=== PATIENT | female | born 1970 | race Two or more races ===

== ENCOUNTER 2020-07-04 10:48 | Outpatient (REF) | payer MEDICARE, MEDICAID, SELFPAY ==
[2020-07-04 11:48] LABS: MANUAL DIFF FLAG NO
[2020-07-04 11:58] LABS: Basophils Percent Auto 0.4 % (0-2); Eosinophils Absolute Auto 0.1 X10*3/uL (0.0-0.4); Eosinophils Percent Auto 0.5 % (0-4); Hematocrit 39.9 % (37-47); Hemoglobin 12.8 g/dl (12.0-16.0); Imm Gran Abs Auto 0.04 X10*3/uL (0.00-0.03); Imm Gran Pct Auto 0.4 % (0.0-0.4); Lymphocytes Absolute Auto 1.7 X10*3/uL (1.2-4.9); Lymphocytes Percent Auto 18.6 % (20-40); Mean Corpuscular HGB Conc 32.1 g/dl (31.0-35.0); Mean Corpuscular Hemoglobin 28.1 pg (27.0-33.0); Mean Corpuscular Volume 87.5 fL (80-98); Mean Platelet Volume 10.6 fL (9.4-12.3); Monocytes Absolute Auto 0.5 X10*3/uL (0.1-1.2); Neutrophils Absolute Auto 6.9 X10*3/uL (2.0-8.3); Neutrophils Percent Auto 75.1 % (45-73); Platelet Count 245 X10*3/uL (160-400); Red Blood Count 4.56 X10*6/uL (4.20-5.50); Red Cell Distribution Width 12.3 % (11.0-16.0); White Blood Count 9.2 X10*3/uL (4.8-10.8)
[2020-07-04 12:00] LABS: Appearance Urine HAZY; Color Urine YELLOW; Glucose Urine UA NEG (NEG); Leukocyte Esterase Urine NEG (NEG); Nitrite Urine NEG (NEG); Urine Blood NEG (NEG); Urine Ketones NEG (NEG); Urine Protein 1+ MG/DL (NEG-TRACE)
[2020-07-04 12:15] LABS: Bacteria Urine 1+ /LPF; Mucus Urine TRACE /LPF; Squamous Epithelial Cell Urine 3+ /LPF; WBC Urine 0-2 /HPF (0-4)
[2020-07-04 12:34] LABS: Alanine Aminotransferase 17 U/L (0-31); Albumin Level 4.6 g/dL (3.5-5.0); Alkaline Phosphatase 78 U/L (39-117); Anion Gap 15 (12-20); Aspartate Amino Transferase 19 U/L (5-31); Bilirubin Total 0.3 mg/dL (0.0-1.0); Blood Urea Nitrogen 14 mg/dL (9-16); Calcium 9.5 mg/dL (8.4-10.2); Carbon Dioxide 28 mmol/L (22-29); Chloride 100 mmol/L (96-108); Cholesterol 171 mg/dL; Estimated Glomerular Filt Rate > 60; Glucose Random 151 mg/dL (60-115); HDL Cholesterol 33 mg/dL; LDL Cholesterol Calculated 74 mg/dl; Potassium 4.2 mmol/l (3.3-5.1); Sodium 139 mmol/L (135-145); Triglycerides 323 mg/dL
[2020-07-04 13:06] LABS: Folate > 20.0 ng/mL (> or = 4.0); Free T4 (Free Thyroxine) 0.92 ng/dL (0.71-1.85); Thyroid Stimulating Hormone 5.67 uIU/mL (0.32-4.0); Vitamin B12 1068 pg/mL (200-900); Vitamin D 25-OH Total 12.7 ng/mL (>30)
== END 2020-07-04 10:49 | disposition home or self-care (01) ==
LOC: HO.LAB 10:48
PROVIDERS: PCP Internal Medicine; Visit Provider Internal Medicine
DX: E53.8 Deficiency of other specified B group vitamins (principal); K59.01 Slow transit constipation; E03.9 Hypothyroidism, unspecified; E78.00 Pure hypercholesterolemia, unspecified
CPT/HCPCS: 36415; 80053; 80061; 81001; 82306; 82607; 82746; 84439; 84443; 85025

== ENCOUNTER 2020-08-29 13:33 | Outpatient (REF) | payer MEDICARE, MEDICAID, SELFPAY ==
--- NOTE | ~2020-08-29 | MM_ITS ---
EXAMINATION: MM SCREENING DIGITAL BREAST TOMOSYNTHESIS, BILATERAL CLINICAL INFORMATION: Screening. Asymptomatic. The lifetime risk of breast cancer based on the Tyrer-Cuzick Model is 8%. COMPARISON: Mammography: 12/01/2018, 11/27/2018, 11/14/2017, 11/11/2016, 11/10/2015 TECHNIQUE: Digital breast tomosynthesis is performed in both the craniocaudal and mediolateral oblique views along with computer-aided detection (CAD). Synthesized 2D images are generated from the tomosynthesis. FINDINGS: There are scattered areas of fibroglandular density (ACR BI-RADS breast composition Category b). There are no significant masses, abnormal calcifications, or other abnormalities. No developing density. No significant changes. MM/MM tomosynthesis screening BI IMPRESSION: No mammographic evidence of malignancy. ASSESSMENT: BI-RADS 1: Negative RECOMMENDATION: Routine annual mammography screening. This patient's information was entered into a reminder system with a target due date for their next mammogram.
== END 2020-08-29 13:34 | disposition home or self-care (01) ==
LOC: HO.MAMMO 13:33
PROVIDERS: PCP Internal Medicine; Visit Provider Internal Medicine
DX: Z12.31 Encounter for screening mammogram for malignant neoplasm of breast (principal)
CPT/HCPCS: 77063; 77067

== ENCOUNTER 2021-07-24 14:15 | Outpatient (REF) | payer MEDICARE, MEDICAID, SELFPAY ==
[2021-07-24 14:59] LABS: MANUAL DIFF FLAG NO
[2021-07-24 15:07] LABS: Basophils Percent Auto 0.3 % (0-2); Eosinophils Percent Auto 0.4 % (0-4); Hematocrit 40.8 % (37.0-47.0); Hemoglobin 13.4 g/dl (12.0-16.0); Imm Gran Abs Auto 0.06 X10*3/uL (0.00-0.03); Imm Gran Pct Auto 0.6 % (0.0-0.4); Lymphocytes Absolute Auto 1.3 X10*3/uL (1.2-4.9); Lymphocytes Percent Auto 11.9 % (20-40); Mean Corpuscular HGB Conc 32.8 g/dl (31.0-35.0); Mean Corpuscular Hemoglobin 28.5 pg (27.0-33.0); Mean Corpuscular Volume 86.8 fL (80.0-98.0); Mean Platelet Volume 10.5 fL (9.4-12.3); Monocytes Absolute Auto 0.6 X10*3/uL (0.1-1.2); Monocytes Percent Auto 5.7 % (2-11); Neutrophils Absolute Auto 8.7 x10*3/uL (2.0-8.3); Neutrophils Percent Auto 81.1 % (45-73); Platelet Count 230 X10*3/uL (160-400); Red Cell Distribution Width 11.9 % (11.0-16.0); White Blood Count 10.7 X10*3/uL (4.8-10.8)
[2021-07-24 15:18] LABS: Estimated Average Glucose 117 mg/dL; Hemoglobin A1c % 5.7 %
[2021-07-24 15:40] LABS: Alanine Aminotransferase 13 U/L (0-31); Albumin Level 4.5 g/dL (3.5-5.0); Alkaline Phosphatase 72 U/L (39-117); Anion Gap 11 (12-20); Aspartate Amino Transferase 18 U/L (5-31); Bilirubin Total 0.2 mg/dL (0.0-1.0); Blood Urea Nitrogen 12 mg/dL (9-16); Calcium 9.9 mg/dL (8.4-10.2); Carbon Dioxide 27 mmol/L (22-29); Chloride 104 mmol/L (96-108); Cholesterol 161 mg/dL; Estimated Glomerular Filt Rate > 60; Glucose Random 103 mg/dL (60-115); HDL Cholesterol 35 mg/dL; LDL Cholesterol Calculated 90 mg/dl; Sodium 138 mmol/L (135-145); Triglycerides 180 mg/dL
[2021-07-24 16:03] LABS: Thyroid Stimulating Hormone 1.48 uIU/mL (0.32-4.0); Vitamin D 25-OH Total 67.3 ng/mL (>30)
[2021-07-24 16:12] LABS: Folate > 20.0 ng/mL (> or = 4.0); Vitamin B12 1386 pg/mL (200-900)
== END 2021-07-24 14:16 | disposition home or self-care (01) ==
LOC: HO.LAB 14:15
PROVIDERS: PCP Internal Medicine; Visit Provider Internal Medicine
DX: R73.01 Impaired fasting glucose (principal); E78.00 Pure hypercholesterolemia, unspecified; E03.9 Hypothyroidism, unspecified
CPT/HCPCS: 36415; 80053; 80061; 82306; 82607; 82746; 83036; 84439; 84443; 85025

== ENCOUNTER 2021-07-28 09:55 | Outpatient (REF) | payer MEDICARE, MEDICAID, SELFPAY ==
[2021-07-28 11:09] LABS: Appearance Urine CLEAR; Color Urine STRAW; Glucose Urine UA NEG (NEG); Leukocyte Esterase Urine TRACE (NEG); Nitrite Urine NEG (NEG); Urine Blood NEG (NEG); Urine Ketones NEG (NEG); Urine Protein NEG (NEG-TRACE)
[2021-07-28 11:47] LABS: Bacteria Urine 1+ /LPF; RBC Urine 0-2 /HPF (0); Squamous Epithelial Cell Urine 1+ /LPF
== END 2021-07-28 09:56 | disposition home or self-care (01) ==
LOC: HO.LNP 09:55
PROVIDERS: Visit Provider Internal Medicine
DX: E03.9 Hypothyroidism, unspecified (principal)
CPT/HCPCS: 81001

== ENCOUNTER 2022-04-16 16:06 | Inpatient (IN) | payer MEDICARE, MEDICAID, SELFPAY ==
--- NOTE | ~2022-04-16 | XR_ITS ---
EXAMINATION: XR CHEST CLINICAL INFORMATION: Chest pain COMPARISON: Chest radiograph 06/26/2019. TECHNIQUE: Frontal view of the chest was obtained. FINDINGS: Clustered mediastinal vascular clips are again identified in projection with the aortopulmonary window region. The heart size is normal. No effusions or pneumothoraces identified. Normal pattern of pulmonary vasculature. No focal pulmonary consolidation. XR/XR chest 1V IMPRESSION: *No acute cardiopulmonary abnormalities.
--- NOTE | ~2022-04-16 | NM_ITS ---
EXAMINATION: PULMONARY PERFUSION STUDY CLINICAL INFORMATION: Chest pain COMPARISON: CT angiogram of the chest 04/17/2022. Chest x-ray 04/16/2022 TECHNIQUE: Following the intravenous injection of 4.0 mCi Tc-99m MAA, the lungs were imaged in the anterior and posterior, left and right lateral and TAIWANESE, ELIZABETH, LPO, and RPO projections using a gamma scintillation camera. FINDINGS: There is diffusely heterogeneous perfusion. Most notable on the posterior images, there is focally increased uptake in the apical right upper lobe. However no focal anatomic appearing perfusion defects are present. NM/NM pul perfusion IMPRESSION: Diffusely heterogeneous perfusion-only study. Although the pattern is not normal, there are no focal anatomic segmental perfusion defects to suggest pulmonary embolus is present.
--- NOTE | ~2022-04-16 | US_ITS ---
EXAMINATION: US VENOUS ULTRASOUND WITH DOPPLER LOWER EXTREMITY, BILATERAL CLINICAL INFORMATION: Leg swelling COMPARISON: None TECHNIQUE: Ultrasound of the deep veins is performed from the hip to the calf with compression sonography and color and pulse Doppler assessment. Spectral analysis with color-flow imaging is performed. FINDINGS: RIGHT: There is normal venous compression and respiratory variation and augmented flow. The visualized common femoral vein, superficial femoral vein, profunda femoral vein, popliteal vein, and the trifurcation region shows no evidence of deep venous thrombosis. There is no significant popliteal fossa cyst. No popliteal artery aneurysm LEFT: There is normal venous compression and respiratory variation and augmented flow. The visualized common femoral vein, superficial femoral vein, profunda femoral vein, popliteal vein, and the trifurcation region shows no evidence of deep venous thrombosis. There is no significant popliteal fossa cyst. No popliteal artery aneurysm If the patient's symptoms persist, followup ultrasound in 5 days 7 days might be of value to exclude proximal propagation from a non-visualized calf vein. US/US venous duplex LE BI IMPRESSION: No acute DVT demonstrated in the bilateral lower extremity.
--- NOTE | ~2022-04-16 | CT_ITS ---
EXAMINATION: CT ANGIOGRAM OF THE CHEST WITH AND WITHOUT CONTRAST (CT PULMONARY ANGIOGRAM FOR PE) CLINICAL INFORMATION: Reason for Exam short of breath, recent cp, r/o pulm embolism COMPARISON: None TECHNIQUE: Prior to contrast administration, noncontrast localization images were obtained. Subsequently, multidetector volumetric imaging was performed from the thoracic inlet to below the diaphragms following the administration of 65 mL Omnipaque 350 intravenous contrast. No contrast reaction reported Sagittal, coronal, and MIP oblique sagittal reformatted images were obtained on the CT workstation, uploaded to PACS, and reviewed. This CT examination was performed using dose optimization techniques as appropriate, variously including the following: *Automated exposure control *Adjustment of mA and/or kV according to patient size (this includes techniques or standardized protocols for targeted exams where dose is matched to indication/reason for exam; i.e. extremities or head) *Use of iterative reconstruction technique Total exam dose-length product 197 mGy-cm FINDINGS: QUALITY OF STUDY/CONTRAST BOLUS: Satisfactory. PULMONARY ARTERIES: No central or segmental pulmonary emboli. Slightly suboptimal assessment for smaller segmental emboli in the right lower lobe due to extensive respiratory motion artifact. Allowing for this, no embolus is seen however. THORACIC AORTA: No aneurysm or dissection. 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 LUNG: Slightly limited assessment due to extensive respiratory motion artifact. There is mild mosaic attenuation of both lungs consistent with mild air trapping. Small 4 mm right middle lobe nodule on series 8 image 250. No other pulmonary nodules. No airspace consolidation. Central airways are clear. PLEURA: No pleural effusion or pneumothorax. MEDIASTINUM: Normal heart size. Small pericardial effusion. No appreciable coronary artery vascular calcifications. No mediastinal or hilar lymphadenopathy. Multiple surgical clips are seen in the left mediastinum. No evidence of septal bowing or right heart strain. CHEST WALL/AXILLA: No axillary or internal mammary lymphadenopathy. OSSEOUS STRUCTURES: No acute or suspicious osseous abnormality. Partial fusion of the lateral left fourth and fifth ribs noted. UPPER ABDOMEN: Unremarkable. No reflux of contrast into the hepatic veins to suggest elevated right heart pressures. CT/CT angio chest PE protocol IMPRESSION: 1. No evidence of central or segmental pulmonary embolus. Slightly suboptimal assessment for smaller segmental emboli in the right lower lobe due to extensive respiratory motion artifact. 2. No airspace consolidation or effusions. Mild mosaic attenuation of the lungs likely due to mild air trapping. 3. Small pericardial effusion. 4. Small 4 mm right middle lobe pulmonary nodule. If the patient is high risk for primary pulmonary malignancy, consider optional chest CT follow-up in 12 months time per [employer] guidelines. If low risk, no further follow-up required. VTE: Negative with slight limitation as above
--- NOTE | 2022-04-16 16:09 | ECG_ITS ---
Test Reason : CHEST PAIN Blood Pressure : / mmHG Vent. Rate : 100 BPM Atrial Rate : 100 BPM P-R Int : 164 ms QRS Dur : 066 ms QT Int : 368 ms P-R-T Axes : 054 052 001 degrees QTc Int : 474 ms Normal sinus rhythm Nonspecific T wave abnormality RSR' or QR pattern in V1 suggests right ventricular conduction delay Abnormal ECG When compared with ECG of 21-FEB-2014 11:13, Nonspecific T wave abnormality now evident in Inferior leads QT has lengthened Referred By: Generic ED Physician Electronically Signed By:CHAZ BERG MD
[2022-04-16 16:12] VITALS: BP 185/102; PULSE 105; RESP 18; TEMP 37.5; O2SAT 94; BMI 35.2
[2022-04-16 17:24] LABS: MANUAL DIFF FLAG NO
[2022-04-16 17:27] LABS: Basophils Absolute Auto 0.1 X10*3/uL (0.0-0.2); Basophils Percent Auto 0.5 % (0-2); Eosinophils Percent Auto 0.2 % (0-4); Hematocrit 39.4 % (37.0-47.0); Hemoglobin 12.9 g/dl (12.0-16.0); Imm Gran Abs Auto 0.04 X10*3/uL (0.00-0.03); Imm Gran Pct Auto 0.4 % (0.0-0.4); Lymphocytes Absolute Auto 0.8 X10*3/uL (1.2-4.9); Lymphocytes Percent Auto 7.7 % (20-40); Mean Corpuscular HGB Conc 32.7 g/dl (31.0-35.0); Mean Corpuscular Hemoglobin 28.6 pg (27.0-33.0); Mean Corpuscular Volume 87.4 fL (80.0-98.0); Mean Platelet Volume 9.6 fL (9.4-12.3); Monocytes Absolute Auto 0.8 X10*3/uL (0.1-1.2); Monocytes Percent Auto 7.3 % (2-11); Neutrophils Absolute Auto 8.7 x10*3/uL (2.0-8.3); Neutrophils Percent Auto 83.9 % (45-73); Platelet Count 263 X10*3/uL (160-400); Red Blood Count 4.51 X10*6/uL (4.20-5.50); Red Cell Distribution Width 13.3 % (11.0-16.0); White Blood Count 10.3 X10*3/uL (4.8-10.8)
[2022-04-16 17:41] LABS: Alanine Aminotransferase 23 U/L (0-31); Albumin Level 5.1 g/dL (3.5-5.0); Alkaline Phosphatase 74 U/L (39-117); Anion Gap 18 (12-20); Aspartate Amino Transferase 42 U/L (5-31); Bilirubin Direct 0.2 mg/dL (0.0-0.5); Bilirubin Total 0.5 mg/dL (0.0-1.0); Blood Urea Nitrogen 10 mg/dL (9-16); Calcium 9.6 mg/dL (8.4-10.2); Carbon Dioxide 31 mmol/L (22-29); Chloride 95 mmol/L (96-108); Creatinine Clr Calc Pharmacy 58.1; Estimated Glomerular Filt Rate 54; Glucose Random 119 mg/dL (60-115); Lipase 17 U/L (8-78); Potassium 3.6 mmol/L (3.3-5.1); Sodium 140 mmol/L (135-145); Total Protein 8.4 g/dL (6.5-8.0)
[2022-04-16 17:49] LABS: Troponin-I High Sensitivity 51.9 ng/L (<3.5-17.0)
--- NOTE | 2022-04-16 19:37 | ECG_ITS ---
Test Reason : CHEST PAIN Blood Pressure : / mmHG Vent. Rate : 092 BPM Atrial Rate : 092 BPM P-R Int : 160 ms QRS Dur : 066 ms QT Int : 276 ms P-R-T Axes : 062 054 008 degrees QTc Int : 341 ms Normal sinus rhythm RSR' or QR pattern in V1 suggests right ventricular conduction delay Possible Left atrial enlargement Nonspecific T wave abnormality Abnormal ECG When compared with ECG of 16-APR-2022 16:46, QT has shortened Nonspecific T wave abnormality is now Present Lateral leads Referred By: Devonte Street Electronically Signed By:CHAZ BERG MD
--- NOTE | 2022-04-16 19:37 | ED.CHESTPAIN ---
HPI - Chest Pain General Chief Complaint: Chest Pain Stated Complaint: chest pains/heart issues Time Seen by Provider: 04/16/22 19:20 Source: patient Limitations: physical limitation History of Present Illness HPI narrative: This is a 51-year-old female with a history of hypothyroidism, hypertension, hypercholesterolemia, who can articulate yes or no with her voice but otherwise is not able to articulate words at baseline, therefore making history somewhat difficult. The patient had chest pain off and on last night but denies any chest pain today. She has felt short of breath but denies shortness of breath now. She denies any nausea or unusual sweats. She is not a smoker. Patient does have history of asthma. Per her mother, she did have surgery on her heart when she was 7 years old. Patient states she feels well now wants to go home Related Data Home Medications Medication Instructions Recorded Confirmed budesonide-formoterol HFA 160 2 puff inhalation BID 05/19/20 07/24/21 mcg-4.5 mcg/actuation aerosol inhaler (Symbicort) citalopram 40 mg tablet 40 mg PO DAILY 05/19/20 07/24/21 loratadine 10 mg tablet (Allergy 10 mg PO DAILY 05/19/20 07/24/21 Relief (loratadine)) risperidone 0.5 mg tablet 0.5 mg PO DAILY 05/19/20 07/24/21 (Risperdal) risperidone 1 mg tablet 1 mg PO DAILY 05/19/20 07/24/21 simvastatin 20 mg tablet 20 mg PO DAILY 05/19/20 07/24/21 folic acid 400 mcg tablet 0.4 mg PO DAILY 07/24/21 07/24/21 Previous Rx's Medication Instructions Recorded clotrimazole-betamethasone 1 1 appl topical BID 2 weeks #45 07/07/21 %-0.05 % topical cream grams hydroxyzine HCl 25 mg tablet 25 mg PO TID PRN itching #14 tabs 07/15/21 levothyroxine 112 mcg capsule 112 mcg PO DAILY 90 days #90 caps 11/02/21 cholecalciferol (vitamin D3) 50 50 mcg PO DAILY 90 days #90 caps 12/22/21 mcg (2,000 unit) capsule cyanocobalamin (vitamin B-12) 500 500 mcg PO DAILY #90 tabs 01/12/22 mcg tablet docusate sodium 100 mg capsule 100 mg PO BID #180 caps 01/12/22 (DOK) Allergies Allergy/AdvReac Type Severity Reaction Status Date / Time ibuprofen Allergy Unknown unknown Verified 07/24/21 13:10 No Known Allergies Allergy Verified 07/24/21 13:10 [No Known Allergies*] Sulfacetamide Sod-Pred Allergy Mild Unknown Uncoded 07/24/21 13:10 Review of Systems Review of Systems: Yes all other systems are reviewed and are negative Constitutional: Constitutional: Reports as per HPI and Denies fever(s) Eyes: Eyes: Reports as per HPI and Reports no additional eye complaints ENT: Reports system reviewed and no additional complaints, except as documented, Reports as per HPI, Denies nasal congestion, Denies nasal discharge and Denies sore throat Cardiovascular: Cardiovascular: Reports as per HPI, Reports chest pain (None current) and Reports dyspnea (None current) Respiratory: Respiratory: Reports as per HPI, Denies cough and Reports dyspnea (None current) Gastrointestinal: Gastrointestinal: Reports as per HPI, Denies abdominal pain, Denies diarrhea and Denies vomiting Genitourinary: Genitourinary: Reports as per HPI, Denies hematuria, Denies urinary frequency and Denies dysuria Musculoskeletal: Musculoskeletal: Reports no additional musculoskeletal complaints and Denies numbness Integumentary/Breasts: Skin/Breast: Reports as per HPI and Denies rash Neurologic: Reports as per HPI, Denies focal weakness and Denies numbness Psychiatric: Psychiatric: Reports no additional psychiatric complaints and Reports as per HPI Endocrine: Endocrine: Reports no additional endocrine complaints and Reports as per HPI Hematologic/Lymphatic: Hematologic/Lymphatic: Reports no additional hematologic/lymphatic complaints, Reports as per HPI and Reports other (No peripheral edema) [facility] Past Medical History Medical History Deaf Surgical History History of heart surgery Family History Family History (Updated 07/24/21 @ 13:36 by Dafne Hawkins MD) Mother CAD (coronary artery disease) Brother CAD (coronary artery disease) Social History Social History Housing: Other Alcohol intake: never Patient Tobacco Use Status: Never used Tobacco e-Cigarette/Vaping Use: Never Used Second Hand Smoke Exposure: No Advance Directives: No Advance Directives Information Provided: No Current occupational status: unemployed Physical Exam Vital Signs: Vital Signs: Last Vital Signs Temp 98.7 F 04/16/22 20:00 Pulse 98 04/16/22 20:00 Resp 16 04/16/22 20:00 BP 160/82 H 04/16/22 20:00 Pulse Ox 97 04/16/22 20:00 O2 Del Method 04/16/22 20:00 BMI result Body Mass Index 24.2 Const: Other: PERRLA Conj [place] Mucous membranes moist Throat clear Neck supple Lungs CTA Heart RRR no murmurs rubs or gallops Abd soft, non tender, non distended Extremities no pitting edema Neuro alert and oriented x 3, non focal. Patient is reportedly deaf, which impairs her ability to form words, though patient can answer questions appropriately with head nods, and gestures. Patient does appear to understand questions Course Course Course Narrative: Fifty-one the patient's initial troponin, which appeared to rule in for myocardial infarction, even if only borderline elevated, the patient was given aspirin, started on heparin and given Plavix. Patient under medical record had ibuprofen listed as an allergy but when I discussed this with her and her mother, she stated there is no known allergy such as this and the patient had tolerated aspirin in the past. Patient's 2nd troponin actually was slightly lower than the 1st, which is reassuring that the patient has not had a significant myocardial infarction. Nonetheless given the fact that she has risk factors of moderate obesity, hypertension, hypercholesterolemia, admission for medical evaluation, Cardiology evaluation is warranted. The patient also had significant initial hypertension, and was given labetalol 10 mg IV. The patient was discussed with Dr. Escobar of Cardiology, also with Dr. Duran of the hospitalist service. Critical care time for this life-threatening illness exclusive of all other billable procedures was approximately 35 minutes including initial evaluation of the patient, ordering tests, x-ray interpretation, EKG interpretation, medical consultation, documentation, reevaluation. MDM - Chest Pain Medical Records Data Attestation: I reviewed the patient's medical records. Lab Data Attestation: I reviewed the patient's lab results. Result diagrams: 04/16/22 20:52 04/16/22 17:17 Labs: Lab Results 04/16/22 04/16/22 04/16/22 Range/Units 17:17 17:17 17:17 WBC 10.3 (4.8-10.8) X10*3/uL RBC 4.51 (4.20-5.50) X10*6/uL Hgb 12.9 (12.0-16.0) g/dl Hct 39.4 (37.0-47.0) % MCV 87.4 (80.0-98.0) fL MCH 28.6 (27.0-33.0) pg MCHC 32.7 (31.0-35.0) g/dl RDW 13.3 (11.0-16.0) % Plt Count 263 (160-400) X10*3/uL MPV 9.6 (9.4-12.3) fL Immature Gran % (Auto) 0.4 (0.0-0.4) % Neut % (Auto) 83.9 H (45-73) % Lymph % (Auto) 7.7 L (20-40) % [place] % (Auto) 7.3 (2-11) % Eos % (Auto) 0.2 (0-4) % Baso % (Auto) 0.5 (0-2) % Lymph # (Auto) 0.8 L (1.2-4.9) X10*3/uL [place] # (Auto) 0.8 (0.1-1.2) X10*3/uL Eos # (Auto) 0.0 (0.0-0.4) X10*3/uL Baso # (Auto) 0.1 (0.0-0.2) X10*3/uL Abs Immat Gran (auto) 0.04 H (0.00-0.03) X10*3/uL Absolute Neuts (auto) 8.7 H (2.0-8.3) x10*3/uL Absolute Nucleated RBC 0.000 (0.0-0.012) X10*3/uL Nucleated RBC % (auto) 0.0 (0.0-0.2) /100WBC PT (10.0-13.1) SEC INR (0.9-1.1) APTT (26.0-36.4) SEC aPTT Heparin Protocol Sodium 140 (135-145) mmol/L Potassium 3.6 (3.3-5.1) mmol/L Chloride 95 L (96-108) mmol/L Carbon Dioxide 31 H (22-29) mmol/L Anion Gap 18 (12-20) BUN 10 (9-16) mg/dL Creatinine 1.06 (0.5-1.4) mg/dL Estim Creat Clear Calc 58.1 Estimated GFR 54 Random Glucose 119 H (60-115) mg/dL Calcium 9.6 (8.4-10.2) mg/dL Total Bilirubin 0.5 (0.0-1.0) mg/dL Direct Bilirubin 0.2 (0.0-0.5) mg/dL AST 42 H D (5-31) U/L ALT 23 (0-31) U/L Alkaline Phosphatase 74 (39-117) U/L Troponin I High Sens 51.9 H* (<3.5-17.0) ng/L Total Protein 8.4 H (6.5-8.0) g/dL Albumin 5.1 H (3.5-5.0) g/dL Lipase 17 (8-78) U/L 04/16/22 04/16/22 04/16/22 Range/Units 20:09 20:09 20:52 WBC (4.8-10.8) X10*3/uL RBC (4.20-5.50) X10*6/uL Hgb (12.0-16.0) g/dl Hct (37.0-47.0) % MCV (80.0-98.0) fL MCH (27.0-33.0) pg MCHC (31.0-35.0) g/dl RDW (11.0-16.0) % Plt Count (160-400) X10*3/uL MPV (9.4-12.3) fL Immature Gran % (Auto) (0.0-0.4) % Neut % (Auto) (45-73) % Lymph % (Auto) (20-40) % [place] % (Auto) (2-11) % Eos % (Auto) (0-4) % Baso % (Auto) (0-2) % Lymph # (Auto) (1.2-4.9) X10*3/uL [place] # (Auto) (0.1-1.2) X10*3/uL Eos # (Auto) (0.0-0.4) X10*3/uL Baso # (Auto) (0.0-0.2) X10*3/uL Abs Immat Gran (auto) (0.00-0.03) X10*3/uL Absolute Neuts (auto) (2.0-8.3) x10*3/uL Absolute Nucleated RBC (0.0-0.012) X10*3/uL Nucleated RBC % (auto) (0.0-0.2) /100WBC PT 12.0 Cancelled (10.0-13.1) SEC INR 1.0 Cancelled (0.9-1.1) APTT 34.9 (26.0-36.4) SEC aPTT Heparin Protocol Cancelled Sodium (135-145) mmol/L Potassium (3.3-5.1) mmol/L Chloride (96-108) mmol/L Carbon Dioxide (22-29) mmol/L Anion Gap (12-20) BUN (9-16) mg/dL Creatinine (0.5-1.4) mg/dL Estim Creat Clear Calc Estimated GFR Random Glucose (60-115) mg/dL Calcium (8.4-10.2) mg/dL Total Bilirubin (0.0-1.0) mg/dL Direct Bilirubin (0.0-0.5) mg/dL AST (5-31) U/L ALT (0-31) U/L Alkaline Phosphatase (39-117) U/L Troponin I High Sens 42.4 H (<3.5-17.0) ng/L Total Protein (6.5-8.0) g/dL Albumin (3.5-5.0) g/dL Lipase (8-78) U/L 04/16/22 04/16/22 Range/Units 20:52 20:52 WBC 9.7 (4.8-10.8) X10*3/uL RBC 4.24 (4.20-5.50) X10*6/uL Hgb 12.2 (12.0-16.0) g/dl Hct 37.7 (37.0-47.0) % MCV 88.9 (80.0-98.0) fL MCH 28.8 (27.0-33.0) pg MCHC 32.4 (31.0-35.0) g/dl RDW 13.3 (11.0-16.0) % Plt Count 250 (160-400) X10*3/uL MPV 9.9 (9.4-12.3) fL Immature Gran % (Auto) (0.0-0.4) % Neut % (Auto) (45-73) % Lymph % (Auto) (20-40) % [place] % (Auto) (2-11) % Eos % (Auto) (0-4) % Baso % (Auto) (0-2) % Lymph # (Auto) (1.2-4.9) X10*3/uL [place] # (Auto) (0.1-1.2) X10*3/uL Eos # (Auto) (0.0-0.4) X10*3/uL Baso # (Auto) (0.0-0.2) X10*3/uL Abs Immat Gran (auto) (0.00-0.03) X10*3/uL Absolute Neuts (auto) (2.0-8.3) x10*3/uL Absolute Nucleated RBC 0.000 (0.0-0.012) X10*3/uL Nucleated RBC % (auto) 0.0 (0.0-0.2) /100WBC PT 13.0 (10.0-13.1) SEC INR 1.1 (0.9-1.1) APTT (26.0-36.4) SEC aPTT Heparin Protocol > 200.0 H* Sodium (135-145) mmol/L Potassium (3.3-5.1) mmol/L Chloride (96-108) mmol/L Carbon Dioxide (22-29) mmol/L Anion Gap (12-20) BUN (9-16) mg/dL Creatinine (0.5-1.4) mg/dL Estim Creat Clear Calc Estimated GFR Random Glucose (60-115) mg/dL Calcium (8.4-10.2) mg/dL Total Bilirubin (0.0-1.0) mg/dL Direct Bilirubin (0.0-0.5) mg/dL AST (5-31) U/L ALT (0-31) U/L Alkaline Phosphatase (39-117) U/L Troponin I High Sens (<3.5-17.0) ng/L Total Protein (6.5-8.0) g/dL Albumin (3.5-5.0) g/dL Lipase (8-78) U/L ECG Data ECG #1: Attestation: I personally reviewed and interpreted this ECG as follows: ECG interpretation date: 04/16/22 ECG interpretation time: 16:49 Interpretation: Sinus rhythm with a rate of 100. Nonspecific T-wave abnormalities diffusely. No definite ST elevation or depression. No ectopy. ECG #2: ECG interpretation date: 04/16/22 ECG interpretation time: 20:04 Prior ECG tracings: available for review Ischemic changes: non-specific ST-T wave changes Interpretation: Sinus rhythm with a rate of 92. Baseline artifact. Nonspecific T-wave changes especially noted in the inferior leads, as well as in the anterior leads, although artifact makes interpretation little bit challenging. Discharge Plan Discharge Clinical Impression: ACS (acute coronary syndrome) Prescriptions: No Action clotrimazole-betamethasone 1-0.05 % cream 1 appl topical BID 14 Days Qty: 45 0RF levothyroxine 112 mcg capsule 112 mcg PO DAILY 90 Days Qty: 90 2RF cholecalciferol (vitamin D3) 50 mcg (2,000 unit) capsule 50 mcg PO DAILY 90 Days Qty: 90 3RF cyanocobalamin (vitamin B-12) 500 mcg tablet 500 mcg PO DAILY Qty: 90 2RF docusate sodium [DOK] 100 mg capsule 100 mg PO BID Qty: 180 3RF folic acid 400 mcg tablet 0.4 mg PO DAILY citalopram 40 mg tablet 40 mg PO DAILY loratadine [Allergy Relief (loratadine)] 10 mg tablet 10 mg PO DAILY risperidone [Risperdal] 0.5 mg tablet 0.5 mg PO DAILY simvastatin 20 mg tablet 20 mg PO DAILY budesonide-formoterol [Symbicort] 160-4.5 mcg/actuation HFA aerosol inhaler 2 puff inhalation BID risperidone 1 mg tablet 1 mg PO DAILY hydroxyzine HCl 25 mg tablet 25 mg PO TID PRN (Reason: itching) Qty: 14 0RF
[2022-04-16 20:00] VITALS: BP 160/82; PULSE 98; RESP 16; TEMP 37.1; O2SAT 97
--- NOTE | 2022-04-16 20:07 | PC.NURSE ---
ASSUMED CARE OF PATIENT ,VS TAKEN AND EKG DONE BY THIS PCT .
--- NOTE | 2022-04-16 20:10 | PC.NURSE ---
patient wa hooked up to youth nutritional monitor .
[2022-04-16 20:12] VITALS: BMI 24.2
[2022-04-16 20:27] LABS: Partial Thromboplastin Time 34.9 SEC (26.0-36.4)
--- OUTSIDE RECORDS SUMMARY | 2022-04-16 20:33 | XMS_ITS | Continuity of Care Document ---
:1970 Author Organization [facility] Address [address] [place] [id number]- Care Team Providers Name Role Phone Not on Staff, PCP Primary Care Physician Unavailable Encounter [facility] Date(s): 08/08/19 - 08/08/[address] [id number]- [facility] Attending Physician: Tracey SAMSON, Dannielle Morrissey Allergies, Adverse Reactions, Alerts Substance Reaction Severity Status NKA Active
[2022-04-16] MEDS: Heparin Sodium,Porcine 5,000 UNIT/ML VIAL 4000 UNIT IVPUSH (20:35)
[2022-04-16] MEDS: Labetalol HCL 100 MG/20 ML VIAL 10 MG IVPUSH (20:35)
[2022-04-16] MEDS: Aspirin 81 MG TAB.CHEW 324 MG PO (20:36)
[2022-04-16] MEDS: Clopidogrel Bisulfate 300 MG TABLET PO (20:36)
[2022-04-16] MEDS: Heparin Sodium,Porcine/1/2NS 25,000 UNIT/250 ML IV.SOLN 7.87 UNIT IVCONT (20:57)
[2022-04-16 21:01] LABS: Hematocrit 37.7 % (37.0-47.0); Hemoglobin 12.2 g/dl (12.0-16.0); Mean Corpuscular HGB Conc 32.4 g/dl (31.0-35.0); Mean Corpuscular Hemoglobin 28.8 pg (27.0-33.0); Mean Corpuscular Volume 88.9 fL (80.0-98.0); Mean Platelet Volume 9.9 fL (9.4-12.3); Platelet Count 250 X10*3/uL (160-400); Red Blood Count 4.24 X10*6/uL (4.20-5.50); Red Cell Distribution Width 13.3 % (11.0-16.0); White Blood Count 9.7 X10*3/uL (4.8-10.8)
[2022-04-16 21:19] LABS: INTERNATIONAL NORM RATIO 1.1 (0.9-1.1)
[2022-04-16 21:36] LABS: PTT Heparin Drip > 200.0 SEC (53-77.9)
[2022-04-16 21:38] LABS: Troponin-I High Sensitivity 42.4 ng/L (<3.5-17.0)
[2022-04-16 22:00] VITALS: BP 101/54; PULSE 72; RESP 20; TEMP 37.2; O2SAT 95
[2022-04-16 22:51] LABS: COVID-19 Test Positive (Negative); IDNOW Serial# 55D5AD1C
[2022-04-16 23:52] LABS: PTT Heparin Drip > 200.0 SEC (53-77.9)
--- NOTE | 2022-04-17 00:05 | PM.IMHP ---
History of Present Illness Date of Service: 04/16/22 Chief Complaint: Chest pain This is a 51-year-old female with past medical history of HLD, hypothyroidism, anxiety depression, completely deaf, presents from home with complaints of chest pain. Patient is deaf, very difficult to communicate with, including gated with her by writing my questions although when she answers my questions I am unable to comprehend. Therefore I had to call her mother who lives with her in the same house, as pharmacist technician was used for the phone call. According to the mom, patient has been noticed to be more weak, and tired for the past 3 days, she is complaining of being tired, and sleeping excessively. She reports that patient had no chest pain initially, had a cough, and just very tired. On day of presentation she started complaining of chest pain by pointing to her chest in the method of communication that her family is familiar with, and therefore they brought her to the hospital. I am unable to obtain review of system According to the mother patient has a history of open heart surgery when she was 7 years old, unknown details about On arrival to the ED patient hemodynamically stable Labs are significant for initial troponin of 51.9, a repeat troponin of 42.4, EKG showed T-wave inversions in V1 V2 V3, lead 3 and AVF, Patient started on heparin drip after discussion with Cardiology by ED physician and will be admitted for further management Review of Systems Review of Systems: Yes all other systems are reviewed and are negative PENDING SALE TO [facility] Medical History (Updated 04/17/22 @ 06:27 by Lavonne Duran MD) Asthma Constipation Deaf Dysphagia Generalized anxiety disorder Hypercholesterolemia Hypothyroid Vitamin B 12 deficiency Vitamin D deficiency Family History Mother CAD (coronary artery disease) Brother CAD (coronary artery disease) Surgical History History of heart surgery Social History Housing: Other Alcohol intake: never Patient Tobacco Use Status: Never used Tobacco e-Cigarette/Vaping Use: Never Used Second Hand Smoke Exposure: No Advance Directives: No Advance Directives Information Provided: No Current occupational status: unemployed Meds Allergies Allergy/AdvReac Type Severity Reaction Status Date / Time ibuprofen Allergy Unknown unknown Verified 07/24/21 13:10 No Known Allergies Allergy Verified 07/24/21 13:10 [No Known Allergies*] Sulfacetamide Sod-Pred Allergy Mild Unknown Uncoded 07/24/21 13:10 Active Medications: Current Medications Acetaminophen (Acetaminophen 325 Mg Tablet) 650 mg PO Q6H PRN PRN Reason: Pain, Mild (Pain Scale 1-3) Docusate Sodium (Docusate Sodium 100 Mg Capsule) 100 mg PO DAILY PRN PRN Reason: Constipation Heparin Sodium (Porcine) (Heparin Sodium,Porcine 5,000 Unit/Ml Vial) 2,200 unit 40 unit/kg (2200 unit) IVPUSH PROTOCOL BOLUS PRN; Protocol PRN Reason: 40 unit/kg - Heparin Protocol Heparin Sodium (Porcine) (Heparin Sodium,Porcine 5,000 Unit/Ml Vial) 4,500 unit 80 unit/kg (4500 unit) IVPUSH PROTOCOL BOLUS PRN; Protocol PRN Reason: 80 unit/kg - Heparin Protocol Heparin Sodium/Sodium Chloride (Heparin Sodium,Porcine/1/2ns) 25,000 unit in 250 mls @ 0 mls/hr IVCONT .Q0M [facility]; Protocol Last Titration: 04/16/22 22:14 Dose: 0 units/kg/hr, 0 mls/hr Ondansetron HCl (Ondansetron Hcl 4 Mg/2 Ml Vial) 4 mg IVPUSH Q8H PRN PRN Reason: Nausea and Vomiting Sodium Chloride (0.9 % Sodium Chloride Flush 3 Ml Syringe) 3 ml IVFLUSH QSHIFT [facility] Physical Exam Vital Signs and Narrative: Vital Signs: Last Vital Signs Temp 98.9 F 04/16/22 22:00 Pulse 72 04/16/22 22:00 Resp 20 04/16/22 22:00 BP 101/54 L 04/16/22 22:00 Pulse Ox 95 04/16/22 22:00 O2 Del Method 04/16/22 22:00 BMI result Body Mass Index 24.2 Const: Other: Patient appears comfortable, laying in bed with no apparent distress General: cooperative and no acute distress Orientation/consciousness: patient oriented x3 Eyes: General: appearance normal, both eyes and all related structures Pupils: Equal, round and reactive pupils present Resp: Effort & Inspection: normal respiratory effort Auscultation: clear to auscultation bilaterally Cardio: Rate: regular rate Rhythm: regular rhythm GI: Palpation (GI): Soft to palpation Auscultation: normal bowel sounds Skin: General skin exam: no rashes or lesions noted Neuro: General: patient oriented x3 Cranial nerves: Yes Equal, round and reactive pupils present Cognition (Neuro): normal cognition Extrem: General: Yes normal to inspection and Yes no pedal edema Results Labs CBC and Chem 7: 04/16/22 20:52 04/16/22 17:17 Labs: Laboratory Results - last 24 hr 04/16/22 04/16/22 04/16/22 17:17 17:17 17:17 MCV 87.4 MCH 28.6 MCHC 32.7 RDW 13.3 Plt Count 263 MPV 9.6 Immature Gran % (Auto) 0.4 Neut % (Auto) 83.9 H Lymph % (Auto) 7.7 L [place] % (Auto) 7.3 Eos % (Auto) 0.2 Baso % (Auto) 0.5 Lymph # (Auto) 0.8 L [place] # (Auto) 0.8 Eos # (Auto) 0.0 Baso # (Auto) 0.1 Abs Immat Gran (auto) 0.04 H Absolute Neuts (auto) 8.7 H Absolute Nucleated RBC 0.000 Nucleated RBC % (auto) 0.0 PT INR APTT aPTT Heparin Protocol Anion Gap 18 Estim Creat Clear Calc 58.1 Estimated GFR 54 Random Glucose 119 H Calcium 9.6 Total Bilirubin 0.5 Direct Bilirubin 0.2 AST 42 H D ALT 23 Alkaline Phosphatase 74 Troponin I High Sens 51.9 H* Total Protein 8.4 H Albumin 5.1 H Lipase 17 COVID-19 (GLO) COVID-19 Clin Com 04/16/22 04/16/22 04/16/22 20:09 20:09 20:52 MCV MCH MCHC RDW Plt Count MPV Immature Gran % (Auto) Neut % (Auto) Lymph % (Auto) [place] % (Auto) Eos % (Auto) Baso % (Auto) Lymph # (Auto) [place] # (Auto) Eos # (Auto) Baso # (Auto) Abs Immat Gran (auto) Absolute Neuts (auto) Absolute Nucleated RBC Nucleated RBC % (auto) PT 12.0 Cancelled INR 1.0 Cancelled APTT 34.9 aPTT Heparin Protocol Cancelled Anion Gap Estim Creat Clear Calc Estimated GFR Random Glucose Calcium Total Bilirubin Direct Bilirubin AST ALT Alkaline Phosphatase Troponin I High Sens 42.4 H Total Protein Albumin Lipase COVID-19 (GLO) COVID-19 Clin Com 04/16/22 04/16/22 04/16/22 20:52 20:52 22:24 MCV 88.9 MCH 28.8 MCHC 32.4 RDW 13.3 Plt Count 250 MPV 9.9 Immature Gran % (Auto) Neut % (Auto) Lymph % (Auto) [place] % (Auto) Eos % (Auto) Baso % (Auto) Lymph # (Auto) [place] # (Auto) Eos # (Auto) Baso # (Auto) Abs Immat Gran (auto) Absolute Neuts (auto) Absolute Nucleated RBC 0.000 Nucleated RBC % (auto) 0.0 PT 13.0 INR 1.1 APTT aPTT Heparin Protocol > 200.0 H* Anion Gap Estim Creat Clear Calc Estimated GFR Random Glucose Calcium Total Bilirubin Direct Bilirubin AST ALT Alkaline Phosphatase Troponin I High Sens Total Protein Albumin Lipase COVID-19 (GLO) Positive A COVID-19 Clin Com See Note 04/16/22 23:04 MCV MCH MCHC RDW Plt Count MPV Immature Gran % (Auto) Neut % (Auto) Lymph % (Auto) [place] % (Auto) Eos % (Auto) Baso % (Auto) Lymph # (Auto) [place] # (Auto) Eos # (Auto) Baso # (Auto) Abs Immat Gran (auto) Absolute Neuts (auto) Absolute Nucleated RBC Nucleated RBC % (auto) PT INR APTT aPTT Heparin Protocol > 200.0 H* Anion Gap Estim Creat Clear Calc Estimated GFR Random Glucose Calcium Total Bilirubin Direct Bilirubin AST ALT Alkaline Phosphatase Troponin I High Sens Total Protein Albumin Lipase COVID-19 (GLO) COVID-19 Clin Com Imaging Radiologist's Impressions: Impressions Chest X-Ray 04/16/22 18:48 IMPRESSION: *No acute cardiopulmonary abnormalities. Assessment and Plan (1) Chest pain: Status: Acute (2) ACS (acute coronary syndrome): Status: Acute Plan 51-year-old female with a documented history of heart surgery at the age of 7, and baseline complete deafness presents to the hospital with complaints of chest pain # chest pain/ACS - likely cardiac - has elevated troponin, EKG changes as mentioned above including T-wave inversions in V1 to V3, lead 3 and AVF - started on heparin after discussion with Cardiology - echocardiogram ordered - admit to telemetry # heart surgery? - mother who lives with the patient is not sure of the details around the surgery - no documentation in EMR # hypothyroidism - continue levothyroxine Will continue all her home meds once reconciled DVT prophylaxis: Heparin ggt Quality Stroke Does the patient have a stroke diagnosis?: No VTE Prior VTE?: No VTE Risk Level:: Medical - low VTE Device Contraindication: Treatment Not Indicated VTE Drug Contraindication: N/A - Med Ordered
[2022-04-17] MEDS: 0.9 % Sodium Chloride Flush 3 ML SYRINGE IVFLUSH ×3 (00:24→22:18)
[2022-04-17 01:35] LABS: PTT Heparin Drip 52.1 SEC (53-77.9)
--- NOTE | 2022-04-17 01:55 | PC.NURSE ---
Pharmacy called to report pt's PTT was below therapeutic range. Due to previously elevated PTT, pharmacy recommended that the drip be restarted at a decreased rate of 4 units/kg/hr less than initial rate. This direction goes against our nursing protocols, which would be to give bolus and then increase rate by 2 units/kg/hr. This RN contacted hospitalist to clarify plan. Plan is to redraw PTT HD stat and then proceed with nursing protocols for heparin drip.
[2022-04-17 02:00] VITALS: BP 147/74; PULSE 72; RESP 16; TEMP 36.9; O2SAT 95
[2022-04-17 02:35] LABS: PTT Heparin Drip 36.5 SEC (53-77.9)
[2022-04-17] MEDS: Heparin Sodium,Porcine 5,000 UNIT/ML VIAL 4500 UNIT IVPUSH (03:10)
--- NOTE | 2022-04-17 04:58 | PC.NURSE ---
Pt came in from another room, pt is deaf and needs a senior game designer. Pt's brother Raji Helms came to visit and assisted with interpretation when meds were administered. Pt reports wanting to go home, but nurse advised her to stay until tomorrow and talk to the doctor in the morning. Pt seems anxious but was able to understand her medical plan. pt is asleep and doesn't appeared in any distress.
[2022-04-17 07:08] LABS: MANUAL DIFF FLAG NO
[2022-04-17 07:17] LABS: Basophils Absolute Auto 0.1 X10*3/uL (0.0-0.2); Basophils Percent Auto 0.9 % (0-2); Eosinophils Percent Auto 0.3 % (0-4); Hematocrit 38.7 % (37.0-47.0); Hemoglobin 12.5 g/dl (12.0-16.0); Imm Gran Abs Auto 0.05 X10*3/uL (0.00-0.03); Imm Gran Pct Auto 0.6 % (0.0-0.4); Lymphocytes Absolute Auto 1.5 X10*3/uL (1.2-4.9); Lymphocytes Percent Auto 17.1 % (20-40); Mean Corpuscular HGB Conc 32.3 g/dl (31.0-35.0); Mean Corpuscular Hemoglobin 28.6 pg (27.0-33.0); Mean Corpuscular Volume 88.6 fL (80.0-98.0); Mean Platelet Volume 10.6 fL (9.4-12.3); Monocytes Absolute Auto 0.8 X10*3/uL (0.1-1.2); Monocytes Percent Auto 8.7 % (2-11); Neutrophils Absolute Auto 6.5 x10*3/uL (2.0-8.3); Neutrophils Percent Auto 72.4 % (45-73); Platelet Count 201 X10*3/uL (160-400); Red Blood Count 4.37 X10*6/uL (4.20-5.50); Red Cell Distribution Width 13.3 % (11.0-16.0)
--- NOTE | 2022-04-17 07:21 | PHA.MEDREC ---
Pharmacy Consult ? Medication Reconciliation RN has completed the medication reconciliation.Pharmacist reviewed.
[2022-04-17 07:31] LABS: INTERNATIONAL NORM RATIO 1.2 (0.9-1.1); Prothrombin Time 13.8 SEC (10.0-13.1)
[2022-04-17 08:24] LABS: Anion Gap 18 (12-20); Blood Urea Nitrogen 10 mg/dL (9-16); Carbon Dioxide 24 mmol/L (22-29); Chloride 98 mmol/L (96-108); Creatinine Clr Calc Pharmacy 48.2; Estimated Glomerular Filt Rate 54; Glucose Random 188 mg/dL (60-115); Potassium 3.5 mmol/L (3.3-5.1); Sodium 136 mmol/L (135-145)
[2022-04-17 08:36] LABS: Calcium 9.2 mg/dL (8.4-10.2)
[2022-04-17 08:55] VITALS: BP 159/80; PULSE 85; RESP 18; O2SAT 96
--- NOTE | 2022-04-17 09:07 | PC.NURSE ---
Assumed care of patient at this time.
[2022-04-17 09:09] VITALS: PULSE 83
[2022-04-17 09:27] LABS: Cholesterol 205 mg/dL; HDL Cholesterol 62 mg/dL; LDL Cholesterol Calculated 126 mg/dl; Triglycerides 86 mg/dL
--- NOTE | 2022-04-17 09:30 | PC.NURSE ---
Assumed care of patient at this time
[2022-04-17 09:42] LABS: PTT Heparin Drip > 200.0 SEC (53-77.9)
--- NOTE | 2022-04-17 09:50 | PC.NURSE ---
Held heparin gtt at this time; PTT >200 critical result reported to provider at this time.
--- NOTE | 2022-04-17 09:52 | PC.NURSE ---
Patient requests to go home, expressing that she feels well. MD Raudel. paged at this time.
[2022-04-17] MEDS: Metoprolol Tartrate 25 MG TABLET PO ×2 (11:30→22:18)
[2022-04-17] MEDS: Docusate Sodium 100 MG CAPSULE PO ×2 (11:30→22:18)
[2022-04-17] MEDS: Aspirin Enteric Coated 81 MG TABLET.DR PO (11:30)
[2022-04-17] MEDS: risperiDONE 0.5 MG TABLET PO (11:30)
[2022-04-17] MEDS: Cyanocobalamin (Vitamin B-12) 500 MCG TABLET PO (11:30)
[2022-04-17] MEDS: Cholecalciferol (Vitamin D3) 25 MCG TABLET 50 MCG PO (11:30)
[2022-04-17] MEDS: Escitalopram Oxalate 20 MG TABLET PO ×2 (11:31→11:36)
[2022-04-17] MEDS: Levothyroxine Sodium 112 MCG TABLET PO (11:31)
[2022-04-17] MEDS: Atorvastatin Calcium 80 MG TABLET PO (11:31)
[2022-04-17] MEDS: Folic Acid 1 MG TABLET 0.5 MG PO (11:31)
[2022-04-17] MEDS: Loratadine 10 MG TABLET PO (11:31)
[2022-04-17 12:16] LABS: PTT Heparin Drip 182.6 SEC (53-77.9)
--- NOTE | 2022-04-17 12:24 | MHC.CM.PN ---
Addendum entered by Audrey Steele 04/17/22 12:32: She has been vaccinated x 2 Original Note: Female 51 DX CP Covid+ Information has been gathered from the patients brother, Raji. The patient communicated that this video game script writer should call her brother. The patient lives in a 2 family home. She has one apartment and her mother has the other apartment in the house. She has a program that provides staff members to take her out for errands and activities. Her brother states that the name recently changed. He does not know the new name of the program. The patient is independent with ADLs. DP home self care. Patients brother will provide transportation home.
--- NOTE | 2022-04-17 15:07 | P.PNIM_ITS ---
Subjective Subjective Date of Service: 04/18/22 Interval History: Chest pain Review of Systems Chest pain seem improving, denies any denies any shortness of breath or nausea or vomiting or fever or chills. Physical Exam Vital Signs: Vital Signs: Last Vital Signs Temp 98.4 F 04/17/22 02:00 Pulse 85 04/17/22 08:55 Resp 18 04/17/22 08:55 BP 159/80 H 04/17/22 08:55 Pulse Ox 96 04/17/22 08:55 O2 Del Method 04/17/22 08:55 BMI result Body Mass Index 24.2 Appearance: Alert.? Oriented X3.? not in distress.? cvs: rrr, [id number] , no murmur res: clear to auscultation ,no rhonchii or wheezing abd: no rebound or guarding ,nt, bs present. ext pulses present , no cyanosis . neuro: axo3 , nonfocal. Objective Data Active Medications Acetaminophen (Acetaminophen 325 Mg Tablet) 650 mg PO Q6H PRN PRN Reason: Pain, Mild (Pain Scale 1-3) Albuterol Sulfate (Albuterol Sulfate 90 Mcg 8 Gm Inhaler) 2 puff INHALE Q2H PRN PRN Reason: Shortness Of Breath Aspirin (Aspirin Enteric Coated 81 Mg Tablet.) 81 mg PO DAILY [facility] Last Admin: 04/17/22 11:30 Dose: 81 mg Documented By: CHOLO Atorvastatin Calcium (Atorvastatin Calcium 80 Mg Tablet) 80 mg PO DAILY [facility] Last Admin: 04/17/22 11:31 Dose: 80 mg Documented By: CHOLO Cyanocobalamin (Cyanocobalamin (Vitamin B-12) 500 Mcg Tablet) 500 mcg PO DAILY [facility] Last Admin: 04/17/22 11:30 Dose: 500 mcg Documented By: CHOLO Docusate Sodium (Docusate Sodium 100 Mg Capsule) 100 mg PO DAILY PRN PRN Reason: Constipation Docusate Sodium (Docusate Sodium 100 Mg Capsule) 100 mg PO BID [facility] Last Admin: 04/17/22 11:30 Dose: 100 mg Documented By: CHOLO Escitalopram Oxalate (Escitalopram Oxalate 20 Mg Tablet) 20 mg PO DAILY [facility] Last Admin: 04/17/22 11:36 Dose: 20 mg Documented By: CHOLO Fluticasone/Vilanterol (Fluticasone/Vilanterol 200/25 Blst.W.Dev) 1 puff INHALE DAILY [facility] Last Admin: 04/17/22 09:32 Dose: Not Given Documented By: VICKY Non-Admin Reason: Med Not Available Folic Acid (Folic Acid 1 Mg Tablet) 0.5 mg PO DAILY [facility] Last Admin: 04/17/22 11:31 Dose: 0.5 mg Documented By: CHOLO Heparin Sodium (Porcine) (Heparin Sodium,Porcine 5,000 Unit/Ml Vial) 2,200 unit 40 unit/kg (2200 unit) IVPUSH PROTOCOL BOLUS PRN; Protocol PRN Reason: 40 unit/kg - Heparin Protocol Heparin Sodium (Porcine) (Heparin Sodium,Porcine 5,000 Unit/Ml Vial) 4,500 unit 80 unit/kg (4500 unit) IVPUSH PROTOCOL BOLUS PRN; Protocol PRN Reason: 80 unit/kg - Heparin Protocol Last Admin: 04/17/22 03:10 Dose: 4,500 unit Documented By: MILTON Hydroxyzine HCl (Hydroxyzine Hcl 50 Mg Tablet) 50 mg PO BEDTIME [facility] Heparin Sodium/Sodium Chloride (Heparin Sodium,Porcine/1/2ns) 25,000 unit in 250 mls @ 0 mls/hr IVCONT .Q0M [facility]; Protocol Last Titration: 04/17/22 12:21 Dose: 0 units/kg/hr, 0 mls/hr Documented By: CHOLO Co-signed By: MARGAUX Levothyroxine Sodium (Levothyroxine Sodium 112 Mcg Tablet) 112 mcg PO DAILY@0600 [facility] Last Admin: 04/17/22 11:31 Dose: 112 mcg Documented By: CHOLO Loratadine (Loratadine 10 Mg Tablet) 10 mg PO DAILY [facility] Last Admin: 04/17/22 11:31 Dose: 10 mg Documented By: CHOLO Metoprolol Tartrate (Metoprolol Tartrate 25 Mg Tablet) 25 mg PO BID [facility]; Protocol Last Admin: 04/17/22 11:30 Dose: 25 mg Documented By: CHOLO Non-Formulary Medication (Triamcinolone Acetonide) 2 spray NOSTRIL-B DAILY [facility] Ondansetron HCl (Ondansetron Hcl 4 Mg/2 Ml Vial) 4 mg IVPUSH Q8H PRN PRN Reason: Nausea and Vomiting Risperidone (Risperidone 0.5 Mg Tablet) 0.5 mg PO DAILY [facility] Last Admin: 04/17/22 11:30 Dose: 0.5 mg Documented By: CHOLO Risperidone (Risperidone 1 Mg Tablet) 1 mg PO BEDTIME [facility] Sodium Chloride (0.9 % Sodium Chloride Flush 3 Ml Syringe) 3 ml IVFLUSH QSHIFT [facility] Last Admin: 04/17/22 11:29 Dose: 3 ml Documented By: CHOLO Triamcinolone Acetonide (Triamcinolone Acet 0.1 % Oint 15 Gm Tube) 1 appl TOPICAL BID PRN PRN Reason: Skin Irritation Vitamin D (Cholecalciferol (Vitamin D3) 25 Mcg Tablet) 50 mcg PO DAILY [facility] Last Admin: 04/17/22 11:30 Dose: 50 mcg Documented By: CHOLO Labs CBC & Chem 7: 04/17/22 06:25 04/17/22 06:25 Labs: Laboratory Results - last 24 hr 04/16/22 04/16/22 04/16/22 17:17 17:17 17:17 MCV 87.4 MCH 28.6 MCHC 32.7 RDW 13.3 Plt Count 263 MPV 9.6 Immature Gran % (Auto) 0.4 Neut % (Auto) 83.9 H Lymph % (Auto) 7.7 L [place] % (Auto) 7.3 Eos % (Auto) 0.2 Baso % (Auto) 0.5 Lymph # (Auto) 0.8 L [place] # (Auto) 0.8 Eos # (Auto) 0.0 Baso # (Auto) 0.1 Abs Immat Gran (auto) 0.04 H Absolute Neuts (auto) 8.7 H Absolute Nucleated RBC 0.000 Nucleated RBC % (auto) 0.0 PT INR APTT aPTT Heparin Protocol Anion Gap 18 Estim Creat Clear Calc 58.1 Estimated GFR 54 Random Glucose 119 H Calcium 9.6 Total Bilirubin 0.5 Direct Bilirubin 0.2 AST 42 H D ALT 23 Alkaline Phosphatase 74 Troponin I High Sens 51.9 H* Total Protein 8.4 H Albumin 5.1 H Triglycerides Cholesterol LDL Cholesterol, Calc HDL Cholesterol Lipase 17 COVID-19 (GLO) COVID-19 Clin Com 04/16/22 04/16/22 04/16/22 20:09 20:09 20:52 MCV MCH MCHC RDW Plt Count MPV Immature Gran % (Auto) Neut % (Auto) Lymph % (Auto) [place] % (Auto) Eos % (Auto) Baso % (Auto) Lymph # (Auto) [place] # (Auto) Eos # (Auto) Baso # (Auto) Abs Immat Gran (auto) Absolute Neuts (auto) Absolute Nucleated RBC Nucleated RBC % (auto) PT 12.0 Cancelled INR 1.0 Cancelled APTT 34.9 aPTT Heparin Protocol Cancelled Anion Gap Estim Creat Clear Calc Estimated GFR Random Glucose Calcium Total Bilirubin Direct Bilirubin AST ALT Alkaline Phosphatase Troponin I High Sens 42.4 H Total Protein Albumin Triglycerides Cholesterol LDL Cholesterol, Calc HDL Cholesterol Lipase COVID-19 (GLO) [facility] 04/16/22 04/16/22 04/16/22 20:52 20:52 22:24 MCV 88.9 MCH 28.8 MCHC 32.4 RDW 13.3 Plt Count 250 MPV 9.9 Immature Gran % (Auto) Neut % (Auto) Lymph % (Auto) [place] % (Auto) Eos % (Auto) Baso % (Auto) Lymph # (Auto) [place] # (Auto) Eos # (Auto) Baso # (Auto) Abs Immat Gran (auto) Absolute Neuts (auto) Absolute Nucleated RBC 0.000 Nucleated RBC % (auto) 0.0 PT 13.0 INR 1.1 APTT aPTT Heparin Protocol > 200.0 H* Anion Gap Estim Creat Clear Calc Estimated GFR Random Glucose Calcium Total Bilirubin Direct Bilirubin AST ALT Alkaline Phosphatase Troponin I High Sens Total Protein Albumin Triglycerides Cholesterol LDL Cholesterol, Calc HDL Cholesterol Lipase COVID-19 (GLO) Positive A [facility] See Note 04/16/22 04/17/22 04/17/22 23:04 00:03 01:15 MCV MCH MCHC RDW Plt Count MPV Immature Gran % (Auto) Neut % (Auto) Lymph % (Auto) [place] % (Auto) Eos % (Auto) Baso % (Auto) Lymph # (Auto) [place] # (Auto) Eos # (Auto) Baso # (Auto) Abs Immat Gran (auto) Absolute Neuts (auto) Absolute Nucleated RBC Nucleated RBC % (auto) PT INR APTT aPTT Heparin Protocol > 200.0 H* Cancelled 52.1 L D Anion Gap Estim Creat Clear Calc Estimated GFR Random Glucose Calcium Total Bilirubin Direct Bilirubin AST ALT Alkaline Phosphatase Troponin I High Sens Total Protein Albumin Triglycerides Cholesterol LDL Cholesterol, Calc HDL Cholesterol Lipase COVID-19 (GLO) COVID-19 [facility] 04/17/22 04/17/22 04/17/22 02:22 06:25 06:25 MCV 88.6 MCH 28.6 MCHC 32.3 RDW 13.3 Plt Count 201 MPV 10.6 Immature Gran % (Auto) 0.6 H Neut % (Auto) 72.4 Lymph % (Auto) 17.1 L [place] % (Auto) 8.7 Eos % (Auto) 0.3 Baso % (Auto) 0.9 Lymph # (Auto) 1.5 [place] # (Auto) 0.8 Eos # (Auto) 0.0 Baso # (Auto) 0.1 Abs Immat Gran (auto) 0.05 H Absolute Neuts (auto) 6.5 Absolute Nucleated RBC 0.000 Nucleated RBC % (auto) 0.0 PT 13.8 H INR 1.2 H APTT aPTT Heparin Protocol 36.5 L D Anion Gap Estim Creat Clear Calc Estimated GFR Random Glucose Calcium Total Bilirubin Direct Bilirubin AST ALT Alkaline Phosphatase Troponin I High Sens Total Protein Albumin Triglycerides Cholesterol LDL Cholesterol, Calc HDL Cholesterol Lipase COVID-19 (GLO) [employer] 04/17/22 04/17/22 04/17/22 06:25 09:09 11:12 MCV MCH MCHC RDW Plt Count MPV Immature Gran % (Auto) Neut % (Auto) Lymph % (Auto) [place] % (Auto) Eos % (Auto) Baso % (Auto) Lymph # (Auto) [place] # (Auto) Eos # (Auto) Baso # (Auto) Abs Immat Gran (auto) Absolute Neuts (auto) Absolute Nucleated RBC Nucleated RBC % (auto) PT INR APTT aPTT Heparin Protocol > 200.0 H* D 182.6 H* Anion Gap 18 Estim Creat Clear Calc 48.2 Estimated GFR 54 Random Glucose 188 H Calcium 9.2 Total Bilirubin Direct Bilirubin AST ALT Alkaline Phosphatase Troponin I High Sens Total Protein Albumin Triglycerides 86 Cholesterol 205 D LDL Cholesterol, Calc 126 HDL Cholesterol 62 D Lipase COVID-19 (GLO) [facility] 10/22/22 13:32 MCV MCH MCHC RDW Plt Count MPV Immature Gran % (Auto) Neut % (Auto) Lymph % (Auto) [place] % (Auto) Eos % (Auto) Baso % (Auto) Lymph # (Auto) [place] # (Auto) Eos # (Auto) Baso # (Auto) Abs Immat Gran (auto) Absolute Neuts (auto) Absolute Nucleated RBC Nucleated RBC % (auto) PT INR APTT aPTT Heparin Protocol 43.0 L D Anion Gap Estim Creat Clear Calc Estimated GFR Random Glucose Calcium Total Bilirubin Direct Bilirubin AST ALT Alkaline Phosphatase Troponin I High Sens Total Protein Albumin Triglycerides Cholesterol LDL Cholesterol, Calc HDL Cholesterol Lipase COVID-19 (GLO) COVID-19 Clin Com Assessment and Plan (1) COVID: Status: Acute (2) Chest pain: Status: Acute (3) ACS (acute coronary syndrome): Status: Acute Plan 51-year-old female with a documented history of heart surgery at the age of 7, and baseline complete deafness presents to the hospital with complaints of chest pain # chest pain/eleavted tropnins -?unclear if cardiac?acs - has elevated troponin, EKG changes as mentioned above including T-wave inversions in V1 to V3, lead 3 and AVF - started on heparin after discussion with Cardiology: received asa, loading plavix dose , also on iv heparin drip,bb,statin - echocardiogram ordered - admit to telemetry # heart surgery? - mother who lives with the patient is not sure of the details around the surgery - no documentation in EMR # hypothyroidism - continue levothyroxine Will continue all her home meds once reconciled DVT prophylaxis: Heparin ggt inpatient need:chestpain /elevated tropnin-?acs -unclear etiology :needs cardiac workup bands fell as anticoagulation for now. Quality Stroke Does the patient have a stroke diagnosis?: No VTE Prior VTE?: No VTE Risk Level:: Medical - low VTE Device Contraindication: Treatment Not Indicated VTE Drug Contraindication: N/A - Med Ordered
--- NOTE | 2022-04-17 15:19 | PC.NURSE ---
Called pharmacy at this time to verify dose in which to restart heparin gtt, instructed to restart at 10 units/kg/hour without bolus at this time.
--- NOTE | 2022-04-17 15:31 | P.CONCA_ITS ---
History of Present Illness History of Present Illness Date of Service: 04/17/22 Requesting physician: Lianna Starks Chief complaint: chest pain Narrative: 51-year-old female who has hearing loss and communicates by written communication and lip reading. She is presenting with chest pain. She has mildly abnormal troponin levels in the ER. She complained of chest discomfort and there were nonspecific T-wave changes with some precordial subtle T-wave inversions. She was admitted for NSTEMI. She had COVID testing done and she has tested positive for COVID-19. She is denying any chest discomfort currently and wants to go home. She is a little short of breath during the interview. History is very limited because she was communicating by writing and all she was writing was that she wants to go home and has no chest pain. [facility] Past Medical History Medical History (Updated 04/17/22 @ 06:27 by Lavonne Duran MD) Asthma Constipation Deaf Dysphagia Generalized anxiety disorder Hypercholesterolemia Hypothyroid Vitamin B 12 deficiency Vitamin D deficiency Family History Family History Mother CAD (coronary artery disease) Brother CAD (coronary artery disease) Surgical History Surgical History History of heart surgery Social History Social History Housing: Other Alcohol intake: never Patient Tobacco Use Status: Never used Tobacco e-Cigarette/Vaping Use: Never Used Second Hand Smoke Exposure: No Advance Directives: No Advance Directives Information Provided: No service: No Current occupational status: unemployed Meds Allergies Allergy/AdvReac Type Severity Reaction Status Date / Time ibuprofen Allergy Unknown unknown Verified 07/24/21 13:10 No Known Allergies Allergy Verified 07/24/21 13:10 [No Known Allergies*] Sulfacetamide Sod-Pred Allergy Mild Unknown Uncoded 07/24/21 13:10 Active Medications: Current Medications Acetaminophen (Acetaminophen 325 Mg Tablet) 650 mg PO Q6H PRN PRN Reason: Pain, Mild (Pain Scale 1-3) Albuterol Sulfate (Albuterol Sulfate 90 Mcg 8 Gm Inhaler) 2 puff INHALE Q2H PRN PRN Reason: Shortness Of Breath Aspirin (Aspirin Enteric Coated 81 Mg Tablet.Dr) 81 mg PO DAILY [facility] Last Admin: 04/17/22 11:30 Dose: 81 mg Atorvastatin Calcium (Atorvastatin Calcium 80 Mg Tablet) 80 mg PO DAILY [facility] Last Admin: 04/17/22 11:31 Dose: 80 mg Cyanocobalamin (Cyanocobalamin (Vitamin B-12) 500 Mcg Tablet) 500 mcg PO DAILY [facility] Last Admin: 04/17/22 11:30 Dose: 500 mcg Docusate Sodium (Docusate Sodium 100 Mg Capsule) 100 mg PO DAILY PRN PRN Reason: Constipation Docusate Sodium (Docusate Sodium 100 Mg Capsule) 100 mg PO BID [facility] Last Admin: 04/17/22 11:30 Dose: 100 mg Escitalopram Oxalate (Escitalopram Oxalate 20 Mg Tablet) 20 mg PO DAILY [facility] Last Admin: 04/17/22 11:36 Dose: 20 mg Fluticasone/Vilanterol (Fluticasone/Vilanterol 200/25 Blst.W.Dev) 1 puff INHALE DAILY [facility] Last Admin: 04/17/22 09:32 Dose: Not Given Folic Acid (Folic Acid 1 Mg Tablet) 0.5 mg PO DAILY [facility] Last Admin: 04/17/22 11:31 Dose: 0.5 mg Heparin Sodium (Porcine) (Heparin Sodium,Porcine 5,000 Unit/Ml Vial) 2,200 unit 40 unit/kg (2200 unit) IVPUSH PROTOCOL BOLUS PRN; Protocol PRN Reason: 40 unit/kg - Heparin Protocol Heparin Sodium (Porcine) (Heparin Sodium,Porcine 5,000 Unit/Ml Vial) 4,500 unit 80 unit/kg (4500 unit) IVPUSH PROTOCOL BOLUS PRN; Protocol PRN Reason: 80 unit/kg - Heparin Protocol Last Admin: 04/17/22 03:10 Dose: 4,500 unit Hydroxyzine HCl (Hydroxyzine Hcl 50 Mg Tablet) 50 mg PO BEDTIME [facility] Heparin Sodium/Sodium Chloride (Heparin Sodium,Porcine/1/2ns) 25,000 unit in 250 mls @ 0 mls/hr IVCONT .Q0M [facility]; Protocol Last Titration: 04/17/22 15:06 Dose: 10 units/kg/hr, 5.62 mls/hr Levothyroxine Sodium (Levothyroxine Sodium 112 Mcg Tablet) 112 mcg PO DAILY@0600 [facility] Last Admin: 04/17/22 11:31 Dose: 112 mcg Loratadine (Loratadine 10 Mg Tablet) 10 mg PO DAILY [facility] Last Admin: 04/17/22 11:31 Dose: 10 mg Metoprolol Tartrate (Metoprolol Tartrate 25 Mg Tablet) 25 mg PO BID [facility]; Protocol Last Admin: 04/17/22 11:30 Dose: 25 mg Non-Formulary Medication (Triamcinolone Acetonide) 2 spray NOSTRIL-B DAILY [facility] Ondansetron HCl (Ondansetron Hcl 4 Mg/2 Ml Vial) 4 mg IVPUSH Q8H PRN PRN Reason: Nausea and Vomiting Risperidone (Risperidone 0.5 Mg Tablet) 0.5 mg PO DAILY [facility] Last Admin: 04/17/22 11:30 Dose: 0.5 mg Risperidone (Risperidone 1 Mg Tablet) 1 mg PO BEDTIME [facility] Sodium Chloride (0.9 % Sodium Chloride Flush 3 Ml Syringe) 3 ml IVFLUSH QSHIFT [facility] Last Admin: 04/17/22 11:29 Dose: 3 ml Triamcinolone Acetonide (Triamcinolone Acet 0.1 % Oint 15 Gm Tube) 1 appl TOPICAL BID PRN PRN Reason: Skin Irritation Vitamin D (Cholecalciferol (Vitamin D3) 25 Mcg Tablet) 50 mcg PO DAILY [facility] Last Admin: 04/17/22 11:30 Dose: 50 mcg Home Medications Medication Instructions Recorded Confirmed Last Taken Type albuterol sulfate 90 mcg/actuation 2 puff inhalation Q2-4H PRN 04/17/22 04/17/22 Unknown History aerosol inhaler Shortness Of Breath cetirizine 10 mg tablet 1 tab PO DAILY 04/17/22 04/17/22 Unknown History cholecalciferol (vitamin D3) 50 1 cap PO QAM 04/17/22 04/17/22 Unknown History mcg (2,000 unit) capsule (Vitamin D3) citalopram 40 mg tablet 1 tab PO QAM 04/17/22 04/17/22 Unknown History cyanocobalamin (vitamin B-12) 500 1 tab PO DAILY 04/17/22 04/17/22 Unknown History mcg tablet docusate sodium 100 mg capsule 1 cap PO BID 04/17/22 04/17/22 Unknown History fluticasone furoate 200 1 puff inhalation DAILY 04/17/22 04/17/22 Unknown History mcg-vilanterol 25 mcg/dose inhalation powder (Breo Ellipta) folic acid 400 mcg tablet 1 tab PO DAILY 04/17/22 04/17/22 Unknown History hydroxyzine HCl 25 mg tablet 2 tab PO BEDTIME 04/17/22 04/17/22 Unknown History levothyroxine 112 mcg tablet 1 tab PO QAM 04/17/22 04/17/22 Unknown History mometasone 0.1 % topical ointment 1 appl topical BID PRN Skin 04/17/22 04/17/22 Unknown History Irritation risperidone 0.5 mg tablet 1 tab PO QAM 04/17/22 04/17/22 Unknown History risperidone 1 mg tablet 1 tab PO BEDTIME 04/17/22 04/17/22 Unknown History simvastatin 20 mg tablet 1 tab PO QPM 04/17/22 04/17/22 Unknown History triamcinolone acetonide 55 mcg 2 spray intranasal DAILY 04/17/22 04/17/22 Unknown History nasal spray aerosol Physical Exam Vital Signs: Vital Signs: Last Vital Signs Temp 98.4 F 04/17/22 02:00 Pulse 85 04/17/22 08:55 Resp 18 04/17/22 08:55 BP 159/80 H 04/17/22 08:55 Pulse Ox 96 04/17/22 08:55 O2 Del Method 04/17/22 08:55 BMI result Body Mass Index 24.2 GENERAL APPEARANCE: in no acute distress, pleasant. NECK: no carotid bruit, no jugular venous distention. SKIN: no suspicious lesions, warm and dry. HEART: no murmurs, regular rate and rhythm. LUNGS: clear to auscultation bilaterally. ABDOMEN: soft, nontender. EXTREMITIES: no edema. PERIPHERAL PULSES: equal. NEUROLOGIC: Deaf. Able to communicate by writing. Following simple commands. Objective Labs and Meds Result diagrams: 04/17/22 06:25 04/17/22 06:25 Lab results: Laboratory Results - last 24 hr 04/16/22 04/16/22 04/16/22 17:17 17:17 17:17 WBC 10.3 RBC 4.51 Hgb 12.9 Hct 39.4 MCV 87.4 MCH 28.6 MCHC 32.7 RDW 13.3 Plt Count 263 MPV 9.6 Immature Gran % (Auto) 0.4 Neut % (Auto) 83.9 H Lymph % (Auto) 7.7 L [place] % (Auto) 7.3 Eos % (Auto) 0.2 Baso % (Auto) 0.5 Lymph # (Auto) 0.8 L [place] # (Auto) 0.8 Eos # (Auto) 0.0 Baso # (Auto) 0.1 Abs Immat Gran (auto) 0.04 H Absolute Neuts (auto) 8.7 H Absolute Nucleated RBC 0.000 Nucleated RBC % (auto) 0.0 PT INR APTT aPTT Heparin Protocol Sodium 140 Potassium 3.6 Chloride 95 L Carbon Dioxide 31 H Anion Gap 18 BUN 10 Creatinine 1.06 Estim Creat Clear Calc 58.1 Estimated GFR 54 Random Glucose 119 H Calcium 9.6 Total Bilirubin 0.5 Direct Bilirubin 0.2 AST 42 H D ALT 23 Alkaline Phosphatase 74 Troponin I High Sens 51.9 H* Total Protein 8.4 H Albumin 5.1 H Triglycerides Cholesterol LDL Cholesterol, Calc HDL Cholesterol Lipase 17 COVID-19 (GLO) COVID-19 [facility] 04/16/22 04/16/22 04/16/22 20:09 20:09 20:52 WBC RBC Hgb Hct MCV MCH MCHC RDW Plt Count MPV Immature Gran % (Auto) Neut % (Auto) Lymph % (Auto) [place] % (Auto) Eos % (Auto) Baso % (Auto) Lymph # (Auto) [place] # (Auto) Eos # (Auto) Baso # (Auto) Abs Immat Gran (auto) Absolute Neuts (auto) Absolute Nucleated RBC Nucleated RBC % (auto) PT 12.0 Cancelled INR 1.0 Cancelled APTT 34.9 aPTT Heparin Protocol Cancelled Sodium Potassium Chloride Carbon Dioxide Anion Gap BUN Creatinine Estim Creat Clear Calc Estimated GFR Random Glucose Calcium Total Bilirubin Direct Bilirubin AST ALT Alkaline Phosphatase Troponin I High Sens 42.4 H Total Protein Albumin Triglycerides Cholesterol LDL Cholesterol, Calc HDL Cholesterol Lipase COVID-19 (GLO) COVID-19 Tachyus 04/16/22 04/16/22 04/16/22 20:52 20:52 22:24 WBC 9.7 RBC 4.24 Hgb 12.2 Hct 37.7 MCV 88.9 MCH 28.8 MCHC 32.4 RDW 13.3 Plt Count 250 MPV 9.9 Immature Gran % (Auto) Neut % (Auto) Lymph % (Auto) [place] % (Auto) Eos % (Auto) Baso % (Auto) Lymph # (Auto) [place] # (Auto) Eos # (Auto) Baso # (Auto) Abs Immat Gran (auto) Absolute Neuts (auto) Absolute Nucleated RBC 0.000 Nucleated RBC % (auto) 0.0 PT 13.0 INR 1.1 APTT aPTT Heparin Protocol > 200.0 H* Sodium Potassium Chloride Carbon Dioxide Anion Gap BUN Creatinine Estim Creat Clear Calc Estimated GFR Random Glucose Calcium Total Bilirubin Direct Bilirubin AST ALT Alkaline Phosphatase Troponin I High Sens Total Protein Albumin Triglycerides Cholesterol LDL Cholesterol, Calc HDL Cholesterol Lipase COVID-19 (GLO) Positive A COVID-19 Clin Com See Note 04/16/22 04/17/22 04/17/22 23:04 00:03 01:15 WBC RBC Hgb Hct MCV MCH MCHC RDW Plt Count MPV Immature Gran % (Auto) Neut % (Auto) Lymph % (Auto) [place] % (Auto) Eos % (Auto) Baso % (Auto) Lymph # (Auto) [place] # (Auto) Eos # (Auto) Baso # (Auto) Abs Immat Gran (auto) Absolute Neuts (auto) Absolute Nucleated RBC Nucleated RBC % (auto) PT INR APTT aPTT Heparin Protocol > 200.0 H* Cancelled 52.1 L D Sodium Potassium Chloride Carbon Dioxide Anion Gap BUN Creatinine Estim Creat Clear Calc Estimated GFR Random Glucose Calcium Total Bilirubin Direct Bilirubin AST ALT Alkaline Phosphatase Troponin I High Sens Total Protein Albumin Triglycerides Cholesterol LDL Cholesterol, Calc HDL Cholesterol Lipase COVID-19 (GLO) COVID-19 Clin Com 04/17/22 04/17/22 04/17/22 02:22 06:25 06:25 WBC 9.0 RBC 4.37 Hgb 12.5 Hct 38.7 MCV 88.6 MCH 28.6 MCHC 32.3 RDW 13.3 Plt Count 201 MPV 10.6 Immature Gran % (Auto) 0.6 H Neut % (Auto) 72.4 Lymph % (Auto) 17.1 L [place] % (Auto) 8.7 Eos % (Auto) 0.3 Baso % (Auto) 0.9 Lymph # (Auto) 1.5 [place] # (Auto) 0.8 Eos # (Auto) 0.0 Baso # (Auto) 0.1 Abs Immat Gran (auto) 0.05 H Absolute Neuts (auto) 6.5 Absolute Nucleated RBC 0.000 Nucleated RBC % (auto) 0.0 PT 13.8 H INR 1.2 H APTT aPTT Heparin Protocol 36.5 L D Sodium Potassium Chloride Carbon Dioxide Anion Gap BUN Creatinine Estim Creat Clear Calc Estimated GFR Random Glucose Calcium Total Bilirubin Direct Bilirubin AST ALT Alkaline Phosphatase Troponin I High Sens Total Protein Albumin Triglycerides Cholesterol LDL Cholesterol, Calc HDL Cholesterol Lipase COVID-19 (GLO) COVID-19 Tachyus 04/17/22 04/17/22 04/17/22 06:25 09:09 11:12 WBC RBC Hgb Hct MCV MCH MCHC RDW Plt Count MPV Immature Gran % (Auto) Neut % (Auto) Lymph % (Auto) [place] % (Auto) Eos % (Auto) Baso % (Auto) Lymph # (Auto) [place] # (Auto) Eos # (Auto) Baso # (Auto) Abs Immat Gran (auto) Absolute Neuts (auto) Absolute Nucleated RBC Nucleated RBC % (auto) PT INR APTT aPTT Heparin Protocol > 200.0 H* D 182.6 H* Sodium 136 Potassium 3.5 Chloride 98 Carbon Dioxide 24 Anion Gap 18 BUN 10 Creatinine 1.06 Estim Creat Clear Calc 48.2 Estimated GFR 54 Random Glucose 188 H Calcium 9.2 Total Bilirubin Direct Bilirubin AST ALT Alkaline Phosphatase Troponin I High Sens Total Protein Albumin Triglycerides 86 Cholesterol 205 D LDL Cholesterol, Calc 126 HDL Cholesterol 62 D Lipase COVID-19 (GLO) COVID-[employer] 04/17/22 13:32 WBC RBC Hgb Hct MCV MCH MCHC RDW Plt Count MPV Immature Gran % (Auto) Neut % (Auto) Lymph % (Auto) [place] % (Auto) Eos % (Auto) Baso % (Auto) Lymph # (Auto) [place] # (Auto) Eos # (Auto) Baso # (Auto) Abs Immat Gran (auto) Absolute Neuts (auto) Absolute Nucleated RBC Nucleated RBC % (auto) PT INR APTT aPTT Heparin Protocol 43.0 L D Sodium Potassium Chloride Carbon Dioxide Anion Gap BUN Creatinine Estim Creat Clear Calc Estimated GFR Random Glucose Calcium Total Bilirubin Direct Bilirubin AST ALT Alkaline Phosphatase Troponin I High Sens Total Protein Albumin Triglycerides Cholesterol LDL Cholesterol, Calc HDL Cholesterol Lipase COVID-19 (GLO) COVID-19 [facility] Radiologist's impression: Impressions Chest X-Ray 04/16/22 18:48 IMPRESSION: *No acute cardiopulmonary abnormalities. Assessment and Plan (1) Chest pain: Status: Acute Plan 51-year-old female presenting with chest pain and has tested positive for COVID- 19. She complained of chest discomfort and had mildly abnormal high sensitivity troponin levels. She had precordial subtle T-wave changes too. She was admitted and started on heparin drip for acute coronary syndrome. She is currently pain-free and wants to go home. History is very limited. EKG changes are not specific for ischemia. With COVID-19 1 possibility can be pulmonary embolism. I think the do a CT pulmonary angiogram. If the CT pulmonary angiogram is normal then my inclination is to stop the heparin drip. Obviously but is positive then she should be started on Eliquis and potentially can be discharged home. We will follow along with you. Thank you for allowing me to participate in the care of your patient. Please feel free to contact me if you have any questions. Procedures Date of Service Date of Service: 04/17/22
[2022-04-17] MEDS: iohexoL 350 MG/ML 100 ML INFUS..BTL IV (18:40)
--- NOTE | 2022-04-17 19:24 | PC.NURSE ---
Report given to oncoming JUAN R Lopez at this time.
[2022-04-17] MEDS: Lactated Ringers 1,000 ML 80 ML IVCONT (19:38)
--- NOTE | 2022-04-17 21:19 | PC.NURSE ---
Cyndee RN at [facility] contacted, report given patient to be transported to [facility] bed [id number] by Amandeep [facility] transporter.
[2022-04-17] MEDS: risperiDONE 1 MG TABLET PO (22:17)
[2022-04-17] MEDS: hydrOXYzine HCL 50 MG TABLET PO (22:18)
[2022-04-17 22:27] LABS: PTT Heparin Drip 65.6 SEC (53-77.9)
[2022-04-17 23:38] VITALS: BP 146/68; PULSE 62; RESP 18; TEMP 36.8; O2SAT 94
--- NOTE | 2022-04-18 | ECG_ITS ---
Test Reason : BRADYCARDIA Blood Pressure : / mmHG Vent. Rate : 068 BPM Atrial Rate : 068 BPM P-R Int : 162 ms QRS Dur : 064 ms QT Int : 374 ms P-R-T Axes : 049 057 -04 degrees QTc Int : 397 ms Normal sinus rhythm Nonspecific T wave abnormality RSR' or QR pattern in V1 suggests right ventricular conduction delay Abnormal ECG When compared with ECG of 16-APR-2022 20:03, QT has lengthened Heart rate has decreased Referred By: Lavonne Duran Electronically Signed By:CHAZ BERG MD
--- NOTE | 2022-04-18 00:02 | PM.EVENT ---
Event Note Date of Service: 04/18/22 Event Note: CTA chest negative for central or segmental PE, but suboptimal for smaller segmental emboli in the right lower lobe. heparin stopped for complete pic NM V/Q ordered
[2022-04-18 03:11] VITALS: BP 115/76; PULSE 69; RESP 14; TEMP 36.8; O2SAT 90
[2022-04-18 04:43] LABS: PTT Heparin Drip 30.8 SEC (53-77.9)
[2022-04-18 06:00] VITALS: BMI 22.9
[2022-04-18] MEDS: Levothyroxine Sodium 112 MCG TABLET PO (06:05)
[2022-04-18] MEDS: Lactated Ringers 1,000 ML 80 ML IVCONT (06:05)
[2022-04-18 07:59] VITALS: BP 147/70; PULSE 74; RESP 20; TEMP 36.3; O2SAT 94
--- NOTE | 2022-04-18 10:48 | P.DS_ITS ---
DS: Providers Provider Date of Service: 04/18/22 Date of admission: 04/17/22 08:00 Primary care physician: Dafne Hawkins MD Consults: 04/16/22 23:59 Consult to Cardiology Routine Consulting Provider: Js Escobar Reason for consultation: NSTEMI? Has provider been notified: Yes DS: Diagnosis Discharge Diagnosis (1) Chest pain: Status: Acute (2) COVID: Status: Acute DS: Summary Hospital Course Hospital Course: 51-year-old female with past medical history of HLD, hypothyroidism, anxiety depression, completely deaf, presents from home with complaints of chest pain.? Patient is deaf, very difficult to communicate with, including gated with her by writing my questions although when she answers my questions I am unable to comprehend.? Therefore I had to call her mother who lives with her in the same house, as advertising sales agent was used for the phone call.? According to the mom, patient has been noticed to be more weak, and tired for the past 3 days, she is complaining of being tired, and sleeping excessively.? She reports that patient had no chest pain initially, had a cough, and just very tired.? On day of presentation she started complaining of chest pain by pointing to her chest in the method of communication that her family is familiar with, and therefore they brought her to the hospital.? I am unable to obtain review of system According to the mother patient has a history of open heart surgery when she was 7 years old, unknown details about On arrival to the ED patient hemodynamically stable Labs are significant for initial troponin of 51.9, a repeat troponin of 42.4, EKG showed T-wave inversions in V1 V2 V3, lead 3 and AVF, Patient started on heparin drip after discussion with Cardiology by ED physician and will be admitted for further management. Hopsital course: In patient admitted for chest tightness and found to have COVID-19: Initially was thought to have cardiac chest pain but troponin are mildly elevated and EKG changes are subtle-patient was initially given aspirin,plavix ,heparin drip - seems by cardio : Seems chest tightness initially and elevated troponin possibly related to COVID, patient will go home on aspirin and further workup out patiently, cardiology may arrange their own appointment. Patient CTA negative for central or segmental pulmonary embolus,Slightly suboptimal assessment for smaller segmental emboli in the right lower lobe due to extensive respiratory motion artifact. Subsequently v/q scan was done-no focal anatomic segmental perfusion defects to suggest pulmonary embolus is present. Venous duplex bilateral lower extremities also negative. in addition Cta incidental finding:Small 4 mm right middle lobe pulmonary nodule. If the patient is high risk for primary pulmonary malignancy, consider optional chest CT follow-up in 12 months time per [employer] guidelines. If low risk, no further follow-up required. In addition patient was advised low-fat diet. Monitor lipid panel on out patiently. COVID: Patient is not hypoxic currently not having no respiratory symptom and does not have any chest tightness also. Patient will go home advised says supportive care as well as self isolation for 5 days. Above management discussed with patient brother in detail also since the patient has limited hearing ability as well as speaking. Time Spent with Patient Time attestation: Total time spent providing and/or coordinating discharge services: Discharge coordination time: Greater than 30 minutes Quality: Safe Use of Opioids Does Pt have an Active Cancer Diagnosis on the Problem List?: No Quality: Stroke Does the patient have a stroke diagnosis?: No Physical Exam Vital Signs: Vital Signs: Last Vital Signs Temp 97.3 F 04/18/22 07:59 Pulse 74 04/18/22 07:59 Resp 20 04/18/22 07:59 BP 147/70 H 04/18/22 07:59 Pulse Ox 94 04/18/22 07:59 O2 Del Method 04/18/22 07:59 BMI result Body Mass Index 22.9 ?Appearance: Alert.? Oriented X3.? not in distress.? cvs: rrr, [id number] , no murmur res: clear to auscultation ,no rhonchii or wheezing abd: no rebound or guarding ,nt, bs present. ext pulses present , no cyanosis . neuro: axo3 , nonfocal. DS: Data Data Completed and Pending Labs on day of discharge: Laboratory Results - last 24 hr 04/17/22 04/17/22 04/17/22 11:12 13:32 22:13 aPTT Heparin Protocol 182.6 H* 43.0 L D 65.6 D 04/18/22 04:21 aPTT Heparin Protocol 30.[address] scan - chest: Radiologist's impression: ITS Impressions Chest X-Ray 04/16/22 18:48 IMPRESSION: *No acute cardiopulmonary abnormalities. Chest CTA 04/17/22 18:50 IMPRESSION: 1. No evidence of central or segmental pulmonary embolus. Slightly suboptimal assessment for smaller segmental emboli in the right lower lobe due to extensive respiratory motion artifact. 2. No airspace consolidation or effusions. Mild mosaic attenuation of the lungs likely due to mild air trapping. 3. Small pericardial effusion. 4. Small 4 mm right middle lobe pulmonary nodule. If the patient is high risk for primary pulmonary malignancy, consider optional chest CT follow-up in 12 months time per [employer] guidelines. If low risk, no further follow-up required. VTE: Negative with slight limitation as above Pulmonary Perfusion Imaging 04/18/22 09:45 IMPRESSION: Diffusely heterogeneous perfusion-only study. Although the pattern is not normal, there are no focal anatomic segmental perfusion defects to suggest pulmonary embolus is present. Venous Duplex 04/18/22 10:13 IMPRESSION: No acute DVT demonstrated in the bilateral lower extremity. Additional Comments Additional comments: 04/16/22 04/16/22 04/16/22 ? 17:17 17:17 17:17 MCV ?87.4 ? ? MCH ?28.6 ? ? MCHC ?32.7 ? ? RDW ?13.3 ? ? Plt Count ?263 ? ? MPV ?9.6 ? ? Immature Gran % (Auto) ?0.4 ? ? Neut % (Auto) ?83.9 H ? ? Lymph % (Auto) ?7.7 L ? ? [place] % (Auto) ?7.3 ? ? Eos % (Auto) ?0.2 ? ? Baso % (Auto) ?0.5 ? ? Lymph # (Auto) ?0.8 L ? ? [place] # (Auto) ?0.8 ? ? Eos # (Auto) ?0.0 ? ? Baso # (Auto) ?0.1 ? ? Abs Immat Gran (auto) ?0.04 H ? ? Absolute Neuts (auto) ?8.7 H ? ? Absolute Nucleated RBC ?0.000 ? ? Nucleated RBC % (auto) ?0.0 ? ? PT ? ? ? INR ? ? ? APTT ? ? ? aPTT Heparin Protocol ? ? ? Anion Gap ? ?18 ? Estim Creat Clear Calc ? ?58.1 ? Estimated GFR ? ?54 ? Random Glucose ? ?119 H ? Calcium ? ?9.6 ? Total Bilirubin ? ?0.5 ? Direct Bilirubin ? ?0.2 ? AST ? ?42 H D ? ALT ? ?23 ? Alkaline Phosphatase ? ?74 ? Troponin I High Sens ? ? ?51.9 H* Total Protein ? ?8.4 H ? Albumin ? ?5.1 H ? Triglycerides ? ? ? Cholesterol ? ? ? LDL Cholesterol, Calc ? ? ? HDL Cholesterol ? ? ? Lipase ? ?17 ? COVID-19 (GLO) ? ? ? Discharge Plan Discharge Anticipated Discharge Date/Time: 04/18/22 10:14 Patient Disposition: Home, Self-Care Discharge Diagnosis: chest pain -atypical possible musculocutaneous. Referrals: Po,Dafne Bass MD [Primary Care Provider] - 1 Week Discharge Medications: New aspirin 81 mg capsule 81 mg PO DAILY Qty: 30 0RF Continued citalopram 40 mg tablet 1 tab PO QAM cetirizine 10 mg tablet 1 tab PO DAILY folic acid 400 mcg tablet 1 tab PO DAILY cyanocobalamin (vitamin B-12) 500 mcg tablet 1 tab PO DAILY simvastatin 20 mg tablet 1 tab PO QPM triamcinolone acetonide 55 mcg aerosol,spray 2 spray intranasal DAILY docusate sodium 100 mg capsule 1 cap PO BID hydroxyzine HCl 25 mg tablet 2 tab PO BEDTIME mometasone 0.1 % ointment 1 appl topical BID PRN (Reason: Skin Irritation) risperidone 1 mg tablet 1 tab PO BEDTIME risperidone 0.5 mg tablet 1 tab PO QAM levothyroxine 112 mcg tablet 1 tab PO QAM cholecalciferol (vitamin D3) [Vitamin D3] 50 mcg (2,000 unit) capsule 1 cap PO QAM fluticasone furoate-vilanterol [Breo Ellipta] 200-25 mcg/dose blister with device 1 puff inhalation DAILY albuterol sulfate 90 mcg/actuation HFA aerosol inhaler 2 puff INHALATION Q2-4H PRN (Reason: Shortness Of Breath) Discharge Orders: Discharge Order (Routine); Ordered 04/18/22 Ordered By: Lianna Starks Diet: Advance to usual diet Activity on Discharge: As tolerated Stand Alone Forms: Patient Portal Discharge page Care Plan Goals: patient admitted for chest tightness and found to have COVID-19: Initially was thought to have cardiac chest pain but troponin are mildly elevated and EKG changes are subtle-patient was initially given aspirin,plavix ,heparin drip - seems by cardio : Seems chest tightness initially and elevated troponin possibly related to COVID, patient will go home on aspirin and further workup out patiently, cardiology may arrange their own appointment. In addition patient was advised low-fat diet. COVID: Patient is not hypoxic currently not having no respiratory symptom and does not have any chest tightness also. Patient will go home advised says supportive care as well as self isolation for 5 days. Above management discussed with patient brother in detail also since the patient has limited hearing ability as well as speaking. Health Concerns: As above. Follow-up with PCP in 1 week. Plan of Treatment: As above. Assessment: As above.
[2022-04-18] MEDS: Loratadine 10 MG TABLET PO (10:50)
[2022-04-18] MEDS: Docusate Sodium 100 MG CAPSULE PO (10:50)
[2022-04-18] MEDS: Folic Acid 1 MG TABLET 0.5 MG PO (10:50)
[2022-04-18] MEDS: Escitalopram Oxalate 20 MG TABLET PO (10:50)
[2022-04-18] MEDS: Cholecalciferol (Vitamin D3) 25 MCG TABLET 50 MCG PO (10:50)
[2022-04-18] MEDS: Atorvastatin Calcium 80 MG TABLET PO (10:51)
[2022-04-18] MEDS: Metoprolol Tartrate 25 MG TABLET PO (10:51)
[2022-04-18] MEDS: 0.9 % Sodium Chloride Flush 3 ML SYRINGE IVFLUSH (10:52)
[2022-04-18] MEDS: Aspirin Enteric Coated 81 MG TABLET.DR PO (10:52)
[2022-04-18] MEDS: risperiDONE 0.5 MG TABLET PO (10:52)
[2022-04-18] MEDS: Cyanocobalamin (Vitamin B-12) 500 MCG TABLET PO (10:52)
--- NOTE | 2022-04-18 11:02 | MHC.CM.PN ---
Addendum entered by Audrey Steele 04/18/22 12:46: Family is not available for transport home. [facility] booked. Patient is covid+ and qualifies for BLS. Original Note: IMM 04/17/22 Female 51 Covid+. She is discharged to home self care. Patients brother will provide transportation home.
[2022-04-18 11:24] VITALS: BP 149/86; PULSE 75; RESP 20; TEMP 36.5; O2SAT 96
--- NOTE | 2022-04-18 14:24 | PC.NURSE ---
Alert and oriented. Denies pain, VSS, afebrile, no acute resp. distress noted. Pulmonary perfusion test and venous duplex completed (see results). New order to discharge patient home. called brother Raji twice, left voice message. Ambulance booked for 2pm. Went over discharge instructions, follow up apt and medication administrations. Report given to computer terminal operator. Patient left via stretcher accompanied by 3 computer terminal operator and her mother.
== END 2022-04-18 14:28 | disposition home or self-care (01) | DRG 177 ==
LOC: HO.ED 20:31 → HO.EDOVER 04-17 00:08 → HO.IMC 04-17 16:09
PROVIDERS: Physician Assistant; Admitting Provider Internal Medicine; Emergency Provider Emergency Medicine; PCP Internal Medicine; Visit Provider Internal Medicine
DX: U07.1 COVID-19 (principal); I26.93 Single subsegmental thrombotic pulmonary embolism without acute cor pulmonale; R91.1 Solitary pulmonary nodule; F41.9 Anxiety disorder, unspecified; F32.A Depression, unspecified; E03.9 Hypothyroidism, unspecified; E78.00 Pure hypercholesterolemia, unspecified; Z88.6 Allergy status to analgesic agent; Z79.51 Long term (current) use of inhaled steroids; Z79.890 Hormone replacement therapy; Z79.899 Other long term (current) drug therapy
CPT/HCPCS: 36415; 71045; 71275; 78580; 80048; 80053; 80061; 82248; 83690; 84484; 85025; 85027; 85610; 85730; 87635; 93005; 93970; 99219; 99285; A9540; Q9967

== ENCOUNTER → 2022-05-10 13:33 | Outpatient (REF) | payer MEDICARE, MEDICAID, SELFPAY ==
--- NOTE | 2022-05-10 14:11 | CA_ITS ---
Transthoracic Echocardiogram Patient (Last, First, Middle): Sherrie Helms, Gender: Female Date of : 1970 Age: 51 Procedure Date: 05/10/2022 Procedure Type: Transthoracic Echocardiogram Location: OP Height: 121.92 cm Weight: 52.16 kg BSA: 1.26 m2 Heart Rate: 93 bpm BP: 120 / 80 mmHg Preparation Operator: CHARI Referring MD: Js Escobar MD Cable Tester: Js Escobar MD Symptoms: R07.9 - Chest pain, unspecified Study Quality: Fair ECG Rhythm: Sinus Conclusions: - Normal left ventricular size, thickness, systolic function, and wall motion. The visually estimated ejection fraction is between 55-60%. - E/E prime ratio is >15, consistent with elevated filling pressures. - Normal right ventricular cavity size and systolic function. - There are no definitive echocardiographic findings of tamponade physiology. Small pericardial effusion around the LV and moderate effusion around RA. Findings Left Ventricle Normal left ventricular size, thickness, systolic function, and wall motion. The visually estimated ejection fraction is between 55-60%. Abnormal diastolic function is noted. Spectral Doppler is indicative of an impaired relaxation filling pattern. E/E prime ratio is >15, consistent with elevated filling pressures. Right Ventricle Normal right ventricular cavity size and systolic function. Atria The left atrium is normal in size. The right atrium is normal in size. Aortic Valve There is a normal trileaflet aortic valve. There is mild calcification of the aortic valve. There is no aortic valve stenosis. There is no aortic valve regurgitation. Mitral Valve The mitral valve appears normal. There is trace mitral valve regurgitation. There is no mitral valve stenosis. Pulmonic Valve The pulmonic valve is normal. There is trace pulmonic valve regurgitation. Tricuspid Valve Normal tricuspid valve structure. There is trace tricuspid valve regurgitation. Normal right atrial pressure. There is no evidence of pulmonary hypertension. Great Vessels All visible segments of the aorta are normal in size. The visualized portions of the pulmonary artery and branches are normal. Venous The inferior vena cava is normal in size and collapses greater than 50% with inspiration. Pericardium/Pleural There are no definitive echocardiographic findings of tamponade physiology. Small pericardial effusion around the LV and moderate effusion around RA. Prior Study Comparison No prior study available for comparison. Measurements 2D Linear Measurements IVSd: 0.68 0.6-0.9/0.6-1.0 cm LVIDd: 4.21 3.9-5.3/4.2-5.9 cm LVIDd Index: 3.34 2.4-3.2/2.2-3.1 cm/m2 LVIDs: 2.67 2.0-3.6 cm LVPWd: 0.79 0.7-1.1 cm Ao Root: 2.30 2.1-3.5 cm LA Diam: 2.50 2.7-3.8/3.0-4.0 cm LAIDs Index: 1.98 1.5-2.3 cm/m2 LV Mass: 112.98 67-162/88-224 g LV Mass Index: 89.66 43-95/49-115 g/m2 LVOT Diam: 1.70 3.0+(-)1.3 cm 2D Systolic Function EF Teich: 67.00 >55% Mitral Valve MV Pk E: 0.80 MV PK A: 1.09 MV Decel Time: 109.00 E/A: 0.70 E'Lateral: 5.44 E'Medial: 5.33 E/E' Med: 15.00 E/E' Lat: 14.70 PHT: 32.00 MVA PHT: 6.88 Decel Thomas: 7.34 Aortic Valve AoV Pk Juan: 1.44 AoV Mn Juan: 1.01 AoV VTI: 0.25 AoV Pk Grad: 8.00 Aov Mn Grad: 5.00 MORGAN Cont.VTI: 1.57 LVOT LVOT Pk Juan: 0.89 LVOT Mn Juan: 0.64 LVOT VTI: 0.17 LVOT Pk Grad: 3.00 LVOT Mn Grad: 2.00 LVOT Diam: 1.70 LVOT Area: 2.27 Diastolic Function MV Pk E: 0.80 MV Pk A: 1.09 E/A: 0.70 E'Medial: 5.33 E/E' Med: 15.00 E' Laterial: 5.44 E/E' Lat: 14.70 Right Ventricle TAPSE (mm): 12.20 TVS' Juan: 11.40 Tricuspid Valve TR Pk Juan: 1.87 TR Pk Grad: 14.00 RA Press: 3.00 RVSP: 17.00 Great Vessels Aorta Ao Root-2D: 2.30 2.0-3.7 cm Sinus of Valsalva: 2.30 2.0-3.5 cm Ao Asc: 2.40 2.1-3.4 cm Ao Arch: 2.40 Pulmonary Valve PV Pk Juan: 1.26 Peak PV Grad: 6.00 Updated in Other Vendor System with Status of Final Js Escobar MD electronically signed on 05/11/2022 5:42:55 PM with status of Final
== END ==
LOC: HO.CARD 13:33
PROVIDERS: PCP Internal Medicine; Visit Provider Internal Medicine Cardiovascular Disease
DX: R07.9 Chest pain, unspecified (principal)
CPT/HCPCS: 93306

== ENCOUNTER → 2022-05-13 12:54 | Outpatient (BNVA) | payer MEDICARE, MEDICAID, SELFPAY | PROVIDERS: PCP Internal Medicine; Referring Provider Internal Medicine; Visit Provider Nurse Practitioner Family | DX: R07.9 Chest pain, unspecified (principal); I31.39 Other pericardial effusion (noninflammatory) | CPT/HCPCS: 99212 ==

== ENCOUNTER → 2022-06-29 13:05 | Outpatient (REF) | payer MEDICARE, MEDICAID, SELFPAY ==
--- NOTE | 2022-06-29 13:09 | CA_ITS ---
Transthoracic Echocardiogram Patient (Last, First, Middle): Sherrie Helms, Gender: Female Date of : 1970 Age: 51 Procedure Date: 06/29/2022 Procedure Type: Transthoracic Echocardiogram Location: OP Height: 137.16 cm Weight: 52.14 kg BSA: 1.37 m2 Heart Rate: bpm BP: 122 / 60 mmHg Wood Panel Inspector: Referring MD: Js Escobar MD Symptoms: I31.39 - Other pericardial effusion (noninflammatory) Study Quality: Fair ECG Rhythm: Sinus Conclusions: - There is a small circumferential pericardial effusion. Findings Left Ventricle Normal left ventricular cavity size. The left ventricular systolic function is normal. Visually estimated LVEF >50%. Venous The inferior vena cava is normal in size and collapses greater than 50% with inspiration. Pericardium/Pleural There is a small circumferential pericardial effusion. There are no definitive echocardiographic findings of tamponade physiology. Prior Study Comparison No significant change compared to prior study dated: 05/10/2022. Measurements 2D Linear Measurements IVSd: 0.77 0.6-0.9/0.6-1.0 cm LVIDd: 4.44 3.9-5.3/4.2-5.9 cm LVIDd Index: 3.24 2.4-3.2/2.2-3.1 cm/m2 LVIDs: 2.81 2.0-3.6 cm LVPWd: 0.82 0.7-1.1 cm LV Mass: 136.88 67-162/88-224 g LV Mass Index: 99.91 43-95/49-115 g/m2 2D Systolic Function EF 4C: 49.80 >55% EF 2C: 49.80 >55% Updated in Other Vendor System with Status of Final Sukhjinder Vences MD electronically signed on 07/01/2022 1:31:43 PM with status of Final
== END ==
LOC: HO.CARD 13:05
PROVIDERS: PCP Internal Medicine; Visit Provider Nurse Practitioner Family
DX: I31.39 Other pericardial effusion (noninflammatory) (principal)
CPT/HCPCS: 93308

== ENCOUNTER 2022-09-01 14:08 | Outpatient (REF) | payer MEDICARE, MEDICAID, SELFPAY | END 2022-09-01 14:09 | disposition home or self-care (01) | LOC: HO.MAMMO 14:08 | PROVIDERS: PCP Internal Medicine; Referring Provider Internal Medicine; Visit Provider Internal Medicine Cardiovascular Disease | DX: R07.9 Chest pain, unspecified (principal); I31.39 Other pericardial effusion (noninflammatory) | CPT/HCPCS: 93005; 99212 ==

== ENCOUNTER 2022-10-22 13:12 | Outpatient (REF) | payer MEDICARE, MEDICAID, SELFPAY ==
--- NOTE | ~2022-10-22 | MM_ITS ---
EXAMINATION: MM SCREENING DIGITAL BREAST TOMOSYNTHESIS, BILATERAL CLINICAL INFORMATION: Screening. Asymptomatic. The lifetime risk of breast cancer based on the Tyrer-Cuzick Model is 9%. COMPARISON: Mammography: 08/29/2020, 12/01/2018, 11/27/2018, 11/14/2017 TECHNIQUE: Digital breast tomosynthesis is performed in both the craniocaudal and mediolateral oblique views along with computer-aided detection (CAD). Synthesized 2D images are generated from the tomosynthesis. Additional left MLO view is provided. FINDINGS: There are scattered areas of fibroglandular density (ACR BI-RADS breast composition Category b). There are no significant masses, abnormal calcifications, or other abnormalities. Parenchymal pattern is similar to prior studies. There is no developing density or architectural abnormality. The axilla and skin contours are unremarkable. No significant changes. MM/MM tomosynthesis screening BI IMPRESSION: No mammographic evidence of malignancy. ASSESSMENT: BI-RADS 1: Negative RECOMMENDATION: Routine annual mammography screening. This patient's information was entered into a reminder system with a target due date for their next mammogram.
== END 2022-10-22 13:13 | disposition home or self-care (01) ==
LOC: HO.MAMMO 13:12
PROVIDERS: PCP Internal Medicine; Visit Provider Internal Medicine
DX: Z12.31 Encounter for screening mammogram for malignant neoplasm of breast (principal)
CPT/HCPCS: 77063; 77067

== ENCOUNTER 2022-11-04 01:01 | Inpatient (IN) | payer MEDICARE, MEDICAID, SELFPAY ==
[2022-11-04] VITALS (39 sets, daily range): BP systolic 87–198; BP diastolic 42–104; PULSE 59–108; RESP 18–20; TEMP 32–36.1; O2SAT 74–99; BMI 31.0; BMI 27.6; BMI 28.7
--- NOTE | ~2022-11-04 | CT_ITS ---
EXAMINATION: CT CHEST WITHOUT CONTRAST CLINICAL INFORMATION: Shortness of breath COMPARISON: 04/17/2022 TECHNIQUE: Multidetector volumetric CT imaging of the chest was done. Axial MIP volume rendering provided. Sagittal and coronal reformatted images were obtained. This CT examination was performed using dose optimization techniques as appropriate, variously including the following: *Automated exposure control *Adjustment of mA and/or kV according to patient size (this includes techniques or standardized protocols for targeted exams where dose is matched to indication/reason for exam; i.e. extremities or head) *Use of iterative reconstruction technique DLP: 273 mGy-cm FINDINGS: LUNGS: Endotracheal tube tip lies approximately 2 cm above the mansi. There is significantly limited detailed evaluation of the lungs due to respiratory motion artifact. There are moderately extensive opacities of the mid to lower lungs, predominantly in the lower lobes and left slightly greater than right; it is difficult to determine with certainty how much of this represents atelectasis versus consolidation, though much of this is favored to reflect consolidation. There is a redemonstrated right middle lobe nodule measuring approximately 5 mm. MEDIASTINUM: Thyroid gland is diminutive. No appreciable mediastinal lymphadenopathy on this noncontrast exam. Borderline cardiomegaly with small to moderate pericardial effusion, increased from prior. Aberrant right subclavian artery noted coursing posterior to the esophagus. CORONARY ARTERY CALCIFICATION: None visualized on this study. PLEURA: No pneumothorax or significant pleural effusion. AXILLA: No lymphadenopathy. UPPER ABDOMEN: Unremarkable. OSSEOUS STRUCTURES: Unremarkable. CT/CT chest wo IV con IMPRESSION: 1. Moderately extensive opacities of the mid to lower lungs, predominantly in the lower lobes and left slightly greater than right. Considerations would include edema or pneumonia. 2. Borderline cardiomegaly with small to moderate pericardial effusion, increased from 04/17/2022. 3. Redemonstrated right middle lobe nodule measuring approximately 5 mm.
--- NOTE | ~2022-11-04 | XR_ITS ---
EXAMINATION: XR CHEST CLINICAL INFORMATION: Follow-up hypoxia. COMPARISON: Chest 11/10/2022. TECHNIQUE: Frontal view of the chest was obtained. FINDINGS: The lungs are hypoexpanded but clear of acute pneumonic process. Heart size is enlarged. Pulmonary vascularity is within normal limits. Postsurgical kd are seen in left suprahilar region. The lines and catheters have been removed. No gross bony abnormality seen. XR/XR chest 1V IMPRESSION: 1. Hypoexpanded lungs without acute pneumonic process. 2. Mild cardiomegaly. 3. Removal of lines and catheters.
--- NOTE | ~2022-11-04 | XR_ITS ---
EXAMINATION: XR CHEST CLINICAL INFORMATION: NG tube placement COMPARISON: 11/04/2022 TECHNIQUE: Frontal view of the chest was obtained. FINDINGS: Enteric tube tip lies in the region of the body of the stomach. There is mild gaseous distention of the stomach. Lung volumes are symmetric. Somewhat streaky regions of opacity at the lung bases again noted. No evidence of pneumothorax or significant pleural effusion. Cardiac silhouette remains enlarged. No acute osseous findings are seen. XR/XR chest 1V IMPRESSION: Enteric tube tip in the region of the body of the stomach. Mild gaseous distention of the stomach. Persistent bibasilar opacities.
--- NOTE | ~2022-11-04 | CT_ITS ---
EXAMINATION: CT SOFT TISSUE NECK WITH CONTRAST CLINICAL INFORMATION: Neck swelling with stridor COMPARISON: None available. TECHNIQUE: Following the intravenous administration of 60 mL of Omnipaque 350 intravenous contrast, helical imaging was performed in the axial plane with generation of coronal and sagittal reformatted images. This CT examination was performed using dose optimization techniques as appropriate, variously including the following: *Automated exposure control *Adjustment of mA and/or kV according to patient size (this includes techniques or standardized protocols for targeted exams where dose is matched to indication/reason for exam; i.e. extremities or head) *Use of iterative reconstruction technique DLP: 543 mGy-cm FINDINGS: Suboptimal assessment of some regions due to presence of an endotracheal tube. There is mild stranding in the bilateral parapharyngeal fat. Mild stranding is also noted adjacent to the bilateral submandibular glands. The professor of french and parotid spaces appear normal and symmetric bilaterally. Several bilateral subcentimeter cervical lymph nodes are seen without adenopathy. Mild stranding is suspected in the supraglottic fat. Epiglottis is not adequately delineated. The carotid vasculature is patent. The thyroid gland is diminutive. Partially opacified visualized portions of the lungs demonstrate heterogeneous opacities. Aberrant right subclavian artery courses posterior to the aorta, and the right vertebral artery arises off the right common carotid artery. Visualized portions of the brain parenchyma are unremarkable. The mastoid air cells appear underpneumatized. Slight mucosal thickening of the maxillary sinuses inferiorly. Mild periorbital soft tissue swelling bilaterally. There is disc space narrowing and endplate osteophyte formation in the mid to lower cervical spine. No acute fracture is seen. CT/CT soft tissue neck w IV con IMPRESSION: 1. Suboptimal assessment of the airway and surrounding structures due to presence of endotracheal tube. Mild stranding in the bilateral parapharyngeal fat and adjacent to the bilateral submandibular glands, which could be indicate nonspecific inflammation. 2. Mild stranding also noted in the supraglottic fat. Epiglottis is not adequately delineated, and the possibility of epiglottitis would be difficult to entirely exclude. 3. Mild bilateral periorbital soft tissue swelling.
--- NOTE | ~2022-11-04 | CT_ITS ---
EXAMINATION: CT SOFT TISSUE NECK WITH CONTRAST CLINICAL INFORMATION: Possible epiglottitis/upper airway edema. COMPARISON: CT scan of the neck 11/04/2022. TECHNIQUE: Following the intravenous administration of 85 mL of Omnipaque 350 intravenous contrast, helical imaging was performed in the axial plane with generation of coronal and sagittal reformatted images. This CT examination was performed using dose optimization techniques as appropriate, variously including the following: *Automated exposure control *Adjustment of mA and/or kV according to patient size (this includes techniques or standardized protocols for targeted exams where dose is matched to indication/reason for exam; i.e. extremities or head) *Use of iterative reconstruction technique DLP: 261 mGy-cm FINDINGS: Suboptimal study due to presence of a previous study demonstrated endotracheal tube, now with a new left nasogastric tube. The endotracheal tube tip is 3.2 cm above the level of the mansi. The presence of the tubes markedly limits evaluation of the oropharyngeal airway, larynx and vocal cords and the epiglottis. There is no cervical lymphadenopathy. There are small lymph nodes at multiple levels in the neck bilaterally. The parotid glands are homogeneous in attenuation. The submandibular glands are normal. No masses or enhancement are demonstrated in the oral cavity or pharyngeal mucosal space, but as described above evaluation is limited. There is nonspecific mild increased fat attenuation in the submandibular regions bilaterally, which is nonspecific. There is good opacification of the bilateral internal carotid arteries and vertebral arteries. No extra mucosal soft tissue mass or fluid collection is seen given the limits of the study. The thyroid gland is small. The superior mediastinum is unremarkable. There are small right greater than left pleural effusions with some atelectasis at the right base. There are groundglass opacifications in the upper lung gar bilaterally. Multiple surgical clips are redemonstrated around the descending thoracic aorta. There is trace fluid at the right mastoid tip. The left mastoid air cells are well-aerated. There is relatively extensive mucopyocele ostial thickening in the bilateral ethmoid sinuses and left sphenoid sinus. There is periosteal thickening in the right sphenoid and bilateral maxillary sinuses. There is a small torus palatinus. The nasal septum is slightly deviated to the left. The temporomandibular joints are normal. There is extensive periodontal disease in the mandible and maxilla bilaterally. There are no acute osseous findings; there are spondylitic and facet arthropathic changes at multiple levels. The visualized intracranial structures are unremarkable. CT/CT soft tissue neck w IV con IMPRESSION: 1. The presence of the endotracheal and nasogastric tubes markedly limits evaluation of the oropharyngeal airway, larynx and vocal cords and the epiglottis. There is no cervical lymphadenopathy. 2. There is nonspecific mild increased fat attenuation in the submandibular regions bilaterally, which is nonspecific. 3. There is extensive paranasal sinus disease. There are small bilateral pleural effusions.
--- NOTE | ~2022-11-04 | XR_ITS ---
EXAMINATION: XR CHEST CLINICAL INFORMATION: ET tube placement COMPARISON: Chest x-ray on 11/06/2022 TECHNIQUE: Frontal view of the chest was obtained. FINDINGS: The endotracheal tube terminates 2.5 cm above the mansi. The enteric tube terminates in the stomach. The cardiac mediastinal silhouette is prominent but stable. Lung volumes are diminished. There is mild interstitial disease and bibasilar atelectasis. XR/XR chest 1V IMPRESSION: 1. Endotracheal tube terminates 2.5 cm above the mansi. 2. Mild interstitial disease and bibasilar atelectasis.
--- NOTE | ~2022-11-04 | XR_ITS ---
EXAMINATION: XR CHEST CLINICAL INFORMATION: Post intubation COMPARISON: 04/17/2022 TECHNIQUE: Frontal view of the chest was obtained. FINDINGS: Endotracheal tube tip lies approximately 3.3 cm above the mansi. Lung volumes are symmetric. No focal consolidation is seen. Central vasculature appears somewhat prominent, without overt edema. No evidence of pneumothorax or significant pleural effusion. Cardiac silhouette is enlarged. No acute osseous findings are seen. XR/XR chest 1V IMPRESSION: Endotracheal tube tip 3.3 cm above the mansi. Prominent central vasculature without overt edema. Enlarged cardiac silhouette.
[2022-11-04] MEDS: Etomidate 20 MG/10 ML VIAL IVPUSH (01:10)
--- NOTE | 2022-11-04 01:12 | PC.NURSE ---
pt intubated with size 6. 20 at the lip. positive color change. capnography 62 upon intubation
[2022-11-04] MEDS: propofoL 1,000 MG/100 ML VIAL 12.1 MG IVCONT ×2 (01:15→18:15)
--- NOTE | 2022-11-04 01:22 | ECG_ITS ---
Test Reason : DYSPNEA Blood Pressure : / mmHG Vent. Rate : 065 BPM Atrial Rate : 065 BPM P-R Int : 156 ms QRS Dur : 070 ms QT Int : 496 ms P-R-T Axes : 051 051 -01 degrees QTc Int : 515 ms Normal sinus rhythm Nonspecific T wave abnormality Prolonged QT Abnormal ECG When compared with ECG of 18-APR-2022 06:55, QT has lengthened Referred By: Mary Rodriguez Electronically Signed By:MONTY CHAMBERS
[2022-11-04] MEDS: Midazolam HCl/PF 2 MG/2 ML VIAL IVPUSH (01:23)
[2022-11-04] MEDS: Famotidine/PF 20 MG/2 ML VIAL IVPUSH ×3 (01:27→19:55)
[2022-11-04] MEDS: diphenhydrAMINE HCL 50 MG/ML VIAL IVPUSH (01:27)
[2022-11-04] MEDS: 0.9 % Sodium Chloride 1,000 ML 999 ML IV (01:28)
--- NOTE | 2022-11-04 01:30 | PC.NURSE ---
dr villalobos made aware of low bp of 87/52. 1 LT NS ordered and running prior to low BP. no new orders at time of alerting
--- NOTE | 2022-11-04 01:30 | ED.SOB ---
HPI - SOB/Dyspnea General Chief Complaint: Dyspnea Stated Complaint: difficulty breathing Time Seen by Provider: 11/04/22 01:21 Source: family (Brother) and EMS Mode of arrival: EMS Limitations: no limitations and other (Patient is nonverbal, non historian, intubated.) History of Present Illness HPI Narrative: 52-year-old female with past medical history of HLD, hypothyroidism, anxiety, depression, deafness, none verbal. History was obtained from brother and mother as patient lives home alone and mother live in the apartment above her, patient was not feeling well for the past 3-4 days was prescribed azithromycin as an antibiotic for infection, patient was not feeling well as she reported to her mom, mom so the patient not breathing well making noise with breathing called 911, on EMS arrival noted that the patient is satting in the 70-80% on room air, swollen tongue, difficulty breathing, patient was given Solu-Medrol by EMS, and 2 doses of epinephrine in the scene. On arrival to the ED patient noted to have neck swelling with submandibular ecchymoses, floor of the mouth is swollen and pushing the tongue upward causing stridorous sound with breathing patient noted that she D satting in the 80s patient was intubated to secure airway. Related Data Home Medications Medication Instructions Recorded Confirmed albuterol sulfate 90 mcg/actuation 2 puff inhalation Q2-4H PRN 04/17/22 09/13/22 aerosol inhaler Shortness Of Breath cholecalciferol (vitamin D3) 50 1 cap PO QAM 04/17/22 09/13/22 mcg (2,000 unit) capsule (Vitamin D3) fluticasone furoate 200 1 puff inhalation DAILY 04/17/22 09/13/22 mcg-vilanterol 25 mcg/dose inhalation powder (Breo Ellipta) mometasone 0.1 % topical ointment 1 appl topical BID PRN Skin 04/17/22 09/13/22 Irritation risperidone 1 mg tablet 1 tab PO BEDTIME 04/17/22 09/13/22 triamcinolone acetonide 55 mcg 2 spray intranasal DAILY 04/17/22 09/13/22 nasal spray aerosol cetirizine 10 mg tablet 10 mg PO DAILY 05/13/22 09/13/22 citalopram 40 mg tablet 40 mg PO QAM 05/13/22 09/13/22 folic acid 400 mcg tablet 0.4 mg PO DAILY 05/13/22 09/13/22 simvastatin 20 mg tablet 20 mg PO BEDTIME 07/26/22 09/13/22 Previous Rx's Medication Instructions Recorded aspirin 81 mg capsule 81 mg PO DAILY #30 caps 04/18/22 levothyroxine 112 mcg tablet 112 mcg PO QAM #60 tabs 09/14/22 cyanocobalamin (vitamin B-12) 500 500 mcg PO DAILY #90 tabs 10/01/22 mcg tablet azithromycin 250 mg tablet See Rx Instructions PO .COMPLEX #6 11/02/22 tabs Allergies Allergy/AdvReac Type Severity Reaction Status Date / Time ibuprofen Allergy Unknown unknown Verified 11/02/22 14:20 Sulfacetamide Sod-Pred Allergy Mild Unknown Uncoded 11/02/22 14:20 Review of Systems Review of Systems: All other systems are reviewed and are negative Constitutional: Reports as per HPI and Reports no additional constitutional complaints Eyes: Reports as per HPI and Reports no additional eye complaints Reports system reviewed and no additional complaints, except as documented Cardiovascular: Reports as per HPI and Reports no additional cardiovascular complaints Respiratory: Reports as per HPI and Reports no additional respiratory complaints Gastrointestinal: Reports as per HPI and Reports no additional gastrointestinal complaints Genitourinary: Reports no additional female genitourinary complaints Musculoskeletal: Reports no additional musculoskeletal complaints Skin/Breast: Reports system reviewed and no additional complaints, except as docu Psychiatric: Reports no additional psychiatric complaints Endocrine: Reports no additional endocrine complaints Hematologic/Lymphatic: Reports no additional hematologic/lymphatic complaints Allergic/Immunologic: Reports no additional allergic/immunologic complaints Reports system reviewed and no additional complaints, except as documented and Reports Abnormal speech present [facility] Past Medical History Medical History ACS (acute coronary syndrome) Anxiety and depression Asthma Constipation COVID Deaf Dysphagia Elevated blood sugar Generalized anxiety disorder Hypercholesterolemia Hypothyroid Pruritus Scabies SOB (shortness of breath) Vitamin B 12 deficiency Vitamin D deficiency Surgical History History of heart surgery Family History Family History Mother CAD (coronary artery disease) Hypertension Brother CAD (coronary artery disease) Social History Social History Household Members: Family Household Members Other:: Mother & Brother Housing: House Housing Other:: 2 family Do you presently have visiting nurse or other home services: Yes Alcohol intake: never Patient Tobacco Use Status: Never used Tobacco e-Cigarette/Vaping Use: Never Used Second Hand Smoke Exposure: No Advance Directives: No Advance Directives Information Provided: Yes service: No Current occupational status: unemployed Cognitive needs: No Hearing needs: No Vision needs: Yes (glasses) Physical Exam Vital Signs: Vital Signs: Last Vital Signs Temp 96.4 F L 11/04/22 05:00 Pulse 66 11/04/22 05:05 Resp 18 11/04/22 05:00 BP 116/66 11/04/22 05:05 Pulse Ox 99 11/04/22 05:00 O2 Del Method Mechanical Ventil ation 11/04/22 05:00 FiO2 80 11/04/22 05:00 BMI result Body Mass Index 31.0 Vital signs have been reviewed as appeared to be correct. Blood pressure normal. Heart rate normal. Respiration rate normal. Temperature normal. Oxygen saturation normal. Appearance: An acute respiratory distress. With stridor Head: Normal external exam. Normocephalic. Atraumatic. No Aragon signs noted. No raccoon eyes noted Eyes: PERRLA. EOMI. Conjunctiva and sclera normal. Eyelids normal. ENT: TM's Normal. Pharynx normal. Uvula midline. Moist mucous membranes. No trismus noted. No drooling noted. No muffled voice noted. Submandibular ecchymosis, ecchymosis in the tongue floor with swollen tongue causing stridorous sounds with breathing. Neck: Normal inspection. Neck supple. FROM. No adenopathy. Thyroid Normal. No meningeal signs. No neck mass noted. CVS: Normal heart rate and rhythm. Heart sound normal. No murmurs noted. Pulses normal throughout. Respiratory: No respiratory distress. Painless inspiration. Breath sounds normal. No wheezes/rales/rhonchi noted. Chest nontender. No accessory muscle usage noted or decreased air movement noted. Abdomen: Soft and nontender. Bowel sounds normal in all 4 quadrants. No distention noted. No organomegaly noted. No visible injury noted. Back: No CVA tenderness. Full range of motion noted. Skin: Skin warm and dry. Normal skin color. Normal skin turgor. No rashes/lesions/lacerations noted. Extremities: No lower extremity edema. Extremities exhibit normal range of motion. Extremities nontender. Neuro: Oriented X 3. Cranial nerve exam: II-XII are grossly intact No motor deficit. No sensory deficit. Reflexes normal. Course Course Course Narrative: 52-year-old female came in with difficulty breathing found to have upper airway partial obstruction with stridor could be secondary to anaphylactic reaction of using zithromycin, patient also is showing ecchymosis to the submandibular tissue , patient required immediate intubation to protect airway. Was given epinephrine /Solu-Medrol pre-hospital, then was given Benadryl/Pepcid /fluid. CT chest/soft tissue neck showing nonspecific soft tissue swelling. Reevaluation(s) Reevaluation #1: Patient with leukocytosis was on Zithromax and intubated, CT now is showing pneumonia as source of infection we will cover with Zosyn , patient do not meet criteria for severe sepsis or septic shock and patient was intubated secondary to the anaphylactic reaction and not due to severe infection Time: 03:21 Medications Administered Generic Name Dose Route Start Last Admin Trade Name Freq PRN Reason Stop Dose Admin Propofol 1,000 mg in 100 mls @ 0 mls/hr 11/04/22 01:30 11/04/22 05:05 Diprivan IVCONT 50 mcg/kg/min .Q0M KEVIN 20.16 mls/hr Administration Protocol Per Protocol Midazolam HCl 50 mg in 50 mls @ 2 mls/hr 11/04/22 03:15 11/04/22 03:44 Versed IVCONT 2 mg/hr .Q24H KEVIN 2 mls/hr Administration 2 MG/HR Discontinued Medications Generic Name Dose Route Start Last Admin Trade Name Freq PRN Reason Stop Dose Admin Diphenhydramine HCl 50 mg 11/04/22 01:21 11/04/22 01:27 Diphenhydramine Hcl 50 Mg/Ml Vial IVPUSH 11/04/22 01:22 50 mg ONCE ONE Administration Epinephrine 0.3 mg 11/04/22 01:21 11/04/22 02:31 Epinephrine 1 Mg/Ml Vial IM 11/04/22 01:22 Not Given STAT STA Etomidate 20 mg 11/04/22 01:25 11/04/22 01:10 Etomidate 20 Mg/10 Ml Vial IVPUSH 11/04/22 01:26 20 mg ONCE ONE Administration Famotidine 20 mg 11/04/22 01:21 11/04/22 01:27 Famotidine/Pf 20 Mg/2 Ml Vial IVPUSH 11/04/22 01:22 20 mg ONCE ONE Administration Fentanyl 25 mcg 11/04/22 02:18 11/04/22 02:23 Fentanyl Citrate/Pf 100 Mcg/2 Ml Vial IVPUSH 11/04/22 02:19 25 mcg ONCE ONE Administration Protocol Fentanyl 25 mcg 11/04/22 03:12 11/04/22 03:48 Fentanyl Citrate/Pf 100 Mcg/2 Ml Vial IVPUSH 11/04/22 03:13 Not Given ONCE ONE Protocol Sodium Chloride 1,000 mls @ 999 mls/hr 11/04/22 01:21 11/04/22 02:44 Ns IV 11/04/22 02:21 Infused .Q1H1M ONE Infusion Piperacillin Sod/Tazobactam 50 mls @ 100 mls/hr 11/04/22 03:20 11/04/22 05:47 Sod 3.375 gm/ Sodium Chloride IV 11/04/22 03:49 Infused ONCE ONE Infusion Sodium Chloride 2,016 mls @ 2,016 mls/hr 11/04/22 03:28 11/04/22 05:46 Ns 30 ml/kg infuse over 1 hr (2016 ml) 11/04/22 04:27 Infused IV Infusion .Q1H STA Iohexol 60 ml 11/04/22 02:08 11/04/22 02:08 Iohexol 350 Mg/Ml 100 Ml Infus..Btl IV 11/04/22 02:09 60 ml ONCE ONE Administration Midazolam HCl 2 mg 11/04/22 01:21 11/04/22 01:23 Midazolam Hcl/Pf 2 Mg/2 Ml Vial IVPUSH 11/04/22 01:22 2 mg ONCE ONE Administration Midazolam HCl 2 mg 11/04/22 03:12 11/04/22 03:48 Midazolam Hcl/Pf 2 Mg/2 Ml Vial IVPUSH 11/04/22 03:13 Not Given ONCE ONE Rocuronium [place] 10 mg 11/04/22 01:39 11/04/22 01:40 Rocuronium [place] 50 Mg/5 Ml Vial IVPUSH 11/04/22 01:40 10 mg ONCE ONE Administration Rocuronium [place] 10 mg 11/04/22 02:18 11/04/22 02:19 Rocuronium [place] 50 Mg/5 Ml Vial IVPUSH 11/04/22 02:19 10 mg ONCE ONE Administration Rocuronium [place] 10 mg 11/04/22 03:12 11/04/22 03:06 Rocuronium [place] 50 Mg/5 Ml Vial IVPUSH 11/04/22 03:13 10 mg ONCE ONE Administration Succinylcholine Chloride 100 mg 11/04/22 01:21 11/04/22 02:30 Succinylcholine Chloride 200 Mg/10 Ml Vial IVPUSH 11/04/22 01:22 100 mg ONCE ONE Administration Medical Decision Making Differential Diagnosis Differential Diagnoses: The differential diagnosis associated with the presentation includes ( Anaphylactic reaction, ayaan's angina, soft tissue bleed of the neck, electrolyte abnormality, anemia, Pneumonia.) Admission/Observation Consideration of admission/observation: Escalation of care including admission/observation considered Consult Healthcare Provider Management of the patient was discussed with: Tools Administrator ( Dr. Henao) Lab Data MDM Lab Attestation statement: I reviewed the patient's lab results. 11/04/22 01:28 11/04/22 01:28 Labs: Lab Results 11/04/22 11/04/22 11/04/22 Range/Units 01:28 01:28 01:28 WBC 17.2 H (4.8-10.8) X10*3/uL RBC 4.13 L (4.20-5.50) X10*6/uL Hgb 12.4 (12.0-16.0) g/dl Hct 36.3 L (37.0-47.0) % MCV 87.9 (80.0-98.0) fL MCH 30.0 (27.0-33.0) pg MCHC 34.2 (31.0-35.0) g/dl RDW 12.2 (11.0-16.0) % Plt Count TNP MPV 11.7 (9.4-12.3) fL Immature Gran % (Auto) 1.7 H (0.0-0.4) % Neut % (Auto) 85.0 H (45-73) % Lymph % (Auto) 8.6 L (20-40) % [facility] % (Auto) 4.4 (2-11) % Eos % (Auto) 0.1 (0-4) % Baso % (Auto) 0.2 (0-2) % Lymph # (Auto) 1.5 (1.2-4.9) X10*3/uL [facility] # (Auto) 0.8 (0.1-1.2) X10*3/uL Eos # (Auto) 0.0 (0.0-0.4) X10*3/uL Baso # (Auto) 0.0 (0.0-0.2) X10*3/uL Abs Immat Gran (auto) 0.29 H (0.00-0.03) X10*3/uL Absolute Neuts (auto) 14.6 H (2.0-8.3) x10*3/uL Absolute Nucleated RBC 0.000 (0.0-0.012) X10*3/uL Nucleated RBC % (auto) 0.0 (0.0-0.2) /100WBC Smear Tech's Comments VERIFIED Sodium 127 L (135-145) mmol/L Potassium 4.1 (3.3-5.1) mmol/L Chloride 85 L (96-108) mmol/L Carbon Dioxide 28 (22-29) mmol/L Anion Gap 18 (12-20) BUN 9 (9-16) mg/dL Creatinine 0.94 (0.5-1.4) mg/dL Estim Creat Clear Calc 55.5 Estimated GFR > 60 Random Glucose 231 H (60-115) mg/dL Lactic Acid 1.7 (0.5-2.0) mmol/L Calcium 9.0 (8.4-10.2) mg/dL Total Bilirubin 0.7 (0.0-1.0) mg/dL Direct Bilirubin 0.2 (0.0-0.5) mg/dL AST 104 H (5-31) U/L ALT 29 (0-31) U/L Alkaline Phosphatase 67 (39-117) U/L Troponin I High Sens (<3.5-17.0) ng/L B-Natriuretic Peptide (<100) pg/mL Total Protein 8.3 H (6.5-8.0) g/dL Albumin 4.8 (3.5-5.0) g/dL Lipase 14 (8-78) U/L COVID-19 (GLO) (Negative) COVID-19 Clin Com 11/04/22 11/04/22 11/04/22 Range/Units 01:28 01:28 01:28 WBC (4.8-10.8) X10*3/uL RBC (4.20-5.50) X10*6/uL Hgb (12.0-16.0) g/dl Hct (37.0-47.0) % MCV (80.0-98.0) fL MCH (27.0-33.0) pg MCHC (31.0-35.0) g/dl RDW (11.0-16.0) % Plt Count MPV (9.4-12.3) fL Immature Gran % (Auto) (0.0-0.4) % Neut % (Auto) (45-73) % Lymph % (Auto) (20-40) % [facility] [place] [facility] % (Auto) (2-11) % Eos % (Auto) (0-4) % Baso % (Auto) (0-2) % Lymph # (Auto) (1.2-4.9) X10*3/uL [facility] [place] [facility] # (Auto) (0.1-1.2) X10*3/uL Eos # (Auto) (0.0-0.4) X10*3/uL Baso # (Auto) (0.0-0.2) X10*3/uL Abs Immat Gran (auto) (0.00-0.03) X10*3/uL Absolute Neuts (auto) (2.0-8.3) x10*3/uL Absolute Nucleated RBC (0.0-0.012) X10*3/uL Nucleated RBC % (auto) (0.0-0.2) /100WBC Smear Tech's Comments Sodium (135-145) mmol/L Potassium (3.3-5.1) mmol/L Chloride (96-108) mmol/L Carbon Dioxide (22-29) mmol/L Anion Gap (12-20) BUN (9-16) mg/dL Creatinine (0.5-1.4) mg/dL Estim Creat Clear Calc Estimated GFR Random Glucose (60-115) mg/dL Lactic Acid (0.5-2.0) mmol/L Calcium (8.4-10.2) mg/dL Total Bilirubin (0.0-1.0) mg/dL Direct Bilirubin (0.0-0.5) mg/dL AST (5-31) U/L ALT (0-31) U/L Alkaline Phosphatase (39-117) U/L Troponin I High Sens 28.2 H (<3.5-17.0) ng/L B-Natriuretic Peptide 55 (<100) pg/mL Total Protein (6.5-8.0) g/dL Albumin (3.5-5.0) g/dL Lipase (8-78) U/L COVID-19 (GLO) Negative (Negative) COVID-19 Clin Com See Note Independent Interpretation I performed an independent interpretation of an: CT Scan ( soft tissue neck/ chest: Mid to lower lung opacification could be a pneumonia, nonspecific neck is soft tissue swelling.) Radiology Impression Discussion of test interpretation with radiology: I have reviewed the radiologist's reading. Independent Historian Clinical information obtained from an independent historian. History obtained from or confirmed by: Other ( Mother and brother) Critical Care Time Critical Care Time Critical Care Time: Yes Total Critical Care Time: 60 Attestation: I spent 60 minutes providing critical care service to the patient, this including time spent at the bedside to evaluate the patient, reassess the patient, monitoring vital signs, review labs, and radiographic studies, counseling the patient/family, discussing the case with consultants, disposition the patient. Discharge Plan Discharge Clinical Impression: Anaphylactic reaction, Pneumonia Patient Disposition: Admitted As Inpatient Interventions: Admission Worksheet (ED) Last Done: 11/04/22 04:15 Discharge Date/Time: 11/04/22 04:15
[2022-11-04] MEDS: Rocuronium Bromide 50 MG/5 ML VIAL 10 MG IVPUSH ×3 (01:40→03:06)
[2022-11-04 01:45] LABS: Basophils Percent Auto 0.2 % (0-2); Eosinophils Percent Auto 0.1 % (0-4); Hematocrit 36.3 % (37.0-47.0); Hemoglobin 12.4 g/dl (12.0-16.0); Imm Gran Abs Auto 0.29 X10*3/uL (0.00-0.03); Imm Gran Pct Auto 1.7 % (0.0-0.4); Lymphocytes Absolute Auto 1.5 X10*3/uL (1.2-4.9); Lymphocytes Percent Auto 8.6 % (20-40); MANUAL DIFF FLAG SCAN; Mean Corpuscular HGB Conc 34.2 g/dl (31.0-35.0); Mean Corpuscular Volume 87.9 fL (80.0-98.0); Mean Platelet Volume 11.7 fL (9.4-12.3); Monocytes Absolute Auto 0.8 X10*3/uL (0.1-1.2); Monocytes Percent Auto 4.4 % (2-11); Neutrophils Absolute Auto 14.6 x10*3/uL (2.0-8.3); PLT CLUMP 1; Red Blood Count 4.13 X10*6/uL (4.20-5.50); Red Cell Distribution Width 12.2 % (11.0-16.0); SCAN SMEAR FLAG 1
[2022-11-04 01:50] LABS: Lactic Acid 1.7 mmol/L (0.5-2.0)
[2022-11-04 01:56] LABS: IDNOW Serial# 08D9AD1C
[2022-11-04 01:57] LABS: COVID-19 Test Negative (Negative)
[2022-11-04 01:58] LABS: Alanine Aminotransferase 29 U/L (0-31); Albumin Level 4.8 g/dL (3.5-5.0); Alkaline Phosphatase 67 U/L (39-117); Anion Gap 18 (12-20); Aspartate Amino Transferase 104 U/L (5-31); Bilirubin Direct 0.2 mg/dL (0.0-0.5); Bilirubin Total 0.7 mg/dL (0.0-1.0); Blood Urea Nitrogen 9 mg/dL (9-16); Carbon Dioxide 28 mmol/L (22-29); Chloride 85 mmol/L (96-108); Creatinine Clr Calc Pharmacy 55.5; Estimated Glomerular Filt Rate > 60; Glucose Random 231 mg/dL (60-115); Lipase 14 U/L (8-78); Potassium 4.1 mmol/L (3.3-5.1); Sodium 127 mmol/L (135-145); Total Protein 8.3 g/dL (6.5-8.0); Troponin-I High Sensitivity 28.2 ng/L (<3.5-17.0)
[2022-11-04 02:05] LABS: White Blood Count 17.2 X10*3/uL (4.8-10.8)
[2022-11-04 02:06] LABS: SLIDE REVIEW VERIFIED
[2022-11-04] MEDS: iohexoL 350 MG/ML 100 ML INFUS..BTL 60 ML IV (02:08)
[2022-11-04 02:09] LABS: B Type Natriuretic Peptide 55 pg/mL (<100)
[2022-11-04] MEDS: fentaNYL citrate/PF 100 MCG/2 ML VIAL 25 MCG IVPUSH (02:23)
[2022-11-04] MEDS: Succinylcholine Chloride 200 MG/10 ML VIAL 100 MG IVPUSH (02:30)
--- NOTE | 2022-11-04 02:45 | PC.NURSE ---
pt noted to have capnography at 20. dr villalobos notified. no new orders. this rn suggesting abg or vbg, per md not needed at this time. RT contacted to reassess pt as prior to CT capnography noted to be in low 30s
--- NOTE | 2022-11-04 02:58 | PC.NURSE ---
RT at bedside to reassess pt. RT suctioning pt at this time. vent setting adjusted to rate 16 TV 300 o2 50% PEEP 5.0. per RT rn should expect capnography to increase
--- NOTE | 2022-11-04 03:30 | PC.NURSE ---
this rn placed 16 fr santiago catheter temp sensing at this time. pt sedated. 300ml urine upon insertion. temp found to be 95.4 dr villalobos made aware pt covered with warm blankets prior to transfer to ICU
--- NOTE | 2022-11-04 03:33 | PC.NURSE ---
this rn confirmed with anitha king medical billing manager order to start versed gtt @ 2/hr in ADDITION to continuing propofol gtt 50/hr. per julissa give both together
[2022-11-04 03:35] LABS: Appearance Urine Clear; Color Urine Dark Yellow; Glucose Urine UA 100 mg/dL (Negative); Leukocyte Esterase Urine Negative (Negative); Nitrite Urine Positive (Negative); PH 7.5 (5.0-9.0); UMIC TRIGGER UACC YES; Urine Blood Moderate (2+) (Negative); Urine Ketones Negative (Negative); Urine Protein 300 (3+) mg/dL (Neg-Trace)
[2022-11-04 03:41] LABS: Venous Blood Gas Refer to POC result
[2022-11-04 03:43] LABS: Bacteria Urine 1+ (None Seen); Hyaline Casts Urine 0-2 /LPF (0-2); RBC Urine 0-2 /HPF (0-2); Squamous Epithelial Cell Urine 0-2 /HPF (0-2); UACC Culture Trigger YES
[2022-11-04] MEDS: Midazolam HCl/NS 50 MG/50 ML PLAST..BAG IVCONT ×2 (03:44→14:35)
[2022-11-04 03:48] LABS: VBG Base Excess 5.7 mmol/L; VBG HCO3 30 mmol/L (22-26); VBG pCO2 45 mmHg; VBG pH 7.43 (7.32-7.43); VBG pO2 44 mmHg
--- NOTE | 2022-11-04 04:00 | PC.NURSE ---
per dr villalobos hold fentanyl and versed bolus at this time. this rn charted accordingly in mar
--- NOTE | 2022-11-04 04:15 | PC.NURSE ---
this rn, assistant professor of education, and RT transported pt to ICU bed assignment. nurse and julissa at bedside upon pt arrival to bed assignment
--- NOTE | 2022-11-04 04:20 | PC.NURSE ---
pt transferred to icu bed assignment. iv pipercilllin not hung prior to transfer to bed assignment. pt having difficulty remaining sedated. this rn in back and forth contact with both ed provider and bottle machine operator regarding multiple sedating medications and if bolus for sedating medications were needed. this rn unable to hang medication prior to transfer while attempting to maintain sedation to protect tube placement
--- NOTE | 2022-11-04 04:21 | PM.CCHP ---
History of Present Illness Date of Service: 11/04/22 Attending physician on admission: Marie Henao Chief Complaint: Dyspnea Ms. Helms is a 52-year-old female with a past medical history of ACS,? HLD, hypothyroid, asthma, pruritus, anxiety and depression, open-heart surgery age 7,? and baseline complete deafness who presented to the emergency room [facility] for difficulty breathing.? According to the patient?s mother she has not been feeling well for the past 3-4 days and was prescribed azithromycin at the walk-in clinic on 11/02/2022 for upper respiratory tract infection.? On EMS arrival, it was noted that the patient had an O2 sat in the 70-80% on room air, a swollen tongue, and difficulty breathing. She was given Solu-Medrol and 2 doses of epinephrine in the field.? On arrival to the emergency room, the patient's blood pressure 198/104, heart rate 108. ? She was observed to have neck swelling with submandibular ecchymoses, the floor of her mouth swollen and pushing the tongue upward causing stridorous sound with breathing. O2 sat in the 80s. The patient was intubated to secure the airway. Laboratory data significant for? WBC 17.2, 85 neutrophils, 1.7 bands,? 0.1 eosinophils, sodium 127, chloride 85, AST 104, troponin 28.2.? UA showed? protein 300 mg, glucose 100 mg, moderate blood, positive nitrite. Imaging:? CXR - No focal consolidation is seen. Prominent central vasculature without overt edema. Enlarged cardiac silhouette. Soft tissue neck CT w/o contrast - 1.? Suboptimal assessment of the airway and surrounding structures due to presence of endotracheal tube. Mild stranding in the bilateral parapharyngeal fat and adjacent to the bilateral submandibular glands, which could indicate nonspecific inflammation. 2.? Mild stranding also noted in the supraglottic fat. Epiglottis is not adequately delineated, and the possibility of epiglottitis would be difficult to entirely exclude. 3.? Mild bilateral periorbital soft tissue swelling. Chest CT - 1. Moderately extensive opacities of the mid to lower lungs, predominantly in the lower lobes and left slightly greater than right. Considerations would include edema or pneumonia. 2.? Borderline cardiomegaly with small to moderate pericardial effusion, increased from 04/17/2022. 3.? Redemonstrated right middle lobe nodule measuring approximately 5 mm. ED course: ? The patient received 20 mg famotidine, 0.3 mg of epinephrine, 50 mg diphenhydramine, Zosyn, and a total of 3 L normal saline. Review of Systems Review of Systems: Yes unobtainable due to endotracheal tube PMFSH Past Medical History Medical History ACS (acute coronary syndrome) Anxiety and depression Asthma Constipation COVID Deaf Dysphagia Elevated blood sugar Generalized anxiety disorder Hypercholesterolemia Hypothyroid Pruritus Scabies SOB (shortness of breath) Vitamin B 12 deficiency Vitamin D deficiency Family History Family History Mother CAD (coronary artery disease) Hypertension Brother CAD (coronary artery disease) Surgical History Surgical History History of heart surgery Social History Social History Household Members: Family Household Members Other:: Mother & Brother Housing: House Housing Other:: 2 family Do you presently have visiting nurse or other home services: Yes Alcohol intake: never Patient Tobacco Use Status: Never used Tobacco e-Cigarette/Vaping Use: Never Used Second Hand Smoke Exposure: No service: No Current occupational status: unemployed Cognitive needs: No Hearing needs: No Vision needs: Yes (glasses) Meds Allergies Allergy/AdvReac Type Severity Reaction Status Date / Time ibuprofen Allergy Unknown unknown Verified 11/02/22 14:20 Sulfacetamide Sod-Pred Allergy Mild Unknown Uncoded 11/02/22 14:20 Active Medications: Current Medications Enoxaparin Sodium (Enoxaparin Sodium 40 Mg/0.4 Ml Syringe) 40 mg SUBCUT Q12H KEVIN Famotidine (Famotidine/Pf 20 Mg/2 Ml Vial) 20 mg IVPUSH BID KEVIN Propofol (Diprivan) 1,000 mg in 100 mls @ 0 mls/hr IVCONT .Q0M KEVIN; Protocol Last Titration: 11/04/22 01:33 Dose: 50 mcg/kg/min, 20.16 mls/hr Midazolam HCl (Versed) 50 mg in 50 mls @ 2 mls/hr IVCONT .Q24H KEVIN Last Admin: 11/04/22 03:44 Dose: 2 mg/hr, 2 mls/hr Sodium Chloride (Ns) 2,016 mls @ 2,016 mls/hr 30 ml/kg infuse over 1 hr (2016 ml) IV .Q1H STA Stop: 11/04/22 04:27 Home Medications Medication Instructions Recorded Confirmed Last Taken Type albuterol sulfate 90 mcg/actuation 2 puff inhalation Q2-4H PRN 04/17/22 11/04/22 Unknown History aerosol inhaler Shortness Of Breath cholecalciferol (vitamin D3) 50 1 cap PO QAM 04/17/22 11/04/22 Unknown History mcg (2,000 unit) capsule (Vitamin D3) fluticasone furoate 200 1 puff inhalation DAILY 04/17/22 11/04/22 Unknown History mcg-vilanterol 25 mcg/dose inhalation powder (Breo Ellipta) risperidone 1 mg tablet 1 tab PO BEDTIME 04/17/22 11/04/22 Unknown History cetirizine 10 mg tablet 10 mg PO DAILY@119905/13/22 11/04/22 Unknown History citalopram 40 mg tablet 40 mg PO QAM 05/13/22 11/04/22 Unknown History folic acid 400 mcg tablet 0.4 mg PO DAILY@119905/13/22 11/04/22 Unknown History simvastatin 20 mg tablet 20 mg PO DAILY@1800 07/26/22 11/04/22 Unknown History cyanocobalamin (vitamin B-12) 500 500 mcg PO DAILY@1200 11/04/22 11/04/22 Unknown History mcg tablet docusate sodium 100 mg capsule 100 mg PO BID@1200,2100 11/04/22 11/04/22 Unknown History hydroxyzine HCl 50 mg tablet 50 mg PO BEDTIME 11/04/22 11/04/22 Unknown History levothyroxine 112 mcg tablet 112 mcg PO DAILY@0600 11/04/22 11/04/22 Unknown History risperidone 0.5 mg tablet 0.5 mg PO DAILY 11/04/22 11/04/22 Unknown History Physical Exam Vital Signs: Vital Signs: Last Vital Signs Temp 96.6 F L 11/04/22 03:54 Pulse 61 11/04/22 03:54 Resp 18 11/04/22 03:54 BP 110/60 11/04/22 03:54 Pulse Ox 99 05/11/23 03:54 O2 Del Method Mechanical Ventil ation 11/04/22 03:54 FiO2 40 11/04/22 02:21 BMI result Body Mass Index 31.0 Const: Nutritional Appearance: obese Orientation/consciousness: Other orientation findings (sedated) HEENT: Head: Yes normocephalic and Yes atraumatic General nose exam: Normal external nose present (Nares patent, septum midline, sinuses nontender bilaterally.) Mouth: moist mucous membranes, drooling and tongue abnormal edematous (protruding) and with lesion noted ulcer (left upper lip scab) Teeth and gingiva: fair dentition Neck: Neck: Yes submandibular swelling (left sided ecchymosis) Carotids: normal carotid upstroke Resp: Auscultation: clear to auscultation bilaterally (normal work of breathing, no accessory muscle use) Cardio: Jugular venous distension: no JVD Rate: regular rate Rhythm: regular rhythm Heart sounds: no gallops, no murmurs and no rubs Peripheral pulses: Peripheral pulses 2+ throughout GI: Palpation (GI): Soft to palpation (nondistended.) and nontender Extrem: General: Yes full ROM, Yes capillary refill normal and Yes no clubbing, cyanosis or edema Results Labs 11/04/22 01:28 11/04/22 01:28 Labs: Laboratory Results - last 24 hr 11/04/22 11/04/22 11/04/22 01:28 01:28 01:28 MCV 87.9 MCH 30.0 MCHC 34.2 RDW 12.2 Plt Count TNP MPV 11.7 Immature Gran % (Auto) 1.7 H Neut % (Auto) 85.0 H Lymph % (Auto) 8.6 L [place] % (Auto) 4.4 Eos % (Auto) 0.1 Baso % (Auto) 0.2 Lymph # (Auto) 1.5 [place] # (Auto) 0.8 Eos # (Auto) 0.0 Baso # (Auto) 0.0 Abs Immat Gran (auto) 0.29 H Absolute Neuts (auto) 14.6 H Absolute Nucleated RBC 0.000 Nucleated RBC % (auto) 0.0 Smear Tech's Comments VERIFIED VBG pH VBG pCO2 VBG pO2 VBG HCO3 VBG O2 Saturation VBG Base Excess Anion Gap 18 Estim Creat Clear Calc 55.5 Estimated GFR > 60 Random Glucose 231 H Lactic Acid 1.7 Calcium 9.0 Total Bilirubin 0.7 Direct Bilirubin 0.2 AST 104 H ALT 29 Alkaline Phosphatase 67 Troponin I High Sens B-Natriuretic Peptide Total Protein 8.3 H Albumin 4.8 Lipase 14 Urine Color Urine Appearance Urine pH Ur Specific [place] Urine Protein Urine Glucose (UA) Urine Ketones Urine Blood Urine Nitrite Ur Leukocyte Esterase Urine RBC Urine WBC Ur Squamous Epith Cells Urine Bacteria Hyaline Casts COVID-19 (GLO) COVID-19 Clin Com 11/04/22 11/04/22 11/04/22 01:28 01:28 01:28 MCV MCH MCHC RDW Plt Count MPV Immature Gran % (Auto) Neut % (Auto) Lymph % (Auto) [place] % (Auto) Eos % (Auto) Baso % (Auto) Lymph # (Auto) [place] # (Auto) Eos # (Auto) Baso # (Auto) Abs Immat Gran (auto) Absolute Neuts (auto) Absolute Nucleated RBC Nucleated RBC % (auto) Smear Tech's Comments VBG pH VBG pCO2 VBG pO2 VBG HCO3 VBG O2 Saturation VBG Base Excess Anion Gap Estim Creat Clear Calc Estimated GFR Random Glucose Lactic Acid Calcium Total Bilirubin Direct Bilirubin AST ALT Alkaline Phosphatase Troponin I High Sens 28.2 H B-Natriuretic Peptide 55 Total Protein Albumin Lipase Urine Color Urine Appearance Urine pH Ur Specific [place] Urine Protein Urine Glucose (UA) Urine Ketones Urine Blood Urine Nitrite Ur Leukocyte Esterase Urine RBC Urine WBC Ur Squamous Epith Cells Urine Bacteria Hyaline Casts COVID-19 (GLO) Negative COVID-19 Clin Com See Note 11/04/22 11/04/22 03:29 03:41 MCV MCH MCHC RDW Plt Count MPV Immature Gran % (Auto) Neut % (Auto) Lymph % (Auto) [place] % (Auto) Eos % (Auto) Baso % (Auto) Lymph # (Auto) [place] # (Auto) Eos # (Auto) Baso # (Auto) Abs Immat Gran (auto) Absolute Neuts (auto) Absolute Nucleated RBC Nucleated RBC % (auto) Smear Tech's Comments VBG pH 7.43 VBG pCO2 45 VBG pO2 44 VBG HCO3 30 H VBG O2 Saturation 70.0 VBG Base Excess 5.7 Anion Gap Estim Creat Clear Calc Estimated GFR Random Glucose Lactic Acid Calcium Total Bilirubin Direct Bilirubin AST ALT Alkaline Phosphatase Troponin I High Sens B-Natriuretic Peptide Total Protein Albumin Lipase Urine Color Dark Yellow Urine Appearance Clear Urine pH 7.5 Ur Specific [place] 1.020 Urine Protein 300 (3+) H Urine Glucose (UA) 100 H Urine Ketones Negative Urine Blood Moderate (2+) H Urine Nitrite Positive H Ur Leukocyte Esterase Negative Urine RBC 0-2 Urine WBC 6-10 H Ur Squamous Epith Cells 0-2 Urine Bacteria 1+ Hyaline Casts 0-2 COVID-19 (GLO) COVID-19 Clin Com ABG ABG results: VBG pH 7.43 pCO2 45 HCO3 30 Attestation: I personally reviewed and interpreted this ABG as follows: Interpretation: Normal Imaging Radiologist's Impressions: Impressions Chest X-Ray 11/04/22 01:51 IMPRESSION: Endotracheal tube tip 3.3 cm above the mansi. Prominent central vasculature without overt edema. Enlarged cardiac silhouette. Soft Tissue Neck CT 11/04/22 02:16 IMPRESSION: 1. Suboptimal assessment of the airway and surrounding structures due to presence of endotracheal tube. Mild stranding in the bilateral parapharyngeal fat and adjacent to the bilateral submandibular glands, which could be indicate nonspecific inflammation. 2. Mild stranding also noted in the supraglottic fat. Epiglottis is not adequately delineated, and the possibility of epiglottitis would be difficult to entirely exclude. 3. Mild bilateral periorbital soft tissue swelling. Chest CT 11/04/22 02:17 IMPRESSION: 1. Moderately extensive opacities of the mid to lower lungs, predominantly in the lower lobes and left slightly greater than right. Considerations would include edema or pneumonia. 2. Borderline cardiomegaly with small to moderate pericardial effusion, increased from 04/17/2022. 3. Redemonstrated right middle lobe nodule measuring approximately 5 mm. Assessment and Plan (1) Anaphylactic reaction: Status: Acute (2) Pneumonia: Status: Acute (3) Upper respiratory tract infection: Status: Acute Plan 52-year-old female with a past medical history of ACS,? HLD, hypothyroid, asthma, pruritus, anxiety and depression, open-heart surgery age 7, and baseline complete deafness admitted to the ICU for management of respiratory distress due to anaphylaxis. Plan: Neuro:? No acute issues. Cardiac: No acute issues. Pulmonary:? Anaphylactic reaction to Azithromycin. Opacities bilateral mid to lower lungs L>R.Continue Zosyn. Continue glucocorticoids. Nebulized bronchodilators. Renal:? No acute issues.?? Endo:? No acute issues.?? GI:? No acute issues. : Urine culture pending. Cont Zosyn. ID: ?[id number]? possibly due to upper respiratory infection. Was on Zithromax now covered with Zosyn. Does not meet criteria for severe sepsis or septic shock; patient was intubated? for airway protection secondary to anaphylactic reaction and not due to severe infection. Heme/Onc:? No acute issues. Psych:? No acute issues. Miscellaneous:? No acute issues. Prophylaxis:? Lovenox, famotidine Diet:? NPO? Time Spent With Patient Time: Total time managing care of this patient today ____ minutes.
[2022-11-04] MEDS: Piperacillin Sodium/Tazobactam 3.375 GM in 0.9 % Sodium Chloride 50 ML IV ×4 (04:40→23:52)
[2022-11-04] MEDS: propofoL 1,000 MG/100 ML VIAL 20.16 MG IVCONT ×2 (05:05→09:56)
--- NOTE | 2022-11-04 05:53 | PC.NURSE ---
Addendum entered by Brayan Cannon RN 11/04/22 06:32: DR JOSE PRESENT ON UNIT...CONFIRMED 2ND LITER OF SEPSIS BOLUS TO BE HELD...PER MD TO HOLD LOVENOX AT PRESENT...PLAN FOR BEDSIDE ECHO TO ASSESS PERICARDIAL EFFUSION Original Note: ADMIT TO 253-1 APPROX 4AM...INTUBATED/SEDATED...PROPOFOL 50 MCG/KG/MIN AND VERSED 2 MG/HR...WEAKLY MOVES ARMS BUT NOT TO COMMAND (N.B. PATIENT IS DEAF AND NON-VERBAL AT BASELINE)...#6.0 ETT @ 20-21 CM......AC 18/TV 300/FIO2 WEANED FROM 80% TO 70%/PEEP 5....SAO2 97-98%....REMAINS WITH MARKED TONGUE AND FACIAL SWELLING...MID AND RIGHT NECK BRUISING AND LIP BRUISING PRESENT....ZOSYN INFUSED W/O INCIDENT...SEPSIS BOLUS 2016ML HELD AFTER 1000ML INFUSED PER ICU RECLAMATION ENGINEER...TO REVIEW WITH GREENHOUSE OR NURSERY TRANSPLANTER UPON ARRIVAL...NSR HR 60-66...AFEBRILE...HECTOR DRAINING BRIGHT YELLOW URINE
--- NOTE | 2022-11-04 07:05 | PHA.PROG ---
Admission Date/Time: November 04, 2022 02:54 Indication: other Weight in k kg Adjusted body weight in Kg: [place] body weight in Kg: Obesity Dosing Indication % IBW: Serum Creatinine - Last 168 Hours 11/04/22 01:28 Creatinine 0.94 Estimated CrCl and GFR - Last 168 Hours 11/04/22 01:28 Estim Creat Clear Calc 55.5 Estimated GFR > 60 Vancomycin Loading Dose: 1500mg x 1 Current Vancomycin Dosing Regimen: 750mg Q12H Vancomycin Monitoring using AUC goal of 400 - 600 range with trough as surrogate marker: 533mg/L Date and Time for next Vancomycin Level to be drawn: 11/05/22 @1800 Pharmacist Comments on Vancomycin Plan: Predicted trough of 17.4mg/L; will continue to monitor renal function Vancomycin dosing will take advantage of Oculus VR as a clinical decision support tool that uses Bayesian modeling to calculate individual patient's pharmacokinetic parameters and forecast the patient's drug concentration time course with the target goal AUC 24 range of 400 - 600 mg/L/hr.
[2022-11-04 07:41] LABS: Prothrombin Time 11.9 SEC (10.0-13.1)
[2022-11-04 07:45] LABS: Partial Thromboplastin Time 23.1 SEC (26.0-36.4)
[2022-11-04 07:50] LABS: Procalcitonin 0.04 ng/mL
[2022-11-04] MEDS: Albuterol/Iprat 2.5/0.5MG 3 ML AMPUL.NEB INHALE ×4 (07:55→20:42)
[2022-11-04 08:05] LABS: Erythrocyte Sedimentation Rate 17 MM/HR (0-20)
[2022-11-04] MEDS: methylPREDNISolone Sod Succ 40 MG/ML VIAL IVPUSH ×3 (08:16→23:52)
[2022-11-04] MEDS: Chlorhexidine Gluc Oral Rinse 15 ML MOUTHWASH BUCCAL ×3 (08:16→19:54)
[2022-11-04] MEDS: vancomycin HCL 1,500 MG in 0.9 % Sodium Chloride 500 ML 333.33 MG IV (08:21)
--- NOTE | 2022-11-04 09:09 | PHA.MEDREC ---
Pharmacy Consult ? Medication Reconciliation Pharmacy has completed the medication reconciliation. Patient uses med boxes from [facility]. Received medication list from pharmacy. Patient was previously prescribed Azithromycin at the walk-in clinic but was not on list at [facility] pharmacy. Ashli Mayer, PharmD
[2022-11-04 09:35] LABS: Free T4 (Free Thyroxine) < 0.42 ng/dL (0.71-1.85)
[2022-11-04] MEDS: Levothyroxine Sodium 100 MCG/5 ML VIAL 75 MCG IVPUSH (09:58)
[2022-11-04] MEDS: Norepinephrine Bitartrate/D5W 8 MG/250 ML PLAST..BAG 5.83 MG IV (12:45)
--- NOTE | 2022-11-04 13:27 | MHC.CM.PN ---
Pt presently in ICU on ventilatory support: Call placed to pt's brother Hector who deferred to his brother Raji at [phone]. Per Raji, pt resides in a duplex above her mother with Raji providing transportation and any other care need pt has. Pt is deaf and speaks using ASL. She has a TTY system that is seldom used per Raji but is able to make her needs known. She is mostly independent with all care needs. Raji states Nimesh is pending at this time. Raji states pt will want to return to home: receptive to [facility] referral. He will transport pt home. No HCP - will await pt extubation and will approach w/supply chain procurement manager. CM to follow.
--- NOTE | 2022-11-04 16:26 | PM.CCPN ---
Subjective Subjective Date of Service: 11/04/22 Interval History: 52-year-old for her height who is at least moderately obese who is a background of being deaf and mute a came in complaining at least of several days of some upper respiratory complaints and had been given a Zithromax in and before coming to the hospital complaining to the mother of dyspnea mother heard stridorous breath sounds called EMS that noted oxygen saturation 70-80% and gave her epinephrine and Solu-Medrol and in the ER the floor of the mouth and the tongue were so swollen with a tongue elevated that they immediately performed an emergent intubation and apparently the whole oropharynx was almost sealed off but below that the tissue seemed okay a intubated with good visualization of the vocal cords and she remains intubated still has no cuff leak Given the description of the submandibular area CT scan I treated as a Mark's angina with Zosyn and vancomycin in addition to maintaining the steroids and sedation and ventilation but and thus far the airway still remains could clinically obstructed and so she will remain sedated Critical Care Time (minutes): 45 Physical Exam Vital Signs: Vital Signs: Last Vital Signs Temp 95.9 F L 11/04/22 15:00 Pulse 72 11/04/22 16:02 Resp 18 11/04/22 15:27 BP 140/81 H 11/04/22 16:02 Pulse Ox 95 11/04/22 15:00 O2 Del Method Mechanical Ventil ation 11/04/22 15:00 FiO2 50 11/04/22 16:00 BMI result Body Mass Index 28.7 No airway leak it at this point Chest x-ray with bibasilar atelectasis but diminished bilateral breath sounds Abdomen is soft with no tenderness no organomegaly Cardiac exam by bedside echo showing normal LV and RV function Skin without rashes Objective Data Labs 11/04/22 01:28 11/04/22 01:28 Labs: Laboratory Results - last 24 hr 11/04/22 11/04/22 11/04/22 01:28 01:28 01:28 WBC 17.2 H RBC 4.13 L Hgb 12.4 Hct 36.3 L MCV 87.9 MCH 30.0 MCHC 34.2 RDW 12.2 Plt Count TNP MPV 11.7 Immature Gran % (Auto) 1.7 H Neut % (Auto) 85.0 H Lymph % (Auto) 8.6 L [place] % (Auto) 4.4 Eos % (Auto) 0.1 Baso % (Auto) 0.2 Lymph # (Auto) 1.5 [place] # (Auto) 0.8 Eos # (Auto) 0.0 Baso # (Auto) 0.0 Abs Immat Gran (auto) 0.29 H Absolute Neuts (auto) 14.6 H Absolute Nucleated RBC 0.000 Nucleated RBC % (auto) 0.0 Smear Tech's Comments VERIFIED ESR PT INR APTT VBG pH VBG pCO2 VBG pO2 VBG HCO3 VBG O2 Saturation VBG Base Excess Sodium 127 L Potassium 4.1 Chloride 85 L Carbon Dioxide 28 Anion Gap 18 BUN 9 Creatinine 0.94 Estim Creat Clear Calc 55.5 Estimated GFR > 60 Random Glucose 231 H Lactic Acid 1.7 Calcium 9.0 Total Bilirubin 0.7 Direct Bilirubin 0.2 AST 104 H ALT 29 Alkaline Phosphatase 67 Troponin I High Sens C-Reactive Protein B-Natriuretic Peptide Total Protein 8.3 H Albumin 4.8 Lipase 14 Procalcitonin TSH Free T4 Urine Color Urine Appearance Urine pH Ur Specific [place] Urine Protein Urine Glucose (UA) Urine Ketones Urine Blood Urine Nitrite Ur Leukocyte Esterase Urine RBC Urine WBC Ur Squamous Epith Cells Urine Bacteria Hyaline Casts COVID-19 (GLO) COVID-19 Clin Com 11/04/22 11/04/22 11/04/22 01:28 01:28 01:28 WBC RBC Hgb Hct MCV MCH MCHC RDW Plt Count MPV Immature Gran % (Auto) Neut % (Auto) Lymph % (Auto) [place] % (Auto) Eos % (Auto) Baso % (Auto) Lymph # (Auto) [place] # (Auto) Eos # (Auto) Baso # (Auto) Abs Immat Gran (auto) Absolute Neuts (auto) Absolute Nucleated RBC Nucleated RBC % (auto) Smear Tech's Comments ESR PT INR APTT VBG pH VBG pCO2 VBG pO2 VBG HCO3 VBG O2 Saturation VBG Base Excess Sodium Potassium Chloride Carbon Dioxide Anion Gap BUN Creatinine Estim Creat Clear Calc Estimated GFR Random Glucose Lactic Acid Calcium Total Bilirubin Direct Bilirubin AST ALT Alkaline Phosphatase Troponin I High Sens 28.2 H C-Reactive Protein B-Natriuretic Peptide 55 Total Protein Albumin Lipase Procalcitonin TSH Free T4 Urine Color Urine Appearance Urine pH Ur Specific [place] Urine Protein Urine Glucose (UA) Urine Ketones Urine Blood Urine Nitrite Ur Leukocyte Esterase Urine RBC Urine WBC Ur Squamous Epith Cells Urine Bacteria Hyaline Casts COVID-19 (GLO) Negative COVID-19 Clin Com See Note 11/04/22 11/04/22 11/04/22 03:29 03:41 07:05 WBC RBC Hgb Hct MCV MCH MCHC RDW Plt Count MPV Immature Gran % (Auto) Neut % (Auto) Lymph % (Auto) [place] % (Auto) Eos % (Auto) Baso % (Auto) Lymph # (Auto) [place] # (Auto) Eos # (Auto) Baso # (Auto) Abs Immat Gran (auto) Absolute Neuts (auto) Absolute Nucleated RBC Nucleated RBC % (auto) Smear Tech's Comments ESR 17 PT INR APTT VBG pH 7.43 VBG pCO2 45 VBG pO2 44 VBG HCO3 30 H VBG O2 Saturation 70.0 VBG Base Excess 5.7 Sodium Potassium Chloride Carbon Dioxide Anion Gap BUN Creatinine Estim Creat Clear Calc Estimated GFR Random Glucose Lactic Acid Calcium Total Bilirubin Direct Bilirubin AST ALT Alkaline Phosphatase Troponin I High Sens C-Reactive Protein B-Natriuretic Peptide Total Protein Albumin Lipase Procalcitonin TSH Free T4 Urine Color Dark Yellow Urine Appearance Clear Urine pH 7.5 Ur Specific [place] 1.020 Urine Protein 300 (3+) H Urine Glucose (UA) 100 H Urine Ketones Negative Urine Blood Moderate (2+) H Urine Nitrite Positive H Ur Leukocyte Esterase Negative Urine RBC 0-2 Urine WBC 6-10 H Ur Squamous Epith Cells 0-2 Urine Bacteria 1+ Hyaline Casts 0-2 COVID-19 (GLO) COVID-19 Clin Com 11/04/22 11/04/22 07:05 07:05 WBC RBC Hgb Hct MCV MCH MCHC RDW Plt Count MPV Immature Gran % (Auto) Neut % (Auto) Lymph % (Auto) [place] % (Auto) Eos % (Auto) Baso % (Auto) Lymph # (Auto) [place] # (Auto) Eos # (Auto) Baso # (Auto) Abs Immat Gran (auto) Absolute Neuts (auto) Absolute Nucleated RBC Nucleated RBC % (auto) Smear Tech's Comments ESR PT 11.9 INR 1.0 APTT 23.1 L D VBG pH VBG pCO2 VBG pO2 VBG HCO3 VBG O2 Saturation VBG Base Excess Sodium Potassium Chloride Carbon Dioxide Anion Gap BUN Creatinine Estim Creat Clear Calc Estimated GFR Random Glucose Lactic Acid Calcium Total Bilirubin Direct Bilirubin AST ALT Alkaline Phosphatase Troponin I High Sens C-Reactive Protein 0.90 H B-Natriuretic Peptide Total Protein Albumin Lipase Procalcitonin 0.04 TSH 10.40 H Free T4 < 0.42 L Urine Color Urine Appearance Urine pH Ur Specific [place] Urine Protein Urine Glucose (UA) Urine Ketones Urine Blood Urine Nitrite Ur Leukocyte Esterase Urine RBC Urine WBC Ur Squamous Epith Cells Urine Bacteria Hyaline Casts COVID-19 (GLO) COVID-19 Clin Com Progress Note: A&P Assessment and plan (1) Anaphylactic reaction: Status: Acute (2) Pneumonia: Status: Acute (3) Upper respiratory tract infection: Status: Acute (4) Pericardial effusion: Status: Acute (5) COVID-19 virus infection: Status: Acute (6) Blood pressure elevated without history of HTN: Status: Acute (7) CAD (coronary artery disease): Status: Acute (8) Hypercholesterolemia: Status: Acute (9) Hypothyroid: Status: Acute (10) Pericardial effusion: Status: Acute (11) [place]igs angina: Status: Acute Plan So the plan is to maintain antibiotics as above and of course ventilator support and each day let down the cuff balloon looking for patency of the airway Quality Stroke Does the patient have a stroke diagnosis?: No VTE Prior VTE?: No VTE Risk Level:: Medical - moderate - high VTE Device Contraindication: N/A - Device Ordered VTE Drug Contraindication: N/A - Med Ordered
[2022-11-04] MEDS: Enoxaparin Sodium 40 MG/0.4 ML SYRINGE SUBCUT (17:20)
[2022-11-04] MEDS: vancomycin HCL 750 MG in 0.9 % Sodium Chloride 250 ML 265 MG IV (19:52)
[2022-11-05] VITALS (39 sets, daily range): BP systolic 93–134; BP diastolic 42–95; PULSE 54–97; RESP 18; TEMP 34–36.7; O2SAT 92–97; BMI 29.9
[2022-11-05] MEDS: Midazolam HCl/NS 50 MG/50 ML PLAST..BAG IVCONT ×2 (03:33→16:41)
[2022-11-05] MEDS: Piperacillin Sodium/Tazobactam 3.375 GM in 0.9 % Sodium Chloride 50 ML IV ×4 (04:29→22:49)
[2022-11-05] MEDS: propofoL 1,000 MG/100 ML VIAL 12.1 MG IVCONT ×4 (05:00→20:05)
[2022-11-05] MEDS: Enoxaparin Sodium 40 MG/0.4 ML SYRINGE SUBCUT ×2 (05:01→18:49)
[2022-11-05 05:06] LABS: VBG Base Excess 0.5 mmol/L; VBG HCO3 20 mmol/L (22-26); VBG pCO2 23 mmHg; VBG pH 7.55 (7.32-7.43); VBG pO2 74 mmHg
[2022-11-05 05:13] LABS: MANUAL DIFF FLAG NO
[2022-11-05 05:17] LABS: Basophils Percent Auto 0.2 % (0-2); Hematocrit 34.7 % (37.0-47.0); Hemoglobin 12.1 g/dl (12.0-16.0); Imm Gran Abs Auto 0.25 X10*3/uL (0.00-0.03); Imm Gran Pct Auto 1.3 % (0.0-0.4); Lymphocytes Percent Auto 5.2 % (20-40); Mean Corpuscular HGB Conc 34.9 g/dl (31.0-35.0); Mean Corpuscular Volume 85.9 fL (80.0-98.0); Mean Platelet Volume 10.6 fL (9.4-12.3); Monocytes Absolute Auto 0.8 X10*3/uL (0.1-1.2); Monocytes Percent Auto 4.1 % (2-11); Neutrophils Absolute Auto 17.5 x10*3/uL (2.0-8.3); Neutrophils Percent Auto 89.2 % (45-73); Platelet Count 297 X10*3/uL (160-400); Red Blood Count 4.04 X10*6/uL (4.20-5.50); Red Cell Distribution Width 12.8 % (11.0-16.0); White Blood Count 19.6 X10*3/uL (4.8-10.8)
[2022-11-05 05:18] LABS: Venous Blood Gas Refer to POC result
[2022-11-05 05:35] LABS: Alanine Aminotransferase 19 U/L (0-31); Albumin Level 3.5 g/dL (3.5-5.0); Alkaline Phosphatase 55 U/L (39-117); Anion Gap 16 (12-20); Aspartate Amino Transferase 48 U/L (5-31); Bilirubin Total 0.6 mg/dL (0.0-1.0); Blood Urea Nitrogen 16 mg/dL (9-16); Calcium 8.9 mg/dL (8.4-10.2); Carbon Dioxide 21 mmol/L (22-29); Chloride 99 mmol/L (96-108); Creatinine Clr Calc Pharmacy 35.1; Estimated Glomerular Filt Rate 37; Glucose Random 221 mg/dL (60-115); Magnesium 1.9 mg/dL (1.6-2.6); Phosphorus 3.4 mg/dL (2.7-4.5); Sodium 133 mmol/L (135-145); Total Protein 6.1 g/dL (6.5-8.0)
[2022-11-05] MEDS: KCl 40 mEq in 0.9 % Sodium Chl 40 MEQ/1,000 ML IV.SOLN 100 MEQ IVCONT ×2 (06:05→16:41)
--- NOTE | 2022-11-05 06:10 | PC.NURSE ---
CARE ASSUMED 23:15---REMAINS TUBED/VENTED/SEDATED D/T ANGIOEDEMA---REMAINS WITH TONGUE SWELLING BUT SWELLING LESS PRONOUNCED FROM 24 HOURS AGO...PERIPHERAL LEVOPHED DRIP WEANED OFF---CONTINUES PROPOFOL/VERSED DRIPS PER MAR--NO TUBE FEEDS D/T ANGIOEDEMA/NO OG-TUBE---HECTOR 15-25 CC/HR...AM LABS REVIEWED BY ICU [facility] [employer]---STARTED NS 0.9%1000/KCL 40MEQ @ 100 CC/HR 6AM---NSR NO ECTOPY---TEMP NORMAL OVERNIGHT
[2022-11-05 07:19] LABS: Rheumatoid Factor < 13.0 IU/mL (<15.0)
[2022-11-05] MEDS: Albuterol/Iprat 2.5/0.5MG 3 ML AMPUL.NEB INHALE ×4 (07:54→20:13)
[2022-11-05] MEDS: Levothyroxine Sodium 100 MCG/5 ML VIAL 75 MCG IVPUSH (08:46)
[2022-11-05] MEDS: Chlorhexidine Gluc Oral Rinse 15 ML MOUTHWASH BUCCAL ×3 (08:46→20:05)
[2022-11-05] MEDS: methylPREDNISolone Sod Succ 40 MG/ML VIAL IVPUSH ×3 (08:47→23:51)
[2022-11-05] MEDS: Famotidine/PF 20 MG/2 ML VIAL IVPUSH ×2 (08:47→20:05)
[2022-11-05] MEDS: vancomycin HCL 500 MG in 0.9 % Sodium Chloride 100 ML 110 MG IV (08:59)
--- NOTE | 2022-11-05 09:01 | MHC.CLN ---
F/U PT REMAINS NPO-NO OG TUBE AT THIS TIME IF TF NEEDED; RECOMMEND JEVITY 1.0 AT MAX GOAL RATE 40ML/HR TO PROVIDE 1018KCALS (1337KCALS WITH SEDATION; 28KCLAS/KG BASED ON CMW), 42.5G PROTEIN (.9G/KG), 850ML FREE WATER FROM FORMULA START JEVITY 1.0 AT 20ML/HR AND INCREASE BY 10ML Q 4 HRS UNTIL MAX GOAL IS ACHIEVED MONITOR TOLERANCE, RESIDUALS AND LYTES FOLLOWING WITH TEAM
--- NOTE | 2022-11-05 10:14 | MHC.CM.PN ---
Pt continues care in ICU on ventilatory support: showing slight improvement in tongue swelling. D/C plan is for a return to home w/existing family support and new HVNA. Family will transport. CM to assist pt w/HCP completion when she is able.
--- NOTE | 2022-11-05 14:56 | PM.CCPN ---
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 treated hypothyroid 6 months status post COVID pneumonitis with a history of some congenital valvular heart disease requiring open heart surgery at 7 years of age presents after 3 of 4 days of not feeling well with upper respiratory complaints and then ultimately dyspneic with stridorous breath sounds and acute hypoxic respiratory failure and because of threatened airway closure immediately intubated but noted extreme swelling of the submandibular area leaving open the question of Mark's angina verses an anaphylactic reaction potentially to the [place] through mycin and she is currently being treated for both yet today no cuff leak so airway is still too obstructed for weaning Critical Care Time (minutes): 45 Physical Exam Vital Signs: Vital Signs: Last Vital Signs Temp 97.9 F 11/05/22 14:00 Pulse 79 11/05/22 14:00 Resp 18 11/05/22 14:00 BP 110/60 11/05/22 14:00 Pulse Ox 95 11/05/22 14:00 O2 Del Method Mechanical Ventil ation 11/05/22 14:00 FiO2 45 11/05/22 14:00 BMI result Body Mass Index 29.9 Arousable to touch but well sedated and minimal and unchanged minutes ventilatory requirements and FiO2 Still has considerable submandibular swelling no neck vein distension and good bilateral carotid upstrokes and bedside echo with normal LV function Chest x-ray with bibasilar atelectasis Abdomen benign with no organomegaly Objective Data Labs 11/05/22 04:59 11/05/22 04:59 Labs: Laboratory Results - last 24 hr 11/05/22 11/05/22 11/05/22 04:57 04:59 04:59 WBC 19.6 H RBC 4.04 L Hgb 12.1 Hct 34.7 L MCV 85.9 MCH 30.0 MCHC 34.9 RDW 12.8 Plt Count 297 D MPV 10.6 Immature Gran % (Auto) 1.3 H Neut % (Auto) 89.2 H Lymph % (Auto) 5.2 L [place] % (Auto) 4.1 Eos % (Auto) 0.0 Baso % (Auto) 0.2 Lymph # (Auto) 1.0 L [place] # (Auto) 0.8 Eos # (Auto) 0.0 Baso # (Auto) 0.0 Abs Immat Gran (auto) 0.25 H Absolute Neuts (auto) 17.5 H Absolute Nucleated RBC 0.000 Nucleated RBC % (auto) 0.0 VBG pH 7.55 H VBG pCO2 23 VBG pO2 74 VBG HCO3 20 L VBG O2 Saturation 94.0 VBG Base Excess 0.5 Sodium Potassium Chloride Carbon Dioxide Anion Gap BUN Creatinine Cancelled Estim Creat Clear Calc Cancelled Estimated GFR Cancelled Random Glucose Calcium Phosphorus Magnesium Total Bilirubin AST ALT Alkaline Phosphatase Total Protein Albumin Rheumatoid Factor 11/05/22 11/05/22 04:59 06:50 WBC RBC Hgb Hct MCV MCH MCHC RDW Plt Count MPV Immature Gran % (Auto) Neut % (Auto) Lymph % (Auto) [place] % (Auto) Eos % (Auto) Baso % (Auto) Lymph # (Auto) [place] # (Auto) Eos # (Auto) Baso # (Auto) Abs Immat Gran (auto) Absolute Neuts (auto) Absolute Nucleated RBC Nucleated RBC % (auto) VBG pH VBG pCO2 VBG pO2 VBG HCO3 VBG O2 Saturation VBG Base Excess Sodium 133 L Potassium 3.0 L D Chloride 99 Carbon Dioxide 21 L Anion Gap 16 BUN 16 Creatinine 1.46 H Estim Creat Clear Calc 35.1 Estimated GFR 37 Random Glucose 221 H Calcium 8.9 Phosphorus 3.4 Magnesium 1.9 Total Bilirubin 0.6 AST 48 H ALT 19 Alkaline Phosphatase 55 Total Protein 6.1 L Albumin 3.5 Rheumatoid Factor < 13.0 Microbiology Microbiology Results: Microbiology 11/04/22 Unknown Urine Catheterized - Bernal Catheter Urine Culture - Final No growth. 11/04/22 02:53 Blood - Venous Blood Culture - Preliminary No growth after 24 hours. 11/04/22 02:53 Blood - Venous Blood Culture - Preliminary No growth after 24 hours. Progress Note: A&P Assessment and plan (1) Ludwigs angina: Status: Acute (2) Anaphylactic reaction: Status: Acute (3) Pneumonia: Status: Acute (4) Upper respiratory tract infection: Status: Acute (5) Pericardial effusion: Status: Acute (6) COVID-19 virus infection: Status: Acute (7) Blood pressure elevated without history of HTN: Status: Acute (8) CAD (coronary artery disease): Status: Acute (9) Hypercholesterolemia: Status: Acute (10) Hypothyroid: Status: Acute (11) Generalized anxiety disorder: Status: Acute (12) Pericardial effusion: Status: Acute (13) Acute respiratory failure with hypoxia: Status: Acute Plan Still no sign of relief of upper airway obstruction so I will maintained Zosyn and vancomycin and ventilator support and steroids and continue to watch as there was no indication of a specific drainable collection in the submandibular space Also note well I have done repeated bedside echoes she has a chronic pericardial effusion which is overwhelmingly posterior but there is full diastolic expansion of both left and right ventricle with no echo sign of tamponade and this has been there chronically dates back to her previous admission in March Quality Stroke Does the patient have a stroke diagnosis?: No VTE Prior VTE?: No VTE Risk Level:: Medical - moderate - high VTE Device Contraindication: N/A - Device Ordered VTE Drug Contraindication: N/A - Med Ordered
[2022-11-05 18:18] LABS: Vancomycin Trough 27.5 mcg/mL (10.0-20.0)
--- NOTE | 2022-11-05 18:33 | HE.PHANOTE ---
RE VANCO PATIENT TROUGH WAS ELEVATED AT 27.5. INCREASE IN SCR> 30% = teresa. Will hold dose and get repeat level in AM. Suspected AUC on new dosing strategy of 750mg q24h would yield an AUC of 549, trough of 17 Andrew
[2022-11-05] MEDS: Phentolamine Mesylate 5 MG VIAL 10 MG SUBCUT (18:49)
[2022-11-05 20:41] LABS: Anion Gap 14 (12-20); Blood Urea Nitrogen 18 mg/dL (9-16); Calcium 8.5 mg/dL (8.4-10.2); Carbon Dioxide 21 mmol/L (22-29); Chloride 107 mmol/L (96-108); Creatinine Clr Calc Pharmacy 33.5; Estimated Glomerular Filt Rate 35; Glucose Random 204 mg/dL (60-115); Potassium 3.7 mmol/L (3.3-5.1); Sodium 138 mmol/L (135-145)
[2022-11-06] VITALS (30 sets, daily range): BP systolic 122–155; BP diastolic 54–85; PULSE 68–111; RESP 15–18; TEMP 34.7–37.2; O2SAT 94–98; BMI 29.3
[2022-11-06] MEDS: KCl 40 mEq in 0.9 % Sodium Chl 40 MEQ/1,000 ML IV.SOLN 100 MEQ IVCONT (02:53)
[2022-11-06] MEDS: propofoL 1,000 MG/100 ML VIAL 12.1 MG IVCONT (02:54)
[2022-11-06] MEDS: Midazolam HCl/NS 50 MG/50 ML PLAST..BAG IVCONT ×2 (04:09→16:57)
[2022-11-06] MEDS: Piperacillin Sodium/Tazobactam 3.375 GM in 0.9 % Sodium Chloride 50 ML IV ×4 (04:10→23:32)
[2022-11-06] MEDS: Enoxaparin Sodium 40 MG/0.4 ML SYRINGE SUBCUT ×2 (05:06→17:04)
[2022-11-06 05:42] LABS: VBG Base Excess -0.4 mmol/L; VBG HCO3 17 mmol/L (22-26); VBG pCO2 16 mmHg; VBG pH 7.65 (7.32-7.43); VBG pO2 172 mmHg
[2022-11-06 05:45] LABS: Venous Blood Gas Refer to POC result
[2022-11-06 06:11] LABS: Basophils Percent Auto 0.1 % (0-2); Hematocrit 32.3 % (37.0-47.0); Hemoglobin 11.5 g/dl (12.0-16.0); Imm Gran Abs Auto 0.15 X10*3/uL (0.00-0.03); Imm Gran Pct Auto 0.9 % (0.0-0.4); Lymphocytes Absolute Auto 0.7 X10*3/uL (1.2-4.9); Lymphocytes Percent Auto 4.4 % (20-40); MANUAL DIFF FLAG SCAN; Mean Corpuscular HGB Conc 35.6 g/dl (31.0-35.0); Mean Corpuscular Volume 87.1 fL (80.0-98.0); Mean Platelet Volume 11.2 fL (9.4-12.3); Monocytes Absolute Auto 0.6 X10*3/uL (0.1-1.2); Monocytes Percent Auto 3.4 % (2-11); Neutrophils Absolute Auto 15.2 x10*3/uL (2.0-8.3); Neutrophils Percent Auto 91.2 % (45-73); Platelet Count 258 X10*3/uL (160-400); Red Blood Count 3.71 X10*6/uL (4.20-5.50); SCAN SMEAR FLAG 1; White Blood Count 16.7 X10*3/uL (4.8-10.8)
[2022-11-06 06:12] LABS: SLIDE REVIEW VERIFIED
[2022-11-06 06:18] LABS: Vancomycin Trough 18.5 mcg/mL (10.0-20.0)
[2022-11-06 06:23] LABS: Albumin Level 3.2 g/dL (3.5-5.0); Anion Gap 15 (12-20); Blood Urea Nitrogen 20 mg/dL (9-16); Calcium 8.4 mg/dL (8.4-10.2); Carbon Dioxide 15 mmol/L (22-29); Chloride 113 mmol/L (96-108); Creatinine Clr Calc Pharmacy 31.1; Estimated Glomerular Filt Rate 33; Glucose Random 196 mg/dL (60-115); Magnesium 2.1 mg/dL (1.6-2.6); Phosphorus 3.5 mg/dL (2.7-4.5); Potassium 4.3 mmol/L (3.3-5.1); Sodium 139 mmol/L (135-145)
--- NOTE | 2022-11-06 06:43 | HE.PHANOTE ---
Vancomycin Dosing random level is 18.5 today 11/06 @ 0530. Will restart vancomycin a decrease dose of vancomycin 750 mg Q24H starting 11/06 @ 0900. Will get a random level 11/07 @ 0700. Arslan RamirezD
[2022-11-06] MEDS: Albuterol/Iprat 2.5/0.5MG 3 ML AMPUL.NEB INHALE ×4 (07:53→19:26)
[2022-11-06] MEDS: methylPREDNISolone Sod Succ 40 MG/ML VIAL IVPUSH ×3 (08:55→23:32)
[2022-11-06] MEDS: Famotidine/PF 20 MG/2 ML VIAL IVPUSH ×2 (08:55→20:08)
[2022-11-06] MEDS: Levothyroxine Sodium 100 MCG/5 ML VIAL 75 MCG IVPUSH (08:55)
[2022-11-06] MEDS: Chlorhexidine Gluc Oral Rinse 15 ML MOUTHWASH BUCCAL ×3 (08:55→20:08)
[2022-11-06] MEDS: vancomycin HCL 750 MG in 0.9 % Sodium Chloride 250 ML 265 MG IV (08:56)
[2022-11-06] MEDS: propofoL 1,000 MG/100 ML VIAL 8.06 MG IVCONT ×2 (09:08→17:51)
--- NOTE | 2022-11-06 12:34 | P.PNCC_ITS ---
Subjective Subjective Date of Service: 11/06/22 Interval History: 52-year-old female who presented with upper airway obstruction stridor and hypoxic respiratory failure as a result and was also unable to swallow had emergent intubation and has skin a considerable submandibular almost [place] swelling and that still remains so at this point despite Zosyn and vancomycin and Solu-Medrol and with the cuff down still no evidence of leak so it is becoming concerning another 24 hours and I may need to reach out to ENT the no clearly at another hospital a as we continue to treat as Mark's angina with possible superimposed anaphylaxis from the [place] through my send that she was treated with She has a treated hypothyroid that by the numbers was still somewhat on undertreated so I increased her daily Synthroid in her the chronic pericardial effusion which is mostly posterior is not hemodynamically critical it is not causing tamponade so will continue to watch this Critical Care Time (minutes): 35 Physical Exam Vital Signs: Vital Signs: Last Vital Signs Temp 97.7 F 11/06/22 12:00 Pulse 76 11/06/22 12:00 Resp 16 11/06/22 12:01 BP 135/65 11/06/22 12:00 Pulse Ox 96 11/06/22 12:00 O2 Del Method Mechanical Ventil ation 11/06/22 12:00 FiO2 40 11/06/22 12:01 BMI result Body Mass Index 29.3 Vital signs are stable she is afebrile sinus rhythm at 77 oxygen saturation 97% current blood pressure 144/72 Opens her eyes she does awaken but she is deaf she will awaken to touch Bedside echo with stable effusion good LV and RV function Abdomen benign no organomegaly Chest x-ray with bibasilar atelectasis Objective Data Labs 11/06/22 05:34 11/06/22 05:34 Labs: Laboratory Results - last 24 hr 11/05/22 11/05/22 11/06/22 17:54 20:16 05:32 WBC RBC Hgb Hct MCV MCH MCHC RDW Plt Count MPV Immature Gran % (Auto) Neut % (Auto) Lymph % (Auto) [place] % (Auto) Eos % (Auto) Baso % (Auto) Lymph # (Auto) [place] # (Auto) Eos # (Auto) Baso # (Auto) Abs Immat Gran (auto) Absolute Neuts (auto) Absolute Nucleated RBC Nucleated RBC % (auto) Smear Tech's Comments VBG pH 7.65 H* VBG pCO2 16 VBG pO2 172 VBG HCO3 17 L VBG O2 Saturation 99.0 VBG Base Excess -0.4 Sodium 138 Potassium 3.7 D Chloride 107 Carbon Dioxide 21 L Anion Gap 14 BUN 18 H Creatinine 1.53 H Estim Creat Clear Calc 33.5 Estimated GFR 35 Random Glucose 204 H Calcium 8.5 Phosphorus Magnesium Albumin Vancomycin Trough 27.5 H* Random Vancomycin 11/06/22 11/06/22 11/06/22 05:34 05:34 05:34 WBC RBC Hgb Hct MCV MCH MCHC RDW Plt Count MPV Immature Gran % (Auto) Neut % (Auto) Lymph % (Auto) [place] % (Auto) Eos % (Auto) Baso % (Auto) Lymph # (Auto) [place] # (Auto) Eos # (Auto) Baso # (Auto) Abs Immat Gran (auto) Absolute Neuts (auto) Absolute Nucleated RBC Nucleated RBC % (auto) Smear Tech's Comments VBG pH VBG pCO2 VBG pO2 VBG HCO3 VBG O2 Saturation VBG Base Excess Sodium Potassium Chloride Carbon Dioxide Anion Gap BUN Creatinine Cancelled Estim Creat Clear Calc Cancelled Estimated GFR Cancelled Random Glucose Calcium Phosphorus Magnesium Albumin Vancomycin Trough 18.5 Random Vancomycin Cancelled 11/06/22 11/06/22 05:34 05:34 WBC 16.7 H RBC 3.71 L Hgb 11.5 L Hct 32.3 L MCV 87.1 MCH 31.0 MCHC 35.6 H RDW 14.0 Plt Count 258 MPV 11.2 Immature Gran % (Auto) 0.9 H Neut % (Auto) 91.2 H Lymph % (Auto) 4.4 L [place] % (Auto) 3.4 Eos % (Auto) 0.0 Baso % (Auto) 0.1 Lymph # (Auto) 0.7 L [place] # (Auto) 0.6 Eos # (Auto) 0.0 Baso # (Auto) 0.0 Abs Immat Gran (auto) 0.15 H Absolute Neuts (auto) 15.2 H Absolute Nucleated RBC 0.000 Nucleated RBC % (auto) 0.0 Smear Tech's Comments VERIFIED VBG pH VBG pCO2 VBG pO2 VBG HCO3 VBG O2 Saturation VBG Base Excess Sodium 139 Potassium 4.3 Chloride 113 H Carbon Dioxide 15 L Anion Gap 15 BUN 20 H Creatinine 1.63 H Estim Creat Clear Calc 31.1 Estimated GFR 33 Random Glucose 196 H Calcium 8.4 Phosphorus 3.5 Magnesium 2.1 Albumin 3.2 L Vancomycin Trough Random Vancomycin Microbiology Microbiology Results: Microbiology 11/04/22 02:53 Blood - Venous Blood Culture - Preliminary No growth after 48 hours. 11/04/22 02:53 Blood - Venous Blood Culture - Preliminary No growth after 48 hours. 11/04/22 Unknown Urine Catheterized - Bernal Catheter Urine Culture - Final No growth. Progress Note: A&P Assessment and plan (1) Acute respiratory failure with hypoxia: Status: Acute (2) Ludwigs angina: Status: Acute (3) Anaphylactic reaction: Status: Acute (4) Pneumonia: Status: Acute (5) Upper respiratory tract infection: Status: Acute (6) Pericardial effusion: Status: Acute (7) COVID-19 virus infection: Status: Acute (8) Hypersomnia: Status: Acute (9) Blood pressure elevated without history of HTN: Status: Acute (10) CAD (coronary artery disease): Status: Acute (11) Hypercholesterolemia: Status: Acute (12) Hypothyroid: Status: Acute (13) Pericardial effusion: Status: Acute Plan Continue antibiotics and steroids and ventilator management Quality Stroke Does the patient have a stroke diagnosis?: No VTE Prior VTE?: No VTE Risk Level:: Medical - moderate - high VTE Device Contraindication: N/A - Device Ordered VTE Drug Contraindication: N/A - Med Ordered
[2022-11-07] VITALS (30 sets, daily range): BP systolic 130–180; BP diastolic 65–96; PULSE 67–107; RESP 16–23; TEMP 34.7–37.1; O2SAT 91–98; BMI 29.0
[2022-11-07] MEDS: propofoL 1,000 MG/100 ML VIAL 8.06 MG IVCONT (02:24)
[2022-11-07 04:44] LABS: MANUAL DIFF FLAG NO
[2022-11-07 04:46] LABS: Basophils Percent Auto 0.1 % (0-2); Eosinophils Percent Auto 0.2 % (0-4); Hematocrit 31.6 % (37.0-47.0); Hemoglobin 10.9 g/dl (12.0-16.0); Imm Gran Abs Auto 0.18 X10*3/uL (0.00-0.03); Imm Gran Pct Auto 1.4 % (0.0-0.4); Lymphocytes Absolute Auto 0.7 X10*3/uL (1.2-4.9); Lymphocytes Percent Auto 5.6 % (20-40); Mean Corpuscular HGB Conc 34.5 g/dl (31.0-35.0); Mean Corpuscular Hemoglobin 30.4 pg (27.0-33.0); Mean Platelet Volume 10.2 fL (9.4-12.3); Monocytes Absolute Auto 0.4 X10*3/uL (0.1-1.2); Monocytes Percent Auto 2.7 % (2-11); Platelet Count 263 X10*3/uL (160-400); Red Blood Count 3.59 X10*6/uL (4.20-5.50); Red Cell Distribution Width 14.6 % (11.0-16.0); White Blood Count 13.3 X10*3/uL (4.8-10.8)
[2022-11-07 04:48] LABS: VBG Base Excess -2.9 mmol/L; VBG HCO3 18 mmol/L (22-26); VBG pCO2 24 mmHg; VBG pH 7.49 (7.32-7.43); VBG pO2 91 mmHg
[2022-11-07 04:57] LABS: Prothrombin Time 11.8 SEC (10.0-13.1)
[2022-11-07] MEDS: Midazolam HCl/NS 50 MG/50 ML PLAST..BAG IVCONT ×2 (04:57→17:25)
[2022-11-07] MEDS: Piperacillin Sodium/Tazobactam 3.375 GM in 0.9 % Sodium Chloride 50 ML IV (04:58)
[2022-11-07 05:00] LABS: Partial Thromboplastin Time 31.4 SEC (26.0-36.4); Vancomycin Random 17.7 mcg/mL (15-20)
[2022-11-07 05:01] LABS: Albumin Level 3.3 g/dL (3.5-5.0); Anion Gap 14 (12-20); Blood Urea Nitrogen 24 mg/dL (9-16); Calcium 8.6 mg/dL (8.4-10.2); Carbon Dioxide 18 mmol/L (22-29); Chloride 112 mmol/L (96-108); Creatinine Clr Calc Pharmacy 34.3; Estimated Glomerular Filt Rate 37; Glucose Random 201 mg/dL (60-115); Magnesium 2.2 mg/dL (1.6-2.6); Phosphorus 4.5 mg/dL (2.7-4.5); Potassium 3.7 mmol/L (3.3-5.1); Sodium 140 mmol/L (135-145); Venous Blood Gas Refer to POC result
[2022-11-07] MEDS: Enoxaparin Sodium 40 MG/0.4 ML SYRINGE SUBCUT ×2 (05:06→17:22)
--- NOTE | 2022-11-07 06:24 | HE.PHANOTE ---
Vancomycin Dosing Renal function is unstable. Continue current regimen. If renal function continue to improve dose will need to be increased. Next level 11/09 @ 0700. Arslan RamirezD
[2022-11-07] MEDS: methylPREDNISolone Sod Succ 40 MG/ML VIAL IVPUSH ×3 (07:56→23:00)
[2022-11-07] MEDS: Chlorhexidine Gluc Oral Rinse 15 ML MOUTHWASH BUCCAL ×3 (08:02→20:34)
[2022-11-07] MEDS: Famotidine/PF 20 MG/2 ML VIAL IVPUSH ×2 (08:02→20:33)
[2022-11-07] MEDS: Levothyroxine Sodium 100 MCG/5 ML VIAL 75 MCG IVPUSH (08:02)
[2022-11-07] MEDS: vancomycin HCL 750 MG in 0.9 % Sodium Chloride 250 ML 265 MG IV (08:02)
[2022-11-07] MEDS: Albuterol/Iprat 2.5/0.5MG 3 ML AMPUL.NEB INHALE ×4 (08:10→19:07)
--- NOTE | 2022-11-07 13:17 | MHC.CM.PN ---
Patient remains intubated/vented in ICU. Continue to monitor for d/c needs.
--- NOTE | 2022-11-07 15:37 | P.PNCC_ITS ---
Subjective Subjective Date of Service: 11/07/22 Interval History: 52-year-old obese female who is deaf and mute with background of hypertension hypercholesterolemia treated hypothyroidism apparently had been complaining for minimally 3-4 days of some upper respiratory difficulty and on the day of admission complained of dyspnea and apparently the family heard stridorous breathing brought to the emergency room which she was emergently intubated when they saw that there was extreme a 10 so with the swelling of the floor of the mouth the whole sub mandibular area with a tongue lifted way up and extending for and protruding from the mouth and they were able to intubate with the glide scope and beyond that is severe near complete obstruction of the oropharynx beyond that dated see anything unusual in terms of the epiglottis and the vocal cord visualization and she was thought initially to be to be a angioneurotic edema related to having been given a Zithromax mycin but from the appearance of this and even from the appearance of the soft-tissue on examination of the head neck on CT scan without contrast I question whether not this this could be a submandibular space infection namely a Mark's angina and I initially had her on Zosyn and vancomycin still not knowing what the source was all we could see was that there were missing teeth but I switch the Zosyn to meropenem when we still could not demonstrate patency to the airway when we dropped the endotracheal tube cuff after issues such as resistant g negatives a Pseudomonas etc. just in case but we also simultaneously maintained her on Solu-Medrol at 40 mg q.8 hourly but once again no patency to the airway today I just do not see a clinical difference and she remains intubated and sedated but the acute kidney injury for the 1st time today creatinine did come down she still has a hyperchloremic metabolic acidosis probably renal tubular Critical Care Time (minutes): 35 Physical Exam Vital Signs: Vital Signs: Last Vital Signs Temp 98.6 F 11/07/22 15:00 Pulse 94 11/07/22 15:00 Resp 16 11/07/22 15:00 BP 180/91 H 11/07/22 15:00 Pulse Ox 98 11/07/22 15:00 O2 Del Method Mechanical Ventil ation 11/07/22 15:00 FiO2 30 11/07/22 15:26 BMI result Body Mass Index 29.0 Sedated and intubated stable vital signs afebrile with heart rate 93 and sinus and oxygen saturation 97% respiratory rate 16 blood pressure on the hypertensive side 165-175 systolic Bedside echo with mild concentric left ventricular hypertrophy but normal LV and RV function Abdomen benign no organomegaly No skin rashes no palpable lymphadenopathy Objective Data Labs 11/07/22 04:34 11/07/22 04:34 Labs: Laboratory Results - last 24 hr 11/07/22 11/07/22 11/07/22 04:34 04:34 04:34 WBC 13.3 H RBC 3.59 L Hgb 10.9 L Hct 31.6 L MCV 88.0 MCH 30.4 MCHC 34.5 RDW 14.6 Plt Count 263 MPV 10.2 Immature Gran % (Auto) 1.4 H Neut % (Auto) 90.0 H Lymph % (Auto) 5.6 L [place] % (Auto) 2.7 Eos % (Auto) 0.2 Baso % (Auto) 0.1 Lymph # (Auto) 0.7 L [place] # (Auto) 0.4 Eos # (Auto) 0.0 Baso # (Auto) 0.0 Abs Immat Gran (auto) 0.18 H Absolute Neuts (auto) 12.0 H Absolute Nucleated RBC 0.000 Nucleated RBC % (auto) 0.0 PT INR APTT VBG pH VBG pCO2 VBG pO2 VBG HCO3 VBG O2 Saturation VBG Base Excess Sodium 140 Potassium 3.7 Chloride 112 H Carbon Dioxide 18 L Anion Gap 14 BUN 24 H Creatinine 1.48 H Estim Creat Clear Calc 34.3 Estimated GFR 37 Random Glucose 201 H Calcium 8.6 Phosphorus 4.5 Magnesium 2.2 Albumin 3.3 L Random Vancomycin 17.7 11/07/22 11/07/22 11/07/22 04:34 04:34 04:39 WBC RBC Hgb Hct MCV MCH MCHC RDW Plt Count MPV Immature Gran % (Auto) Neut % (Auto) Lymph % (Auto) [place] % (Auto) Eos % (Auto) Baso % (Auto) Lymph # (Auto) [place] # (Auto) Eos # (Auto) Baso # (Auto) Abs Immat Gran (auto) Absolute Neuts (auto) Absolute Nucleated RBC Nucleated RBC % (auto) PT 11.8 INR 1.0 APTT 31.4 D VBG pH 7.49 H VBG pCO2 24 VBG pO2 91 VBG HCO3 18 L VBG O2 Saturation 98.0 VBG Base Excess -2.9 Sodium Potassium Chloride Carbon Dioxide Anion Gap BUN Creatinine Cancelled Estim Creat Clear Calc Cancelled Estimated GFR Cancelled Random Glucose Calcium Phosphorus Magnesium Albumin Random Vancomycin Microbiology Microbiology Results: Microbiology 11/04/22 02:53 Blood - Venous Blood Culture - Preliminary No growth after 48 hours. 11/04/22 02:53 Blood - Venous Blood Culture - Preliminary No growth after 48 hours. 11/04/22 Unknown Urine Catheterized - Bernal Catheter Urine Culture - Final No growth. Progress Note: A&P Assessment and plan (1) Acute respiratory failure with hypoxia: Status: Acute (2) Ludwigs angina: Status: Acute (3) Anaphylactic reaction: Status: Acute (4) Pneumonia: Status: Acute (5) Upper respiratory tract infection: Status: Acute (6) Pericardial effusion: Status: Acute (7) COVID-19 virus infection: Status: Acute (8) Hypersomnia: Status: Acute (9) Blood pressure elevated without history of HTN: Status: Acute (10) CAD (coronary artery disease): Status: Acute (11) Hypercholesterolemia: Status: Acute (12) Hypothyroid: Status: Acute (13) Pericardial effusion: Status: Acute Plan So at this point we are on meropenem and vancomycin and maintaining steroids and I feel that probably by Tuesday we should reach out to ENT unless there is some some progress in terms of an airway patency and I await some further a resolution of her renal function to possibly repeat the CT scan of the of the head and neck so we get a better look at the the pharynx the larynx the retropharyngeal space and the mediastinum but with contrast or possibly with MRI In addition she does have and has had chronically a pericardial effusion which is minimally concentric it is mostly posterior may be slightly increased from when she was here in March but there are no features of tamponade Quality Stroke Does the patient have a stroke diagnosis?: No VTE Prior VTE?: No VTE Risk Level:: Medical - moderate - high VTE Device Contraindication: N/A - Device Ordered VTE Drug Contraindication: N/A - Med Ordered
[2022-11-07] MEDS: propofoL 1,000 MG/100 ML VIAL 4.03 MG IVCONT (15:41)
[2022-11-07] MEDS: fentaNYL citrate/PF 100 MCG/2 ML VIAL 25 MCG IVPUSH ×2 (20:33→23:00)
[2022-11-08] VITALS (33 sets, daily range): BP systolic 90–175; BP diastolic 51–85; PULSE 68–110; RESP 14–20; TEMP 34–37.3; O2SAT 6–100; BMI 29.4
[2022-11-08] MEDS: propofoL 1,000 MG/100 ML VIAL 12.1 MG IVCONT ×2 (01:30→07:34)
[2022-11-08] MEDS: Midazolam HCl/NS 50 MG/50 ML PLAST..BAG IVCONT ×2 (01:33)
[2022-11-08] MEDS: fentaNYL citrate/PF 100 MCG/2 ML VIAL 25 MCG IVPUSH (04:16)
[2022-11-08 04:46] LABS: VBG Base Excess -2.6 mmol/L; VBG HCO3 20 mmol/L (22-26); VBG pCO2 29 mmHg; VBG pH 7.44 (7.32-7.43); VBG pO2 87 mmHg
[2022-11-08 04:48] LABS: MANUAL DIFF FLAG NO
[2022-11-08 04:53] LABS: Basophils Percent Auto 0.2 % (0-2); Eosinophils Percent Auto 0.1 % (0-4); Hematocrit 31.2 % (37.0-47.0); Hemoglobin 10.4 g/dl (12.0-16.0); Imm Gran Abs Auto 0.25 X10*3/uL (0.00-0.03); Lymphocytes Absolute Auto 0.6 X10*3/uL (1.2-4.9); Lymphocytes Percent Auto 4.9 % (20-40); Mean Corpuscular HGB Conc 33.3 g/dl (31.0-35.0); Mean Corpuscular Hemoglobin 30.2 pg (27.0-33.0); Mean Corpuscular Volume 90.7 fL (80.0-98.0); Mean Platelet Volume 10.5 fL (9.4-12.3); Monocytes Absolute Auto 0.5 X10*3/uL (0.1-1.2); Monocytes Percent Auto 3.6 % (2-11); Neutrophils Absolute Auto 11.3 x10*3/uL (2.0-8.3); Neutrophils Percent Auto 89.2 % (45-73); Platelet Count 273 X10*3/uL (160-400); Red Blood Count 3.44 X10*6/uL (4.20-5.50); Red Cell Distribution Width 14.9 % (11.0-16.0); White Blood Count 12.7 X10*3/uL (4.8-10.8)
[2022-11-08 04:59] LABS: Venous Blood Gas Refer to POC result
[2022-11-08 05:06] LABS: Creatinine Clr Calc Pharmacy 37.4; Estimated Glomerular Filt Rate 41
[2022-11-08 05:11] LABS: Albumin Level 3.5 g/dL (3.5-5.0); Anion Gap 13 (12-20); Blood Urea Nitrogen 27 mg/dL (9-16); Calcium 8.6 mg/dL (8.4-10.2); Carbon Dioxide 19 mmol/L (22-29); Chloride 109 mmol/L (96-108); Creatinine Clr Calc Pharmacy 37.9; Estimated Glomerular Filt Rate 42; Glucose Random 272 mg/dL (60-115); Magnesium 2.4 mg/dL (1.6-2.6); Phosphorus 3.8 mg/dL (2.7-4.5); Potassium 3.8 mmol/L (3.3-5.1); Sodium 137 mmol/L (135-145)
[2022-11-08] MEDS: Enoxaparin Sodium 40 MG/0.4 ML SYRINGE SUBCUT ×2 (05:18→18:01)
--- NOTE | 2022-11-08 06:26 | HE.PHANOTE ---
Vancomycin Dosing Renal function is improving. Continue current regimen. Expect AUC is 489 with a trough of 14.6 on current regimen. Level schedule 11/09 @ 0700. Arslan RamirezD
[2022-11-08 06:40] LABS: Glucose, Whole Blood 258 mg/dL (60-115)
[2022-11-08] MEDS: Insulin Lispro 100 UNIT/ML 3 ML VIAL SUBCUT ×3 (06:41→18:02)
--- NOTE | 2022-11-08 06:43 | PC.NURSE ---
Assumed care at 19:00. Patient has been sedated on propofol and versed. Propofol was at 10 mcg/kg/min, and versed is at set rate of 4 mg/hr. Patient was found to have positive cough, unable to assess gag due to crowding of oral cavity by swollen tongue and oral mucosa. Squeezes eyes shut. Breathing is synchronous with ventilator. Grimaces to pain and noxious stimuli, but generally extremities are flaccid. Nonverbal signs of pain, including systolic blood pressures ranging 170-190, occassional grimacing, and nonpurposeful movement/restlessness were noted and BORING AND FILLING MACHINE OPERATOR notified and to bedside to assess. New order for one time 25 mcg fentanyl IVP administered with good effect, SBP down to 161. Patient subsequently had two further doses of 25 mcg IVP fentanyl for the same reason overnight when SBP ed to 170's. Propofol was also uptitrated per BORING AND FILLING MACHINE OPERATOR related to hypertension and restlessness. Patient started on POCs and Q6 hour sliding scale lispro coverage today. Sinus rhythm on telemetry. Edema seems to have reduced slightly, but still with facial edema, periorbital, neck, bilateral arms and hands all nonpitting, and also with +3 pitting sacral edema. Audible cuff leak today despite cuff pressure 28-30 mm Hg checked by RT. BORING AND FILLING MACHINE OPERATOR aware.
[2022-11-08] MEDS: Albuterol/Iprat 2.5/0.5MG 3 ML AMPUL.NEB INHALE ×4 (08:06→20:04)
[2022-11-08] MEDS: Chlorhexidine Gluc Oral Rinse 15 ML MOUTHWASH BUCCAL ×3 (08:53→20:18)
[2022-11-08] MEDS: Famotidine/PF 20 MG/2 ML VIAL IVPUSH ×2 (08:53→20:18)
[2022-11-08] MEDS: methylPREDNISolone Sod Succ 40 MG/ML VIAL IVPUSH ×2 (08:53→15:12)
[2022-11-08] MEDS: cefEPime HCl 1 GM in 0.9 % Sodium Chloride 50 ML IV ×2 (08:53→19:39)
[2022-11-08] MEDS: Levothyroxine Sodium 100 MCG/5 ML VIAL 75 MCG IVPUSH (08:54)
[2022-11-08] MEDS: vancomycin HCL 750 MG in 0.9 % Sodium Chloride 250 ML 265 MG IV (08:54)
--- NOTE | 2022-11-08 11:06 | P.PNCC_ITS ---
Subjective Subjective Date of Service: 11/08/22 Interval History: 52-year-old lady with underlying complete deficits, asthma, CAD with prior ACS, admitted on 11/04/2022 with respiratory distress and neck swelling on the background of 2-3 days of upper respiratory symptoms. On ER evaluation patient with respiratory distress and intubated for airway protection with [address] neck/soft tissue with supraglottic /parapharyngeal/submandibular stranding. Patient started on empiric broad-spectrum antibiotics And systemic glucocorticoids and admitted to intensive care unit. Over the last 24 hours with some improvement in airway edema and development of cuff leak on testing. No events overnight. Critical Care Time (minutes): 45 Physical Exam Vital Signs: Vital Signs: Last Vital Signs Temp 98.1 F 11/08/22 11:00 Pulse 99 11/08/22 11:00 Resp 20 11/08/22 11:00 BP 123/51 L 11/08/22 11:00 Pulse Ox 95 11/08/22 11:00 O2 Del Method Mechanical Ventil ation 11/08/22 11:00 FiO2 30 11/08/22 11:00 BMI result Body Mass Index 29.4 Const: General: no acute distress and other ( Sedated on the vent) HEENT: Head: Yes other ( tongue swollen) Eyes: Sclerae: sclerae normal EOM: EOMs intact bilaterally Neck: Neck: Yes other ( submandibular swelling) Resp: Auscultation: clear to auscultation bilaterally Cardio: Rate: tachycardic Rhythm: regular rhythm Heart sounds: no gallops, no murmurs and no rubs GI: Palpation (GI): Soft to palpation and Other GI palpation findings present ( Nontender) Auscultation: normal bowel sounds Extrem: General: No clubbing, No cyanosis and Yes edema (1+ bilateral) Objective Data Labs 11/08/22 04:33 11/08/22 04:33 Labs: Laboratory Results - last 24 hr 11/08/22 11/08/22 11/08/22 04:33 04:33 04:33 WBC 12.7 H RBC 3.44 L Hgb 10.4 L Hct 31.2 L MCV 90.7 MCH 30.2 MCHC 33.3 RDW 14.9 Plt Count 273 MPV 10.5 Immature Gran % (Auto) 2.0 H Neut % (Auto) 89.2 H Lymph % (Auto) 4.9 L [place] % (Auto) 3.6 Eos % (Auto) 0.1 Baso % (Auto) 0.2 Lymph # (Auto) 0.6 L [place] # (Auto) 0.5 Eos # (Auto) 0.0 Baso # (Auto) 0.0 Abs Immat Gran (auto) 0.25 H Absolute Neuts (auto) 11.3 H Absolute Nucleated RBC 0.000 Nucleated RBC % (auto) 0.0 VBG pH VBG pCO2 VBG pO2 VBG HCO3 VBG O2 Saturation VBG Base Excess Sodium 137 Potassium 3.8 Chloride 109 H Carbon Dioxide 19 L Anion Gap 13 BUN 27 H Creatinine 1.35 1.33 Estim Creat Clear Calc 37.4 37.9 Estimated GFR 41 42 POC Glucose Random Glucose 272 H Calcium 8.6 Phosphorus 3.8 Magnesium 2.4 Albumin 3.5 11/08/22 11/08/22 04:38 06:36 WBC RBC Hgb Hct MCV MCH MCHC RDW Plt Count MPV Immature Gran % (Auto) Neut % (Auto) Lymph % (Auto) [place] % (Auto) Eos % (Auto) Baso % (Auto) Lymph # (Auto) [place] # (Auto) Eos # (Auto) Baso # (Auto) Abs Immat Gran (auto) Absolute Neuts (auto) Absolute Nucleated RBC Nucleated RBC % (auto) VBG pH 7.44 H VBG pCO2 29 VBG pO2 87 VBG HCO3 20 L VBG O2 Saturation 97.0 VBG Base Excess -2.6 Sodium Potassium Chloride Carbon Dioxide Anion Gap BUN Creatinine Estim Creat Clear Calc Estimated GFR POC Glucose 258 H Random Glucose Calcium Phosphorus Magnesium Albumin Microbiology Microbiology Results: Microbiology 11/04/22 02:53 Blood - Venous Blood Culture - Preliminary No growth after 48 hours. 11/04/22 02:53 Blood - Venous Blood Culture - Preliminary No growth after 48 hours. 11/04/22 Unknown Urine Catheterized - Bernal Catheter Urine Culture - Final No growth. Progress Note: A&P Assessment and plan (1) Acute respiratory failure with hypoxia: Status: Acute (2) Ludwigs angina: Status: Acute (3) Anaphylactic reaction: Status: Acute (4) CAD (coronary artery disease): Status: Acute Plan Assessment: 52-year-old lady admitted with acute respiratory failure secondary to neck/of tissue infection with possible allergic component now requiring ventilatory support. Plan: Neuro: No acute issues. Cardiac: No acute issues. Underlying history of CAD. Pulmonary: Acute respiratory failure intubated for airway protection. Underlying neck/soft tissue infection with possible allergic component, improving, now with cuff leak on testing. Continue to titrate of ventilatory support as tolerated. Renal: acute renal failure, improving, non oliguric, continue to monitor renal indices and urine output. Endo: No acute issues. GI: No acute issues. ID: Cultures negative to date, empirically covered with broad-spectrum antibiotics. Heme/Onc: No acute issues. Psych: No acute issues. Miscellaneous: No acute issues. Prophylaxis: Famotidine, Lovenox Diet: tube feeds Critical care time spent: 45 minutes Quality Stroke Does the patient have a stroke diagnosis?: No VTE Prior VTE?: No VTE Risk Level:: Medical - moderate - high VTE Device Contraindication: N/A - Device Ordered VTE Drug Contraindication: N/A - Med Ordered
--- NOTE | 2022-11-08 11:22 | MHC.CLN ---
F/U NG TUBE FEEDING STARTED 11/06. TOLERATING CURRENT TUBE FEED AND FLUSH. TUBE FEEDING AT MAX GOAL RATE JEVITY 1.0 AT 40 ML PER HOUR; FREE WATER FLUSH 120 ML Q 6 HOURS. PROVIDES 1337 KCALS WITH SEDATION (28.7 KCALS/KG CME); 42.5 G PROTEIN (0.9 G/KG CMW); 1282 ML FREE WATER FROM FORMULA AND FLUSH (27.5 ML/KG CMW). FOLLOW FOR TUBE FEED TOLERANCE, RESIDUALS, AND LYTES.
[2022-11-08 11:39] LABS: Glucose, Whole Blood 179 mg/dL (60-115)
--- NOTE | 2022-11-08 13:34 | W.PM.IDCN ---
History of Present Illness Data of Consult Service Date: 11/08/22 Requesting physician: Marie Henao Primary Care Provider: MD CYNTHIA Reynoso Reason for consult: facial swelling She presents to hospital with swelling of face and airway compromise concern. She has some URI symptoms reported and was prescribed Azithromycin on 11/02. She reportedly took doses. She was intubated and is in ICU intubated. She has procalcitonin of .04. She has right scattered nodular opacities. Her procalciton is .04. Review of Systems Review of Systems: Yes unobtainable due to endotracheal tube PMFSH Past Medical History Medical History ACS (acute coronary syndrome) Anxiety and depression Asthma Constipation COVID Deaf Dysphagia Elevated blood sugar Generalized anxiety disorder Hypercholesterolemia Hypothyroid Pruritus Scabies SOB (shortness of breath) Vitamin B 12 deficiency Vitamin D deficiency Family History Family History Mother CAD (coronary artery disease) Hypertension Brother CAD (coronary artery disease) Family history: reviewed and not pertinent Surgical History Surgical History History of heart surgery Social History Social History Household Members: Family Household Members Other:: Mother & Brother Housing: House Housing Other:: 2 family Do you presently have visiting nurse or other home services: Yes Alcohol intake: never Patient Tobacco Use Status: Never used Tobacco e-Cigarette/Vaping Use: Never Used Second Hand Smoke Exposure: No service: No Current occupational status: unemployed Cognitive needs: No Hearing needs: No Vision needs: Yes (glasses) Meds Allergies Allergy/AdvReac Type Severity Reaction Status Date / Time ibuprofen Allergy Unknown unknown Verified 11/02/22 14:20 Sulfacetamide Sod-Pred Allergy Mild Unknown Uncoded 11/02/22 14:20 Active Medications: Current Medications Albuterol/Ipratropium (Albuterol/Iprat 2.5/0.5mg 3 Ml Ampul.Neb) 3 ml INHALE RQ4H WHILE AWAKE KEVIN Last Admin: 11/08/22 10:50 Dose: 3 ml Chlorhexidine Gluconate (Chlorhexidine Gluc Oral Rinse 15 Ml Mouthwash) 15 ml BUCCAL TID [facility] Last Admin: 11/08/22 08:53 Dose: 15 ml Enoxaparin Sodium (Enoxaparin Sodium 40 Mg/0.4 Ml Syringe) 40 mg SUBCUT Q12H [facility] Last Admin: 11/08/22 05:18 Dose: 40 mg Famotidine (Famotidine/Pf 20 Mg/2 Ml Vial) 20 mg IVPUSH BID [facility] Last Admin: 11/08/22 08:53 Dose: 20 mg Glucose (Glucose Gel 15 Gm Gel..Gram.) 15 gm PO Q15M PRN; Protocol PRN Reason: per Hypoglycemia Standing Ord. Propofol (Diprivan) 1,000 mg in 100 mls @ 0 mls/hr IVCONT .Q0M [facility]; Protocol Last Titration: 11/08/22 12:30 Dose: 40 mcg/kg/min, 16.13 mls/hr Norepinephrine Bitartrate (Levophed) 8 mg in 250 mls @ 0 mls/hr IV .Q0M [facility]; Protocol Last Titration: 11/05/22 20:04 Dose: Infused Vancomycin HCl 750 mg/ Sodium (Chloride) 265 mls @ 265 mls/hr IV Q24H [facility] Last Infusion: 11/08/22 12:02 Dose: Infused Dextrose (D10) 250 mls @ 750 mls/hr IV Q15M PRN; Protocol PRN Reason: per Hypoglycemia Standing Ord. Cefepime HCl 1 gm/ Sodium (Chloride) 50 mls @ 100 mls/hr IV Q12H [facility] Last Infusion: 11/08/22 10:13 Dose: Infused Insulin Human Lispro (Insulin Lispro 100 Unit/Ml 3 Ml Vial) 0 unit SUBCUT Q6H [facility]; Protocol Last Admin: 11/08/22 12:20 Dose: 2 unit Levothyroxine Sodium (Levothyroxine Sodium 100 Mcg/5 Ml Vial) 75 mcg IVPUSH DAILY [facility] Last Admin: 11/08/22 08:54 Dose: 75 mcg Methylprednisolone Sodium Succinate (Methylprednisolone Sod Succ 40 Mg/Ml Vial) 40 mg IVPUSH Q8H [facility] Last Admin: 11/08/22 08:53 Dose: 40 mg Pharmacy Consult (Consult Rx Vancomycin Dosing) 1 each MISCELLANE DAILY PRN PRN Reason: Consult order Home Medications Medication Instructions Recorded Confirmed Last Taken Type albuterol sulfate 90 mcg/actuation 2 puff inhalation Q2-4H PRN 04/17/22 11/04/22 Unknown History aerosol inhaler Shortness Of Breath cholecalciferol (vitamin D3) 50 1 cap PO QAM 04/17/22 11/04/22 Unknown History mcg (2,000 unit) capsule (Vitamin D3) fluticasone furoate 200 1 puff inhalation DAILY 04/17/22 11/04/22 Unknown History mcg-vilanterol 25 mcg/dose inhalation powder (Breo Ellipta) risperidone 1 mg tablet 1 tab PO BEDTIME 04/17/22 11/04/22 Unknown History cetirizine 10 mg tablet 10 mg PO DAILY@1200 05/13/22 11/04/22 Unknown History citalopram 40 mg tablet 40 mg PO QAM 05/13/22 11/04/22 Unknown History folic acid 400 mcg tablet 0.4 mg PO DAILY@1200 05/13/22 11/04/22 Unknown History simvastatin 20 mg tablet 20 mg PO DAILY@1800 07/26/22 11/04/22 Unknown History cyanocobalamin (vitamin B-12) 500 500 mcg PO DAILY@1200 11/04/22 11/04/22 Unknown History mcg tablet docusate sodium 100 mg capsule 100 mg PO BID@1200,2100 11/04/22 11/04/22 Unknown History hydroxyzine HCl 50 mg tablet 50 mg PO BEDTIME 11/04/22 11/04/22 Unknown History levothyroxine 112 mcg tablet 112 mcg PO DAILY@0600 11/04/22 11/04/22 Unknown History risperidone 0.5 mg tablet 0.5 mg PO DAILY 11/04/22 11/04/22 Unknown History Physical Exam Vital Signs: Vital Signs: Last Vital Signs Temp 98.4 F 11/08/22 13:00 Pulse 86 11/08/22 13:00 Resp 17 11/08/22 13:00 BP 130/65 11/08/22 13:00 Pulse Ox 94 11/08/22 13:00 O2 Del Method Mechanical Ventil ation 11/08/22 13:00 FiO2 30 11/08/22 13:00 BMI result Body Mass Index 29.4 Const: General: cooperative HEENT: Other: facial swelling,lip swelling Face and sinus: Yes normal facial exam Mouth: Normal oral and palatal mucosa present Teeth and gingiva: dentition normal Eyes: General: appearance normal, both eyes and all related structures Pupils: Equal, round and reactive pupils present Resp: Effort & Inspection: normal respiratory effort Cardio: Rate: regular rate Rhythm: regular rhythm GI: Palpation (GI): Soft to palpation and nontender : General: Yes no CVA tenderness Back/Spine/Pelvis: Back: no CVA tenderness Skin: General skin exam: no rashes or lesions noted Neuro: General: moves all extremities Cranial nerves: Yes Equal, round and reactive pupils present Extrem: General: Yes normal to inspection Psych: Appearance: grossly normal Results Labs 11/08/22 04:33 11/08/22 04:33 Labs: Short CBC 11/08/22 Range/Units 04:33 WBC 12.7 H (4.8-10.8) X10*3/uL Hgb 10.4 L (12.0-16.0) g/dl Hct 31.2 L (37.0-47.0) % Plt Count 273 (160-400) X10*3/uL BMP 11/08/22 11/08/22 04:33 04:33 Sodium 137 Potassium 3.8 Chloride 109 H Carbon Dioxide 19 L BUN 27 H Creatinine 1.35 1.33 Calcium 8.6 Liver Function 11/08/22 Range/Units 04:33 Albumin 3.5 (3.5-5.0) g/dL Microbiology Microbiology Results: Microbiology 11/04/22 02:53 Blood - Venous Blood Culture - Preliminary No growth after 48 hours. 11/04/22 02:53 Blood - Venous Blood Culture - Preliminary No growth after 48 hours. 11/04/22 Unknown Urine Catheterized - Bernal Catheter Urine Culture - Final No growth. Assessment and Plan (1) Acute respiratory failure with hypoxia: Status: Acute She has likely reaction to Azithromycin with anaphylactoid reaction with lip and face swelling still present. She likely aspirated secretions and has some reactive areas in right lung. I do not see lobar dense aspiration pneumonia and procalcitonin is very low at .04 so doubt ongoing VAP or aspiration at this time. Antibiotics do not prevent this from developing. (2) Anaphylactic reaction: Status: Acute Plan Can give Cefepime short course 3-5 days Check MRSA nares and stop Vancomycin if negative. Label azithromycin as allergy. Time Spent With Patient Time: Total time managing care of this patient today ____ minutes.
[2022-11-08] MEDS: propofoL 1,000 MG/100 ML VIAL 16.13 MG IVCONT (14:35)
--- NOTE | 2022-11-08 16:48 | PC.NURSE ---
Assumed care of patient 07:00 MD discontinued versed gtt. Versed gtt paused 09:00 and discontinued. MAR did not allow RN to infuse/titrate medication to d/c and waste remainder of 20 mL. merchandise team manager and laborer ammunition assembly aware. 11:00 patient bathed with chlorhexidine wipes 12:00 MD provided education to patient mother, 2 brothers on health status, plan of care. RN reinforced education on airway protection 16:45 laborer ammunition assembly assisted RN to resolve versed gtt titration and d/c in MAR. Patient restless, RASS +1 with light stimulation. Propofol gtt titrated up per protocol to 50 mcg/kg/min this shift. Prevlon system utilized, Q2H repositioning, Q2H mouth care, high fall precautions in place.
[2022-11-08] MEDS: propofoL 1,000 MG/100 ML VIAL 20.16 MG IVCONT ×2 (18:00→22:02)
[2022-11-08 18:02] LABS: Glucose, Whole Blood 231 mg/dL (60-115)
[2022-11-09] VITALS (35 sets, daily range): BP systolic 117–162; BP diastolic 53–92; PULSE 72–111; RESP 16–18; TEMP 34–37.5; O2SAT 92–99; BMI 29.9
[2022-11-09 00:05] LABS: Glucose, Whole Blood 232 mg/dL (60-115)
[2022-11-09] MEDS: propofoL 1,000 MG/100 ML VIAL 20.16 MG IVCONT ×5 (01:43→20:25)
[2022-11-09] MEDS: Insulin Lispro 100 UNIT/ML 3 ML VIAL SUBCUT ×5 (01:43→23:45)
[2022-11-09] MEDS: methylPREDNISolone Sod Succ 40 MG/ML VIAL IVPUSH ×4 (01:43→23:44)
[2022-11-09 04:54] LABS: VBG Base Excess -0.2 mmol/L; VBG HCO3 22 mmol/L (22-26); VBG pCO2 31 mmHg; VBG pH 7.46 (7.32-7.43); VBG pO2 91 mmHg
[2022-11-09 04:55] LABS: MANUAL DIFF FLAG NO
[2022-11-09 04:56] LABS: Venous Blood Gas Refer to POC result
[2022-11-09 04:58] LABS: Basophils Percent Auto 0.1 % (0-2); Eosinophils Percent Auto 0.1 % (0-4); Hematocrit 31.6 % (37.0-47.0); Hemoglobin 10.7 g/dl (12.0-16.0); Imm Gran Abs Auto 0.49 X10*3/uL (0.00-0.03); Imm Gran Pct Auto 3.1 % (0.0-0.4); Lymphocytes Absolute Auto 0.9 X10*3/uL (1.2-4.9); Lymphocytes Percent Auto 5.6 % (20-40); Mean Corpuscular HGB Conc 33.9 g/dl (31.0-35.0); Mean Corpuscular Hemoglobin 30.3 pg (27.0-33.0); Mean Corpuscular Volume 89.5 fL (80.0-98.0); Mean Platelet Volume 9.9 fL (9.4-12.3); Monocytes Absolute Auto 0.7 X10*3/uL (0.1-1.2); Monocytes Percent Auto 4.3 % (2-11); Neutrophils Absolute Auto 13.5 x10*3/uL (2.0-8.3); Neutrophils Percent Auto 86.8 % (45-73); Platelet Count 257 X10*3/uL (160-400); Red Blood Count 3.53 X10*6/uL (4.20-5.50); Red Cell Distribution Width 14.7 % (11.0-16.0); White Blood Count 15.6 X10*3/uL (4.8-10.8)
[2022-11-09 05:13] LABS: Complement C3 141 mg/dL (83-193)
[2022-11-09 05:16] LABS: Albumin Level 3.5 g/dL (3.5-5.0); Anion Gap 11 (12-20); Blood Urea Nitrogen 27 mg/dL (9-16); Calcium 8.8 mg/dL (8.4-10.2); Carbon Dioxide 21 mmol/L (22-29); Chloride 109 mmol/L (96-108); Creatinine Clr Calc Pharmacy 45.7; Estimated Glomerular Filt Rate 51; Glucose Random 181 mg/dL (60-115); Magnesium 2.5 mg/dL (1.6-2.6); Phosphorus 2.7 mg/dL (2.7-4.5); Potassium 3.9 mmol/L (3.3-5.1); Sodium 137 mmol/L (135-145)
[2022-11-09 05:57] LABS: Glucose, Whole Blood 201 mg/dL (60-115)
[2022-11-09] MEDS: Enoxaparin Sodium 40 MG/0.4 ML SYRINGE SUBCUT ×2 (06:08→17:37)
[2022-11-09 07:27] LABS: Vancomycin Trough 12.6 mcg/mL (10.0-20.0)
[2022-11-09] MEDS: Famotidine/PF 20 MG/2 ML VIAL IVPUSH ×2 (07:36→21:10)
[2022-11-09] MEDS: Chlorhexidine Gluc Oral Rinse 15 ML MOUTHWASH BUCCAL ×3 (07:36→21:10)
[2022-11-09] MEDS: Levothyroxine Sodium 100 MCG/5 ML VIAL 75 MCG IVPUSH (07:36)
[2022-11-09] MEDS: cefEPime HCl 1 GM in 0.9 % Sodium Chloride 50 ML IV ×2 (07:41→20:38)
--- NOTE | 2022-11-09 07:49 | HE.PHANOTE ---
Vancomycin Dosing Addendum Patients level came back this morning at 12.6. Increasing dose from 750 mg to 1000 mg Q24H as 750 mg is now showing to be sub therapeutic. Patients renal function has improved Crcl up from 37.9 to 45.7. Will get level 11/11 @0700 to ensure safety vs efficacy. Predicted AUC 504 mg/L/hr
[2022-11-09] MEDS: Albuterol/Iprat 2.5/0.5MG 3 ML AMPUL.NEB INHALE ×4 (08:24→20:06)
[2022-11-09] MEDS: vancomycin HCL 1,000 MG in 0.9 % Sodium Chloride 250 ML 270 MG IV (09:51)
--- NOTE | 2022-11-09 10:53 | P.PNCC_ITS ---
Subjective Subjective Date of Service: 11/09/22 Interval History: 52-year-old lady with underlying complete deficits, asthma, CAD with prior ACS, admitted on 11/04/2022 with respiratory distress and neck swelling on the background of 2-3 days of upper respiratory symptoms. On ER evaluation patient with respiratory distress and intubated for airway protection with 6.[address] neck/soft tissue with supraglottic /parapharyngeal/submandibular stranding. Patient started on empiric broad-spectrum antibiotics And systemic glucocorticoids and admitted to intensive care unit. Over the last 24 hours with some improvement in airway edema and development of cuff leak on testing. No events overnight. Critical Care Time (minutes): 45 Physical Exam Vital Signs: Vital Signs: Last Vital Signs Temp 99.0 F 11/09/22 10:00 Pulse 94 11/09/22 10:00 Resp 16 11/09/22 10:00 BP 136/70 11/09/22 10:00 Pulse Ox 92 11/09/22 10:00 O2 Del Method Mechanical Ventil ation 11/09/22 10:00 FiO2 30 11/09/22 10:00 BMI result Body Mass Index 29.9 Const: General: no acute distress and other (sedated on the vent) HEENT: Teeth and gingiva: other (tongue swollen) Eyes: Sclerae: sclerae normal Pupils: Equal, round and reactive pupils present Neck: Neck: Yes no lymphadenopathy, Yes trachea midline and Yes supple Resp: Effort & Inspection: no respiratory distress Auscultation: clear to auscultation bilaterally Cardio: Rate: regular rate Rhythm: regular rhythm Heart sounds: no gallops, no murmurs and no rubs GI: Palpation (GI): Soft to palpation and Other GI palpation findings present ( Nontender) Auscultation: normal bowel sounds Neuro: Cranial nerves: Yes Equal, round and reactive pupils present Extrem: General: No clubbing and No cyanosis Objective Data Labs 11/09/22 04:47 11/09/22 04:47 Labs: Laboratory Results - last 24 hr 11/05/22 11/08/22 11/08/22 06:50 11:31 17:56 WBC RBC Hgb Hct MCV MCH MCHC RDW Plt Count MPV Immature Gran % (Auto) Neut % (Auto) Lymph % (Auto) [place] % (Auto) Eos % (Auto) Baso % (Auto) Lymph # (Auto) [place] # (Auto) Eos # (Auto) Baso # (Auto) Abs Immat Gran (auto) Absolute Neuts (auto) Absolute Nucleated RBC Nucleated RBC % (auto) VBG pH VBG pCO2 VBG pO2 VBG HCO3 VBG O2 Saturation VBG Base Excess Sodium Potassium Chloride Carbon Dioxide Anion Gap BUN Creatinine Estim Creat Clear Calc Estimated GFR POC Glucose 179 H 231 H Random Glucose Calcium Phosphorus Magnesium Albumin Vancomycin Trough Complement C3 141 Complement C4 33 11/09/22 11/09/22 11/09/22 00:00 04:46 04:47 WBC RBC Hgb Hct MCV MCH MCHC RDW Plt Count MPV Immature Gran % (Auto) Neut % (Auto) Lymph % (Auto) [place] % (Auto) Eos % (Auto) Baso % (Auto) Lymph # (Auto) [place] # (Auto) Eos # (Auto) Baso # (Auto) Abs Immat Gran (auto) Absolute Neuts (auto) Absolute Nucleated RBC Nucleated RBC % (auto) VBG pH 7.46 H VBG pCO2 31 VBG pO2 91 VBG HCO3 22 VBG O2 Saturation 98.0 VBG Base Excess -0.2 Sodium 137 Potassium 3.9 Chloride 109 H Carbon Dioxide 21 L Anion Gap 11 L BUN 27 H Creatinine 1.11 Estim Creat Clear Calc 45.7 Estimated GFR 51 POC Glucose 232 H Random Glucose 181 H Calcium 8.8 Phosphorus 2.7 Magnesium 2.5 Albumin 3.5 Vancomycin Trough Complement C3 Complement C4 11/09/22 11/09/22 11/09/22 04:47 05:53 07:01 WBC 15.6 H RBC 3.53 L Hgb 10.7 L Hct 31.6 L MCV 89.5 MCH 30.3 MCHC 33.9 RDW 14.7 Plt Count 257 MPV 9.9 Immature Gran % (Auto) 3.1 H Neut % (Auto) 86.8 H Lymph % (Auto) 5.6 L [place] % (Auto) 4.3 Eos % (Auto) 0.1 Baso % (Auto) 0.1 Lymph # (Auto) 0.9 L [place] # (Auto) 0.7 Eos # (Auto) 0.0 Baso # (Auto) 0.0 Abs Immat Gran (auto) 0.49 H Absolute Neuts (auto) 13.5 H Absolute Nucleated RBC 0.000 Nucleated RBC % (auto) 0.0 VBG pH VBG pCO2 VBG pO2 VBG HCO3 VBG O2 Saturation VBG Base Excess Sodium Potassium Chloride Carbon Dioxide Anion Gap BUN Creatinine Estim Creat Clear Calc Estimated GFR POC Glucose 201 H Random Glucose Calcium Phosphorus Magnesium Albumin Vancomycin Trough 12.6 Complement C3 Complement C4 Microbiology Microbiology Results: Microbiology 11/04/22 02:53 Blood - Venous Blood Culture - Final No growth after 5 days. 11/04/22 02:53 Blood - Venous Blood Culture - Final No growth after 5 days. 11/04/22 Unknown Urine Catheterized - Bernal Catheter Urine Culture - Final No growth. Progress Note: A&P Assessment and plan (1) Anaphylactic reaction: Status: Acute (2) Acute respiratory failure with hypoxia: Status: Acute (3) Upper respiratory tract infection: Status: Acute (4) CAD (coronary artery disease): Status: Acute (5) Hypothyroid: Status: Acute Plan Assessment: 52-year-old lady admitted with acute respiratory failure secondary to neck/of tissue infection with possible allergic component now requiring ventilatory support. Plan: Neuro: No acute issues. Cardiac: No acute issues. Underlying history of CAD. Pulmonary: Acute respiratory failure intubated for airway protection. Underlying neck/soft tissue infection with possible allergic component, improving, now with cuff leak on testing. Continue to titrate of ventilatory support as tolerated. Renal: acute renal failure, improving, non oliguric, continue to monitor renal indices and urine output. Endo: No acute issues. GI: No acute issues. ID: Cultures negative to date, empirically covered with broad-spectrum antibiotics. Heme/Onc: No acute issues. Psych: No acute issues. Miscellaneous: No acute issues. Prophylaxis: Famotidine, Lovenox Diet: tube feeds Critical care time spent: 45 minutes Quality Stroke Does the patient have a stroke diagnosis?: No VTE Prior VTE?: No VTE Risk Level:: Medical - moderate - high VTE Device Contraindication: N/A - Device Ordered VTE Drug Contraindication: N/A - Med Ordered
[2022-11-09 12:24] LABS: Glucose, Whole Blood 284 mg/dL (60-115)
--- NOTE | 2022-11-09 14:57 | MHC.CM.PN ---
Pt continues care in ICU: still on vent support for airway protection. CM to follow for finalization of d/c planning.
[2022-11-09 17:32] LABS: Glucose, Whole Blood 229 mg/dL (60-115)
[2022-11-09] MEDS: fentaNYL citrate/NS 1,000 MCG/100 ML PLAST..BAG 2.5 MCG IVCONT (21:32)
[2022-11-09 23:45] LABS: Glucose, Whole Blood 229 mg/dL (60-115)
[2022-11-10] VITALS (50 sets, daily range): BP systolic 86–171; BP diastolic 45–80; PULSE 54–97; RESP 11–18; TEMP 35–37.4; O2SAT 92–98; BMI 30.6
[2022-11-10] MEDS: propofoL 1,000 MG/100 ML VIAL 20.16 MG IVCONT ×3 (00:38→19:56)
[2022-11-10] MEDS: Albuterol/Iprat 2.5/0.5MG 3 ML AMPUL.NEB INHALE ×5 (04:24→19:36)
[2022-11-10 04:51] LABS: VBG Base Excess 1.5 mmol/L; VBG HCO3 24 mmol/L (22-26); VBG pCO2 31 mmHg; VBG pH 7.49 (7.32-7.43); VBG pO2 95 mmHg
[2022-11-10 05:25] LABS: Hematocrit 30.9 % (37.0-47.0); Hemoglobin 10.3 g/dl (12.0-16.0); Mean Corpuscular HGB Conc 33.3 g/dl (31.0-35.0); Mean Corpuscular Volume 90.1 fL (80.0-98.0); Mean Platelet Volume 10.3 fL (9.4-12.3); Platelet Count 249 X10*3/uL (160-400); Red Blood Count 3.43 X10*6/uL (4.20-5.50); Red Cell Distribution Width 14.7 % (11.0-16.0); White Blood Count 12.6 X10*3/uL (4.8-10.8)
[2022-11-10] MEDS: propofoL 1,000 MG/100 ML VIAL 16.13 MG IVCONT ×2 (05:35→15:28)
[2022-11-10 05:45] LABS: Albumin Level 3.4 g/dL (3.5-5.0); Anion Gap 12 (12-20); Blood Urea Nitrogen 28 mg/dL (9-16); Calcium 8.7 mg/dL (8.4-10.2); Carbon Dioxide 23 mmol/L (22-29); Chloride 108 mmol/L (96-108); Estimated Glomerular Filt Rate 52; Glucose Random 256 mg/dL (60-115); Magnesium 2.5 mg/dL (1.6-2.6); Phosphorus 3.3 mg/dL (2.7-4.5); Potassium 4.1 mmol/L (3.3-5.1); Sodium 139 mmol/L (135-145)
[2022-11-10] MEDS: Midazolam HCl/PF 2 MG/2 ML VIAL IVPUSH ×2 (05:50→11:18)
[2022-11-10] MEDS: Enoxaparin Sodium 40 MG/0.4 ML SYRINGE SUBCUT ×2 (05:52→17:50)
[2022-11-10 06:05] LABS: Band Neutrophils Percent 1 % (3-5); Lymphocytes Absolute Manual 0.8 X10*3/uL (1.2-4.9); Lymphocytes Percent Manual 6 % (20-40); Metamyelocytes Absolute 0.1 X10*3/uL; Metamyelocytes Percent 1 %; Monocytes Absolute Manual 0.4 X10*3/uL (0.1-1.2); Monocytes Percent Manual 3 % (2-11); Myelocytes Absolute 0.1 X10*/uL; Myelocytes Percent 1 %; Neutrophils Absolute Manual 11.2 X10*3/uL (2.0-8.3); Neutrophils Percent Manual 88 % (45-73)
[2022-11-10 06:07] LABS: Burr Cells 1+ (0-2) /OIF; Platelet Estimate NORMAL (NORMAL); Platelet Morphology Comment NORMAL; RBC Morphology NOTED
[2022-11-10 06:22] LABS: Glucose, Whole Blood 258 mg/dL (60-115)
[2022-11-10] MEDS: Insulin Lispro 100 UNIT/ML 3 ML VIAL SUBCUT ×3 (06:22→17:51)
[2022-11-10 07:10] LABS: Venous Blood Gas Refer to POC result
[2022-11-10] MEDS: Famotidine/PF 20 MG/2 ML VIAL IVPUSH ×2 (07:28→20:17)
[2022-11-10] MEDS: Levothyroxine Sodium 100 MCG/5 ML VIAL 75 MCG IVPUSH (07:28)
[2022-11-10] MEDS: methylPREDNISolone Sod Succ 40 MG/ML VIAL IVPUSH (07:28)
[2022-11-10] MEDS: Chlorhexidine Gluc Oral Rinse 15 ML MOUTHWASH BUCCAL ×3 (07:29→20:17)
[2022-11-10] MEDS: cefEPime HCl 1 GM in 0.9 % Sodium Chloride 50 ML IV (07:29)
[2022-11-10] MEDS: vancomycin HCL 1,000 MG in 0.9 % Sodium Chloride 250 ML 270 MG IV (07:36)
--- NOTE | 2022-11-10 09:39 | MHC.CLN ---
F/U DISCUSSED AT ROUNDS WITH REVIEWED LABS TUBE FEEDING AT MAX GOAL RATE JEVITY 1.0 AT 40 ML PER HOUR WITH 120 ML FWF Q 6 HOURS PROVIDES 1018 (1550 KCALS WITH SEDATIO; 32 KCALS/KG); 42.5 G PROTEIN (0.9 G/KG CMW); 1282 ML FREE WATER FROM FORMULA AND FLUSH (27.5 ML/KG CMW) TOLERATING CURRENT TUBE FEED AND FLUSHES MONITOR TOLERANCE, RESIDUALS, AND LYTES
--- NOTE | 2022-11-10 09:51 | MHC.CM.PN ---
Patient remains in ICU, CM will continue to follow and support as appropriate.
[2022-11-10] MEDS: fentaNYL citrate/NS 1,000 MCG/100 ML PLAST..BAG 7.5 MCG IVCONT (10:14)
--- NOTE | 2022-11-10 10:47 | P.PNCC_ITS ---
Subjective Subjective Date of Service: 11/10/22 Interval History: 52-year-old lady with underlying complete deficits, asthma, CAD with prior ACS, admitted on 11/04/2022 with respiratory distress and neck swelling on the background of 2-3 days of upper respiratory symptoms. On ER evaluation patient with respiratory distress and intubated for airway protection with 6.[address] neck/soft tissue with supraglottic /parapharyngeal/submandibular stranding. Patient started on empiric broad-spectrum antibiotics And systemic glucocorticoids and admitted to intensive care unit. Over the last 24 hours with some improvement in airway edema and development of cuff leak on testing. No events overnight. Critical Care Time (minutes): 45 Physical Exam Vital Signs: Vital Signs: Last Vital Signs Temp 98.6 F 11/10/22 10:00 Pulse 66 11/10/22 10:14 Resp 16 11/10/22 10:14 BP 110/56 L 11/10/22 10:14 Pulse Ox 94 11/10/22 10:14 O2 Del Method Mechanical Ventil ation 11/10/22 10:00 FiO2 30 11/10/22 10:00 BMI result Body Mass Index 30.6 Const: General: no acute distress and other (Sedated on the vent) Eyes: Sclerae: sclerae normal EOM: EOMs intact bilaterally Neck: Neck: Yes trachea midline Resp: Effort & Inspection: normal respiratory effort and no respiratory distress Auscultation: clear to auscultation bilaterally Cardio: Rate: regular rate Rhythm: regular rhythm Heart sounds: no gallops, no murmurs and no rubs GI: Palpation (GI): Soft to palpation and Other GI palpation findings present ( Nontender) Auscultation: normal bowel sounds Extrem: General: Yes no pedal edema, No clubbing and No cyanosis Objective Data Labs 11/10/22 04:43 11/10/22 04:43 Labs: Laboratory Results - last 24 hr 11/09/22 11/09/22 11/09/22 12:20 17:28 23:38 WBC RBC Hgb Hct MCV MCH MCHC RDW Plt Count MPV Immature Gran % (Auto) Neut % (Auto) Lymph % (Auto) [place] % (Auto) Eos % (Auto) Baso % (Auto) Lymph # (Auto) [place] # (Auto) Eos # (Auto) Baso # (Auto) Abs Immat Gran (auto) Absolute Neuts (auto) Absolute Nucleated RBC Nucleated RBC % (auto) Neutrophils % (Manual) Band Neutrophils % Lymphocytes % (Manual) Monocytes % (Manual) Metamyelocytes % Myelocytes % Abs Neuts (Manual) Lymphocytes # (Manual) Monocytes # (Manual) Metamyelocytes # Myelocytes # Platelet Estimate Plt Morphology Comment RBC Morphology [place] Cells VBG pH VBG pCO2 VBG pO2 VBG HCO3 VBG O2 Saturation VBG Base Excess Sodium Potassium Chloride Carbon Dioxide Anion Gap BUN Creatinine Estim Creat Clear Calc Estimated GFR POC Glucose 284 H 229 H 229 H Random Glucose Calcium Phosphorus Magnesium Albumin 11/10/22 11/10/22 11/10/22 04:42 04:43 04:43 WBC 12.6 H RBC 3.43 L Hgb 10.3 L Hct 30.9 L MCV 90.1 MCH 30.0 MCHC 33.3 RDW 14.7 Plt Count 249 MPV 10.3 Immature Gran % (Auto) Cancelled Neut % (Auto) Cancelled Lymph % (Auto) Cancelled [place] % (Auto) Cancelled Eos % (Auto) Cancelled Baso % (Auto) Cancelled Lymph # (Auto) Cancelled [place] # (Auto) Cancelled Eos # (Auto) Cancelled Baso # (Auto) Cancelled Abs Immat Gran (auto) Cancelled Absolute Neuts (auto) Cancelled Absolute Nucleated RBC 0.000 Nucleated RBC % (auto) 0.0 Neutrophils % (Manual) 88 H Band Neutrophils % 1 L Lymphocytes % (Manual) 6 L Monocytes % (Manual) 3 Metamyelocytes % 1 Myelocytes % 1 Abs Neuts (Manual) 11.2 H Lymphocytes # (Manual) 0.8 L Monocytes # (Manual) 0.4 Metamyelocytes # 0.1 Myelocytes # 0.1 Platelet Estimate NORMAL Plt Morphology Comment NORMAL RBC Morphology NOTED [place] Cells 1+ (0-2) VBG pH 7.49 H VBG pCO2 31 VBG pO2 95 VBG HCO3 24 VBG O2 Saturation 98.0 VBG Base Excess 1.5 Sodium 139 Potassium 4.1 Chloride 108 Carbon Dioxide 23 Anion Gap 12 BUN 28 H Creatinine 1.09 Estim Creat Clear Calc 47.0 Estimated GFR 52 POC Glucose Random Glucose 256 H Calcium 8.7 Phosphorus 3.3 Magnesium 2.5 Albumin 3.4 L 11/10/22 06:18 WBC RBC Hgb Hct MCV MCH MCHC RDW Plt Count MPV Immature Gran % (Auto) Neut % (Auto) Lymph % (Auto) [place] % (Auto) Eos % (Auto) Baso % (Auto) Lymph # (Auto) [place] # (Auto) Eos # (Auto) Baso # (Auto) Abs Immat Gran (auto) Absolute Neuts (auto) Absolute Nucleated RBC Nucleated RBC % (auto) Neutrophils % (Manual) Band Neutrophils % Lymphocytes % (Manual) Monocytes % (Manual) Metamyelocytes % Myelocytes % Abs Neuts (Manual) Lymphocytes # (Manual) Monocytes # (Manual) Metamyelocytes # Myelocytes # Platelet Estimate Plt Morphology Comment RBC Morphology [place] Cells VBG pH VBG pCO2 VBG pO2 VBG HCO3 VBG O2 Saturation VBG Base Excess Sodium Potassium Chloride Carbon Dioxide Anion Gap BUN Creatinine Estim Creat Clear Calc Estimated GFR POC Glucose 258 H Random Glucose Calcium Phosphorus Magnesium Albumin Microbiology Microbiology Results: Microbiology 11/04/22 02:53 Blood - Venous Blood Culture - Final No growth after 5 days. 11/04/22 02:53 Blood - Venous Blood Culture - Final No growth after 5 days. 11/04/22 Unknown Urine Catheterized - Bernal Catheter Urine Culture - Final No growth. Progress Note: A&P Assessment and plan (1) Acute respiratory failure with hypoxia: Status: Acute (2) Anaphylactic reaction: Status: Acute (3) Upper respiratory tract infection: Status: Acute (4) CAD (coronary artery disease): Status: Acute Plan Assessment: 52-year-old lady admitted with acute respiratory failure secondary to neck/of tissue infection with possible allergic component now requiring ventilatory support. Plan: Neuro: No acute issues. Cardiac: No acute issues. Underlying history of CAD. Pulmonary: Acute respiratory failure intubated for airway protection. Underlying neck/soft tissue infection with possible allergic component, improving, now with cuff leak on testing. Continue to titrate of ventilatory support as tolerated. CT neck today to assess for soft tissue swelling. Renal: acute renal failure, improving, non oliguric, continue to monitor renal indices and urine output. Endo: No acute issues. GI: No acute issues. ID: Cultures negative to date, empirically covered with broad-spectrum antibiotics. Heme/Onc: No acute issues. Psych: No acute issues. Miscellaneous: No acute issues. Prophylaxis: Famotidine, Lovenox Diet: tube feeds Critical care time spent: 45 minutes Quality Stroke Does the patient have a stroke diagnosis?: No VTE Prior VTE?: No VTE Risk Level:: Medical - moderate - high VTE Device Contraindication: N/A - Device Ordered VTE Drug Contraindication: N/A - Med Ordered
[2022-11-10] MEDS: iohexoL 350 MG/ML 100 ML INFUS..BTL 60 ML IV (12:27)
[2022-11-10 12:32] LABS: Glucose, Whole Blood 206 mg/dL (60-115)
[2022-11-10] MEDS: Piperacillin Sodium/Tazobactam 3.375 GM in 0.9 % Sodium Chloride 50 ML IV ×2 (15:27→19:19)
--- NOTE | 2022-11-10 15:33 | PC.NURSE ---
Assumed care at 0700. Pt having episodes of desating to the 60's. Sedation increased for comfort and to tolerate CT head/ neck scan. On Propofol and Fentanyl drip. 2 mg IV push Versad given before transport. Pt tolerated transportation well. Dr Carballo will not plan to extubate today due to swelling. On AC settings on the vent, no adjustments made today. Minimal sputum. Receiving IV solumedrol and abx. IV Zosyn started. Bernal draining good urine output, clear yellow. Tube feeds at goal with water boluses every 6 hours. Abdomen round distended, large amount of air expelled from NG tube. No BM today, incontinent of small amount of stool yesterday. See documentation for further assessment, titration and I&O documentation.
[2022-11-10 17:50] LABS: Glucose, Whole Blood 157 mg/dL (60-115)
[2022-11-10] MEDS: Norepinephrine Bitartrate/D5W 8 MG/250 ML PLAST..BAG 5.83 MG IV (18:40)
[2022-11-10] MEDS: Cisatracurium Besylate 20 MG/10 ML VIAL 10 MG IVPUSH ×3 (18:40→22:35)
[2022-11-10] MEDS: fentaNYL citrate/NS 1,000 MCG/100 ML PLAST..BAG 17.5 MCG IVCONT (19:17)
[2022-11-10] MEDS: Cisatracurium Besylate 20 MG/10 ML VIAL IVPUSH (19:40)
[2022-11-10] MEDS: Cisatracurium Besylate 100 MG in 0.9 % Sodium Chloride 40 ML IVCONT (22:18)
[2022-11-10] MEDS: Albuterol Sulfate (0.083%) 2.5 MG/3 ML VIAL.NEB 10 MG INHALE (22:43)
[2022-11-10 23:34] LABS: Glucose, Whole Blood 161 mg/dL (60-115)
[2022-11-11] VITALS (44 sets, daily range): BP systolic 83–202; BP diastolic 45–78; PULSE 48–102; RESP 12–20; TEMP 34.7–37.5; O2SAT 90–98; BMI 30.2
[2022-11-11] MEDS: propofoL 1,000 MG/100 ML VIAL 20.16 MG IVCONT ×6 (00:29→22:45)
[2022-11-11] MEDS: Midazolam HCl/PF 2 MG/2 ML VIAL IVPUSH (00:42)
[2022-11-11] MEDS: fentaNYL citrate/NS 1,000 MCG/100 ML PLAST..BAG 15 MCG IVCONT (01:05)
[2022-11-11] MEDS: Furosemide 40 MG/4 ML VIAL IVPUSH (01:06)
[2022-11-11] MEDS: Piperacillin Sodium/Tazobactam 3.375 GM in 0.9 % Sodium Chloride 50 ML IV ×4 (01:24→19:34)
--- NOTE | 2022-11-11 03:10 | PC.NURSE ---
2000- Pt unable to maintain tidal volumes on vent, desating at times spO2 50-60% and bagged by RT. Pt given multiple ivp nimbex with good effect. Pt placed on nimbex drip at 2200. Baseline TOF - 4 mA. Tube feedings held. 0000- Pt continues to have no twitching on TOF assessment - INFECTION CONTROL PREVENTIONIST aware, order to continue current dose of nimbex to maintain vent synchrony.
[2022-11-11 04:59] LABS: VBG Base Excess 5.8 mmol/L; VBG HCO3 27 mmol/L (22-26); VBG pCO2 28 mmHg; VBG pH 7.58 (7.32-7.43); VBG pO2 51 mmHg
[2022-11-11 05:06] LABS: Venous Blood Gas Refer to POC result
[2022-11-11 05:12] LABS: PLT CLUMP 1
[2022-11-11 05:14] LABS: Hematocrit 33.7 % (37.0-47.0); Hemoglobin 11.2 g/dl (12.0-16.0); Mean Corpuscular HGB Conc 33.2 g/dl (31.0-35.0); Mean Corpuscular Hemoglobin 30.9 pg (27.0-33.0); Mean Corpuscular Volume 92.8 fL (80.0-98.0); Mean Platelet Volume 11.3 fL (9.4-12.3); Red Blood Count 3.63 X10*6/uL (4.20-5.50); White Blood Count 14.9 X10*3/uL (4.8-10.8)
[2022-11-11 05:15] LABS: Glucose, Whole Blood 170 mg/dL (60-115)
[2022-11-11] MEDS: Cisatracurium Besylate 100 MG in 0.9 % Sodium Chloride 40 ML IVCONT ×2 (05:21→18:02)
[2022-11-11] MEDS: Enoxaparin Sodium 40 MG/0.4 ML SYRINGE SUBCUT ×2 (05:21→18:02)
[2022-11-11 05:26] LABS: Albumin Level 3.4 g/dL (3.5-5.0); Anion Gap 18 (12-20); Blood Urea Nitrogen 30 mg/dL (9-16); Calcium 8.9 mg/dL (8.4-10.2); Carbon Dioxide 20 mmol/L (22-29); Chloride 104 mmol/L (96-108); Creatinine Clr Calc Pharmacy 41.6; Estimated Glomerular Filt Rate 45; Glucose Random 173 mg/dL (60-115); Magnesium 2.8 mg/dL (1.6-2.6); Phosphorus 3.2 mg/dL (2.7-4.5); Potassium 3.5 mmol/L (3.3-5.1); Sodium 138 mmol/L (135-145)
[2022-11-11 05:35] LABS: Band Neutrophils Percent 4 % (3-5); Eosinophils Absolute Manual 0.1 X10*3/uL (0.0-0.4); Eosinophils Percent Manual 1 % (0-4); Lymphocytes Absolute Manual 1.6 X10*3/uL (1.2-4.9); Lymphocytes Percent Manual 11 % (20-40); Metamyelocytes Absolute 0.3 X10*3/uL; Metamyelocytes Percent 2 %; Monocytes Absolute Manual 0.1 X10*3/uL (0.1-1.2); Monocytes Percent Manual 1 % (2-11); Neutrophils Absolute Manual 12.7 X10*3/uL (2.0-8.3); Neutrophils Percent Manual 81 % (45-73)
[2022-11-11 05:36] LABS: Platelet Estimate SLIGHTLY DECREASED (NORMAL); Platelet Morphology Comment NORMAL; RBC Morphology NORMAL
[2022-11-11 05:37] LABS: Platelet Count 163 X10*3/uL (160-400)
[2022-11-11] MEDS: fentaNYL citrate/NS 1,000 MCG/100 ML PLAST..BAG 17.5 MCG IVCONT ×4 (06:10→22:19)
[2022-11-11] MEDS: Potassium Chloride/H20 10 MEQ/100 ML PIGGYBACK 100 MEQ IV ×4 (06:12→09:36)
[2022-11-11] MEDS: Levothyroxine Sodium 100 MCG/5 ML VIAL 75 MCG IVPUSH (07:33)
[2022-11-11] MEDS: Chlorhexidine Gluc Oral Rinse 15 ML MOUTHWASH BUCCAL ×3 (07:34→21:29)
[2022-11-11] MEDS: Famotidine/PF 20 MG/2 ML VIAL IVPUSH ×2 (07:34→21:29)
[2022-11-11 07:55] LABS: Vancomycin Random 19.8 mcg/mL (15-20)
[2022-11-11] MEDS: Albuterol/Iprat 2.5/0.5MG 3 ML AMPUL.NEB INHALE (07:59)
--- NOTE | 2022-11-11 08:03 | HE.PHANOTE ---
Vancomycin Dosing Addendum Patients level came back today at 19.8. Patients last level was 12.6, does not seem like patient tolerated dose increase to 1000 mg, decreased back down to 750 mg Q24H. Will see how much level changes after one dose, next level on 11/12 @0700. Predicted AUC 444 mg/L/hr. Renal function has also increased from a scr of 1.09 to 1.24
[2022-11-11] MEDS: vancomycin HCL 750 MG in 0.9 % Sodium Chloride 250 ML 265 MG IV (08:35)
--- NOTE | 2022-11-11 10:22 | P.PNCC_ITS ---
Subjective Subjective Date of Service: 11/11/22 Interval History: 52-year-old lady with underlying complete deficits, asthma, CAD with prior ACS, admitted on 11/04/2022 with respiratory distress and neck swelling on the background of 2-3 days of upper respiratory symptoms. On ER evaluation patient with respiratory distress and intubated for airway protection with 6.[address] neck/soft tissue with supraglottic /parapharyngeal/submandibular stranding. Patient started on empiric broad-spectrum antibiotics And systemic glucocorticoids and admitted to intensive care unit. Over the last 24 hours with some improvement in airway edema and development of cuff leak on testing. follow-up CT neck on 11/10/2022, still with significant neck soft tissue swelling. No events overnight. Critical Care Time (minutes): 45 Physical Exam Vital Signs: Vital Signs: Last Vital Signs Temp 97.9 F 11/11/22 10:00 Pulse 78 11/11/22 10:00 Resp 20 11/11/22 10:00 BP 132/57 L 11/11/22 10:00 Pulse Ox 95 11/11/22 10:00 O2 Del Method Mechanical Ventil ation 11/11/22 10:00 FiO2 30 11/11/22 10:00 BMI result Body Mass Index 30.2 Const: General: no acute distress and other ( Sedated on the vent) Eyes: Sclerae: sclerae normal EOM: EOMs intact bilaterally Neck: Neck: Yes no lymphadenopathy, Yes trachea midline and Yes supple Resp: Auscultation: clear to auscultation bilaterally Cardio: Rate: regular rate Rhythm: regular rhythm Heart sounds: no ga llops, no murmurs and no rubs GI: Palpation (GI): Soft to palpation and Other GI palpation findings present ( Nontender) Auscultation: normal bowel sounds Extrem: General: Yes no pedal edema, No clubbing and No cyanosis Objective Data Labs 11/11/22 04:55 11/11/22 04:55 Labs: Laboratory Results - last 24 hr 11/10/22 11/10/22 11/10/22 12:29 17:47 23:30 WBC RBC Hgb Hct MCV MCH MCHC RDW Plt Count MPV Immature Gran % (Auto) Neut % (Auto) Lymph % (Auto) [place] % (Auto) Eos % (Auto) Baso % (Auto) Lymph # (Auto) [place] # (Auto) Eos # (Auto) Baso # (Auto) Abs Immat Gran (auto) Absolute Neuts (auto) Absolute Nucleated RBC Nucleated RBC % (auto) Neutrophils % (Manual) Band Neutrophils % Lymphocytes % (Manual) Monocytes % (Manual) Eosinophils % (Manual) Metamyelocytes % Abs Neuts (Manual) Lymphocytes # (Manual) Monocytes # (Manual) Eosinophils # (Manual) Metamyelocytes # Platelet Estimate Plt Morphology Comment RBC Morphology VBG pH VBG pCO2 VBG pO2 VBG HCO3 VBG O2 Saturation VBG Base Excess Sodium Potassium Chloride Carbon Dioxide Anion Gap BUN Creatinine Estim Creat Clear Calc Estimated GFR POC Glucose 206 H 157 H 161 H Random Glucose Calcium Phosphorus Magnesium Albumin Random Vancomycin 11/11/22 11/11/22 11/11/22 04:51 04:55 04:55 WBC 14.9 H RBC 3.63 L Hgb 11.2 L Hct 33.7 L MCV 92.8 MCH 30.9 MCHC 33.2 RDW 15.0 Plt Count 163 D MPV 11.3 Immature Gran % (Auto) Cancelled Neut % (Auto) Cancelled Lymph % (Auto) Cancelled [place] % (Auto) Cancelled Eos % (Auto) Cancelled Baso % (Auto) Cancelled Lymph # (Auto) Cancelled [place] # (Auto) Cancelled Eos # (Auto) Cancelled Baso # (Auto) Cancelled Abs Immat Gran (auto) Cancelled Absolute Neuts (auto) Cancelled Absolute Nucleated RBC 0.000 Nucleated RBC % (auto) 0.0 Neutrophils % (Manual) 81 H Band Neutrophils % 4 Lymphocytes % (Manual) 11 L Monocytes % (Manual) 1 L Eosinophils % (Manual) 1 Metamyelocytes % 2 Abs Neuts (Manual) 12.7 H Lymphocytes # (Manual) 1.6 Monocytes # (Manual) 0.1 Eosinophils # (Manual) 0.1 Metamyelocytes # 0.3 Platelet Estimate SLIGHTLY DECREASED Plt Morphology Comment NORMAL RBC Morphology NORMAL VBG pH 7.58 H VBG pCO2 28 VBG pO2 51 VBG HCO3 27 H VBG O2 Saturation 86.0 VBG Base Excess 5.8 Sodium 138 Potassium 3.5 Chloride 104 Carbon Dioxide 20 L Anion Gap 18 BUN 30 H Creatinine 1.24 Estim Creat Clear Calc 41.6 Estimated GFR 45 POC Glucose Random Glucose 173 H Calcium 8.9 Phosphorus 3.2 Magnesium 2.8 H Albumin 3.4 L Random Vancomycin 11/11/22 11/11/22 05:12 07:24 WBC RBC Hgb Hct MCV MCH MCHC RDW Plt Count MPV Immature Gran % (Auto) Neut % (Auto) Lymph % (Auto) [place] % (Auto) Eos % (Auto) Baso % (Auto) Lymph # (Auto) [place] # (Auto) Eos # (Auto) Baso # (Auto) Abs Immat Gran (auto) Absolute Neuts (auto) Absolute Nucleated RBC Nucleated RBC % (auto) Neutrophils % (Manual) Band Neutrophils % Lymphocytes % (Manual) Monocytes % (Manual) Eosinophils % (Manual) Metamyelocytes % Abs Neuts (Manual) Lymphocytes # (Manual) Monocytes # (Manual) Eosinophils # (Manual) Metamyelocytes # Platelet Estimate Plt Morphology Comment RBC Morphology VBG pH VBG pCO2 VBG pO2 VBG HCO3 VBG O2 Saturation VBG Base Excess Sodium Potassium Chloride Carbon Dioxide Anion Gap BUN Creatinine Estim Creat Clear Calc Estimated GFR POC Glucose 170 H Random Glucose Calcium Phosphorus Magnesium Albumin Random Vancomycin 19.8 Microbiology Microbiology Results: Microbiology 11/04/22 02:53 Blood - Venous Blood Culture - Final No growth after 5 days. 11/04/22 02:53 Blood - Venous Blood Culture - Final No growth after 5 days. 11/04/22 Unknown Urine Catheterized - Bernal Catheter Urine Culture - Final No growth. Progress Note: A&P Assessment and plan (1) Acute respiratory failure with hypoxia: Status: Acute (2) Anaphylactic reaction: Status: Acute (3) CAD (coronary artery disease): Status: Acute (4) Hypercholesterolemia: Status: Acute (5) Hypothyroid: Status: Acute (6) Upper respiratory tract infection: Status: Acute Plan Assessment: 52-year-old lady admitted with acute respiratory failure secondary to neck/of tissue infection with possible allergic component now requiring ventilatory support. Plan: Neuro: No acute issues. Cardiac: No acute issues. Underlying history of CAD. Pulmonary: Acute respiratory failure intubated for airway protection. Underlying neck/soft tissue infection with possible allergic component, improving, now with cuff leak on testing. Continue to titrate of ventilatory support as tolerated. CT neck on 11/10/2022 still with significant soft tissue swelling. Renal: acute renal failure, improving, non oliguric, continue to monitor renal indices and urine output. Endo: No acute issues. GI: No acute issues. ID: Cultures negative to date, will monitor off antibiotics. Heme/Onc: No acute issues. Psych: No acute issues. Miscellaneous: No acute issues. Prophylaxis: Famotidine, Lovenox Diet: tube feeds Critical care time spent: 45 minutes Quality Stroke Does the patient have a stroke diagnosis?: No VTE Prior VTE?: No VTE Risk Level:: Medical - moderate - high VTE Device Contraindication: N/A - Device Ordered VTE Drug Contraindication: N/A - Med Ordered
[2022-11-11] MEDS: Potassium Chloride Packet 20 MEQ PACKET 60 MEQ PO (10:46)
[2022-11-11 11:57] LABS: Glucose, Whole Blood 153 mg/dL (60-115)
--- NOTE | 2022-11-11 13:32 | MHC.CM.PN ---
Pt remains in ICU on ventilatory support d/t continued neck swelling w/airway compromise. No improvement from 11/10 CT. Pt communicates w/ASL: unknown if she can read/write - will follow up w/brother Raji. CM to follow for finalization of d/c needs.
[2022-11-11 17:59] LABS: Glucose, Whole Blood 150 mg/dL (60-115)
[2022-11-11 18:44] LABS: Complement Total CH50 >60 U/mL (31-60)
[2022-11-11] MEDS: Norepinephrine Bitartrate/D5W 8 MG/250 ML PLAST..BAG 5.83 MG IV (19:55)
[2022-11-11] MEDS: DOPamine HCL/D5W 400 MG/250 ML PLAST..BAG 12.3 MG IVCONT (20:12)
[2022-11-11 23:46] LABS: Glucose, Whole Blood 135 mg/dL (60-115)
[2022-11-12] VITALS (41 sets, daily range): BP systolic 76–220; BP diastolic 40–83; PULSE 46–118; RESP 10–26; TEMP 34.9–37.7; O2SAT 88–98; BMI 28.4
[2022-11-12] MEDS: Piperacillin Sodium/Tazobactam 3.375 GM in 0.9 % Sodium Chloride 50 ML IV ×3 (01:26→13:59)
[2022-11-12] MEDS: Midazolam HCl/PF 2 MG/2 ML VIAL IVPUSH (02:08)
[2022-11-12] MEDS: EPINEPHrine 5 MG in Dextrose 5 % 250 ML 40.15 MG IVCONT (02:45)
[2022-11-12] MEDS: propofoL 1,000 MG/100 ML VIAL 20.16 MG IVCONT ×2 (02:50→07:46)
--- NOTE | 2022-11-12 03:04 | PC.NURSE ---
Addendum entered by Namita Perea RN 11/12/22 04:51: Right femoral TLC placed, new order for Cardene. Sbp 100s-120s HR 100s, [employer] INST[employer]ATION [employer]W MEMBER aware. continue to monitor Original Note: assumed care at 1900, Sp 80s [employer] INSTALLATION [employer]W MEMBER Carelny aware, levo drip started, HR dropped to 40s, Dopamine drip started per Braeden Granado, SBP 200s titrated off levo and dopamine, SBP dropped down to 80s, Restarted Dopamine, levo remains off. BP and HR remain labile with hr rate dropping dwon as low as 46. New order to start Epi Drip and shut off Dopa mine. Epi started SBP 200s decreased to 0.1 mcg/kg/min per [employer] INST[employer]W MEMBER Vannesa . SBP 180s.
[2022-11-12] MEDS: fentaNYL citrate/NS 1,000 MCG/100 ML PLAST..BAG 17.5 MCG IVCONT ×2 (04:00→09:00)
[2022-11-12] MEDS: niCARdipine HCL 25 MG in 0.9 % Sodium Chloride 250 ML 52 MG IVCONT (04:07)
--- NOTE | 2022-11-12 04:07 | W.PM.CCHP ---
Procedures Date of Service Date of Service: 11/12/22 Central Line Placement Right Femoral: Central Line Comments: Patient with poor peripheral access, requiring emergent line. Central line placed on right femoral. Triple lumen central venous catheter placed in usual sterile conditions under ultrasound guidance for appropriate vascular access without immediate complications Consent for Procedure: Emergent-no informed consent obtained Time out performed: Yes Sterile Technique Used: Yes Patient placed on monitor/pulse ox: Yes MD prep: mask, gown and gloves Central line prep: Chlorhexidine scrub Local anesthesia used: other anesthetic (Patient on vent sedation) Ultrasound used for placement: Yes Central line lumen inserted: triple Post procedure: sutured in place, good blood return and all ports aspirated, flushed, capped Post procedure x-ray: other Patient tolerated procedure: well and no complications Complications: none
[2022-11-12] MEDS: Cisatracurium Besylate 100 MG in 0.9 % Sodium Chloride 40 ML IVCONT (05:22)
[2022-11-12] MEDS: Enoxaparin Sodium 40 MG/0.4 ML SYRINGE SUBCUT (05:22)
[2022-11-12 05:40] LABS: VBG Base Excess 6.2 mmol/L; VBG HCO3 29 mmol/L (22-26); VBG pCO2 39 mmHg; VBG pH 7.48 (7.32-7.43); VBG pO2 55 mmHg
[2022-11-12 05:41] LABS: Venous Blood Gas Refer to POC result
[2022-11-12 05:50] LABS: Hematocrit 34.7 % (37.0-47.0); Hemoglobin 11.7 g/dl (12.0-16.0); Mean Corpuscular HGB Conc 33.7 g/dl (31.0-35.0); Mean Corpuscular Hemoglobin 30.2 pg (27.0-33.0); Mean Corpuscular Volume 89.7 fL (80.0-98.0); Platelet Count 395 X10*3/uL (160-400); Red Blood Count 3.87 X10*6/uL (4.20-5.50); Red Cell Distribution Width 15.1 % (11.0-16.0); White Blood Count 22.1 X10*3/uL (4.8-10.8)
[2022-11-12 06:03] LABS: Glucose, Whole Blood 210 mg/dL (60-115)
[2022-11-12 06:07] LABS: Albumin Level 3.6 g/dL (3.5-5.0); Anion Gap 15 (12-20); Blood Urea Nitrogen 27 mg/dL (9-16); Calcium 8.7 mg/dL (8.4-10.2); Carbon Dioxide 24 mmol/L (22-29); Chloride 104 mmol/L (96-108); Estimated Glomerular Filt Rate 41; Glucose Random 210 mg/dL (60-115); Magnesium 2.5 mg/dL (1.6-2.6); Phosphorus 2.9 mg/dL (2.7-4.5); Potassium 4.2 mmol/L (3.3-5.1); Sodium 139 mmol/L (135-145)
[2022-11-12 06:29] LABS: Band Neutrophils Percent 3 % (3-5); Eosinophils Absolute Manual 0.2 X10*3/uL (0.0-0.4); Eosinophils Percent Manual 1 % (0-4); Lymphocytes Percent Manual 9 % (20-40); Metamyelocytes Absolute 0.7 X10*3/uL; Metamyelocytes Percent 3 %; Monocytes Absolute Manual 1.8 X10*3/uL (0.1-1.2); Monocytes Percent Manual 8 % (2-11); Myelocytes Absolute 0.2 X10*/uL; Myelocytes Percent 1 %; Neutrophils Absolute Manual 17.2 X10*3/uL (2.0-8.3); Neutrophils Percent Manual 75 % (45-73)
[2022-11-12 06:30] LABS: Large Platelet PRESENT; Platelet Estimate NORMAL (NORMAL); Platelet Morphology Comment NOTED; RBC Morphology NOTED; Rouleau PRESENT
[2022-11-12 07:27] LABS: Vancomycin Random 15.4 mcg/mL (15-20)
--- NOTE | 2022-11-12 07:38 | HE.PHANOTE ---
Vancomycin Dosing Addendum Patients level came back this morning at 15.4, RN had pulled lab that is why the time says unknown, spoke to RN, they said they pulled the level at about 0658 this morning. Patient is within AUC goals. Will continue current dose of 750mg Q24H. Patients Scr seems to be slowly rising, will get another random for tomorrow morning 11/13 @0700 to ensure patient is clearing.
[2022-11-12] MEDS: Furosemide 40 MG/4 ML VIAL IVPUSH (07:59)
[2022-11-12] MEDS: Famotidine/PF 20 MG/2 ML VIAL IVPUSH (09:05)
[2022-11-12] MEDS: Levothyroxine Sodium 100 MCG/5 ML VIAL 75 MCG IVPUSH (09:05)
[2022-11-12] MEDS: Chlorhexidine Gluc Oral Rinse 15 ML MOUTHWASH BUCCAL ×3 (09:05→22:24)
[2022-11-12] MEDS: vancomycin HCL 750 MG in 0.9 % Sodium Chloride 250 ML 265 MG IV (09:16)
--- NOTE | 2022-11-12 10:09 | MHC.CLN ---
F/U DISCUSSED AT ROUNDS WITH REVIEWED LABS TF ON HOLD R/T NIMBEX DRIP POSSIBLE EXTUBATION PLAN TODAY IF TF NEEDED; RECOMMEND JEVITY 1.0 AT MAX GOAL OF 40 ML PER HOUR WITH 120 ML FWF Q 6 HOURS PROVIDES 1018KCALS (1550KCALS WITH SEDATION; 32 KCALS/KG); 42.5 G PROTEIN (0.9 G/KG CMW); 1282 ML FREE WATER FROM FORMULA AND FLUSH (27.5 ML/KG CMW) MONITOR TOLERANCE, RESIDUALS, AND LYTES
--- NOTE | 2022-11-12 10:17 | PM.CCPN ---
Subjective Subjective Date of Service: 11/12/22 Interval History: 52-year-old lady with underlying complete deficits, asthma, CAD with prior ACS, admitted on 11/04/2022 with respiratory distress and neck swelling on the background of 2-3 days of upper respiratory symptoms. On ER evaluation patient with respiratory distress and intubated for airway protection with 6.[address] neck/soft tissue with supraglottic /parapharyngeal/submandibular stranding. Patient started on empiric broad-spectrum antibiotics And systemic glucocorticoids and admitted to intensive care unit. Over the last 24 hours with some improvement in airway edema and development of cuff leak on testing. follow-up CT neck on 11/10/2022, still with significant neck soft tissue swelling. Labile blood pressure overnight. Now on low-dose epinephrine. Critical Care Time (minutes): 45 Physical Exam Vital Signs: Vital Signs: Last Vital Signs Temp 99.0 F 11/12/22 10:00 Pulse 61 11/12/22 10:00 Resp 16 11/12/22 10:00 BP 107/55 L 11/12/22 10:00 Pulse Ox 96 11/12/22 10:00 O2 Del Method Mechanical Ventil ation 11/12/22 10:00 FiO2 30 11/12/22 10:00 BMI result Body Mass Index 28.4 Const: General: no acute distress and other ( Sedated on the vent) Eyes: Sclerae: sclerae normal EOM: EOMs intact bilaterally Neck: Neck: Yes no lymphadenopathy, Yes trachea midline and Yes supple Resp: Effort & Inspection: normal respiratory effort and no respiratory distress Auscultation: clear to auscultation bilaterally Cardio: Rate: regular rate Rhythm: regular rhythm Heart sounds: no gallops, no murmurs and no rubs GI: Palpation (GI): Soft to palpation and Other GI palpation findings present ( Nontender) Auscultation: normal bowel sounds Extrem: General: No clubbing, No cyanosis and Yes edema ( 1+ bilateral) Objective Data Labs 11/12/22 05:32 11/12/22 05:32 Labs: Laboratory Results - last 24 hr 11/05/22 11/11/22 11/11/22 06:50 11:55 17:56 WBC RBC Hgb Hct MCV MCH MCHC RDW Plt Count MPV Immature Gran % (Auto) Neut % (Auto) Lymph % (Auto) [place] % (Auto) Eos % (Auto) Baso % (Auto) Lymph # (Auto) [place] # (Auto) Eos # (Auto) Baso # (Auto) Abs Immat Gran (auto) Absolute Neuts (auto) Absolute Nucleated RBC Nucleated RBC % (auto) Neutrophils % (Manual) Band Neutrophils % Lymphocytes % (Manual) Monocytes % (Manual) Eosinophils % (Manual) Metamyelocytes % Myelocytes % Abs Neuts (Manual) Lymphocytes # (Manual) Monocytes # (Manual) Eosinophils # (Manual) Metamyelocytes # Myelocytes # Platelet Estimate Large Platelets Plt Morphology Comment RBC Morphology Rouleaux VBG pH VBG pCO2 VBG pO2 VBG HCO3 VBG O2 Saturation VBG Base Excess Sodium Potassium Chloride Carbon Dioxide Anion Gap BUN Creatinine Estim Creat Clear Calc Estimated GFR POC Glucose 153 H 150 H Random Glucose Calcium Phosphorus Magnesium Albumin Random Vancomycin Tot Complement (CH50) >60 H 11/11/22 11/12/22 11/12/22 23:41 05:30 05:32 WBC RBC Hgb Hct MCV MCH MCHC RDW Plt Count MPV Immature Gran % (Auto) Neut % (Auto) Lymph % (Auto) [place] % (Auto) Eos % (Auto) Baso % (Auto) Lymph # (Auto) [place] # (Auto) Eos # (Auto) Baso # (Auto) Abs Immat Gran (auto) Absolute Neuts (auto) Absolute Nucleated RBC Nucleated RBC % (auto) Neutrophils % (Manual) Band Neutrophils % Lymphocytes % (Manual) Monocytes % (Manual) Eosinophils % (Manual) Metamyelocytes % Myelocytes % Abs Neuts (Manual) Lymphocytes # (Manual) Monocytes # (Manual) Eosinophils # (Manual) Metamyelocytes # Myelocytes # Platelet Estimate Large Platelets Plt Morphology Comment RBC Morphology Rouleaux VBG pH 7.48 H VBG pCO2 39 VBG pO2 55 VBG HCO3 29 H VBG O2 Saturation 82.0 VBG Base Excess 6.2 Sodium 139 Potassium 4.2 Chloride 104 Carbon Dioxide 24 Anion Gap 15 BUN 27 H Creatinine 1.35 Estim Creat Clear Calc 37.0 Estimated GFR 41 POC Glucose 135 H Random Glucose 210 H Calcium 8.7 Phosphorus 2.9 Magnesium 2.5 Albumin 3.6 Random Vancomycin Tot Complement (CH50) 11/12/22 11/12/22 11/12/22 05:32 05:59 Unknown WBC 22.1 H RBC 3.87 L Hgb 11.7 L Hct 34.7 L MCV 89.7 MCH 30.2 MCHC 33.7 RDW 15.1 Plt Count 395 D MPV 10.0 Immature Gran % (Auto) Cancelled Neut % (Auto) Cancelled Lymph % (Auto) Cancelled [place] % (Auto) Cancelled Eos % (Auto) Cancelled Baso % (Auto) Cancelled Lymph # (Auto) Cancelled [place] # (Auto) Cancelled Eos # (Auto) Cancelled Baso # (Auto) Cancelled Abs Immat Gran (auto) Cancelled Absolute Neuts (auto) Cancelled Absolute Nucleated RBC 0.000 Nucleated RBC % (auto) 0.0 Neutrophils % (Manual) 75 H Band Neutrophils % 3 Lymphocytes % (Manual) 9 L Monocytes % (Manual) 8 Eosinophils % (Manual) 1 Metamyelocytes % 3 Myelocytes % 1 Abs Neuts (Manual) 17.2 H Lymphocytes # (Manual) 2.0 Monocytes # (Manual) 1.8 H Eosinophils # (Manual) 0.2 Metamyelocytes # 0.7 Myelocytes # 0.2 Platelet Estimate NORMAL Large Platelets PRESENT Plt Morphology Comment NOTED RBC Morphology NOTED Rouleaux PRESENT VBG pH VBG pCO2 VBG pO2 VBG HCO3 VBG O2 Saturation VBG Base Excess Sodium Potassium Chloride Carbon Dioxide Anion Gap BUN Creatinine Estim Creat Clear Calc Estimated GFR POC Glucose 210 H Random Glucose Calcium Phosphorus Magnesium Albumin Random Vancomycin 15.4 Tot Complement (CH50) Microbiology Microbiology Results: Microbiology 11/04/22 02:53 Blood - Venous Blood Culture - Final No growth after 5 days. 11/04/22 02:53 Blood - Venous Blood Culture - Final No growth after 5 days. 11/04/22 Unknown Urine Catheterized - Bernal Catheter Urine Culture - Final No growth. Progress Note: A&P Assessment and plan (1) Acute respiratory failure with hypoxia: Status: Acute (2) Anaphylactic reaction: Status: Acute (3) Upper respiratory tract infection: Status: Acute (4) CAD (coronary artery disease): Status: Acute (5) Hypothyroid: Status: Acute Plan Assessment: 52-year-old lady admitted with acute respiratory failure secondary to neck/of tissue infection with possible allergic component now requiring ventilatory support. Plan: Neuro: No acute issues. Cardiac: No acute issues. Underlying history of CAD. Pulmonary: Acute respiratory failure intubated for airway protection. Underlying neck/soft tissue infection with possible allergic component, improving, now with cuff leak on testing. Continue to titrate off ventilatory support as tolerated. CT neck on 11/10/2022 still with significant soft tissue swelling. now tolerating pressure support trials. Renal: acute renal failure, improving, non oliguric, continue to monitor renal indices and urine output. Endo: No acute issues. GI: No acute issues. ID: Cultures negative to date, will monitor off antibiotics. Heme/Onc: No acute issues. Psych: No acute issues. Miscellaneous: No acute issues. Prophylaxis: Famotidine, Lovenox Diet: tube feeds Critical care time spent: 45 minutes Quality Stroke Does the patient have a stroke diagnosis?: No VTE Prior VTE?: No VTE Risk Level:: Medical - moderate - high VTE Device Contraindication: N/A - Device Ordered VTE Drug Contraindication: N/A - Med Ordered
[2022-11-12 12:06] LABS: Glucose, Whole Blood 226 mg/dL (60-115)
[2022-11-12 13:34] LABS: VBG Base Excess 5.9 mmol/L; VBG HCO3 34 mmol/L (22-26); VBG pCO2 67 mmHg; VBG pO2 38 mmHg
[2022-11-12 13:50] LABS: Venous Blood Gas Refer to POC result
--- NOTE | 2022-11-12 13:56 | PC.RT ---
13:[address] Carballo inserted a #14 cook catheter marking the placement, this rt removed the # 6 ETT with cuff deflated over the catherter at which time the catherter was secured in place. No stridor was noted at this time, corse oral rhonchi noted. RN cleared oral cavity and a racemic epinephrine was given as 2.25% with 3 ml 0.9% nss as patient was initially intubated for severe airway edema. Pt danya well, vbg obtained 25 min later 7.30/67/38, post vbg the catheter was removed by . Placed on 2 lpm oxymask with ETCO2 vbg ordered repeated in one hour. Pt is noted nonverbal and deaf making communication a challenge but is resting comfortably at this time. Vent in room on standby.
[2022-11-12] MEDS: Insulin Lispro 100 UNIT/ML 3 ML VIAL SUBCUT (13:57)
[2022-11-12 14:31] LABS: VBG Base Excess 9.1 mmol/L; VBG HCO3 37 mmol/L (22-26); VBG pCO2 70 mmHg; VBG pH 7.33 (7.32-7.43); VBG pO2 45 mmHg
--- NOTE | 2022-11-12 14:56 | MHC.CM.PN ---
PT REMAINS IN ICU, PT WAS EXTUBATED AND COOK CATHETER WAS INSERTED BY MD. SANCHEZ WELL PER NOTES. CM WILL CONTINUE TO FOLLOW HOSPITAL COURSE FOR DC NEEDS.
[2022-11-12 14:58] LABS: Anti Nuclear Antibody Screen POSITIVE (NEGATIVE); Anti Nuclear Antibody Titer 1:40 titer
[2022-11-12 15:16] LABS: Venous Blood Gas Refer to POC result
[2022-11-12] MEDS: acetaZOLAMIDE sodium 500 MG VIAL 250 MG IVPUSH (15:37)
[2022-11-12 17:49] LABS: Glucose, Whole Blood 89 mg/dL (60-115)
[2022-11-12 18:12] LABS: VBG Base Excess 10.2 mmol/L; VBG HCO3 38 mmol/L (22-26); VBG pCO2 74 mmHg; VBG pH 7.32 (7.32-7.43); VBG pO2 41 mmHg
[2022-11-12 18:57] LABS: Venous Blood Gas Refer to POC result
[2022-11-12 20:26] LABS: VBG Base Excess 8.9 mmol/L; VBG HCO3 36 mmol/L (22-26); VBG pCO2 66 mmHg; VBG pH 7.34 (7.32-7.43); VBG pO2 42 mmHg
[2022-11-12] MEDS: EPINEPHrine 5 MG in Dextrose 5 % 250 ML 10.04 MG IVCONT (20:44)
[2022-11-12 20:55] LABS: Venous Blood Gas Refer to POC result
[2022-11-12 23:41] LABS: Glucose, Whole Blood 130 mg/dL (60-115)
[2022-11-13] VITALS (28 sets, daily range): BP systolic 121–162; BP diastolic 64–96; PULSE 87–117; RESP 10–23; TEMP 37.3–38; O2SAT 87–97; BMI 26.0
--- NOTE | 2022-11-13 04:49 | PC.NURSE ---
Addendum entered by Brayan Cannon RN 11/13/22 06:20: AM LOVENOX HELD PER ICU DRYWALL STRIPPER Original Note: CARE ASSUMED 23:15...REMAINED ON BIPAP 12/5 & FIO2 21%...TV/Ve CYCLIC WITH SLEEP APNEA CYCLES...SAO2 94 TO LOW OF 78-80%...RT PRESENT AND TITRATED BIPAP TO 15/8 AND CONTINUED FIO2 21%..PER SHIFT REPORT MD GOAL IS TO MAINTAIN SAO2 <91%...PATIENT IS DEAF PER REPORT BUT READS LIPS AND/OR WRITES AT BASELINE PRIOR TO ADMIT...EYES OPEN AND BRIEFLY TRACKS...DOES NOT FOLLOW ANY COMMANDS...FREQUENTLY DOZING WHEN UNSTIMULATED....NSR/S.TACH HR 90'S-110'S...REMAINS ON EPINEPHRINE DRIP 0.05 MCG/KG/MIN..PER ICU DRYWALL STRIPPER PATIENT EXTREMELY SENSITIVE TO PRESSOR TITRATIONS...SBP 120-150...HECTOR DAVID URINE
[2022-11-13 05:23] LABS: VBG Base Excess 7.3 mmol/L; VBG HCO3 33 mmol/L (22-26); VBG pCO2 54 mmHg; VBG pH 7.39 (7.32-7.43); VBG pO2 48 mmHg
[2022-11-13 05:37] LABS: MANUAL DIFF FLAG NO
[2022-11-13 05:40] LABS: Basophils Percent Auto 0.2 % (0-2); Eosinophils Absolute Auto 0.5 X10*3/uL (0.0-0.4); Hematocrit 32.2 % (37.0-47.0); Hemoglobin 10.3 g/dl (12.0-16.0); Imm Gran Abs Auto 0.54 X10*3/uL (0.00-0.03); Imm Gran Pct Auto 3.4 % (0.0-0.4); Lymphocytes Absolute Auto 1.6 X10*3/uL (1.2-4.9); Lymphocytes Percent Auto 10.1 % (20-40); Mean Corpuscular Hemoglobin 29.3 pg (27.0-33.0); Mean Corpuscular Volume 91.7 fL (80.0-98.0); Monocytes Absolute Auto 0.9 X10*3/uL (0.1-1.2); Monocytes Percent Auto 5.6 % (2-11); Neutrophils Absolute Auto 12.5 x10*3/uL (2.0-8.3); Neutrophils Percent Auto 77.7 % (45-73); Platelet Count 287 X10*3/uL (160-400); Red Blood Count 3.51 X10*6/uL (4.20-5.50); Red Cell Distribution Width 14.6 % (11.0-16.0); White Blood Count 16.1 X10*3/uL (4.8-10.8)
[2022-11-13 05:53] LABS: Albumin Level 4.1 g/dL (3.5-5.0); Anion Gap 16 (12-20); Blood Urea Nitrogen 23 mg/dL (9-16); Calcium 9.2 mg/dL (8.4-10.2); Carbon Dioxide 26 mmol/L (22-29); Chloride 104 mmol/L (96-108); Creatinine Clr Calc Pharmacy 42.2; Estimated Glomerular Filt Rate 50; Glucose Random 127 mg/dL (60-115); Magnesium 2.6 mg/dL (1.6-2.6); Phosphorus 3.4 mg/dL (2.7-4.5); Sodium 142 mmol/L (135-145)
[2022-11-13 06:44] LABS: Venous Blood Gas Refer to POC result
[2022-11-13 07:31] LABS: Vancomycin Random 14.2 mcg/mL (15-20)
[2022-11-13] MEDS: Levothyroxine Sodium 100 MCG/5 ML VIAL 75 MCG IVPUSH (09:07)
[2022-11-13] MEDS: Chlorhexidine Gluc Oral Rinse 15 ML MOUTHWASH BUCCAL (09:08)
--- NOTE | 2022-11-13 10:02 | P.PNCC_ITS ---
Subjective Subjective Date of Service: 11/13/22 Interval History: 52-year-old lady with underlying complete deficits, asthma, CAD with prior ACS, admitted on 11/04/2022 with respiratory distress and neck swelling on the background of 2-3 days of upper respiratory symptoms. On ER evaluation patient with respiratory distress and intubated for airway protection with 6.[address] neck/soft tissue with supraglottic /parapharyngeal/submandibular stranding. Patient started on empiric broad-spectrum antibiotics And systemic glucocorticoids and admitted to intensive care unit. Over the last 24 hours with some improvement in airway edema and development of cuff leak on testing. follow-up CT neck on 11/10/2022, still with significant neck soft tissue swelling.Extubated on 11/12/2022 remains encephalopathic, requiring BiPAP support at night. No events overnight. Critical Care Time (minutes): 45 Physical Exam Vital Signs: Vital Signs: Last Vital Signs Temp 99.5 F 11/13/22 09:00 Pulse 99 11/13/22 09:00 Resp 20 11/13/22 09:00 BP 158/71 H 11/13/22 09:00 Pulse Ox 89 L 11/13/22 09:00 O2 Del Method BiPAP 11/13/22 09:00 O2 Flow Rate 1 11/12/22 18:00 FiO2 21 11/13/22 09:00 BMI result Body Mass Index 26.0 Const: General: no acute distress and awake Eyes: Sclerae: sclerae normal EOM: EOMs intact bilaterally Neck: Neck: Yes no lymphadenopathy, Yes trachea midline, Yes supple and Yes other (submandibular swelling b/l) Resp: Effort & Inspection: normal respiratory effort and no respiratory distress Auscultation: clear to auscultation bilaterally Cardio: Rate: regular rate Rhythm: regular rhythm Heart sounds: no gallops, no murmurs and no rubs GI: Palpation (GI): Soft to palpation and Other GI palpation findings present ( Nontender) Auscultation: normal bowel sounds Extrem: General: Yes no pedal edema, No clubbing and No cyanosis Objective Data Labs 11/13/22 05:18 11/13/22 05:18 Labs: Laboratory Results - last 24 hr 11/05/22 11/12/22 11/12/22 06:50 12:03 13:25 WBC RBC Hgb Hct MCV MCH MCHC RDW Plt Count MPV Immature Gran % (Auto) Neut % (Auto) Lymph % (Auto) [place] % (Auto) Eos % (Auto) Baso % (Auto) Lymph # (Auto) [place] # (Auto) Eos # (Auto) Baso # (Auto) Abs Immat Gran (auto) Absolute Neuts (auto) Absolute Nucleated RBC Nucleated RBC % (auto) VBG pH 7.30 L VBG pCO2 67 VBG pO2 38 VBG HCO3 34 H VBG O2 Saturation 48.0 VBG Base Excess 5.9 Sodium Potassium Chloride Carbon Dioxide Anion Gap BUN Creatinine Estim Creat Clear Calc Estimated GFR POC Glucose 226 H Random Glucose Calcium Phosphorus Magnesium Albumin Random Vancomycin MYKE Screen POSITIVE A MYKE Titer 1:40 H MYKE Pattern A 11/12/22 11/12/22 11/12/22 14:22 17:44 18:04 WBC RBC Hgb Hct MCV MCH MCHC RDW Plt Count MPV Immature Gran % (Auto) Neut % (Auto) Lymph % (Auto) [place] % (Auto) Eos % (Auto) Baso % (Auto) Lymph # (Auto) [place] # (Auto) Eos # (Auto) Baso # (Auto) Abs Immat Gran (auto) Absolute Neuts (auto) Absolute Nucleated RBC Nucleated RBC % (auto) VBG pH 7.33 7.32 VBG pCO2 70 74 VBG pO2 45 41 VBG HCO3 37 H 38 H VBG O2 Saturation 64.0 59.0 VBG Base Excess 9.1 10.2 Sodium Potassium Chloride Carbon Dioxide Anion Gap BUN Creatinine Estim Creat Clear Calc Estimated GFR POC Glucose 89 Random Glucose Calcium Phosphorus Magnesium Albumin Random Vancomycin MYKE Screen MYKE Titer MYKE Pattern 11/12/22 11/12/22 11/13/22 20:17 23:37 05:14 WBC RBC Hgb Hct MCV MCH MCHC RDW Plt Count MPV Immature Gran % (Auto) Neut % (Auto) Lymph % (Auto) [place] % (Auto) Eos % (Auto) Baso % (Auto) Lymph # (Auto) [place] # (Auto) Eos # (Auto) Baso # (Auto) Abs Immat Gran (auto) Absolute Neuts (auto) Absolute Nucleated RBC Nucleated RBC % (auto) VBG pH 7.34 7.39 VBG pCO2 66 54 VBG pO2 42 48 VBG HCO3 36 H 33 H VBG O2 Saturation 61.0 76.0 VBG Base Excess 8.9 7.3 Sodium Potassium Chloride Carbon Dioxide Anion Gap BUN Creatinine Estim Creat Clear Calc Estimated GFR POC Glucose 130 H Random Glucose Calcium Phosphorus Magnesium Albumin Random Vancomycin MYKE Screen MYKE Titer MYKE Pattern 11/13/22 11/13/22 11/13/22 05:18 05:18 07:03 WBC 16.1 H RBC 3.51 L Hgb 10.3 L Hct 32.2 L MCV 91.7 MCH 29.3 MCHC 32.0 RDW 14.6 Plt Count 287 D MPV 10.0 Immature Gran % (Auto) 3.4 H Neut % (Auto) 77.7 H Lymph % (Auto) 10.1 L [place] % (Auto) 5.6 Eos % (Auto) 3.0 Baso % (Auto) 0.2 Lymph # (Auto) 1.6 [place] # (Auto) 0.9 Eos # (Auto) 0.5 H Baso # (Auto) 0.0 Abs Immat Gran (auto) 0.54 H Absolute Neuts (auto) 12.5 H Absolute Nucleated RBC 0.000 Nucleated RBC % (auto) 0.0 VBG pH VBG pCO2 VBG pO2 VBG HCO3 VBG O2 Saturation VBG Base Excess Sodium 142 Potassium 4.0 Chloride 104 Carbon Dioxide 26 Anion Gap 16 BUN 23 H Creatinine 1.13 Estim Creat Clear Calc 42.2 Estimated GFR 50 POC Glucose Random Glucose 127 H Calcium 9.2 Phosphorus 3.4 Magnesium 2.6 Albumin 4.1 Random Vancomycin 14.2 L MYKE Screen MYKE Titer MYKE Pattern Microbiology Microbiology Results: Microbiology 11/04/22 02:53 Blood - Venous Blood Culture - Final No growth after 5 days. 11/04/22 02:53 Blood - Venous Blood Culture - Final No growth after 5 days. 11/04/22 Unknown Urine Catheterized - Bernal Catheter Urine Culture - Final No growth. Progress Note: A&P Assessment and plan (1) Acute respiratory failure with hypoxia: Status: Acute (2) Anaphylactic reaction: Status: Acute (3) Upper respiratory tract infection: Status: Acute (4) History of chronic carbon dioxide retention: Status: Acute (5) CAD (coronary artery disease): Status: Acute (6) Hypercholesterolemia: Status: Acute (7) Hypothyroid: Status: Acute Plan Assessment: 52-year-old lady admitted with acute respiratory failure secondary to neck/of tissue infection with possible allergic component now requiring ventilatory support. Plan: Neuro: No acute issues. Cardiac: No acute issues. Underlying history of CAD. Pulmonary: Acute respiratory failure intubated for airway protection. Underlying neck/soft tissue infection with possible allergic component, improving, now with cuff leak on testing. Extubated 11/12/2022. Likely underlying chronic CO2 retention. Now on nocturnal BiPAP. Renal: acute renal failure, improving, non oliguric, continue to monitor renal indices and urine output. Endo: No acute issues. underlying hypothyroidism. GI: No acute issues. ID: Cultures negative to date, will monitor off antibiotics. Heme/Onc: No acute issues. Psych: No acute issues. Miscellaneous: No acute issues. Prophylaxis: Lovenox Diet: Pending swallow evaluation Critical care time spent: 45 minutes Quality Stroke Does the patient have a stroke diagnosis?: No VTE Prior VTE?: No VTE Risk Level:: Medical - moderate - high VTE Device Contraindication: N/A - Device Ordered VTE Drug Contraindication: N/A - Med Ordered
[2022-11-13] MEDS: risperiDONE 0.5 MG TABLET PO ×2 (10:58→20:11)
[2022-11-13 12:03] LABS: Glucose, Whole Blood 127 mg/dL (60-115)
[2022-11-13 17:41] LABS: Glucose, Whole Blood 130 mg/dL (60-115)
[2022-11-13] MEDS: Enoxaparin Sodium 40 MG/0.4 ML SYRINGE SUBCUT (20:12)
[2022-11-14] VITALS (21 sets, daily range): BP systolic 98–161; BP diastolic 44–79; PULSE 89–107; RESP 10–23; TEMP 36.4–38; O2SAT 89–100; BMI 23.9
[2022-11-14 00:03] LABS: Glucose, Whole Blood 113 mg/dL (60-115)
[2022-11-14 00:03] LABS: Glucose, Whole Blood 125 mg/dL (60-115)
--- NOTE | 2022-11-14 03:13 | PC.NURSE ---
Addendum entered by Brayan Cannon RN 11/14/22 05:47: REMAINS WITH BLOOD TINGED URINE..AM LOVENOX HELD BY ICU PAINT FORMULATOR Original Note: PER SHIFT REPORT PATIENT OFF BIPAP MOST OF DAY....DESATURATED AT HS TO SAO2 <80%...RETURNED TO BIPAP 15/8 AND FIO2 21% PER ICU PAINT FORMULATOR....IMPROVED SAO2...93-94% ON BIPAP...AWAKE TO TACTILE STIMULI..TRACKS SPEAKER..NODS YES TO SIMPLE QUESTION (LIP READS D/T BEING DEAF) BUT NOT CONSISTANTLY..WEAKLY SALAZAR...HECTOR REMAINS WITH BLOOD TINGED URINE PER SHIFT REPORT..NSR/SINUS TACH HR 98-106
[2022-11-14 05:30] LABS: VBG Base Excess 6.7 mmol/L; VBG HCO3 30 mmol/L (22-26); VBG pCO2 41 mmHg; VBG pH 7.47 (7.32-7.43); VBG pO2 66 mmHg
[2022-11-14 05:43] LABS: MANUAL DIFF FLAG NO
[2022-11-14 05:47] LABS: Basophils Percent Auto 0.2 % (0-2); Eosinophils Absolute Auto 0.4 X10*3/uL (0.0-0.4); Eosinophils Percent Auto 3.6 % (0-4); Hemoglobin 10.2 g/dl (12.0-16.0); Imm Gran Abs Auto 0.19 X10*3/uL (0.00-0.03); Imm Gran Pct Auto 1.8 % (0.0-0.4); Lymphocytes Absolute Auto 1.2 X10*3/uL (1.2-4.9); Lymphocytes Percent Auto 11.8 % (20-40); Mean Corpuscular HGB Conc 32.9 g/dl (31.0-35.0); Mean Corpuscular Hemoglobin 30.4 pg (27.0-33.0); Mean Corpuscular Volume 92.3 fL (80.0-98.0); Mean Platelet Volume 10.2 fL (9.4-12.3); Monocytes Absolute Auto 0.5 X10*3/uL (0.1-1.2); Monocytes Percent Auto 4.9 % (2-11); Neutrophils Absolute Auto 8.1 x10*3/uL (2.0-8.3); Neutrophils Percent Auto 77.7 % (45-73); Platelet Count 215 X10*3/uL (160-400); Red Blood Count 3.36 X10*6/uL (4.20-5.50); Red Cell Distribution Width 13.8 % (11.0-16.0); White Blood Count 10.4 X10*3/uL (4.8-10.8)
[2022-11-14 06:00] LABS: Venous Blood Gas Refer to POC result
[2022-11-14 06:04] LABS: Albumin Level 4.1 g/dL (3.5-5.0); Anion Gap 14 (12-20); Blood Urea Nitrogen 23 mg/dL (9-16); Calcium 9.2 mg/dL (8.4-10.2); Carbon Dioxide 25 mmol/L (22-29); Chloride 105 mmol/L (96-108); Creatinine Clr Calc Pharmacy 52.8; Estimated Glomerular Filt Rate > 60; Glucose Random 120 mg/dL (60-115); Magnesium 2.5 mg/dL (1.6-2.6); Phosphorus 2.5 mg/dL (2.7-4.5); Potassium 4.2 mmol/L (3.3-5.1); Sodium 140 mmol/L (135-145)
[2022-11-14] MEDS: Potassium Phosphate/NS 15 MMOL/250 ML PLAST..BAG 62.5 MMOL IV (08:10)
--- NOTE | 2022-11-14 09:25 | P.PNCC_ITS ---
Subjective Subjective Date of Service: 11/14/22 Interval History: 52-year-old lady with underlying complete deficits, asthma, CAD with prior ACS, admitted on 11/04/2022 with respiratory distress and neck swelling on the background of 2-3 days of upper respiratory symptoms. On ER evaluation patient with respiratory distress and intubated for airway protection with 6.[address] neck/soft tissue with supraglottic /parapharyngeal/submandibular stranding. Patient started on empiric broad-spectrum antibiotics And systemic glucocorticoids and admitted to intensive care unit. Over the last 24 hours with some improvement in airway edema and development of cuff leak on testing. follow-up CT neck on 11/10/2022, still with significant neck soft tissue swelling.Extubated on 11/12/2022 remains encephalopathic, requiring BiPAP support at night. No events overnight. Critical Care Time (minutes): 30 Physical Exam Vital Signs: Vital Signs: Last Vital Signs Temp 100.4 F 11/14/22 09:00 Pulse 105 H 11/14/22 09:00 Resp 20 11/14/22 09:00 BP 116/68 11/14/22 09:00 Pulse Ox 93 11/14/22 09:00 O2 Del Method Room Air 11/14/22 09:00 O2 Flow Rate 1 11/12/22 18:00 FiO2 21 11/14/22 08:00 BMI result Body Mass Index 23.9 Const: General: no acute distress, alert and awake Eyes: Sclerae: sclerae normal EOM: EOMs intact bilaterally Neck: Neck: Yes no lymphadenopathy, Yes trachea midline and Yes supple Resp: Effort & Inspection: normal respiratory effort and no respiratory distress Auscultation: clear to auscultation bilaterally Cardio: Rate: tachycardic Rhythm: regular rhythm Heart sounds: no ga llops, no murmurs and no rubs GI: Palpation (GI): Soft to palpation and Other GI palpation findings present ( Nontender) Auscultation: normal bowel sounds Extrem: General: Yes no pedal edema, No clubbing and No cyanosis Objective Data Labs 11/14/22 05:22 11/14/22 05:22 Labs: Laboratory Results - last 24 hr 11/05/22 11/13/22 11/13/22 06:50 11:59 17:37 WBC RBC Hgb Hct MCV MCH MCHC RDW Plt Count MPV Immature Gran % (Auto) Neut % (Auto) Lymph % (Auto) [place] % (Auto) Eos % (Auto) Baso % (Auto) Lymph # (Auto) [place] # (Auto) Eos # (Auto) Baso # (Auto) Abs Immat Gran (auto) Absolute Neuts (auto) Absolute Nucleated RBC Nucleated RBC % (auto) VBG pH VBG pCO2 VBG pO2 VBG HCO3 VBG O2 Saturation VBG Base Excess Sodium Potassium Chloride Carbon Dioxide Anion Gap BUN Creatinine Estim Creat Clear Calc Estimated GFR POC Glucose 127 H 130 H Random Glucose Calcium Phosphorus Magnesium Albumin MYKE Titer 2 TNP MYKE Titer 3 TNP MYKE Pattern 2 TNP MYKE Pattern 3 TNP 11/13/22 11/13/22 11/14/22 23:46 23:59 05:21 WBC RBC Hgb Hct MCV MCH MCHC RDW Plt Count MPV Immature Gran % (Auto) Neut % (Auto) Lymph % (Auto) [place] % (Auto) Eos % (Auto) Baso % (Auto) Lymph # (Auto) [place] # (Auto) Eos # (Auto) Baso # (Auto) Abs Immat Gran (auto) Absolute Neuts (auto) Absolute Nucleated RBC Nucleated RBC % (auto) VBG pH 7.47 H VBG pCO2 41 VBG pO2 66 VBG HCO3 30 H VBG O2 Saturation 92.0 VBG Base Excess 6.7 Sodium Potassium Chloride Carbon Dioxide Anion Gap BUN Creatinine Estim Creat Clear Calc Estimated GFR POC Glucose 113 125 H Random Glucose Calcium Phosphorus Magnesium Albumin MYKE Titer 2 MYKE Titer 3 MYKE Pattern 2 MYKE Pattern 3 11/14/22 11/14/22 05:22 05:22 WBC 10.4 RBC 3.36 L Hgb 10.2 L Hct 31.0 L MCV 92.3 MCH 30.4 MCHC 32.9 RDW 13.8 Plt Count 215 D MPV 10.2 Immature Gran % (Auto) 1.8 H Neut % (Auto) 77.7 H Lymph % (Auto) 11.8 L [place] % (Auto) 4.9 Eos % (Auto) 3.6 Baso % (Auto) 0.2 Lymph # (Auto) 1.2 [place] # (Auto) 0.5 Eos # (Auto) 0.4 Baso # (Auto) 0.0 Abs Immat Gran (auto) 0.19 H Absolute Neuts (auto) 8.1 Absolute Nucleated RBC 0.000 Nucleated RBC % (auto) 0.0 VBG pH VBG pCO2 VBG pO2 VBG HCO3 VBG O2 Saturation VBG Base Excess Sodium 140 Potassium 4.2 Chloride 105 Carbon Dioxide 25 Anion Gap 14 BUN 23 H Creatinine 0.87 Estim Creat Clear Calc 52.8 Estimated GFR > 60 POC Glucose Random Glucose 120 H Calcium 9.2 Phosphorus 2.5 L Magnesium 2.5 Albumin 4.1 MYKE Titer 2 MYKE Titer 3 MYKE Pattern 2 MYKE Pattern 3 Microbiology Microbiology Results: Microbiology 11/04/22 02:53 Blood - Venous Blood Culture - Final No growth after 5 days. 11/04/22 02:53 Blood - Venous Blood Culture - Final No growth after 5 days. 11/04/22 Unknown Urine Catheterized - Bernal Catheter Urine Culture - Final No growth. Progress Note: A&P Assessment and plan (1) History of chronic carbon dioxide retention: Status: Acute (2) Acute respiratory failure with hypoxia: Status: Acute (3) Anaphylactic reaction: Status: Acute (4) Upper respiratory tract infection: Status: Acute (5) CAD (coronary artery disease): Status: Acute (6) Hypercholesterolemia: Status: Acute (7) Hypothyroid: Status: Acute Plan Assessment: 52-year-old lady admitted with acute respiratory failure secondary to neck/of tissue infection with possible allergic component initially requiring ventilatory support. Plan: Neuro: No acute issues. Cardiac: No acute issues. Underlying history of CAD. Pulmonary: Acute respiratory failure intubated for airway protection. Underlying neck/soft tissue infection with possible allergic component, i mproving, now with cuff leak on testing. Extubated 11/12/2022. Likely underlying chronic CO2 retention. Now on nocturnal BiPAP. Renal: acute renal failure, improving, non oliguric, continue to monitor renal indices and urine output. Endo: No acute issues. underlying hypothyroidism. GI: No acute issues. ID: Cultures negative to date, will monitor off antibiotics. Heme/Onc: No acute issues. Psych: No acute issues. Miscellaneous: No acute issues. Prophylaxis: Lovenox Diet: regular Critical care time spent: 30 minutes Quality Stroke Does the patient have a stroke diagnosis?: No VTE Prior VTE?: No VTE Risk Level:: Medical - moderate - high VTE Device Contraindication: N/A - Device Ordered VTE Drug Contraindication: N/A - Med Ordered
[2022-11-14] MEDS: Levothyroxine Sodium 100 MCG/5 ML VIAL 75 MCG IVPUSH (09:57)
[2022-11-14] MEDS: risperiDONE 0.5 MG TABLET PO ×2 (09:57→20:15)
[2022-11-14 11:52] LABS: Glucose, Whole Blood 121 mg/dL (60-115)
--- NOTE | 2022-11-14 16:32 | PC.NURSE ---
PATIENT REMAINED OFF BIPAP FROM 30 UNTIL TRANSFER OF CARE GIVEN TO [facility] UNIT RN. PATIENT ABLE TO MAINTAIN O2 WHILE AWAKE ON RA. PATIENT PLACED ON 2L NC WHEN NAPPING PATIENT WOULD OCCASIONALLY DESAT TO LOW 80'S. REPORT GIVEN TO [facility] RN. [facility] RN AND PHARMACEUTICAL SALES REPRESENTATIVE ESCORTED PATIENT TO ROOM WHILE CONNECTED TO [facility] [place] [facility]. PATIENT DEAF AND NON VERBAL BASELINE, PATIENT COMMUNICATES THROUGH WRITTEN [place], NODS, MAURITANIAN SIGN LANGUAGE, AND LIP READING. PATIENT OFTEN FOUND RESTING WITH EYES CLOSE IN BED, NO COMPLAINTS OF PAIN. JEREMY SALAZAR, NODS APPROPRIATELY TO QUESTIONS.
[2022-11-14 17:42] LABS: Glucose, Whole Blood 130 mg/dL (60-115)
[2022-11-14] MEDS: Enoxaparin Sodium 40 MG/0.4 ML SYRINGE SUBCUT (18:13)
[2022-11-15] VITALS (7 sets, daily range): BP systolic 111–145; BP diastolic 56–78; PULSE 86–100; RESP 18–20; TEMP 36.2–36.8; O2SAT 94–99; BMI 25.1
[2022-11-15] LABS: Glucose, Whole Blood 127 mg/dL (60-115)
[2022-11-15] MEDS: Enoxaparin Sodium 40 MG/0.4 ML SYRINGE SUBCUT ×2 (05:58→17:51)
[2022-11-15] MEDS: Levothyroxine Sodium 112 MCG TABLET PO (05:59)
[2022-11-15 06:13] LABS: Glucose, Whole Blood 136 mg/dL (60-115)
[2022-11-15 06:41] LABS: MANUAL DIFF FLAG NO
[2022-11-15 06:44] LABS: Basophils Percent Auto 0.3 % (0-2); Eosinophils Absolute Auto 0.3 X10*3/uL (0.0-0.4); Eosinophils Percent Auto 3.4 % (0-4); Hematocrit 28.2 % (37.0-47.0); Hemoglobin 9.2 g/dl (12.0-16.0); Imm Gran Abs Auto 0.15 X10*3/uL (0.00-0.03); Imm Gran Pct Auto 1.5 % (0.0-0.4); Lymphocytes Absolute Auto 1.5 X10*3/uL (1.2-4.9); Lymphocytes Percent Auto 14.4 % (20-40); Mean Corpuscular HGB Conc 32.6 g/dl (31.0-35.0); Mean Corpuscular Hemoglobin 30.7 pg (27.0-33.0); Mean Platelet Volume 9.8 fL (9.4-12.3); Monocytes Absolute Auto 0.8 X10*3/uL (0.1-1.2); Monocytes Percent Auto 7.6 % (2-11); Neutrophils Absolute Auto 7.3 x10*3/uL (2.0-8.3); Neutrophils Percent Auto 72.8 % (45-73); Platelet Count 214 X10*3/uL (160-400); Red Cell Distribution Width 13.7 % (11.0-16.0); White Blood Count 10.1 X10*3/uL (4.8-10.8)
[2022-11-15 06:47] LABS: Venous Blood Gas Refer to POC result
[2022-11-15 06:48] LABS: VBG Base Excess 6.6 mmol/L; VBG HCO3 30 mmol/L (22-26); VBG pCO2 42 mmHg; VBG pH 7.47 (7.32-7.43); VBG pO2 75 mmHg
[2022-11-15 07:09] LABS: B Type Natriuretic Peptide < 10 pg/mL (<100)
[2022-11-15 07:13] LABS: Alanine Aminotransferase 78 U/L (0-31); Albumin Level 4.1 g/dL (3.5-5.0); Alkaline Phosphatase 54 U/L (39-117); Anion Gap 14 (12-20); Aspartate Amino Transferase 26 U/L (5-31); Bilirubin Direct 0.2 mg/dL (0.0-0.5); Bilirubin Total 0.9 mg/dL (0.0-1.0); Blood Urea Nitrogen 25 mg/dL (9-16); Calcium 9.2 mg/dL (8.4-10.2); Carbon Dioxide 26 mmol/L (22-29); Chloride 102 mmol/L (96-108); Creatinine Clr Calc Pharmacy 56.6; Estimated Glomerular Filt Rate > 60; Glucose Random 133 mg/dL (60-115); Magnesium 2.2 mg/dL (1.6-2.6); Phosphorus 2.7 mg/dL (2.7-4.5); Potassium 4.3 mmol/L (3.3-5.1); Sodium 138 mmol/L (135-145); Total Protein 6.6 g/dL (6.5-8.0)
[2022-11-15] MEDS: risperiDONE 0.5 MG TABLET PO ×2 (09:49→20:03)
--- NOTE | 2022-11-15 11:09 | MHC.CM.PN ---
DUC SPOKE WITH PTS BROTHER, PASQUALE [phone] WHO REPORTS THE PTS OLDER BROTHER AND MOTHER WILL BE IN LATER TODAY TO HELP HER WITH DC PLANNING. HE WILL TELL THEM TO ASK FOR CM WHEN THEY ARRIVE. HE IS AWARE AR HAS BEEN RECOMMENDED
[2022-11-15 11:57] LABS: Glucose, Whole Blood 186 mg/dL (60-115)
--- NOTE | 2022-11-15 12:01 | MHC.CLN ---
F/U PT EXTUBATED AND TRANSFERRED TO MEDICAL FLOOR DIET ADVANCED TO PUREED WITH HT LIQ VARIABLE PO INTAKE PT REMAINS HIGH RISK R/T JAMIA TRINIDAD CONTINUE TO MONITOR PO INTAKE AND SKIN INTEGRITY CLOSELY
[2022-11-15] MEDS: Insulin Lispro 100 UNIT/ML 3 ML VIAL SUBCUT (12:12)
--- NOTE | 2022-11-15 13:19 | P.PNIM_ITS ---
Subjective Subjective Date of Service: 11/16/22 Interval History: Seen and evaluated this morning non verbal at baseline, deaf uses sign language tolerating Bipap night time no reported issues overnight Review of Systems Review of Systems: Yes all other systems are reviewed and are negative and Unobtainable due to mental condition Physical Exam Vital Signs: Vital Signs: Last Vital Signs Temp 98.2 F 11/15/22 11:42 Pulse 97 11/15/22 11:42 Resp 20 11/15/22 11:42 BP 119/78 11/15/22 11:42 Pulse Ox 99 11/15/22 11:42 O2 Del Method Nasal Cannula 11/15/22 11:42 O2 Flow Rate 2 11/15/22 11:42 FiO2 28 11/15/22 08:00 BMI result Body Mass Index 25.1 Const: Other: Constitutional : Awake, not in distress Neck : swollen in inspection, Supple, no tenderness Cardiovascular : RRR, no JVP, no lower extremity edema Respiratory : good bilateral air entry, no crackles, wheezes or rhonchi Gastrointestinal: soft, lax, Normal bowel sounds, Non tender Skin : Warm, Dry Neurological : Alert , unable to assess orientation, non verbal;unable to articulate words Objective Data Active Medications Enoxaparin Sodium (Enoxaparin Sodium 40 Mg/0.4 Ml Syringe) 40 mg SUBCUT Q12H [facility] Last Admin: 11/15/22 05:58 Dose: 40 mg Documented By: BILL Glucose (Glucose Gel 15 Gm Gel..Gram.) 15 gm PO Q15M PRN; Protocol PRN Reason: per Hypoglycemia Standing Ord. Dextrose (D10) 250 mls @ 750 mls/hr IV Q15M PRN; Protocol PRN Reason: per Hypoglycemia Standing Ord. Insulin Human Lispro (Insulin Lispro 100 Unit/Ml 3 Ml Vial) 0 unit SUBCUT Q6H [facility]; Protocol Last Admin: 11/15/22 12:12 Dose: 2 unit Documented By: SANDOR Levothyroxine Sodium (Levothyroxine Sodium 112 Mcg Tablet) 112 mcg PO DAILY@0600 [facility] Last Admin: 11/15/22 05:59 Dose: 112 mcg Documented By: BILL Risperidone (Risperidone 0.5 Mg Tablet) 0.5 mg PO BID [facility] Last Admin: 11/15/22 09:49 Dose: 0.5 mg Documented By: HO.[email or web address] Labs 11/15/22 06:35 11/15/22 06:35 Labs: Laboratory Results - last 24 hr 11/14/22 11/14/22 11/15/22 17:37 23:43 06:07 MCV MCH MCHC RDW Plt Count MPV Immature Gran % (Auto) Neut % (Auto) Lymph % (Auto) Sevier % (Auto) Eos % (Auto) Baso % (Auto) Lymph # (Auto) [place]vier # (Auto) Eos # (Auto) Baso # (Auto) Abs Immat Gran (auto) Absolute Neuts (auto) Absolute Nucleated RBC Nucleated RBC % (auto) VBG pH VBG pCO2 VBG pO2 VBG HCO3 VBG O2 Saturation VBG Base Excess Anion Gap Estim Creat Clear Calc Estimated GFR POC Glucose 130 H 127 H 136 H Random Glucose Calcium Phosphorus Magnesium Total Bilirubin Direct Bilirubin AST ALT Alkaline Phosphatase B-Natriuretic Peptide Total Protein Albumin 11/15/22 11/15/22 11/15/22 06:35 06:35 06:35 MCV 94.0 MCH 30.7 MCHC 32.6 RDW 13.7 Plt Count 214 MPV 9.8 Immature Gran % (Auto) 1.5 H Neut % (Auto) 72.8 Lymph % (Auto) 14.4 L Sevier % (Auto) 7.6 Eos % (Auto) 3.4 Baso % (Auto) 0.3 Lymph # (Auto) 1.5 Sevier # (Auto) 0.8 Eos # (Auto) 0.3 Baso # (Auto) 0.0 Abs Immat Gran (auto) 0.15 H Absolute Neuts (auto) 7.3 Absolute Nucleated RBC 0.000 Nucleated RBC % (auto) 0.0 VBG pH VBG pCO2 VBG pO2 VBG HCO3 VBG O2 Saturation VBG Base Excess Anion Gap 14 Estim Creat Clear Calc 56.6 Estimated GFR > 60 POC Glucose Random Glucose 133 H Calcium 9.2 Phosphorus 2.7 Magnesium 2.2 Total Bilirubin 0.9 Direct Bilirubin 0.2 AST 26 ALT 78 H Alkaline Phosphatase 54 B-Natriuretic Peptide < 10 Total Protein 6.6 Albumin 4.1 11/15/22 11/15/22 06:39 11:50 MCV MCH MCHC RDW Plt Count MPV Immature Gran % (Auto) Neut % (Auto) Lymph % (Auto) Sevier % (Auto) Eos % (Auto) Baso % (Auto) Lymph # (Auto) [place] # (Auto) Eos # (Auto) Baso # (Auto) Abs Immat Gran (auto) Absolute Neuts (auto) Absolute Nucleated RBC Nucleated RBC % (auto) VBG pH 7.47 H VBG pCO2 42 VBG pO2 75 VBG HCO3 30 H VBG O2 Saturation 96.0 VBG Base Excess 6.6 Anion Gap Estim Creat Clear Calc Estimated GFR POC Glucose 186 H Random Glucose Calcium Phosphorus Magnesium Total Bilirubin Direct Bilirubin AST ALT Alkaline Phosphatase B-Natriuretic Peptide Total Protein Albumin Assessment and Plan (1) Acute respiratory failure with hypoxia: Status: Acute (2) Anaphylactic reaction: Status: Acute Plan 52-year-old lady with underlying complete deficits, asthma, CAD with prior ACS,? admitted on 11/04/2022 with respiratory distress and neck swelling on the back ground of? 2-3 days of upper respiratory symptoms.? On ER evaluation patient with respiratory distress and intubated for airway protection with 6.[address] neck/soft tissue with supraglottic /parapharyngeal/submandibular stranding.? Patient started on empiric broad-spectrum antibiotics? And systemic glucocorticoids and admitted to intensive care unit.? Over the last 24 hours with some improvement in airway edema and development of cuff leak on testing.? follow-up CT neck on 11/10/2022, still with significant neck soft tissue swelling.Extubated on 11/12/2022 remains encephalopathic, requiring BiPAP support at night. Hypoxic respiratory failure 2/2 anaphylactic incident 2/2 Azithromycin back on RA during day, needs Bipap at night Abx and steroids discontinued repeated CT scan on 11/10 still showing edema get Pulm eval ADAMA resolved speaking problem ON [employer] eval Hypothyroidism Thyroxine HLD statin DVT PPx Lovenox Patient will need overnight hosptial stay for eval of speaking problem, need of bipap pending safe discharge plan and Pulm, ON [employer] eval. Time Spent With Patient Time: Total time managing care of this patient today ____ minutes. Quality Stroke Does the patient have a stroke diagnosis?: No VTE Prior VTE?: No VTE Risk Level:: Medical - moderate - high VTE Device Contraindication: N/A - Device Ordered VTE Drug Contraindication: N/A - Med Ordered
--- NOTE | 2022-11-15 13:45 | PC.NURSE ---
this nurse tried to do a bedside swallowing eval per MD order. Obtain interpreter deaf and pt family in the room. Pi was conscious, sit upright, follow commands, but unable to clear her throat or cough properly. pt was able to clear her throat 1 time only and it was very weak, unable to perform it again. MD notified for not able to perform swallowing eval.
--- NOTE | 2022-11-15 15:46 | MHC.SLORD ---
Speech Language Pathology Order Status: Per MD, PLY BANDER bedside swallow evaluation to be held until tomorrow based on RN evaluation of swallow. PLY BANDER to evaluate tomorrow.
[2022-11-15 16:58] LABS: Glucose, Whole Blood 123 mg/dL (60-115)
[2022-11-15 18:06] LABS: Venous Blood Gas Refer to POC result
[2022-11-15 18:07] LABS: VBG Base Excess 3.8 mmol/L; VBG HCO3 26 mmol/L (22-26); VBG pCO2 33 mmHg; VBG pH 7.51 (7.32-7.43); VBG pO2 92 mmHg
[2022-11-16 00:01] LABS: Glucose, Whole Blood 103 mg/dL (60-115)
[2022-11-16 03:50] VITALS: BP 138/105; PULSE 88; RESP 18; TEMP 36.6; O2SAT 97
[2022-11-16 05:52] VITALS: BMI 25.0
[2022-11-16 06:14] LABS: Glucose, Whole Blood 127 mg/dL (60-115)
[2022-11-16] MEDS: Enoxaparin Sodium 40 MG/0.4 ML SYRINGE SUBCUT (06:35)
[2022-11-16] MEDS: Levothyroxine Sodium 112 MCG TABLET PO (06:35)
[2022-11-16 06:44] LABS: VBG Base Excess 7.6 mmol/L; VBG HCO3 32 mmol/L (22-26); VBG pCO2 43 mmHg; VBG pH 7.47 (7.32-7.43); VBG pO2 82 mmHg
[2022-11-16 07:24] VITALS: BP 138/72; PULSE 93; RESP 20; TEMP 36.7; O2SAT 100
[2022-11-16 07:36] LABS: Venous Blood Gas Refer to POC result
--- NOTE | 2022-11-16 09:02 | PM.CNPUL ---
History of Present Illness History of Present Illness Consult date: 11/15/22 Requesting physician: Hayden Ha Reason for consult: dyspnea and hypoxemia Chief complaint: Dyspnea Narrative: PULMONARY CONSULT This 52 years old female has been in the hospital since 11/04/22 . She as well as her mother are not able to give me any history. Most of the information I have obtained is from the medical records. 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 She does have history of hypertension, hyperlipidemia, hypothyroidism, chronic anxiety and depression, and last year was admitted with question of ACS. She is nonsmoker. There is no history of any pre-existing chronic pulmonary disease. This time she had symptoms of upper respiratory infection for 3-4 days. Was seen in urgent care setting, and was prescribed azithromycin. On 11/04, she complained of difficulty in breathing and was noted to have stridor, brought to the emergency room, required immediate intubation because of upper airways obstruction. She was noted to have marked edema of the tongue and oral cavity along with submental edema and ecchymosis. Patient was managed in the intensive care unit on ventilator support, and extubated on 11/12. Initially treated with broad-spectrum antibiotic coverage and IV is corticosteroids. The initial CT scan of the chest did show alveolar densities in the lower lobes suggesting aspiration pneumonia. In the past she has had some difficulty in swallowing off and on. After extubation on 11/12 she was started on BiPAP at night, because of hypercapnia. She has tolerated the BiPAP but according to the mother , she does not like to use it night. She has been oxygenating well with O2 2 L/minute. Recently she has had no fever or chills. Review of Systems Review of Systems: Yes Unobtainable due to mental status PMFSH Past Medical History Medical History ACS (acute coronary syndrome) Anxiety and depression Asthma Constipation COVID Deaf Dysphagia Elevated blood sugar Generalized anxiety disorder Hypercholesterolemia Hypothyroid Pruritus Scabies SOB (shortness of breath) Vitamin B 12 deficiency Vitamin D deficiency Family History Family History Mother CAD (coronary artery disease) Hypertension Brother CAD (coronary artery disease) Family history: reviewed and not pertinent Surgical History Surgical History History of heart surgery Social History Social History Household Members: Family Household Members Other:: Mother & Brother Housing: House Housing Other:: 2 family Do you presently have visiting nurse or other home services: Yes Alcohol intake: never Patient Tobacco Use Status: Never used Tobacco e-Cigarette/Vaping Use: Never Used Second Hand Smoke Exposure: No service: No Current occupational status: unemployed Cognitive needs: No Hearing needs: No Vision needs: Yes (glasses) Meds Allergies Allergy/AdvReac Type Severity Reaction Status Date / Time azithromycin Allergy Severe Angioedema Verified 11/09/22 10:37 ibuprofen Allergy Unknown unknown Verified 11/02/22 14:20 Sulfacetamide Sod-Pred Allergy Mild Unknown Uncoded 11/02/22 14:20 Active Medications: Current Medications Enoxaparin Sodium (Enoxaparin Sodium 40 Mg/0.4 Ml Syringe) 40 mg SUBCUT Q12H [facility] Last Admin: 11/16/22 06:35 Dose: 40 mg Glucose (Glucose Gel 15 Gm Gel..Gram.) 15 gm PO Q15M PRN; Protocol PRN Reason: per Hypoglycemia Standing Ord. Dextrose (D10) 250 mls @ 750 mls/hr IV Q15M PRN; Protocol PRN Reason: per Hypoglycemia Standing Ord. Insulin Human Lispro (Insulin Lispro 100 Unit/Ml 3 Ml Vial) 0 unit SUBCUT Q6H [facility]; Protocol Last Admin: 11/16/22 06:36 Dose: Not Given Levothyroxine Sodium (Levothyroxine Sodium 112 Mcg Tablet) 112 mcg PO DAILY@0600 [facility] Last Admin: 11/16/22 06:35 Dose: 112 mcg Risperidone (Risperidone 0.5 Mg Tablet) 0.5 mg PO BID [facility] Last Admin: 11/15/22 20:03 Dose: 0.5 mg Home Medications Medication Instructions Recorded Confirmed Last Taken Type albuterol sulfate 90 mcg/actuation 2 puff inhalation Q2-4H PRN 04/17/22 11/04/22 Unknown History aerosol inhaler Shortness Of Breath cholecalciferol (vitamin D3) 50 1 cap PO QAM 04/17/22 11/04/22 Unknown History mcg (2,000 unit) capsule (Vitamin D3) fluticasone furoate 200 1 puff inhalation DAILY 04/17/22 11/04/22 Unknown History mcg-vilanterol 25 mcg/dose inhalation powder (Breo Ellipta) risperidone 1 mg tablet 1 tab PO BEDTIME 04/17/22 11/04/22 Unknown History cetirizine 10 mg tablet 10 mg PO DAILY@1200 05/13/22 11/04/22 Unknown History citalopram 40 mg tablet 40 mg PO QAM 05/13/22 11/04/22 Unknown History folic acid 400 mcg tablet 0.4 mg PO DAILY@1200 05/13/22 11/04/22 Unknown History simvastatin 20 mg tablet 20 mg PO DAILY@1800 07/26/22 11/04/22 Unknown History cyanocobalamin (vitamin B-12) 500 500 mcg PO DAILY@1200 11/04/22 11/04/22 Unknown History mcg tablet docusate sodium 100 mg capsule 100 mg PO BID@1200,2100 11/04/22 11/04/22 Unknown History hydroxyzine HCl 50 mg tablet 50 mg PO BEDTIME 11/04/22 11/04/22 Unknown History levothyroxine 112 mcg tablet 112 mcg PO DAILY@0600 11/04/22 11/04/22 Unknown History risperidone 0.5 mg tablet 0.5 mg PO DAILY 11/04/22 11/04/22 Unknown History Physical Exam Vital Signs: Vital Signs: Last Vital Signs Temp 98.1 F 11/16/22 07:24 Pulse 93 11/16/22 07:24 Resp 20 11/16/22 07:24 BP 138/72 11/16/22 07:24 Pulse Ox 100 11/16/22 07:24 O2 Del Method Nasal Cannula 11/16/22 07:24 O2 Flow Rate 2 11/16/22 07:24 FiO2 28 11/15/22 08:00 BMI result Body Mass Index 25.0 Const: Other: Patient is nonverbal, she did follow the come ARDS when her mother was instructing her to take deep breaths. She still has some swelling in the submental area. There is no obvious stridor. General: comfortable, no acute distress, alert and awake HEENT: Other: Patient does open her mouth but I could not visualize completely. The oropharynx is somewhat crowded, but there is no obvious infection. Face and sinus: Yes sinuses nontender Eyes: General: appearance normal, both eyes and all related structures Neck: Neck: Yes normal visual inspection, Yes no lymphadenopathy, Yes trachea midline and Yes no JVD Thyroid: Thyroid normal Chest: Chest palpation & inspection: normal inspection of the chest, normal palpation of entire chest wall and no tenderness Resp: Other: Percussion note is resonant, breath sounds are equal on both sides but diminished over both basilar areas. Rogers only a few inspiratory crackles over the basilar areas. No wheezes. Cardio: Palpation: normal PMI Rate: regular rate Rhythm: regular rhythm Heart sounds: no gallops and no murmurs Peripheral pulses: Peripheral pulses 2+ throughout GI: Palpation (GI): Soft to palpation, nontender, No hepatosplenomegaly present and no masses Auscultation: normal bowel sounds Back/Spine/Pelvis: Other: Not examined Skin: General skin exam: no rashes or lesions noted Neuro: Other: Not examine completely but grossly seems to be normal. Extrem: General: Yes normal to inspection, Yes no clubbing, cyanosis or edema and Yes no calf tenderness Psych: Other: Could not examine Results Laboratory Findings 11/15/22 06:35 11/15/22 06:35 ABG, PT/INR, D-dimer: PT/INR, D-dimer PT 11.8 SEC (10.0-13.1) 11/07/22 04:34 INR 1.0 (0.9-1.1) 11/07/22 04:34 Abnormal lab findings: Abnormal Labs 11/04/22 11/04/22 11/04/22 01:28 01:28 01:28 WBC 17.2 H RBC 4.13 L Hgb Hct 36.3 L MCHC Immature Gran % (Auto) 1.7 H Neut % (Auto) 85.0 H Lymph % (Auto) 8.6 L Lymph # (Auto) Eos # (Auto) Abs Immat Gran (auto) 0.29 H Absolute Neuts (auto) 14.6 H Neutrophils % (Manual) Band Neutrophils % Lymphocytes % (Manual) Monocytes % (Manual) Abs Neuts (Manual) Lymphocytes # (Manual) Monocytes # (Manual) APTT VBG pH VBG HCO3 Sodium 127 L Potassium Chloride 85 L Carbon Dioxide Anion Gap BUN Creatinine POC Glucose Random Glucose 231 H Phosphorus Magnesium AST 104 H ALT Troponin I High Sens 28.2 H C-Reactive Protein Total Protein 8.3 H Albumin TSH Free T4 Urine Protein Urine Glucose (UA) Urine Blood Urine Nitrite Urine WBC Vancomycin Trough Random Vancomycin MYKE Screen MYKE Titer MYKE Pattern Tot Complement (CH50) 11/04/22 11/04/22 11/04/22 03:29 03:41 07:05 WBC RBC Hgb Hct MCHC Immature Gran % (Auto) Neut % (Auto) Lymph % (Auto) Lymph # (Auto) Eos # (Auto) Abs Immat Gran (auto) Absolute Neuts (auto) Neutrophils % (Manual) Band Neutrophils % Lymphocytes % (Manual) Monocytes % (Manual) Abs Neuts (Manual) Lymphocytes # (Manual) Monocytes # (Manual) APTT 23.1 L D VBG pH VBG HCO3 30 H Sodium Potassium Chloride Carbon Dioxide Anion Gap BUN Creatinine POC Glucose Random Glucose Phosphorus Magnesium AST ALT Troponin I High Sens C-Reactive Protein Total Protein Albumin TSH Free T4 Urine Protein 300 (3+) H Urine Glucose (UA) 100 H Urine Blood Moderate (2+) H Urine Nitrite Positive H Urine WBC 6-10 H Vancomycin Trough Random Vancomycin MYKE Screen MYKE Titer MYKE Pattern Tot Complement (CH50) 11/04/22 11/05/22 11/05/22 07:05 04:57 04:59 WBC 19.6 H RBC 4.04 L Hgb Hct 34.7 L MCHC Immature Gran % (Auto) 1.3 H Neut % (Auto) 89.2 H Lymph % (Auto) 5.2 L Lymph # (Auto) 1.0 L Eos # (Auto) Abs Immat Gran (auto) 0.25 H Absolute Neuts (auto) 17.5 H Neutrophils % (Manual) Band Neutrophils % Lymphocytes % (Manual) Monocytes % (Manual) Abs Neuts (Manual) Lymphocytes # (Manual) Monocytes # (Manual) APTT VBG pH 7.55 H VBG HCO3 20 L Sodium Potassium Chloride Carbon Dioxide Anion Gap BUN Creatinine POC Glucose Random Glucose Phosphorus Magnesium AST ALT Troponin I High Sens C-Reactive Protein 0.90 H Total Protein Albumin TSH 10.40 H Free T4 < 0.42 L Urine Protein Urine Glucose (UA) Urine Blood Urine Nitrite Urine WBC Vancomycin Trough Random Vancomycin MYKE Screen MYKE Titer MYKE Pattern Tot Complement (CH50) 11/05/22 11/05/22 11/05/22 04:59 06:50 06:50 WBC RBC Hgb Hct MCHC Immature Gran % (Auto) Neut % (Auto) Lymph % (Auto) Lymph # (Auto) Eos # (Auto) Abs Immat Gran (auto) Absolute Neuts (auto) Neutrophils % (Manual) Band Neutrophils % Lymphocytes % (Manual) Monocytes % (Manual) Abs Neuts (Manual) Lymphocytes # (Manual) Monocytes # (Manual) APTT VBG pH VBG HCO3 Sodium 133 L Potassium 3.0 L D Chloride Carbon Dioxide 21 L Anion Gap BUN Creatinine 1.46 H POC Glucose Random Glucose 221 H Phosphorus Magnesium AST 48 H ALT Troponin I High Sens C-Reactive Protein Total Protein 6.1 L Albumin TSH Free T4 Urine Protein Urine Glucose (UA) Urine Blood Urine Nitrite Urine WBC Vancomycin Trough Random Vancomycin MYKE Screen POSITIVE A MYKE Titer 1:40 H MYKE Pattern A Tot Complement (CH50) >60 H 11/05/22 11/05/22 11/06/22 17:54 20:16 05:32 WBC RBC Hgb Hct MCHC Immature Gran % (Auto) Neut % (Auto) Lymph % (Auto) Lymph # (Auto) Eos # (Auto) Abs Immat Gran (auto) Absolute Neuts (auto) Neutrophils % (Manual) Band Neutrophils % Lymphocytes % (Manual) Monocytes % (Manual) Abs Neuts (Manual) Lymphocytes # (Manual) Monocytes # (Manual) APTT VBG pH 7.65 H* VBG HCO3 17 L Sodium Potassium Chloride Carbon Dioxide 21 L Anion Gap BUN 18 H Creatinine 1.53 H POC Glucose Random Glucose 204 H Phosphorus Magnesium AST ALT Troponin I High Sens C-Reactive Protein Total Protein Albumin TSH Free T4 Urine Protein Urine Glucose (UA) Urine Blood Urine Nitrite Urine WBC Vancomycin Trough 27.5 H* Random Vancomycin MYKE Screen MYKE Titer MYKE Pattern Tot Complement (CH50) 11/06/22 11/06/22 11/07/22 05:34 05:34 04:34 WBC 16.7 H 13.3 H RBC 3.71 L 3.59 L Hgb 11.5 L 10.9 L Hct 32.3 L 31.6 L MCHC 35.6 H Immature Gran % (Auto) 0.9 H 1.4 H Neut % (Auto) 91.2 H 90.0 H Lymph % (Auto) 4.4 L 5.6 L Lymph # (Auto) 0.7 L 0.7 L Eos # (Auto) Abs Immat Gran (auto) 0.15 H 0.18 H Absolute Neuts (auto) 15.2 H 12.0 H Neutrophils % (Manual) Band Neutrophils % Lymphocytes % (Manual) Monocytes % (Manual) Abs Neuts (Manual) Lymphocytes # (Manual) Monocytes # (Manual) APTT VBG pH VBG HCO3 Sodium Potassium Chloride 113 H Carbon Dioxide 15 L Anion Gap BUN 20 H Creatinine 1.63 H POC Glucose Random Glucose 196 H Phosphorus Magnesium AST ALT Troponin I High Sens C-Reactive Protein Total Protein Albumin 3.2 L TSH Free T4 Urine Protein Urine Glucose (UA) Urine Blood Urine Nitrite Urine WBC Vancomycin Trough Random Vancomycin MYKE Screen MYKE Titer MYKE Pattern Tot Complement (CH50) 11/07/22 11/07/22 11/08/22 04:34 04:39 04:33 WBC 12.7 H RBC 3.44 L Hgb 10.4 L Hct 31.2 L MCHC Immature Gran % (Auto) 2.0 H Neut % (Auto) 89.2 H Lymph % (Auto) 4.9 L Lymph # (Auto) 0.6 L Eos # (Auto) Abs Immat Gran (auto) 0.25 H Absolute Neuts (auto) 11.3 H Neutrophils % (Manual) Band Neutrophils % Lymphocytes % (Manual) Monocytes % (Manual) Abs Neuts (Manual) Lymphocytes # (Manual) Monocytes # (Manual) APTT VBG pH 7.49 H VBG HCO3 18 L Sodium Potassium Chloride 112 H Carbon Dioxide 18 L Anion Gap BUN 24 H Creatinine 1.48 H POC Glucose Random Glucose 201 H Phosphorus Magnesium AST ALT Troponin I High Sens C-Reactive Protein Total Protein Albumin 3.3 L TSH Free T4 Urine Protein Urine Glucose (UA) Urine Blood Urine Nitrite Urine WBC Vancomycin Trough Random Vancomycin MYKE Screen MYKE Titer MYKE Pattern Tot Complement (CH50) 11/08/22 11/08/22 11/08/22 04:33 04:38 06:36 WBC RBC Hgb Hct MCHC Immature Gran % (Auto) Neut % (Auto) Lymph % (Auto) Lymph # (Auto) Eos # (Auto) Abs Immat Gran (auto) Absolute Neuts (auto) Neutrophils % (Manual) Band Neutrophils % Lymphocytes % (Manual) Monocytes % (Manual) Abs Neuts (Manual) Lymphocytes # (Manual) Monocytes # (Manual) APTT VBG pH 7.44 H VBG HCO3 20 L Sodium Potassium Chloride 109 H Carbon Dioxide 19 L Anion Gap BUN 27 H Creatinine POC Glucose 258 H Random Glucose 272 H Phosphorus Magnesium AST ALT Troponin I High Sens C-Reactive Protein Total Protein Albumin TSH Free T4 Urine Protein Urine Glucose (UA) Urine Blood Urine Nitrite Urine WBC Vancomycin Trough Random Vancomycin MYKE Screen MYKE Titer MYKE Pattern Tot Complement (CH50) 11/08/22 11/08/22 11/09/22 11:31 17:56 00:00 WBC RBC Hgb Hct MCHC Immature Gran % (Auto) Neut % (Auto) Lymph % (Auto) Lymph # (Auto) Eos # (Auto) Abs Immat Gran (auto) Absolute Neuts (auto) Neutrophils % (Manual) Band Neutrophils % Lymphocytes % (Manual) Monocytes % (Manual) Abs Neuts (Manual) Lymphocytes # (Manual) Monocytes # (Manual) APTT VBG pH VBG HCO3 Sodium Potassium Chloride Carbon Dioxide Anion Gap BUN Creatinine POC Glucose 179 H 231 H 232 H Random Glucose Phosphorus Magnesium AST ALT Troponin I High Sens C-Reactive Protein Total Protein Albumin TSH Free T4 Urine Protein Urine Glucose (UA) Urine Blood Urine Nitrite Urine WBC Vancomycin Trough Random Vancomycin MYKE Screen MYKE Titer MYKE Pattern Tot Complement (CH50) 11/09/22 11/09/22 11/09/22 04:46 04:47 04:47 WBC 15.6 H RBC 3.53 L Hgb 10.7 L Hct 31.6 L MCHC Immature Gran % (Auto) 3.1 H Neut % (Auto) 86.8 H Lymph % (Auto) 5.6 L Lymph # (Auto) 0.9 L Eos # (Auto) Abs Immat Gran (auto) 0.49 H Absolute Neuts (auto) 13.5 H Neutrophils % (Manual) Band Neutrophils % Lymphocytes % (Manual) Monocytes % (Manual) Abs Neuts (Manual) Lymphocytes # (Manual) Monocytes # (Manual) APTT VBG pH 7.46 H VBG HCO3 Sodium Potassium Chloride 109 H Carbon Dioxide 21 L Anion Gap 11 L BUN 27 H Creatinine POC Glucose Random Glucose 181 H Phosphorus Magnesium AST ALT Troponin I High Sens C-Reactive Protein Total Protein Albumin TSH Free T4 Urine Protein Urine Glucose (UA) Urine Blood Urine Nitrite Urine WBC Vancomycin Trough Random Vancomycin MYKE Screen MYKE Titer MYKE Pattern Tot Complement (CH50) 11/09/22 11/09/22 11/09/22 05:53 12:20 17:28 WBC RBC Hgb Hct MCHC Immature Gran % (Auto) Neut % (Auto) Lymph % (Auto) Lymph # (Auto) Eos # (Auto) Abs Immat Gran (auto) Absolute Neuts (auto) Neutrophils % (Manual) Band Neutrophils % Lymphocytes % (Manual) Monocytes % (Manual) Abs Neuts (Manual) Lymphocytes # (Manual) Monocytes # (Manual) APTT VBG pH VBG HCO3 Sodium Potassium Chloride Carbon Dioxide Anion Gap BUN Creatinine POC Glucose 201 H 284 H 229 H Random Glucose Phosphorus Magnesium AST ALT Troponin I High Sens C-Reactive Protein Total Protein Albumin TSH Free T4 Urine Protein Urine Glucose (UA) Urine Blood Urine Nitrite Urine WBC Vancomycin Trough Random Vancomycin MYKE Screen MYKE Titer MYKE Pattern Tot Complement (CH50) 11/09/22 11/10/22 11/10/22 23:38 04:42 04:43 WBC 12.6 H RBC 3.43 L Hgb 10.3 L Hct 30.9 L MCHC Immature Gran % (Auto) Neut % (Auto) Lymph % (Auto) Lymph # (Auto) Eos # (Auto) Abs Immat Gran (auto) Absolute Neuts (auto) Neutrophils % (Manual) 88 H Band Neutrophils % 1 L Lymphocytes % (Manual) 6 L Monocytes % (Manual) Abs Neuts (Manual) 11.2 H Lymphocytes # (Manual) 0.8 L Monocytes # (Manual) APTT VBG pH 7.49 H VBG HCO3 Sodium Potassium Chloride Carbon Dioxide Anion Gap BUN Creatinine POC Glucose 229 H Random Glucose Phosphorus Magnesium AST ALT Troponin I High Sens C-Reactive Protein Total Protein Albumin TSH Free T4 Urine Protein Urine Glucose (UA) Urine Blood Urine Nitrite Urine WBC Vancomycin Trough Random Vancomycin MYKE Screen MYKE Titer MYKE Pattern Tot Complement (CH50) 11/10/22 11/10/22 11/10/22 04:43 06:18 12:29 WBC RBC Hgb Hct MCHC Immature Gran % (Auto) Neut % (Auto) Lymph % (Auto) Lymph # (Auto) Eos # (Auto) Abs Immat Gran (auto) Absolute Neuts (auto) Neutrophils % (Manual) Band Neutrophils % Lymphocytes % (Manual) Monocytes % (Manual) Abs Neuts (Manual) Lymphocytes # (Manual) Monocytes # (Manual) APTT VBG pH VBG HCO3 Sodium Potassium Chloride Carbon Dioxide Anion Gap BUN 28 H Creatinine POC Glucose 258 H 206 H Random Glucose 256 H Phosphorus Magnesium AST ALT Troponin I High Sens C-Reactive Protein Total Protein Albumin 3.4 L TSH Free T4 Urine Protein Urine Glucose (UA) Urine Blood Urine Nitrite Urine WBC Vancomycin Trough Random Vancomycin MYKE Screen MYKE Titer MYKE Pattern Tot Complement (CH50) 11/10/22 11/10/22 11/11/22 17:47 23:30 04:51 WBC RBC Hgb Hct MCHC Immature Gran % (Auto) Neut % (Auto) Lymph % (Auto) Lymph # (Auto) Eos # (Auto) Abs Immat Gran (auto) Absolute Neuts (auto) Neutrophils % (Manual) Band Neutrophils % Lymphocytes % (Manual) Monocytes % (Manual) Abs Neuts (Manual) Lymphocytes # (Manual) Monocytes # (Manual) APTT VBG pH 7.58 H VBG HCO3 27 H Sodium Potassium Chloride Carbon Dioxide Anion Gap BUN Creatinine POC Glucose 157 H 161 H Random Glucose Phosphorus Magnesium AST ALT Troponin I High Sens C-Reactive Protein Total Protein Albumin TSH Free T4 Urine Protein Urine Glucose (UA) Urine Blood Urine Nitrite Urine WBC Vancomycin Trough Random Vancomycin MYKE Screen MYKE Titer MYKE Pattern Tot Complement (CH50) 11/11/22 11/11/22 11/11/22 04:55 04:55 05:12 WBC 14.9 H RBC 3.63 L Hgb 11.2 L Hct 33.7 L MCHC Immature Gran % (Auto) Neut % (Auto) Lymph % (Auto) Lymph # (Auto) Eos # (Auto) Abs Immat Gran (auto) Absolute Neuts (auto) Neutrophils % (Manual) 81 H Band Neutrophils % Lymphocytes % (Manual) 11 L Monocytes % (Manual) 1 L Abs Neuts (Manual) 12.7 H Lymphocytes # (Manual) Monocytes # (Manual) APTT VBG pH VBG HCO3 Sodium Potassium Chloride Carbon Dioxide 20 L Anion Gap BUN 30 H Creatinine POC Glucose 170 H Random Glucose 173 H Phosphorus Magnesium 2.8 H AST ALT Troponin I High Sens C-Reactive Protein Total Protein Albumin 3.4 L TSH Free T4 Urine Protein Urine Glucose (UA) Urine Blood Urine Nitrite Urine WBC Vancomycin Trough Random Vancomycin MYKE Screen MYKE Titer MYKE Pattern Tot Complement (CH50) 11/11/22 11/11/22 11/11/22 11:55 17:56 23:41 WBC RBC Hgb Hct MCHC Immature Gran % (Auto) Neut % (Auto) Lymph % (Auto) Lymph # (Auto) Eos # (Auto) Abs Immat Gran (auto) Absolute Neuts (auto) Neutrophils % (Manual) Band Neutrophils % Lymphocytes % (Manual) Monocytes % (Manual) Abs Neuts (Manual) Lymphocytes # (Manual) Monocytes # (Manual) APTT VBG pH VBG HCO3 Sodium Potassium Chloride Carbon Dioxide Anion Gap BUN Creatinine POC Glucose 153 H 150 H 135 H Random Glucose Phosphorus Magnesium AST ALT Troponin I High Sens C-Reactive Protein Total Protein Albumin TSH Free T4 Urine Protein Urine Glucose (UA) Urine Blood Urine Nitrite Urine WBC Vancomycin Trough Random Vancomycin MYKE Screen MYKE Titer MYKE Pattern Tot Complement (CH50) 11/12/22 11/12/22 11/12/22 05:30 05:32 05:32 WBC 22.1 H RBC 3.87 L Hgb 11.7 L Hct 34.7 L MCHC Immature Gran % (Auto) Neut % (Auto) Lymph % (Auto) Lymph # (Auto) Eos # (Auto) Abs Immat Gran (auto) Absolute Neuts (auto) Neutrophils % (Manual) 75 H Band Neutrophils % Lymphocytes % (Manual) 9 L Monocytes % (Manual) Abs Neuts (Manual) 17.2 H Lymphocytes # (Manual) Monocytes # (Manual) 1.8 H APTT VBG pH 7.48 H VBG HCO3 29 H Sodium Potassium Chloride Carbon Dioxide Anion Gap BUN 27 H Creatinine POC Glucose Random Glucose 210 H Phosphorus Magnesium AST ALT Troponin I High Sens C-Reactive Protein Total Protein Albumin TSH Free T4 Urine Protein Urine Glucose (UA) Urine Blood Urine Nitrite Urine WBC Vancomycin Trough Random Vancomycin MYKE Screen MYKE Titer MYKE Pattern Tot Complement (CH50) 11/12/22 11/12/22 11/12/22 05:59 12:03 13:25 WBC RBC Hgb Hct MCHC Immature Gran % (Auto) Neut % (Auto) Lymph % (Auto) Lymph # (Auto) Eos # (Auto) Abs Immat Gran (auto) Absolute Neuts (auto) Neutrophils % (Manual) Band Neutrophils % Lymphocytes % (Manual) Monocytes % (Manual) Abs Neuts (Manual) Lymphocytes # (Manual) Monocytes # (Manual) APTT VBG pH 7.30 L VBG HCO3 34 H Sodium Potassium Chloride Carbon Dioxide Anion Gap BUN Creatinine POC Glucose 210 H 226 H Random Glucose Phosphorus Magnesium AST ALT Troponin I High Sens C-Reactive Protein Total Protein Albumin TSH Free T4 Urine Protein Urine Glucose (UA) Urine Blood Urine Nitrite Urine WBC Vancomycin Trough Random Vancomycin MYKE Screen MYKE Titer MYKE Pattern Tot Complement (CH50) 11/12/22 11/12/22 11/12/22 14:22 18:04 20:17 WBC RBC Hgb Hct MCHC Immature Gran % (Auto) Neut % (Auto) Lymph % (Auto) Lymph # (Auto) Eos # (Auto) Abs Immat Gran (auto) Absolute Neuts (auto) Neutrophils % (Manual) Band Neutrophils % Lymphocytes % (Manual) Monocytes % (Manual) Abs Neuts (Manual) Lymphocytes # (Manual) Monocytes # (Manual) APTT VBG pH VBG HCO3 37 H 38 H 36 H Sodium Potassium Chloride Carbon Dioxide Anion Gap BUN Creatinine POC Glucose Random Glucose Phosphorus Magnesium AST ALT Troponin I High Sens C-Reactive Protein Total Protein Albumin TSH Free T4 Urine Protein Urine Glucose (UA) Urine Blood Urine Nitrite Urine WBC Vancomycin Trough Random Vancomycin MYKE Screen MYKE Titer MYKE Pattern Tot Complement (CH50) 11/12/22 11/13/22 11/13/22 23:37 05:14 05:18 WBC 16.1 H RBC 3.51 L Hgb 10.3 L Hct 32.2 L MCHC Immature Gran % (Auto) 3.4 H Neut % (Auto) 77.7 H Lymph % (Auto) 10.1 L Lymph # (Auto) Eos # (Auto) 0.5 H Abs Immat Gran (auto) 0.54 H Absolute Neuts (auto) 12.5 H Neutrophils % (Manual) Band Neutrophils % Lymphocytes % (Manual) Monocytes % (Manual) Abs Neuts (Manual) Lymphocytes # (Manual) Monocytes # (Manual) APTT VBG pH VBG HCO3 33 H Sodium Potassium Chloride Carbon Dioxide Anion Gap BUN Creatinine POC Glucose 130 H Random Glucose Phosphorus Magnesium AST ALT Troponin I High Sens C-Reactive Protein Total Protein Albumin TSH Free T4 Urine Protein Urine Glucose (UA) Urine Blood Urine Nitrite Urine WBC Vancomycin Trough Random Vancomycin MYKE Screen MYKE Titer MYKE Pattern Tot Complement (CH50) 11/13/22 11/13/22 11/13/22 05:18 07:03 11:59 WBC RBC Hgb Hct MCHC Immature Gran % (Auto) Neut % (Auto) Lymph % (Auto) Lymph # (Auto) Eos # (Auto) Abs Immat Gran (auto) Absolute Neuts (auto) Neutrophils % (Manual) Band Neutrophils % Lymphocytes % (Manual) Monocytes % (Manual) Abs Neuts (Manual) Lymphocytes # (Manual) Monocytes # (Manual) APTT VBG pH VBG HCO3 Sodium Potassium Chloride Carbon Dioxide Anion Gap BUN 23 H Creatinine POC Glucose 127 H Random Glucose 127 H Phosphorus Magnesium AST ALT Troponin I High Sens C-Reactive Protein Total Protein Albumin TSH Free T4 Urine Protein Urine Glucose (UA) Urine Blood Urine Nitrite Urine WBC Vancomycin Trough Random Vancomycin 14.2 L MYKE Screen MYKE Titer MYKE Pattern Tot Complement (CH50) 11/13/22 11/13/22 11/14/22 17:37 23:59 05:21 WBC RBC Hgb Hct MCHC Immature Gran % (Auto) Neut % (Auto) Lymph % (Auto) Lymph # (Auto) Eos # (Auto) Abs Immat Gran (auto) Absolute Neuts (auto) Neutrophils % (Manual) Band Neutrophils % Lymphocytes % (Manual) Monocytes % (Manual) Abs Neuts (Manual) Lymphocytes # (Manual) Monocytes # (Manual) APTT VBG pH 7.47 H VBG HCO3 30 H Sodium Potassium Chloride Carbon Dioxide Anion Gap BUN Creatinine POC Glucose 130 H 125 H Random Glucose Phosphorus Magnesium AST ALT Troponin I High Sens C-Reactive Protein Total Protein Albumin TSH Free T4 Urine Protein Urine Glucose (UA) Urine Blood Urine Nitrite Urine WBC Vancomycin Trough Random Vancomycin MYKE Screen MYKE Titer MYKE Pattern Tot Complement (CH50) 11/14/22 11/14/22 11/14/22 05:22 05:22 11:48 WBC RBC 3.36 L Hgb 10.2 L Hct 31.0 L MCHC Immature Gran % (Auto) 1.8 H Neut % (Auto) 77.7 H Lymph % (Auto) 11.8 L Lymph # (Auto) Eos # (Auto) Abs Immat Gran (auto) 0.19 H Absolute Neuts (auto) Neutrophils % (Manual) Band Neutrophils % Lymphocytes % (Manual) Monocytes % (Manual) Abs Neuts (Manual) Lymphocytes # (Manual) Monocytes # (Manual) APTT VBG pH VBG HCO3 Sodium Potassium Chloride Carbon Dioxide Anion Gap BUN 23 H Creatinine POC Glucose 121 H Random Glucose 120 H Phosphorus 2.5 L Magnesium AST ALT Troponin I High Sens C-Reactive Protein Total Protein Albumin TSH Free T4 Urine Protein Urine Glucose (UA) Urine Blood Urine Nitrite Urine WBC Vancomycin Trough Random Vancomycin MYKE Screen MYKE Titer MYKE Pattern Tot Complement (CH50) 11/14/22 11/14/22 11/15/22 17:37 23:43 06:07 WBC RBC Hgb Hct MCHC Immature Gran % (Auto) Neut % (Auto) Lymph % (Auto) Lymph # (Auto) Eos # (Auto) Abs Immat Gran (auto) Absolute Neuts (auto) Neutrophils % (Manual) Band Neutrophils % Lymphocytes % (Manual) Monocytes % (Manual) Abs Neuts (Manual) Lymphocytes # (Manual) Monocytes # (Manual) APTT VBG pH VBG HCO3 Sodium Potassium Chloride Carbon Dioxide Anion Gap BUN Creatinine POC Glucose 130 H 127 H 136 H Random Glucose Phosphorus Magnesium AST ALT Troponin I High Sens C-Reactive Protein Total Protein Albumin TSH Free T4 Urine Protein Urine Glucose (UA) Urine Blood Urine Nitrite Urine WBC Vancomycin Trough Random Vancomycin MYKE Screen MYKE Titer MYKE Pattern Tot Complement (CH50) 11/15/22 11/15/22 11/15/22 06:35 06:35 06:39 WBC RBC 3.00 L Hgb 9.2 L Hct 28.2 L MCHC Immature Gran % (Auto) 1.5 H Neut % (Auto) Lymph % (Auto) 14.4 L Lymph # (Auto) Eos # (Auto) Abs Immat Gran (auto) 0.15 H Absolute Neuts (auto) Neutrophils % (Manual) Band Neutrophils % Lymphocytes % (Manual) Monocytes % (Manual) Abs Neuts (Manual) Lymphocytes # (Manual) Monocytes # (Manual) APTT VBG pH 7.47 H VBG HCO3 30 H Sodium Potassium Chloride Carbon Dioxide Anion Gap BUN 25 H Creatinine POC Glucose Random Glucose 133 H Phosphorus Magnesium AST ALT 78 H Troponin I High Sens C-Reactive Protein Total Protein Albumin TSH Free T4 Urine Protein Urine Glucose (UA) Urine Blood Urine Nitrite Urine WBC Vancomycin Trough Random Vancomycin MYKE Screen MYKE Titer MYKE Pattern Tot Complement (CH50) 11/15/22 11/15/22 11/15/22 11:50 16:51 18:00 WBC RBC Hgb Hct MCHC Immature Gran % (Auto) Neut % (Auto) Lymph % (Auto) Lymph # (Auto) Eos # (Auto) Abs Immat Gran (auto) Absolute Neuts (auto) Neutrophils % (Manual) Band Neutrophils % Lymphocytes % (Manual) Monocytes % (Manual) Abs Neuts (Manual) Lymphocytes # (Manual) Monocytes # (Manual) APTT VBG pH 7.51 H VBG HCO3 Sodium Potassium Chloride Carbon Dioxide Anion Gap BUN Creatinine POC Glucose 186 H 123 H Random Glucose Phosphorus Magnesium AST ALT Troponin I High Sens C-Reactive Protein Total Protein Albumin TSH Free T4 Urine Protein Urine Glucose (UA) Urine Blood Urine Nitrite Urine WBC Vancomycin Trough Random Vancomycin MYKE Screen MYKE Titer MYKE Pattern Tot Complement (CH50) 11/16/22 11/16/22 06:10 06:36 WBC RBC Hgb Hct MCHC Immature Gran % (Auto) Neut % (Auto) Lymph % (Auto) Lymph # (Auto) Eos # (Auto) Abs Immat Gran (auto) Absolute Neuts (auto) Neutrophils % (Manual) Band Neutrophils % Lymphocytes % (Manual) Monocytes % (Manual) Abs Neuts (Manual) Lymphocytes # (Manual) Monocytes # (Manual) APTT VBG pH 7.47 H VBG HCO3 32 H Sodium Potassium Chloride Carbon Dioxide Anion Gap BUN Creatinine POC Glucose 127 H Random Glucose Phosphorus Magnesium AST ALT Troponin I High Sens C-Reactive Protein Total Protein Albumin TSH Free T4 Urine Protein Urine Glucose (UA) Urine Blood Urine Nitrite Urine WBC Vancomycin Trough Random Vancomycin MYKE Screen MYKE Titer MYKE Pattern Tot Complement (CH50) Microbiology: Microbiology 11/04/22 02:53 Blood - Venous Blood Culture - Final No growth after 5 days. 11/04/22 02:53 Blood - Venous Blood Culture - Final No growth after 5 days. 11/04/22 Unknown Urine Catheterized - Bernal Catheter Urine Culture - Final No growth. Diagnostic Findings Chest x-ray: report reviewed and image reviewed CT scan - chest: report reviewed and image reviewed Assessment and Plan (1) Anaphylactic reaction: Status: Acute (2) Ludwigs angina: Status: Acute (3) Acute respiratory failure with hypoxia: Status: Acute (4) Allergic rhinitis: Qualifiers: Allergic rhinitis trigger: unspecified Allergic rhinitis seasonality: unspecified Qualified Code(s): J30.9 - Allergic rhinitis, unspecified Status: Acute Plan I have reviewed the details of her admission and hospital course after that. It seems that she had any acute respiratory failure, due to acute allergic reaction and Mark angina, which may have been caused by taking azithromycin. Patient treated with the intubation and vent support. Patient did have bilateral lower lobe densities suggesting pneumonia, which could have been due to aspiration or due to hypersensitivity. Clinically she has improved. She may still have some pneumonitis or atelectasis in the basilar areas. She has been treated with BiPAP for hypercapnia, There is no distinct history of previous respiratory issues or sleep apnea in her case. She is oxygenating well with O2 2 L/minute. Recc. I think we should discontinue use of BiPAP, and monitor the blood gases for 1 or 2 days. She should also be weaned off the oxygen, Encouraged her to get out of bed and sit in the chair, and encouraged her to do deep breathing exercises. Repeat chest x-ray, and if there are some residual densities, she may need repeat CT scan of the chest. If the question of sleep apnea are chronic respiratory failure remains, that will need to be worked up as outpatient. Thank you very much for asking me to see this patient. Time Spent With Patient Time: Total time managing care of this patient today ____ minutes. Procedures Date of Service Date of Service: 11/16/22
[2022-11-16] MEDS: risperiDONE 0.5 MG TABLET PO (09:45)
[2022-11-16 11:22] VITALS: BP 133/76; PULSE 96; RESP 20; TEMP 36.7; O2SAT 99
[2022-11-16 11:33] LABS: Glucose, Whole Blood 172 mg/dL (60-115)
--- NOTE | 2022-11-16 12:10 | HO.PM.IMPN ---
Subjective Subjective Date of Service: 11/16/22 Interval History: Seen and evaluated this morning non verbal at baseline, deaf uses sign language tolerating Bipap night time no reported issues overnight Review of Systems Review of Systems: Yes all other systems are reviewed and are negative Physical Exam Vital Signs: Vital Signs: Last Vital Signs Temp 98.1 F 11/16/22 11:22 Pulse 96 11/16/22 11:22 Resp 20 11/16/22 11:22 BP 133/76 11/16/22 11:22 Pulse Ox 99 11/16/22 11:22 O2 Del Method Nasal Cannula 11/16/22 11:22 O2 Flow Rate 1 11/16/22 11:22 FiO2 28 11/15/22 08:00 BMI result Body Mass Index 25.0 Const: Other: Constitutional : Awake, not in distress Neck : swollen in inspection, Supple, no tenderness Cardiovascular : RRR, no JVP, no lower extremity edema Respiratory : good bilateral air entry, no crackles, wheezes or rhonchi Gastrointestinal: soft, lax, Normal bowel sounds, Non tender Skin : Warm, Dry Neurological : Alert , , non verbal at baseline, no focal weakness Objective Data Active Medications Enoxaparin Sodium (Enoxaparin Sodium 40 Mg/0.4 Ml Syringe) 40 mg SUBCUT Q12H [facility] Last Admin: 11/16/22 06:35 Dose: 40 mg Documented By: TAMARA Glucose (Glucose Gel 15 Gm Gel..Gram.) 15 gm PO Q15M PRN; Protocol PRN Reason: per Hypoglycemia Standing Ord. Dextrose (D10) 250 mls @ 750 mls/hr IV Q15M PRN; Protocol PRN Reason: per Hypoglycemia Standing Ord. Insulin Human Lispro (Insulin Lispro 100 Unit/Ml 3 Ml Vial) 0 unit SUBCUT Q6H [facility]; Protocol Last Admin: 11/16/22 12:04 Dose: Not Given Documented By: SANDOR Non-Admin Reason: Patient Refused Levothyroxine Sodium (Levothyroxine Sodium 112 Mcg Tablet) 112 mcg PO DAILY@0600 [facility] Last Admin: 11/16/22 06:35 Dose: 112 mcg Documented By: TAMARA Risperidone (Risperidone 0.5 Mg Tablet) 0.5 mg PO BID [facility] Last Admin: 11/16/22 09:45 Dose: 0.5 mg Documented By: SANDOR Labs 11/15/22 06:35 11/15/22 06:35 Labs: Laboratory Results - last 24 hr 11/15/22 11/15/22 11/15/22 16:51 18:00 23:57 VBG pH 7.51 H VBG pCO2 33 VBG pO2 92 VBG HCO3 26 VBG O2 Saturation 98.0 VBG Base Excess 3.8 POC Glucose 123 H 103 11/16/22 11/16/22 11/16/22 06:10 06:36 11:28 VBG pH 7.47 H VBG pCO2 43 VBG pO2 82 VBG HCO3 32 H VBG O2 Saturation 98.0 VBG Base Excess 7.6 POC Glucose 127 H 172 H Assessment and Plan (1) Acute respiratory failure with hypoxia: Status: Acute (2) Anaphylactic reaction: Status: Acute (3) Physical deconditioning: Status: Acute Plan 52-year-old lady with underlying complete deficits, asthma, CAD with prior ACS,? admitted on 11/04/2022 with respiratory distress and neck swelling on the background of? 2-3 days of upper respiratory symptoms.? On ER evaluation patient with respiratory distress and intubated for airway protection with 6.[address] neck/soft tissue with supraglottic /parapharyngeal/submandibular stranding.? Patient started on empiric broad-spectrum antibiotics? And systemic glucocorticoids and admitted to intensive care unit.? Over the last 24 hours with some improvement in airway edema and development of cuff leak on testing.? follow-up CT neck on 11/10/2022, still with significant neck soft tissue swelling.Extubated on 11/12/2022 remains encephalopathic, requiring BiPAP support at night. 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 Quality Stroke Does the patient have a stroke diagnosis?: No VTE Prior VTE?: No VTE Risk Level:: Medical - moderate - high VTE Device Contraindication: N/A - Device Ordered VTE Drug Contraindication: N/A - Med Ordered
--- NOTE | 2022-11-16 12:53 | MHC.SL.SWA ---
Speech Pathologist Impression: Risk of Aspiration Due to: Lethargy Dysphasia Diet Status: Liquid Consistency and Strategies for Safe Swallow: Liquid Intake Recommendation: Thin Liquid Intake Strategies: Small Sips No Straws Solid Food Consistency: Dietary Recommendations: Grnd/Mech Altered (NDD2) Additional Modifications to Solid Foods: Oral Medication Intake: Crushed with Puree Please contact the pharmacy regarding appropriate crushable or liquid drug formulations that are available whenever modified delivery is recommended. Compensatory Strategies and Precautions to be Taken for Safe Swallow: Sitting Upright (90 deg) No Straw Liquids from Cup Small Bites and Sips Alternate Liquids/Solids Supervision While Eating and Drinking for Safe Swallow: Total Assistance (1:1) Foods to Avoid: Mixed consistencies. Swallowing Recommended Treatments: Compens. Strategy Educat. Recommendation for Speech: Inpatient Speech Therapy Comment: Frequency/Duration: Date Range for Service Req: Timeline to reassess: PRN Neuropsychiatrist Clinican/Clinical Fellow: No Supervisory Statement: I have reviewed and agree with the student/clinical fellow's documentation: N/A Speech Language Pathologist: Paul Redding M.A., CCC-SUPERVISOR [employer]
--- NOTE | 2022-11-16 13:08 | MHC.CM.PN ---
PT is recommending Acute Rehab. CM met with Patient, her Mother and her Brother/Raji @ [phone], who have indicated that home with new VNA is their hope/goal. DUC relayed this information to MD and PT. PT will contact Raji to arrange for family to be present when PT works with Patient, to be sure Patient's Mother (with whom Patient will stay with at time of dc)can manage Patient's needs. CM will follow.
[2022-11-16 15:18] VITALS: BP 125/64; PULSE 95; RESP 17; TEMP 36.8; O2SAT 95
[2022-11-16 16:56] LABS: Glucose, Whole Blood 138 mg/dL (60-115)
[2022-11-16 19:48] VITALS: BP 123/61; PULSE 92; RESP 17; TEMP 36.9; O2SAT 93
[2022-11-16 23:59] VITALS: BP 150/75; PULSE 97; RESP 20; TEMP 36.2; O2SAT 95
[2022-11-17 00:09] LABS: Glucose, Whole Blood 117 mg/dL (60-115)
[2022-11-17 03:26] VITALS: BP 160/75; PULSE 99; RESP 20; TEMP 21.1; O2SAT 95
[2022-11-17 05:49] LABS: Glucose, Whole Blood 120 mg/dL (60-115)
[2022-11-17 05:53] VITALS: BMI 25.6
[2022-11-17] MEDS: Levothyroxine Sodium 112 MCG TABLET PO (06:23)
[2022-11-17] MEDS: Enoxaparin Sodium 40 MG/0.4 ML SYRINGE SUBCUT ×2 (06:23→16:55)
[2022-11-17 07:23] VITALS: BP 138/63; PULSE 90; RESP 16; TEMP 36.6; O2SAT 98
[2022-11-17 07:32] LABS: VBG Base Excess 8.2 mmol/L; VBG HCO3 30 mmol/L (22-26); VBG pCO2 34 mmHg; VBG pH 7.55 (7.32-7.43); VBG pO2 188 mmHg
[2022-11-17 07:32] LABS: Venous Blood Gas Refer to POC result
[2022-11-17] MEDS: risperiDONE 0.5 MG TABLET PO ×2 (09:46→21:06)
--- NOTE | 2022-11-17 10:43 | HO.PM.IMPN ---
Subjective Subjective Date of Service: 11/17/22 Interval History: no complaints Physical Exam Vital Signs: Vital Signs: Last Vital Signs Temp 97.8 F 11/17/22 07:23 Pulse 90 11/17/22 07:23 Resp 16 11/17/22 07:23 BP 138/63 11/17/22 07:23 Pulse Ox 98 11/17/22 07:23 O2 Del Method Room Air 11/17/22 07:23 O2 Flow Rate 1 11/16/22 11:22 FiO2 28 11/15/22 08:00 BMI result Body Mass Index 25.6 Const: Other: Constitutional : Awake, not in distress Neck : swollen in inspection, Supple, no tenderness Cardiovascular : RRR, no JVP, no lower extremity edema Respiratory : good bilateral air entry, no crackles, wheezes or rhonchi Gastrointestinal: soft, lax, Normal bowel sounds, Non tender Skin : Warm, Dry Neurological : Alert , , non verbal at baseline, no focal weakness Objective Data Active Medications Enoxaparin Sodium (Enoxaparin Sodium 40 Mg/0.4 Ml Syringe) 40 mg SUBCUT Q12H [facility] Last Admin: 11/17/22 06:23 Dose: 40 mg Documented By: JEVON Glucose (Glucose Gel 15 Gm Gel..Gram.) 15 gm PO Q15M PRN; Protocol PRN Reason: per Hypoglycemia Standing Ord. Dextrose (D10) 250 mls @ 750 mls/hr IV Q15M PRN; Protocol PRN Reason: per Hypoglycemia Standing Ord. Insulin Human Lispro (Insulin Lispro 100 Unit/Ml 3 Ml Vial) 0 unit SUBCUT Q6H [facility]; Protocol Last Admin: 11/17/22 06:02 Dose: Not Given Documented By: JEVON Non-Admin Reason: No Insulin Coverage Levothyroxine Sodium (Levothyroxine Sodium 112 Mcg Tablet) 112 mcg PO DAILY@0600 [facility] Last Admin: 11/17/22 06:23 Dose: 112 mcg Documented By: JEVON Risperidone (Risperidone 0.5 Mg Tablet) 0.5 mg PO BID [facility] Last Admin: 11/17/22 09:46 Dose: 0.5 mg Documented By: FOGARTB Labs 11/15/22 06:35 11/15/22 06:35 Labs: Laboratory Results - last 24 hr 11/16/22 11/16/22 11/16/22 11:28 16:52 23:58 VBG pH VBG pCO2 VBG pO2 VBG HCO3 VBG O2 Saturation VBG Base Excess POC Glucose 172 H 138 H 117 H 11/17/22 11/17/22 05:44 07:25 VBG pH 7.55 H VBG pCO2 34 VBG pO2 188 VBG HCO3 30 H VBG O2 Saturation 99.0 VBG Base Excess 8.2 POC Glucose 120 H Assessment and Plan (1) Acute respiratory failure with hypoxia: Status: Acute (2) Anaphylactic reaction: Status: Acute (3) Physical deconditioning: Status: Acute Plan 52-year-old lady with PMH deafness, moderate persistent asthma, CAD with prior ACS,? admitted on 11/04/2022 with respiratory distress and neck swelling on the background of? 2-3 days of upper respiratory symptoms.? On ER evaluation patient with respiratory distress and intubated for airway protection with 6.[address] neck/soft tissue with supraglottic /parapharyngeal/submandibular stranding.? Patient started on empiric broad-spectrum antibiotics? And systemic glucocorticoids and admitted to intensive care unit.? 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 Quality Stroke Does the patient have a stroke diagnosis?: No VTE Prior VTE?: No VTE Risk Level:: Medical - moderate - high VTE Device Contraindication: N/A - Device Ordered VTE Drug Contraindication: N/A - Med Ordered
--- NOTE | 2022-11-17 11:23 | MHC.CLN ---
F/U VARIABLE PO INTAKE CONTINUES DIET UPGRADED TO GRD M/S DIET PER FISH HATCHERY MANAGER YESTERDAY RECOMMEND ADDING ENSURE BID TO INCREASE KCALS SUPP TO PROVIDE 700KCLAS, 40G PROTEIN CONTINUE TO MONITOR PO INTAKE
[2022-11-17 11:38] VITALS: BP 122/58; PULSE 88; RESP 16; TEMP 36.8; O2SAT 99
[2022-11-17 12:01] LABS: Glucose, Whole Blood 153 mg/dL (60-115)
[2022-11-17] MEDS: Insulin Lispro 100 UNIT/ML 3 ML VIAL SUBCUT ×2 (12:04→16:55)
--- NOTE | 2022-11-17 12:58 | MHC.SLORD ---
Addendum entered and electronically signed by BHARGAV Mcfadden 11/17/22 13:01: Per nursing, pt tolerated and ate approx 75% of breakfast tray w/ thin liquids, yogurt, and oatmeal. Original Note: Speech Language Pathology Order Status: CHEMICAL LABORATORY SCIENTIST visited pt during lunch to monitor for toleration of diet. Pt refused lunch tray and refused offer for alternative PO including Ensure/supplemental drink. CHEMICAL LABORATORY SCIENTIST communicated w/ pt via communication board and writing. CHEMICAL LABORATORY SCIENTIST to continue to follow.
[2022-11-17 15:19] VITALS: BP 128/71; PULSE 99; RESP 19; TEMP 36.6; O2SAT 96
[2022-11-17 16:50] LABS: Glucose, Whole Blood 230 mg/dL (60-115)
[2022-11-17 19:32] VITALS: BP 149/72; PULSE 88; RESP 19; TEMP 36.7; O2SAT 93
[2022-11-17 23:59] LABS: Glucose, Whole Blood 134 mg/dL (60-115)
[2022-11-18] VITALS (9 sets, daily range): BP systolic 117–144; BP diastolic 58–77; PULSE 88–104; RESP 12–20; TEMP 36.1–36.8; O2SAT 94–100; BMI 25.6
[2022-11-18 05:29] LABS: ABG HCO3 32 mmol/L (22-26); ABG pCO2 51 mmHg (32-45); ABG pH 7.41 (7.35-7.45); ABG pO2 94 mmHg (83-108)
[2022-11-18] MEDS: Levothyroxine Sodium 112 MCG TABLET PO (05:44)
[2022-11-18] MEDS: Enoxaparin Sodium 40 MG/0.4 ML SYRINGE SUBCUT ×2 (05:44→19:21)
[2022-11-18 05:45] LABS: ABG Refer to POC result
[2022-11-18 05:48] LABS: Glucose, Whole Blood 119 mg/dL (60-115)
--- NOTE | 2022-11-18 11:22 | P.PNIM_ITS ---
Subjective Subjective Date of Service: 11/18/22 Interval History: desat on sleeping Physical Exam Vital Signs: Vital Signs: Last Vital Signs Temp 97.2 F 11/18/22 11:04 Pulse 91 11/18/22 11:04 Resp 16 11/18/22 11:04 BP 121/58 L 11/18/22 11:04 Pulse Ox 95 11/18/22 11:04 O2 Del Method Aerosol Mask 11/18/22 11:04 O2 Flow Rate 2 11/18/22 11:04 FiO2 28 11/15/22 08:00 BMI result Body Mass Index 25.6 Const: Other: Constitutional : Awake, not in distress Neck : swollen in inspection, Supple, no tenderness Cardiovascular : RRR, no JVP, no lower extremity edema Respiratory : good bilateral air entry, no crackles, wheezes or rhonchi Gastrointestinal: soft, lax, Normal bowel sounds, Non tender Skin : Warm, Dry Neurological : Alert , , non verbal at baseline, no focal weakness Objective Data Active Medications Enoxaparin Sodium (Enoxaparin Sodium 40 Mg/0.4 Ml Syringe) 40 mg SUBCUT Q12H [facility] Last Admin: 11/18/22 05:44 Dose: 40 mg Documented By: JUAN M Glucose (Glucose Gel 15 Gm Gel..Gram.) 15 gm PO Q15M PRN; Protocol PRN Reason: per Hypoglycemia Standing Ord. Dextrose (D10) 250 mls @ 750 mls/hr IV Q15M PRN; Protocol PRN Reason: per Hypoglycemia Standing Ord. Insulin Human Lispro (Insulin Lispro 100 Unit/Ml 3 Ml Vial) 0 unit SUBCUT Q6H [facility]; Protocol Last Admin: 11/18/22 05:44 Dose: Not Given Documented By: JUAN M Non-Admin Reason: No Insulin Coverage Levothyroxine Sodium (Levothyroxine Sodium 112 Mcg Tablet) 112 mcg PO DAILY@0600 [facility] Last Admin: 11/18/22 05:44 Dose: 112 mcg Documented By: JUAN M Risperidone (Risperidone 0.5 Mg Tablet) 0.5 mg PO BID [facility] Last Admin: 11/17/22 21:06 Dose: 0.5 mg Documented By: JUAN M Labs 11/15/22 06:35 11/15/22 06:35 Labs: Laboratory Results - last 24 hr 11/17/22 11/17/22 11/17/22 11:56 16:33 23:56 O2 Saturation ABG pH at Pt Temp ABG pCO2 at Pt Temp ABG pO2 at Pt Temp ABG HCO3 ABG Base Excess (Actual) POC Glucose 153 H 230 H 134 H 11/18/22 11/18/22 05:19 05:43 O2 Saturation 97.0 ABG pH at Pt Temp 7.41 ABG pCO2 at Pt Temp 51 H ABG pO2 at Pt Temp 94 ABG HCO3 32 H ABG Base Excess (Actual) 7.0 POC Glucose 119 H Assessment and Plan (1) Acute respiratory failure with hypoxia: Status: Acute (2) Anaphylactic reaction: Status: Acute (3) Physical deconditioning: Status: Acute Plan 52-year-old lady with PMH deafness, moderate persistent asthma, CAD with prior ACS,? admitted on 11/04/2022 with respiratory distress and neck swelling on the background of? 2-3 days of upper respiratory symptoms.? On ER evaluation patient with respiratory distress and intubated for airway protection with 6.[address] neck/soft tissue with supraglottic /parapharyngeal/submandibular stranding.? Patient started on empiric broad-spectrum antibiotics? And systemic glucocorticoids and admitted to intensive care unit.? 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 Quality Stroke Does the patient have a stroke diagnosis?: No VTE Prior VTE?: No VTE Risk Level:: Medical - moderate - high VTE Device Contraindication: N/A - Device Ordered VTE Drug Contraindication: N/A - Med Ordered
[2022-11-18] MEDS: risperiDONE 0.5 MG TABLET PO ×2 (12:10→20:46)
[2022-11-18 12:15] LABS: Glucose, Whole Blood 189 mg/dL (60-115)
[2022-11-18] MEDS: Insulin Lispro 100 UNIT/ML 3 ML VIAL SUBCUT (12:21)
--- NOTE | 2022-11-18 13:06 | MHC.SLORD ---
Speech Language Pathology Order Status: Attempted to see patient at lunch, per RN patient had refused lunch when offered by PUBLIC HEALTH TECHNOLOGIST, and my offer was also refused. Offered patient other foods, including a sandwich, in order to trial more advanced consistencies, however patient also refused. Per RN patient want [employer] and did have a burger yesterday that was brought in by family. If time allows, will attempt to connect with family later to advance diet if warranted.
[2022-11-18 17:50] LABS: Glucose, Whole Blood 148 mg/dL (60-115)
[2022-11-19 03:28] VITALS: BP 121/59; PULSE 89; RESP 17; TEMP 37.1; O2SAT 95
--- NOTE | 2022-11-19 04:50 | PC.NURSE ---
Pt continues to refuses CPAP. On 2L n/c. She will occasionally desat to 80s/
[2022-11-19 05:56] LABS: Hematocrit 31.1 % (37.0-47.0); Hemoglobin 9.8 g/dl (12.0-16.0); Mean Corpuscular HGB Conc 31.5 g/dl (31.0-35.0); Mean Corpuscular Hemoglobin 30.1 pg (27.0-33.0); Mean Corpuscular Volume 95.4 fL (80.0-98.0); Mean Platelet Volume 11.9 fL (9.4-12.3); PLT CLUMP 1; Red Blood Count 3.26 X10*6/uL (4.20-5.50); Red Cell Distribution Width 13.5 % (11.0-16.0)
[2022-11-19 06:00] VITALS: BMI 24.7
[2022-11-19 06:18] LABS: Anion Gap 15 (12-20); Blood Urea Nitrogen 14 mg/dL (9-16); Calcium 9.4 mg/dL (8.4-10.2); Carbon Dioxide 24 mmol/L (22-29); Chloride 101 mmol/L (96-108); Creatinine Clr Calc Pharmacy 58.6; Estimated Glomerular Filt Rate > 60; Glucose Fasting 112 mg/dL (60-99); Sodium 136 mmol/L (135-145)
[2022-11-19 06:19] LABS: White Blood Count 8.3 X10*3/uL (4.8-10.8)
[2022-11-19] MEDS: Levothyroxine Sodium 112 MCG TABLET PO (06:29)
[2022-11-19] MEDS: Enoxaparin Sodium 40 MG/0.4 ML SYRINGE SUBCUT (06:29)
[2022-11-19 07:36] VITALS: BP 126/63; PULSE 85; RESP 22; TEMP 37.1; O2SAT 100
[2022-11-19] MEDS: risperiDONE 0.5 MG TABLET PO (08:56)
--- NOTE | 2022-11-19 09:13 | P.DS_ITS ---
DS: Providers Provider Date of Service: 11/19/22 Date of admission: 11/04/22 02:54 Primary care physician: Dafne Hawkins MD Consults: 11/07/22 09:21 Consult to Infectious Diseases Stat Consulting Provider: Yolanda Tabor Reason for consultation: MEROPENEM ORDER 11/15/22 10:46 Consult to Pulmonology Routine Consulting Provider: [facility] Pul[facility] Services Reason for consultation: Episodes of hypoxia, new BiPAP, DS: Diagnosis Discharge Diagnosis (1) Acute respiratory failure with hypoxia: Status: Acute (2) Anaphylactic reaction: Status: Acute (3) Physical deconditioning: Status: Acute DS: Summary Hospital Course Hospital Course: from initial hpi: Chief Complaint: Dyspnea Ms. Helms is a 52-year-old female with a past medical history of ACS,? HLD, hypothyroid, asthma, pruritus, anxiety and depression, open-heart surgery age 7,? and baseline complete deafness who presented to the emergency room [facility] for difficulty breathing.? According to the patient?s mother she has not been feeling well for the past 3-4 days and was prescribed azithromycin at the walk- in clinic on 11/02/2022 for upper respiratory tract infection.? On EMS arrival, it was noted that the patient had an O2 sat in the 70-80% on room air, a swollen tongue, and difficulty breathing. She was given Solu-Medrol and 2 doses of epi nephrine in the field.? On arrival to the emergency room, the patient's blood pressure 198/104, heart rate 108. ? She was observed to have neck swelling with submandibular ecchymoses, the floor of her mouth swollen and pushing the tongue upward causing stridorous sound with breathing. O2 sat in the 80s. The patient was intubated to secure the airway. Laboratory data significant for? WBC 17.2, 85 neutrophils, 1.7 bands,? 0.1 eosinophils, sodium 127, chloride 85, AST 104, troponin 28.2.? UA showed? protein 300 mg, glucose 100 mg, moderate blood, positive nitrite. hospital course: patient was admitted for acute hypoxic respiratory failure due to ludwigs angina vs angioedema from allergic reaction to azithro. she was intubated in ICU and treated with steroids and vanc/zosyn. she was eventually extubated and weaned off o2 while awake. overnight oxymetry to reveal signifncant hypoxia while asleep so she will continued 2L at night. due to significant physical deconditioning from ICU stay she was seen by PT who recommended acute rehab, however, family would like to take patient home. patient had ADAMA on admission which is resolved at discharge. she had acute illness related dysphagia which has resolved. for hypothyroid she was continued on synthroid. for hld was continued on statin. patient now medically stable and will be discharged home. Time Spent with Patient Time attestation: Total time managing care of this patient today ____ minutes. Discharge coordination time: Greater than 30 minutes Quality: Safe Use of Opioids Does Pt have an Active Cancer Diagnosis on the Problem List?: No Quality: Stroke Does the patient have a stroke diagnosis?: No Physical Exam Vital Signs: Vital Signs: Last Vital Signs Temp 98.8 F 11/19/22 07:36 Pulse 85 11/19/22 07:36 Resp 22 H 11/19/22 07:36 BP 126/63 11/19/22 07:36 Pulse Ox 100 11/19/22 07:36 O2 Del Method Nasal Cannula 11/19/22 07:36 O2 Flow Rate 2 11/19/22 07:36 FiO2 28 11/15/22 08:00 BMI result Body Mass Index 24.7 Const: Other: Constitutional : Awake, not in distress Neck : swollen in inspection, Supple, no tenderness Cardiovascular : RRR, no JVP, no lower extremity edema Respiratory : good bilateral air entry, no crackles, wheezes or rhonchi Gastrointestinal: soft, lax, Normal bowel sounds, Non tender Skin : Warm, Dry Neurological : Alert , , non verbal at baseline, no focal weakness DS: Data Data Completed and Pending Labs on day of discharge: Laboratory Results - last 24 hr 11/18/22 11/18/22 11/19/22 12:11 17:46 05:46 WBC 8.3 RBC 3.26 L Hgb 9.8 L Hct 31.1 L MCV 95.4 MCH 30.1 MCHC 31.5 RDW 13.5 Plt Count TNP MPV 11.9 Absolute Nucleated RBC 0.000 Nucleated RBC % (auto) 0.0 Sodium Potassium Chloride Carbon Dioxide Anion Gap BUN Creatinine Estim Creat Clear Calc Estimated GFR POC Glucose 189 H 148 H Fasting Glucose Calcium 11/19/22 05:46 WBC RBC Hgb Hct MCV MCH MCHC RDW Plt Count MPV Absolute Nucleated RBC Nucleated RBC % (auto) Sodium 136 Potassium 4.0 Chloride 101 Carbon Dioxide 24 Anion Gap 15 BUN 14 Creatinine 0.81 Estim Creat Clear Calc 58.6 Estimated GFR > 60 POC Glucose Fasting Glucose 112 H Calcium 9.4 Discharge Plan Discharge Anticipated Discharge Date/Time: 11/19/22 09:10 Patient Disposition: Home Health Service Discharge Diagnosis: ludwigs angina vs angioedema Referrals: Po,Dafne Bass MD [Primary Care Provider] - 1 Week Discharge Medications: Continued risperidone 1 mg tablet 1 tab PO BEDTIME cholecalciferol (vitamin D3) [Vitamin D3] 50 mcg (2,000 unit) capsule 1 cap PO QAM fluticasone furoate-vilanterol [Breo Ellipta] 200-25 mcg/dose blister with device 1 puff inhalation DAILY albuterol sulfate 90 mcg/actuation HFA aerosol inhaler 2 puff INHALATION Q2-4H PRN (Reason: Shortness Of Breath) cetirizine 10 mg tablet 10 mg PO DAILY@1200 citalopram 40 mg tablet 40 mg PO QAM folic acid 400 mcg tablet 0.4 mg PO DAILY@1200 hydroxyzine HCl 50 mg tablet 50 mg PO BEDTIME docusate sodium 100 mg capsule 100 mg PO BID@1200,2100 risperidone 0.5 mg tablet 0.5 mg PO DAILY cyanocobalamin (vitamin B-12) 500 mcg tablet 500 mcg PO DAILY@1200 levothyroxine 112 mcg tablet 112 mcg PO DAILY@0600 simvastatin 20 mg tablet 20 mg PO DAILY@1800 Discontinued azithromycin 250 mg tablet See Rx Instructions PO .COMPLEX Qty: 6 0RF Rx Instructions: take 500 mg today (day 1), then 250 mg for 4 days (days 2-5) PO Discharge Orders: Discharge Order (Routine); Ordered 11/19/22 Ordered By: Mikie Azar Diet: Advance to usual diet Activity on Discharge: As tolerated Stand Alone Forms: Patient Portal Discharge page Care Plan Goals: reocvery Health Concerns: nocturnal hypoxia Plan of Treatment: o2 while sleeping Assessment: see above
--- NOTE | 2022-11-19 09:26 | MHC.CM.PN ---
Patient has been medically cleared for dc to home today, with services. A referral has been made to [facility], who has been made aware of today's dc. IMM to be addressed.
== END 2022-11-19 12:01 | disposition home health service (06) | DRG 915 ==
LOC: HO.ED 01:33 → HO.EDOVER 03:05 → HO.ICU 03:13 → HO.IMC 11-14 13:22
PROVIDERS: Internal Medicine; Internal Medicine Cardiovascular Disease; Internal Medicine Pulmonary Disease; Registered Nurse Community Health; Student in an Organized Health Care Education/Training Program; Admitting Provider Nurse Practitioner Family; Emergency Provider Emergency Medicine; PCP Internal Medicine; Visit Provider Internal Medicine
DX: T88.6XXA Anaphylactic reaction due to adverse effect of correct drug or medicament properly administered, initial encounter (principal); J18.9 Pneumonia, unspecified organism; K12.2 Cellulitis and abscess of mouth; N17.9 Acute kidney failure, unspecified; I31.39 Other pericardial effusion (noninflammatory); J45.40 Moderate persistent asthma, uncomplicated; E66.8 Other obesity; T36.3X5A Adverse effect of macrolides, initial encounter; H91.3 Deaf nonspeaking, not elsewhere classified; I25.10 Atherosclerotic heart disease of native coronary artery without angina pectoris; E03.9 Hypothyroidism, unspecified; E78.00 Pure hypercholesterolemia, unspecified; R03.0 Elevated blood-pressure reading, without diagnosis of hypertension; Y69 Unspecified misadventure during surgical and medical care; Z20.822 Contact with and (suspected) exposure to COVID-19; Z87.74 Personal history of (corrected) congenital malformations of heart and circulatory system; Z68.28 Body mass index [BMI] 28.0-28.9, adult; Z79.51 Long term (current) use of inhaled steroids; Z79.890 Hormone replacement therapy; Z79.899 Other long term (current) drug therapy
CPT/HCPCS: 36415; 36600; 70491; 71045; 71250; 80048; 80053; 80076; 80202; 81001; 82040; 82565; 82803; 82947; 83605; 83690; 83735; 83880; 84100; 84145; 84439; 84443; 84484; 85007; 85025; 85027; 85610; 85652; 85730; 86038; 86039; 86140; 86160; 86162; 86431; 87040; 87086; 87635; 92610; 93005; 94002; 94003; 94640; 94660; 94762; 94799; 97162; 97530; 99285; C1758; J0171; J0330; J0692; J1200; J1265; J1650; J1940; J2185; J2250; J2251; J2543; J2920; J3010; J3370; J3371; Q9967

== ENCOUNTER 2023-01-03 14:53 | Outpatient (AMB) | payer MEDICARE, MEDICAID, SELFPAY ==
--- NOTE | 2023-01-03 14:54 | MHC.OFFVIS ---
Intake Vital Signs 01/03/23 14:55 Height 4 ft 10 in Weight 117 lb BMI 24.5 Intake Visit Reasons: 4 mth f/up Intake Note: 4 mo follow up no complaints Deboning Team Leader Required: Yes Deboning Team Leader Language: Sign Languages (macro) Deboning Team Leader Name: macrina Information Interpreted: clinical only Allergies azithromycin Allergy (Severe, Verified 01/03/23 15:03) Angioedema ibuprofen Allergy (Unknown, Verified 01/03/23 15:03) unknown Sulfacetamide Sod-Pred Allergy (Mild, Uncoded 01/03/23 15:03) Unknown Medication List - Last Reconciled 01/03/23 by Js Escobar MD albuterol sulfate 90 mcg/actuation 2 puffs inhalation Q2-4H PRN cetirizine 10 mg PO DAILY@1200 cholecalciferol (vitamin D3) (Vitamin D3) 50 mcg PO QAM citalopram 40 mg PO QAM cyanocobalamin (vitamin B-12) 500 mcg PO DAILY@1200 docusate sodium 100 mg PO BID fluticasone furoate-vilanterol 200-25 mcg/dose (Breo Ellipta) 1 puff inhalation DAILY folic acid 0.4 mg PO DAILY@1200 hydroxyzine HCl 50 mg PO BEDTIME levothyroxine 112 mcg PO DAILY@0600 risperidone 1 tab PO BEDTIME risperidone 0.5 mg PO DAILY simvastatin 20 mg PO DAILY@1800 [tub seat with back As directed] HPI HPI Comments History of Present Illness Details 52-year-old female here for follow-up. She is deaf and uses sign language and was seen with director of sustainable design. She was seen in the hospital COVID-19 infection and chest pain. He had nonspecific T-wave changes. Echocardiography showed mild to moderate pericardial effusion without any wall motion abnormalities. She was subsequently discharged home and was seen in the office by Mitzi. At that stage she had repeat echocardiogram done which showed small pericardial effusion. Pericardial effusion was likely due to COVID-19 infection. Since then she has not had any chest discomfort. His denying any symptoms. She appears anxious. She has not been physically active but is saying that she will start doing some activities. 01/03/23: She returns for follow-up. She has no chest discomfort or shortness of breath. She does not exercise regularly but walks outside without any significant symptoms. She was admitted to hospital in October 2022 with respiratory distress and hypoxia. This was thought to be due to angioedema secondary to is a thrombi seen reaction. Was in the intensive care unit and was intubated but has recovered quite well. [facility] Medical History ACS (acute coronary syndrome) Anxiety and depression Asthma Constipation COVID Deaf Dysphagia Elevated blood sugar Generalized anxiety disorder Hypercholesterolemia Hypothyroid Ludwigs angina Pruritus Scabies SOB (shortness of breath) Vitamin B 12 deficiency Vitamin D deficiency Surgical History History of heart surgery Family History Mother CAD (coronary artery disease) Hypertension Brother CAD (coronary artery disease) Social History Household Members: Family Household Members Other:: Mother & Brother Housing: House Housing Other:: 2 family Do you presently have visiting nurse or other home services: Yes Alcohol intake: never Patient Tobacco Use Status: Never used Tobacco e-Cigarette/Vaping Use: Never Used Second Hand Smoke Exposure: No service: No Current occupational status: unemployed Cognitive needs: No Hearing needs: No Vision needs: Yes (glasses) Review of Systems Const Denies chills, Denies fatigue, Denies fever(s), Denies frequent falls, Denies weakness, Denies weight gain and Denies weight loss ENT Denies dizziness Card Denies chest pain, Denies leg edema, Denies lightheadedness, Denies palpitations, Denies dyspnea, Denies dyspnea on exertion, Denies orthopnea and Denies other (loss of consciousness) Resp Denies cough, Denies dyspnea and Denies dyspnea on exertion GI Denies hematochezia and Denies change in stool character Musc Denies abnormal gait, Denies muscle weakness, Denies numbness, Denies radiating pain into limb and Denies tingling Neuro Denies abnormal gait, Denies dizziness, Denies frequent falls, Denies numbness, Denies tingling and Denies weakness Endo Denies fatigue and Denies palpitations Physical Exam Vital Signs: BMI result Body Mass Index 24.5 GENERAL APPEARANCE: in no acute distress, pleasant. NECK: no carotid bruit, no jugular venous distention. SKIN: no suspicious lesions, warm and dry. HEART: no murmurs, regular rate and rhythm. LUNGS: clear to auscultation bilaterally. ABDOMEN: soft, nontender. EXTREMITIES: no edema. PERIPHERAL PULSES: equal. NEUROLOGIC: Deaf. Moving all extremities. Following commands and responding appropriately using sign language. Assessment & Plan Assessment & Plan (1) Pericardial effusion: Code(s): I31.39 - Other pericardial effusion (noninflammatory) Plan [age] year female who is here for follow-up. She was seen previously for chest pain and pericardial effusion the setting of COVID-19 infection. This was thought to be secondary to pericarditis. Subsequently the pericardial effusion was noticed to be smaller in size and was stable. Her chest pain resolved. She has not had any further chest discomfort since then. Recent admission to [facility] with allergic reaction to azithromycin leading to angioedema and intubation. There was also concern that she may have had Mark's angina. In any case she was given antibiotics, steroids and was intubated. She has made a good recovery since then. She is denying any chest pain or shortness of breath on follow-up. Overall stable. No further workup is required. Follow-up in 6 months with Mitzi. Thank you for allowing me to participate in the care of your patient. Please feel free to contact me if you have any questions. Coding Level of Care Code Est Pt Level 3 (14920) Diagnoses Pericardial effusion I31.39
[2023-01-03 14:55] VITALS: BMI 24.5
== END 2023-01-03 15:16 | disposition home or self-care (01) ==
PROVIDERS: Visit Provider Internal Medicine Cardiovascular Disease
DX: I31.39 Other pericardial effusion (noninflammatory) (principal)
CPT/HCPCS: 99213

== ENCOUNTER → 2023-01-03 14:53 | Outpatient (BNVA) | payer MEDICARE, MEDICAID, SELFPAY | PROVIDERS: Visit Provider Internal Medicine Cardiovascular Disease | DX: I31.39 Other pericardial effusion (noninflammatory) (principal); U09.9 Post COVID-19 condition, unspecified; F41.8 Other specified anxiety disorders | CPT/HCPCS: 99212 ==

== ENCOUNTER 2023-02-07 14:37 | Outpatient (AMB) | payer MEDICARE, MEDICAID, SELFPAY ==
[2023-02-07 14:50] VITALS: BP 128/70; PULSE 92; O2SAT 97; BMI 25.3
--- NOTE | 2023-02-07 14:50 | A.OFFPC_ITS ---
Vital Signs 02/07/23 14:50 Height 4 ft 10 in Weight 121 lb BMI 25.3 BP 128/70 Blood Pressure Location Lt brachial Position Sitting Pulse 92 Pulse Source Pulse Oximeter Temp Source Skin Pulse Oximetry (%) 97 Oxygen Delivery Method Room Air Intake Visit Reasons: anaphylaxis , CAD, Brush Polisher Required: No Allergies azithromycin Allergy (Severe, Verified 02/07/23 15:05) Angioedema ibuprofen Allergy (Unknown, Verified 02/07/23 15:05) unknown Sulfacetamide Sod-Pred Allergy (Mild, Uncoded 02/07/23 15:05) Unknown Tobacco use date assessed: 02/07/23 Dental Screening Dental Screen Date: 02/07/23 Did you have a dental visit in the last 12 months?: Yes Did you have a dental problem in the last 6 months where you did not have access to dental care?: No Was dental information given to patient?: Patient has dentist HPI anaphylaxis , CAD, HPI Details 52-year-old deaf female with coronary artery disease hypercholesterolemia hypothyroidism generalized anxiety disorder anemia, asthma last seen in November 2022 after a non anaphylactic reaction from azithromycin patient was advised follow-up blood work as well as a pulmonary referral for the asthma. Patient is here for follow-up. Review of the notes has seen Cardiology in December for pericardial effusion patient has some mild to moderate pericardial effusion most likely from COVID-19 infection. Patient has not had blood work done. Asking for ASL [id number] Christian. breathing is good right now and using oxygen at night [facility] Medical History ACS (acute coronary syndrome) Anxiety and depression Asthma Constipation COVID Deaf Dysphagia Elevated blood sugar Generalized anxiety disorder Hypercholesterolemia Hypothyroid Ludwigs angina Pruritus Scabies SOB (shortness of breath) Vitamin B 12 deficiency Vitamin D deficiency Surgical History History of heart surgery Family History Mother CAD (coronary artery disease) Hypertension Brother CAD (coronary artery disease) Social History Household Members: Family Household Members Other:: Mother & Brother Housing: House Housing Other:: 2 family Do you presently have visiting nurse or other home services: Yes Alcohol intake: never Patient Tobacco Use Status: Never used Tobacco e-Cigarette/Vaping Use: Never Used Second Hand Smoke Exposure: No service: No Current occupational status: unemployed Cognitive needs: No Hearing needs: No Vision needs: Yes (glasses) Questionnaire Thrive Questionnaire Date Thrive assessed: 12/22/22 AUDIT C Alcohol Use Questionnaire (AUDIT-C) 1. How often do you have a drink containing alcohol?: Never 3. How often do you have six or more drinks on one occasion?: Never Total Score: 0 LOI-7 AMB Questionnaire LOI-7 Date LOI - 7 assessed: 07/26/22 Source: Developed by Drs. Dieter Butcher, Zenaida White, Toi Wynne and colleagues, with an educational kareem from [employer]. Physical exam (Primary Care) Vital Signs: Last Vital Signs Pulse 92 02/07/23 14:50 BP 128/70 02/07/23 14:50 Pulse Ox 97 02/07/23 14:50 Oxygen Delivery Method Room Air 02/07/23 14:50 BMI result Body Mass Index 25.3 Tobacco/Smoking Status: Tobacco use Status Tobacco use date assessed 02/07/23 02/07/23 14:51 Patient Tobacco Use Status Never used Tobacco 02/07/23 14:51 e-Cigarette/Vaping Use Never Used 02/07/23 14:51 Thrive Assessment: Date of Thrive Assessment Date Thrive assessed 12/22/22 02/07/23 14:51 Const General: alert; No acute distress Eyes Conjunctivae: conjunctivae normal Resp Auscultation: clear to auscultation bilaterally Cardio Rate: regular rate Rhythm: regular rhythm GI Inspection: Yes normal to inspection Extrem General: Yes normal to inspection and No edema Assessment and Plan Assessment & Plan (1) Anemia: Code(s): D64.9 - Anemia, unspecified Plan: Advised to follow-up blood work (2) CAD (coronary artery disease): Code(s): I25.10 - Atherosclerotic heart disease of [place] coronary artery without angina pectoris Plan: Control the cholesterol, weight, blood pressure reminded about the blood work (3) Hypercholesterolemia: Code(s): E78.00 - Pure hypercholesterolemia, unspecified Plan: Avoid fried foods, chicken skin, eggs, butter margarine, pastries and meat. Be it pork or beef they have a lot of cholesterol LDL goal of less than 70 and triglyceride of less than 1 patient is on simvastatin 20 mg once a day reminded about the blood work (4) Hypothyroid: Code(s): E03.9 - Hypothyroidism, unspecified Qualifiers: Hypothyroidism type: acquired Qualified Code(s): E03.9 - Hypothyroidism, unspecified Plan: Continue with thyroid medication advised blood work (5) Generalized anxiety disorder: Comment: Donita in [place] (05/2020_ Code(s): F41.1 - Generalized anxiety disorder Plan: Continue with present medication (6) Impaired fasting blood sugar: Code(s): R73.01 - Impaired fasting glucose Plan: Decrease the amount of carbohydrate intake, pasta, bread, rice and potatoes are all sugar and that is aside from all the sweet stuff, remember that fruits are good but they are Sweet also. Reminded about the blood work Coding Level of Care Code Est Pt Level 4 (66812) Diagnoses Anemia D64.9 CAD (coronary artery disease) I25.10 Hypercholesterolemia E78.00 Hypothyroid E03.9 Hypothyroidism type: acquired Generalized anxiety disorder F41.1 Impaired fasting blood sugar R73.01
== END 2023-02-07 15:41 | disposition home or self-care (01) ==
PROVIDERS: PCP Internal Medicine; Visit Provider Internal Medicine
DX: D64.9 Anemia, unspecified (principal); I25.10 Atherosclerotic heart disease of native coronary artery without angina pectoris; E78.00 Pure hypercholesterolemia, unspecified; Z23 Encounter for immunization; E03.9 Hypothyroidism, unspecified; F41.1 Generalized anxiety disorder; R73.01 Impaired fasting glucose
CPT/HCPCS: 90471; 90677; 99214

== ENCOUNTER 2023-03-22 13:28 | Outpatient (AMB) | payer MEDICARE, MEDICAID, SELFPAY ==
[2023-03-22 13:29] VITALS: BP 137/77; PULSE 112; O2SAT 93; BMI 25.3
--- NOTE | 2023-03-22 13:29 | MHC.OFFVIS ---
Intake Vital Signs 03/22/23 13:29 Height 4 ft 10 in Weight 121 lb 4.068 oz BMI 25.3 BP 137/77 Blood Pressure Location Rt brachial Position Sitting Pulse 112 H Pulse Source Doppler Pulse Oximetry (%) 93 Oxygen Delivery Method Room Air Intake Visit Reasons: Resp Failure Allergies azithromycin Allergy (Severe, Verified 03/22/23 13:38) Angioedema ibuprofen Allergy (Unknown, Verified 03/22/23 13:38) unknown Sulfacetamide Sod-Pred Allergy (Mild, Uncoded 02/07/23 15:05) Unknown HPI Resp Failure HPI Details 52-year-old lady with underlying mueness/deafness, asthma, CAD with prior ACS, with admission to [facility] in October of 2022 for upper airway edema, also noted to have chronic hypercapnia and started on BiPAP support. Patient states that after starting BiPAP at night her respiratory status has normalized an she denies any new pulmonary related concerns or complaints. She is unable to perform pulmonary function test. [facility] Medical History ACS (acute coronary syndrome) Anxiety and depression Asthma Constipation COVID Deaf Dysphagia Elevated blood sugar Generalized anxiety disorder Hypercholesterolemia Hypothyroid Ludwigs angina Pruritus Scabies SOB (shortness of breath) Vitamin B 12 deficiency Vitamin D deficiency Surgical History History of heart surgery Family History Mother CAD (coronary artery disease) Hypertension Brother CAD (coronary artery disease) Social History Household Members: Family Household Members Other:: Mother & Brother Housing: House Housing Other:: 2 family Do you presently have visiting nurse or other home services: Yes Alcohol intake: never Patient Tobacco Use Status: Never used Tobacco e-Cigarette/Vaping Use: Never Used Second Hand Smoke Exposure: No service: No Current occupational status: unemployed Cognitive needs: No Hearing needs: No Vision needs: Yes (glasses) Review of Systems Const Denies daytime sleepiness, Denies excessive sweating, Denies fatigue, Denies fever(s), Denies lethargy, Denies malaise, Denies night sweats, Denies snoring and Denies weight loss Eyes Denies blurry vision and Denies itchy eyes ENT Denies nasal congestion, Denies post nasal drip, Denies sinus pain, Denies sinus pressure and Denies other ( Thrush) Card Denies chest pain, Denies pedal edema, Denies dyspnea, Denies orthopnea and Denies paroxysmal nocturnal dyspnea Resp Denies cough, Denies hemoptysis, Denies excessive phlegm production, Denies dyspnea, Denies snoring and Denies wheezing GI Denies abdominal pain and Denies heartburn Musc Denies myalgias, Denies arthralgias and Denies joint swelling Skin/Breast Denies rash Neuro Denies memory loss and Denies seizure-like activity Psych Denies abnormal sleep pattern, Denies anxiety and Denies memory loss Endo Denies excessive sweating, Denies fatigue and Denies heat intolerance Lobo/Lymph Denies easy bruising Aller/Immun Denies itchy eyes, Denies seasonal rhinorrhea and Denies wheezing Physical Exam Vital Signs: Last Vital Signs Pulse 112 H 03/22/23 13:29 BP 137/77 03/22/23 13:29 Pulse Ox 93 03/22/23 13:29 Oxygen Delivery Method Room Air 03/22/23 13:29 BMI result Body Mass Index 25.3 Const General: no acute distress and alert Nutritional Appearance: not obese Orientation/consciousness: Other orientation findings ( oriented) HEENT Head: Yes atraumatic Eyes General: appearance normal, both eyes and all related structures Sclerae: sclerae normal EOM: EOMs intact bilaterally Neck Neck: Yes supple Lymphatic: no lymphadenopathy noted Resp Effort & Inspection: normal respiratory effort and no use of accessory muscles Auscultation: clear to auscultation bilaterally Cardio Rate: regular rate Rhythm: regular rhythm Heart sounds: no gallops, no murmurs and no rubs Skin General skin exam: other ( warm) Extrem General: No clubbing, No cyanosis and No edema Assessment & Plan Assessment & Plan (1) Chronic hypercapnic respiratory failure: Code(s): J96.12 - Chronic respiratory failure with hypercapnia (2) Obstructive sleep apnea: Code(s): G47.33 - Obstructive sleep apnea (adult) (pediatric) Plan Underlying chronic CO2 retention with likely obstructive sleep apnea, now well controlled on BiPAP therapy. Will obtain sleep study for further evaluation. Coding Level of Care Code Est Pt Level 4 (81655) Diagnoses Chronic hypercapnic respiratory failure J96.12 Obstructive sleep apnea G47.33
== END 2023-03-22 13:58 | disposition home or self-care (01) ==
PROVIDERS: PCP Internal Medicine; Visit Provider Internal Medicine Pulmonary Disease
DX: J96.12 Chronic respiratory failure with hypercapnia (principal); G47.33 Obstructive sleep apnea (adult) (pediatric)
CPT/HCPCS: 99214

== ENCOUNTER → 2023-03-22 13:28 | Outpatient (BNVA) | payer MEDICARE, MEDICAID, SELFPAY | PROVIDERS: PCP Internal Medicine; Visit Provider Internal Medicine Pulmonary Disease | DX: J96.12 Chronic respiratory failure with hypercapnia (principal); G47.33 Obstructive sleep apnea (adult) (pediatric) | CPT/HCPCS: 99212 ==

== ENCOUNTER 2023-06-15 14:34 | Outpatient (REF) | payer MEDICARE, MEDICAID, SELFPAY ==
[2023-06-15 14:57] LABS: MANUAL DIFF FLAG NO
[2023-06-15 15:55] LABS: Basophils Absolute Auto 0.1 X10*3/uL (0.0-0.2); Basophils Percent Auto 0.7 % (0-2); Eosinophils Absolute Auto 0.1 X10*3/uL (0.0-0.4); Eosinophils Percent Auto 0.6 % (0-4); Hematocrit 42.1 % (37.0-47.0); Hemoglobin 13.6 g/dl (12.0-16.0); Imm Gran Abs Auto 0.05 X10*3/uL (0.00-0.03); Imm Gran Pct Auto 0.4 % (0.0-0.4); Immature Retic Fraction 15.7 % (3.0-15.9); Lymphocytes Percent Auto 17.2 % (20-40); Mean Corpuscular HGB Conc 32.3 g/dl (31.0-35.0); Mean Corpuscular Hemoglobin 28.6 pg (27.0-33.0); Mean Corpuscular Volume 88.6 fL (80.0-98.0); Mean Platelet Volume 11.1 fL (9.4-12.3); Monocytes Absolute Auto 0.5 X10*3/uL (0.1-1.2); Monocytes Percent Auto 4.3 % (2-11); Neutrophils Percent Auto 76.8 % (45-73); Platelet Count 240 X10*3/uL (160-400); Red Blood Count 4.75 X10*6/uL (4.20-5.50); Red Cell Distribution Width 13.1 % (11.0-16.0); Retic HGB Equivalent 35.1 pg (30.0-35.0); Reticulocyte Percent 2.2 % (0.5-1.8); Reticulocytes Absolute 0.106 X10*6/uL (0.026-0.095); White Blood Count 11.7 X10*3/uL (4.8-10.8)
[2023-06-15 16:20] LABS: Alanine Aminotransferase 11 U/L (0-31); Albumin Level 4.8 g/dL (3.5-5.0); Alkaline Phosphatase 70 U/L (39-117); Anion Gap 16 (12-20); Aspartate Amino Transferase 27 U/L (5-31); Bilirubin Total 0.4 mg/dL (0.0-1.0); Blood Urea Nitrogen 15 mg/dL (9-16); Calcium 10.4 mg/dL (8.4-10.2); Carbon Dioxide 27 mmol/L (22-29); Chloride 97 mmol/L (96-108); Cholesterol 240 mg/dL (<200); Estimated Glomerular Filt Rate 55; Glucose Random 141 mg/dL (60-115); HDL Cholesterol 55 mg/dL (>40); Iron 80 mcg/dL (30-160); Percent Iron Saturation 24 % (15-50); Sodium 136 mmol/L (135-145); Total Iron Binding Capacity 337 mcg/dL (228-428); Total Protein 8.4 g/dL (6.5-8.0); Triglycerides 410 mg/dL (<150); Unsaturated Iron Binding 257 ug/dL
[2023-06-15 16:37] LABS: Ferritin 21 ng/mL (10-250); Free T4 (Free Thyroxine) 0.43 ng/dL (0.71-1.85); Thyroid Stimulating Hormone 0.78 uIU/mL (0.32-4.0); Vitamin D 25-OH Total 62.5 ng/mL (>30)
[2023-06-15 16:43] LABS: Estimated Average Glucose 137 mg/dL; Hemoglobin A1c % 6.4 % (<6.0)
[2023-06-15 16:45] LABS: Folate 12.1 ng/mL (> or = 4.0); Vitamin B12 796 pg/mL (200-900)
== END 2023-06-15 14:35 | disposition home or self-care (01) ==
LOC: HO.LAB 14:34
PROVIDERS: PCP Internal Medicine; Visit Provider Internal Medicine
DX: R73.01 Impaired fasting glucose (principal); E78.00 Pure hypercholesterolemia, unspecified; D64.9 Anemia, unspecified; E03.9 Hypothyroidism, unspecified
CPT/HCPCS: 36415; 80053; 80061; 82306; 82607; 82728; 82746; 83036; 83540; 84439; 84443; 85025; 85045

== ENCOUNTER 2023-06-21 12:13 | Outpatient (AMB) | payer MEDICARE, MEDICAID, SELFPAY ==
[2023-06-21 12:26] VITALS: BP 150/50; PULSE 95; O2SAT 86; BMI 27.2
--- NOTE | 2023-06-21 12:26 | MHC.PC.OV ---
Vital Signs 06/21/23 12:26 Height 4 ft 10 in Weight 130 lb 6 oz BMI 27.2 BP 150/50 H Blood Pressure Location Lt brachial Position Sitting Pulse 95 Pulse Source Pulse Oximeter Pulse Oximetry (%) 86 L Oxygen Delivery Method Room Air Intake Visit Reasons: Lab Results Per Dr Hawkins Dividend Clerk Required: Yes Dividend Clerk Language: Audio/Video Technician Name: Tara [id number] Information Interpreted: clinical only Pasteuriser Operator: Present Accompanied by: Brother Allergies azithromycin Allergy (Severe, Verified 06/21/23 12:26) Angioedema ibuprofen Allergy (Unknown, Verified 06/21/23 12:26) unknown Sulfacetamide Sod-Pred Allergy (Mild, Uncoded 02/07/23 15:05) Unknown Tobacco use date assessed: 02/07/23 Dental Screening Dental Screen Date: 06/21/23 Did you have a dental visit in the last 12 months?: Yes Did you have a dental problem in the last 6 months where you did not have access to dental care?: No Was dental information given to patient?: Patient has dentist HPI Lab Results Per Dr Hawkins HPI Details 52-year-old overweight female(noted 9 lb weight gain) with coronary artery disease hypercholesterolemia hypothyroidism impaired glucose tolerance and generalized anxiety disorder last seen in January 2023. Mammogram is up-to-date colonoscopy test declined. Review of the note was seen by Pulmonary February 2023 mute/deaf history of chronic hypercapnic respiratory failure and obstructive sleep apnea on BiPAP. Advised to get sleep study patient had blood work done and is was advised to follow-up. interpret Sumi [id number] [facility] PAtient was seen by the urgent center in [facility] and was treated with nitrofurantoin- incontinent [facility] Medical History ACS (acute coronary syndrome) Anxiety and depression Asthma Constipation COVID Deaf Dysphagia Elevated blood sugar Generalized anxiety disorder Hypercholesterolemia Hypothyroid Ludwigs angina Pruritus Scabies SOB (shortness of breath) Vitamin B 12 deficiency Vitamin D deficiency Surgical History History of heart surgery Family History Mother CAD (coronary artery disease) Hypertension Brother CAD (coronary artery disease) Social History Household Members: Family Household Members Other:: Mother & Brother Housing: House Housing Other:: 2 family Do you presently have visiting nurse or other home services: Yes Alcohol intake: never Patient Tobacco Use Status: Never used Tobacco e-Cigarette/Vaping Use: Never Used Second Hand Smoke Exposure: No service: No Current occupational status: unemployed Cognitive needs: No Hearing needs: No Vision needs: Yes (glasses) Questionnaire Thrive Questionnaire Date Thrive assessed: 12/22/22 LOI-7 AMB Questionnaire LOI-7 Date LOI - 7 assessed: 07/26/22 Source: Developed by Drs. Dieter Butcher, Zenaida White, Toi Wynne and colleagues, with an educational kareem from [employer]. Physical exam (Primary Care) Vital Signs: Last Vital Signs Pulse 95 06/21/23 12:26 BP 150/50 H 06/21/23 12:26 Pulse Ox 86 L 06/21/23 12:26 Oxygen Delivery Method Room Air 06/21/23 12:26 BMI result Body Mass Index 27.2 Tobacco/Smoking Status: Tobacco use Status Tobacco use date assessed 02/07/23 06/21/23 12:28 Patient Tobacco Use Status Never used Tobacco 06/21/23 12:28 e-Cigarette/Vaping Use Never Used 06/21/23 12:28 Thrive Assessment: Date of Thrive Assessment Date Thrive assessed 12/22/22 06/21/23 12:28 Const General: alert; No acute distress Eyes Conjunctivae: conjunctivae normal Resp Auscultation: clear to auscultation bilaterally Cardio Rate: regular rate Rhythm: regular rhythm GI Inspection: Yes normal to inspection Extrem General: Yes normal to inspection and No edema Results AMB Urinalysis, Automated UA Leukoctes 0 Melissa/uL Last Edit by Kaylynn Riley on 06/21/23 13:28 UA Nitrite Negative Last Edit by Kaylynn Riley on 06/21/23 13:28 UA Urobilinogen 0 mg/dL Last Edit by Kaylynn Riley on 06/21/23 13:28 UA Protein 100 mg/dL Last Edit by Kaylynn Riley on 06/21/23 13:28 UA pH 6.0 Last Edit by Kaylynn Riley on 06/21/23 13:28 UA Blood 10 Juan/uL Last Edit by Kaylynn Riley on 06/21/23 13:28 UA Specific [place] 1.015 Last Edit by Kaylynn Riley on 06/21/23 13:28 UA Ketone Negative Last Edit by Kaylynn Riley on 06/21/23 13:28 UA Bilirubin 0 mg/dL Last Edit by Kaylynn Riley on 06/21/23 13:28 UA Glucose 0 mg/dL Last Edit by Kaylynn Riley on 06/21/23 13:28 Results Reviewed Results Reviewed: Laboratory Last Values Urine pH (Auto) 6.0 06/21/23 13:23 Specific [place] (Auto) 1.015 06/21/23 13:23 Urine Protein (Auto) 100 mg/dL 06/21/23 13:23 Glucose (UA)(Auto) 0 mg/dL 06/21/23 13:23 Urine Ketones (Auto) Negative 06/21/23 13:23 Urine Blood (Auto) 10 Juan/uL 06/21/23 13:23 Urine Nitrite (Auto) Negative 06/21/23 13:23 Urine Bilirubin (Auto) 0 mg/dL 06/21/23 13:23 Urine Urobilinogen (Auto) 0 mg/dL 06/21/23 13:23 Leukocyte Esterase (Auto) 0 Melissa/uL 06/21/23 13:23 Assessment and Plan Assessment & Plan (1) Chronic hypercapnic respiratory failure: Code(s): J96.12 - Chronic respiratory failure with hypercapnia Plan: Patient follows up with Pulmonary and on BiPAP (2) Obstructive sleep apnea: Code(s): G47.33 - Obstructive sleep apnea (adult) (pediatric) Plan: Advised to get a sleep study done (3) CAD (coronary artery disease): Code(s): I25.10 - Atherosclerotic heart disease of [place] coronary artery without angina pectoris Plan: Control the cholesterol, weight, blood pressure (4) Hypothyroid: Code(s): E03.9 - Hypothyroidism, unspecified Qualifiers: Hypothyroidism type: acquired Qualified Code(s): E03.9 - Hypothyroidism, unspecified Plan: continue with the thyroid med (5) Hypercholesterolemia: Code(s): E78.00 - Pure hypercholesterolemia, unspecified Plan: Avoid fried foods, chicken skin, eggs, butter margarine, pastries and meat. Be it pork or beef they have a lot of cholesterol LDL goal of less than 70 and triglyceride of less than 150 on simvastatin 20 mg QD- (6) Impaired fasting blood sugar: Code(s): R73.01 - Impaired fasting glucose Plan: Decrease the amount of carbohydrate intake, pasta, bread, rice and potatoes are all sugar and that is aside from all the sweet stuff, remember that fruits are good but they are Sweet also. (7) Urinary incontinence: Code(s): R32 - Unspecified urinary incontinence Plan: urinalysis done Orders: Orders AMB Urinalysis Automated Today R32 - Unspecified urinary incontinence, Z13.9 - Encounter for screening, unspecified Comprehensive Met. Panel Today R73.01 - Impaired fasting glucose Complete Blood Count Auto Diff Today R73.01 - Impaired fasting glucose Lipid Panel Today E78.00 - Pure hypercholesterolemia, unspecified US bladder Today R32 - Unspecified urinary incontinence Referrals Urology Referral R32 - Unspecified urinary incontinence Coding Level of Care Code Est Pt Level 4 (41788) Diagnoses Chronic hypercapnic respiratory failure J96.12 Obstructive sleep apnea G47.33 CAD (coronary artery disease) I25.10 Acquired hypothyroidism E03.9 Hypothyroidism type: acquired Hypercholesterolemia E78.00 Impaired fasting blood sugar R73.01 Urinary incontinence R32
== END 2023-06-21 13:20 | disposition home or self-care (01) ==
PROVIDERS: PCP Internal Medicine; Visit Provider Internal Medicine
DX: J96.12 Chronic respiratory failure with hypercapnia (principal); G47.33 Obstructive sleep apnea (adult) (pediatric); I25.10 Atherosclerotic heart disease of native coronary artery without angina pectoris; E03.9 Hypothyroidism, unspecified; R32 Unspecified urinary incontinence
CPT/HCPCS: 81003; 99214

== ENCOUNTER 2023-07-14 13:26 | Outpatient (AMB) | payer MEDICARE, MEDICAID, SELFPAY ==
[2023-07-14 13:28] VITALS: BP 142/77; PULSE 102; O2SAT 92; BMI 27.4
--- NOTE | 2023-07-14 13:28 | A.OFFVIS_ITS ---
Intake Vital Signs 07/14/23 13:28 Height 4 ft 10 in Weight 131 lb 2.801 oz BMI 27.4 BP 142/77 H Blood Pressure Location Rt brachial Position Sitting Pulse 102 H Pulse Source Doppler Pulse Oximetry (%) 92 Oxygen Delivery Method Room Air Intake Visit Reasons: Dyspnea Allergies azithromycin Allergy (Severe, Verified 07/14/23 13:33) Angioedema ibuprofen Allergy (Unknown, Verified 07/14/23 13:33) unknown Sulfacetamide Sod-Pred Allergy (Mild, Uncoded 02/07/23 15:05) Unknown HPI Dyspnea HPI Details 52-year-old lady with underlying mutenes s/deafness, asthma, CAD with prior ACS, with admission to [facility] in October of 2022 for upper airway edema, also noted to have chronic hypercapnia and started on BiPAP support. Patient was unable to perform pulmonary function test. She also does not have her sleep study completed. Patient is currently on nocturnal oxygen. [facility] Medical History ACS (acute coronary syndrome) Anxiety and depression Asthma Constipation COVID Deaf Dysphagia Elevated blood sugar Generalized anxiety disorder Hypercholesterolemia Hypothyroid Ludwigs angina Pruritus Scabies SOB (shortness of breath) Vitamin B 12 deficiency Vitamin D deficiency Surgical History History of heart surgery Family History Mother CAD (coronary artery disease) Hypertension Brother CAD (coronary artery disease) Social History Household Members: Family Household Members Other:: Mother & Brother Housing: House Housing Other:: 2 family Do you presently have visiting nurse or other home services: Yes Alcohol intake: never Patient Tobacco Use Status: Never used Tobacco e-Cigarette/Vaping Use: Never Used Second Hand Smoke Exposure: No service: No Current occupational status: unemployed Cognitive needs: No Hearing needs: No Vision needs: Yes (glasses) Review of Systems Const Denies daytime sleepiness, Denies excessive sweating, Denies fatigue, Denies fever(s), Denies lethargy, Denies malaise, Denies night sweats, Reports snoring and Denies weight loss Eyes Denies blurry vision and Denies itchy eyes ENT Denies nasal congestion, Denies post nasal drip, Denies sinus pain, Denies sinus pressure and Denies other ( Thrush) Card Denies chest pain, Denies pedal edema, Denies dyspnea, Denies orthopnea and Denies paroxysmal nocturnal dyspnea Resp Denies cough, Denies hemoptysis, Denies excessive phlegm production, Denies dyspnea, Reports snoring and Denies wheezing GI Denies abdominal pain and Denies heartburn Musc Denies myalgias, Denies arthralgias and Denies joint swelling Skin/Breast Denies rash Neuro Denies memory loss and Denies seizure-like activity Psych Denies abnormal sleep pattern, Denies anxiety and Denies memory loss Endo Denies excessive sweating, Denies fatigue and Denies heat intolerance Lobo/Lymph Denies easy bruising Aller/Immun Denies itchy eyes, Denies seasonal rhinorrhea and Denies wheezing Physical Exam Vital Signs: Last Vital Signs Pulse 102 H 07/14/23 13:28 BP 142/77 H 07/14/23 13:28 Pulse Ox 92 07/14/23 13:28 Oxygen Delivery Method Room Air 07/14/23 13:28 BMI result Body Mass Index 27.4 Const General: no acute distress and alert Nutritional Appearance: not obese Orientation/consciousness: Other orientation findings ( oriented) HEENT Head: Yes atraumatic Eyes General: appearance normal, both eyes and all related structures Sclerae: sclerae normal EOM: EOMs intact bilaterally Neck Neck: Yes supple Lymphatic: no lymphadenopathy noted Resp Effort & Inspection: normal respiratory effort and no use of accessory muscles Auscultation: clear to auscultation bilaterally Cardio Rate: regular rate Rhythm: regular rhythm Heart sounds: no gallops, no murmurs and no rubs Skin General skin exam: other ( warm) Extrem General: No clubbing, No cyanosis and No edema Assessment & Plan Assessment & Plan (1) Nocturnal hypoxemia: Code(s): G47.34 - Idiopathic sleep related nonobstructive alveolar hypoventilation (2) Obstructive sleep apnea: Code(s): G47.33 - Obstructive sleep apnea (adult) (pediatric) (3) Chronic hypercapnic respiratory failure: Code(s): J96.12 - Chronic respiratory failure with hypercapnia Plan Appears to have nocturnal hypoxemia that may be related to underlying sleep apnea. Obtain home sleep study and overnight oximetry. Also with underlying chronic hypercapnic respiratory failure leading to CO2 retention. Will evaluate for BiPAP. Orders: Orders RT home sleep study Today G47.33 - Obstructive sleep apnea (adult) (pediatric) Overnight Pulse Oximetry Today G47.34 - Idiopathic sleep related nonobstructive alveolar hypoventilation Coding Level of Care Code Est Pt Level 4 (47525) Diagnoses Nocturnal hypoxemia G47.34 Obstructive sleep apnea G47.33 Chronic hypercapnic respiratory failure J96.12
== END 2023-07-14 13:48 | disposition home or self-care (01) ==
PROVIDERS: PCP Internal Medicine; Visit Provider Internal Medicine Pulmonary Disease
DX: G47.34 Idiopathic sleep related nonobstructive alveolar hypoventilation (principal); G47.33 Obstructive sleep apnea (adult) (pediatric); J96.12 Chronic respiratory failure with hypercapnia
CPT/HCPCS: 99214

== ENCOUNTER → 2023-07-14 13:26 | Outpatient (BNVA) | payer MEDICARE, MEDICAID, SELFPAY | PROVIDERS: PCP Internal Medicine; Visit Provider Internal Medicine Pulmonary Disease | DX: G47.34 Idiopathic sleep related nonobstructive alveolar hypoventilation (principal); G47.33 Obstructive sleep apnea (adult) (pediatric); J96.12 Chronic respiratory failure with hypercapnia | CPT/HCPCS: 99212 ==

== ENCOUNTER 2023-07-19 15:17 | Outpatient (AMB) | payer MEDICARE, MEDICAID, SELFPAY ==
[2023-07-19 15:22] VITALS: BP 120/82; PULSE 88; BMI 26.7
--- NOTE | 2023-07-19 15:22 | A.OFFVIS_ITS ---
Intake Vital Signs 07/19/23 15:22 Height 4 ft 10 in Weight 127 lb 13.89 oz BMI 26.7 BP 120/82 Blood Pressure Location Lt brachial Position Sitting Pulse 88 Pulse Source Pulse Oximeter Intake Visit Reasons: r/s 6 mos followup Rehab Services Aide Required: No Train Brakeman: Train Brakeman Present Allergies azithromycin Allergy (Severe, Verified 07/19/23 15:29) Angioedema ibuprofen Allergy (Unknown, Verified 07/19/23 15:29) unknown Sulfacetamide Sod-Pred Allergy (Mild, Uncoded 02/07/23 15:05) Unknown Medication List - Last Reconciled 07/19/23 by Mitzi Hughes, [employer] albuterol sulfate 90 mcg/actuation 2 puffs inhalation Q2-4H PRN blood sugar diagnostic (FreeStyle Lite Strips) As directed check the BS QD blood-glucose meter (FreeStyle Lite Meter kit) As directed cetirizine 10 mg PO DAILY@1200 cholecalciferol (vitamin D3) (Vitamin D3) 50 mcg PO QAM citalopram 40 mg PO QAM cyanocobalamin (vitamin B-12) 500 mcg PO DAILY@1200 docusate sodium 100 mg PO BID fluticasone furoate-vilanterol 200-25 mcg/dose (Breo Ellipta) 1 puff inhalation DAILY folic acid 0.4 mg PO DAILY@1200 hydroxyzine HCl 50 mg PO BEDTIME lancets (FreeStyle Lancets) As directed check BS QD levothyroxine 112 mcg PO DAILY@0600 metformin 500 mg PO BIDWMEAL risperidone 1 tab PO BEDTIME risperidone 0.5 mg PO DAILY risperidone 0.5 mg PO QAM simvastatin 20 mg PO DAILY@1800 [tub seat with back As directed] HPI r/s 6 mos followup HPI Details Sherrie is a 52-year-old female with past medical history of hyperlipidemia, diabetes, remote cardiac surgery, details unknown, who was admitted to [facility] 03/2022 with report of chest discomfort and treated for NSTEMI. Outpatient echocardiogram had shown pericardial effusion which was thought to be related to COVID infection. Repeat echocardiogram months later showed some improvement. She now presents for follow-up. [facility] Medical History Ludwigs angina COVID ACS (acute coronary syndrome) Pruritus Generalized anxiety disorder Scabies SOB (shortness of breath) Vitamin D deficiency Dysphagia Elevated blood sugar Deaf Vitamin B 12 deficiency Hypercholesterolemia Hypothyroid Anxiety and depression Constipation Asthma Surgical History History of heart surgery Family History Mother CAD (coronary artery disease) Hypertension Brother CAD (coronary artery disease) Social History Household Members: Family Household Members Other:: Mother & Brother Housing: House Housing Other:: 2 family Do you presently have visiting nurse or other home services: Yes Alcohol intake: never Patient Tobacco Use Status: Never used Tobacco e-Cigarette/Vaping Use: Never Used Second Hand Smoke Exposure: No service: No Current occupational status: unemployed Cognitive needs: No Hearing needs: No Vision needs: Yes (glasses) Review of Systems Const All systems reviewed & are unremarkable except as noted in HPI and below ENT Denies dizziness Card Denies chest pain, Denies chest pain at rest, Denies chest pain with activity, Denies palpitations and Reports dyspnea on exertion Resp Reports cough and Reports dyspnea on exertion Musc Denies limited range of motion, Denies muscle cramps and Denies muscle weakness Neuro Denies dizziness Endo Denies palpitations Physical Exam Vital Signs: Last Vital Signs Pulse 88 07/19/23 15:22 BP 120/82 07/19/23 15:22 BMI result Body Mass Index 26.7 Const General: cooperative, healthy appearing, comfortable and no acute distress Orientation/consciousness: patient oriented x3 Neck Neck: Yes normal visual inspection Resp Effort & Inspection: normal respiratory effort Auscultation: clear to auscultation bilaterally, no crackles, no rales, no rhonchi and no wheezes Cardio Jugular venous distension: no JVD Rate: regular rate Rhythm: regular rhythm Heart sounds: S1 normal heart sound present, S2 normal heart sound present, no murmurs and no rubs Neuro General: patient oriented x3 Extrem General: Yes normal to inspection and No no pedal edema Psych Appearance: grossly normal Mental Status: mental status grossly normal Speech and movement: Normal speech and movement present Assessment & Plan Assessment & Plan (1) Chest pain: Code(s): R07.9 - Chest pain, unspecified Plan: [facility] admission 03/2022 for reports of chest discomfort. Troponin with mild elevation, peak 51.9. EKG, sinus rhythm with nonspecific T-wave findings. She was COVID positive at that time. CTA of the chest was negative for PE, did show small pericardial effusion. She was treated for NSTEMI with IV heparin for 48 hours them patient requested discharge. Echocardiogram done outpatient on 05/10/2022 showed EF 55-60%, normal RV, small effusion over the left ventricle and moderate around the right atrium. On follow-up visit she reported improvement in the chest discomfort. Mother was present on last visit with me and reported that patient had open heart surgery at age 7. She does have a left thoracotomy scar. Reached out to [facility] to try to get records, none obtained as of yet. Today she reports no recurrent chest discomfort. Her last hospital admission was 10/2022 for acute respiratory failure requiring intubation, related to allergic reaction to azithromycin. Her prior symptom of chest discomfort and pericardial effusion or thought to be most likely related to COVID infection. At this time will update a echocardiogram to assess for any pericardial effusion, WMA or reduced EF. . Continue statin, ideal LDL goal less than 70 in patient with diabetes. Hemoglobin A1c goal less than 7. Signs and symptoms of angina reviewed. Cardiology follow-up to be determined after echocardiogram report available.. (2) Pericardial effusion: Code(s): I31.39 - Other pericardial effusion (noninflammatory) Plan: Noted as above on prior CTA of chest and on echocardiogram. Blood pressure and heart rate are normal range. Rechecking echocardiogram Plan Time spent on chart review, documentation, interview and assessment Orders: Orders CA echo transthoracic complete Today I31.39 - Other pericardial effusion (noninflammatory) Coding Level of Care Code Est Pt Level 3 (80521) Diagnoses Chest pain R07.9 Pericardial effusion I31.39 Time Spent (min) 20
== END 2023-07-19 15:58 | disposition home or self-care (01) ==
PROVIDERS: PCP Internal Medicine; Visit Provider Nurse Practitioner Family
DX: R07.9 Chest pain, unspecified (principal); I31.39 Other pericardial effusion (noninflammatory)
CPT/HCPCS: 99213

== ENCOUNTER → 2023-07-19 15:17 | Outpatient (BNVA) | payer MEDICARE, MEDICAID, SELFPAY | PROVIDERS: PCP Internal Medicine; Visit Provider Nurse Practitioner Family | DX: R07.9 Chest pain, unspecified (principal); I31.39 Other pericardial effusion (noninflammatory); I25.2 Old myocardial infarction; Z79.899 Other long term (current) drug therapy | CPT/HCPCS: 99212 ==

== ENCOUNTER 2023-07-27 12:16 | Outpatient (AMB) | payer MEDICARE, MEDICAID, SELFPAY ==
[2023-07-27 13:08] VITALS: BP 122/70; PULSE 90; O2SAT 88; BMI 27.0
--- NOTE | 2023-07-27 13:08 | A.OFFPC_ITS ---
Vital Signs 07/27/23 13:08 Height 4 ft 10 in Weight 129 lb BMI 27.0 BP 122/70 Blood Pressure Location Lt brachial Position Sitting Pulse 90 Pulse Source Pulse Oximeter Pulse Oximetry (%) 88 L Oxygen Delivery Method Room Air Intake Visit Reasons: concerns about swollen tongue Intake Note: swollen tongue X2 weeks Hairspring Cutter Required: Yes Hairspring Cutter Language: Italian Allergies azithromycin Allergy (Severe, Verified 07/27/23 13:08) Angioedema ibuprofen Allergy (Unknown, Verified 07/27/23 13:08) unknown Sulfacetamide Sod-Pred Allergy (Mild, Uncoded 07/27/23 13:08) Unknown Medication List - Last Reconciled 07/27/23 by Dafne Hawkins MD albuterol sulfate 90 mcg/actuation 2 puffs inhalation Q2-4H PRN blood sugar diagnostic (FreeStyle Lite Strips) As directed check the BS QD blood-glucose meter (FreeStyle Lite Meter kit) As directed cetirizine 10 mg PO DAILY@1200 cholecalciferol (vitamin D3) (Vitamin D3) 50 mcg PO QAM citalopram 40 mg PO QAM cyanocobalamin (vitamin B-12) 500 mcg PO DAILY@1200 docusate sodium 100 mg PO BID fluticasone furoate-vilanterol 200-25 mcg/dose (Breo Ellipta) 1 puff inhalation DAILY folic acid 0.4 mg PO DAILY@1200 hydroxyzine HCl 50 mg PO BEDTIME lancets (FreeStyle Lancets) As directed check BS QD levothyroxine 112 mcg PO DAILY@0600 metformin 500 mg PO BIDWMEAL [PULL UPS LArge As directed] risperidone 1 tab PO BEDTIME risperidone 0.5 mg PO DAILY risperidone 0.5 mg PO QAM simvastatin 20 mg PO DAILY@1800 [tub seat with back As directed] Tobacco use date assessed: 07/27/23 Dental Screening Dental Screen Date: 07/27/23 HPI concerns about swollen tongue HPI Details 52-year-old female with a history of hyp ercapnic respiratory failure obstructive sleep apnea coronary artery disease hypothyroidism hypercholesterolemia impaired glucose tolerance last seen in May 2023. Was thought that patient had azithromycin having the problem. Review of the notes had nocturnal hypoxemia and qualifies for nocturnal oxygen. Patient has seen Cardiology also Radha admitted in March 2022 for chest pain and treated for an STEMI. Did show pericardial effusion question of COVID infection relation.. Patient also sees Pulmonary started on BiPAP [place] [id number] interpret ASL. uses the CPAP and oxygen uses Q night with benefit [place]. has seen allergy and immunology. Discussed that with this problem have to have a follow-up with Allergy immunology. Patient has been having urinary incontinence has been requested ultrasound as well as referral to Urology but is asking for pull-ups. Prescription done and will send it to the medical supply store. [facility] Medical History Ludwigs angina COVID ACS (acute coronary syndrome) Pruritus Generalized anxiety disorder Scabies SOB (shortness of breath) Vitamin D deficiency Dysphagia Elevated blood sugar Deaf Vitamin B 12 deficiency Hypercholesterolemia Hypothyroid Anxiety and depression Constipation Asthma Surgical History History of heart surgery Family History Mother CAD (coronary artery disease) Hypertension Brother CAD (coronary artery disease) Social History Household Members: Family Household Members Other:: Mother & Brother Housing: House Housing Other:: 2 family Do you presently have visiting nurse or other home services: Yes Alcohol intake: never Patient Tobacco Use Status: Never used Tobacco e-Cigarette/Vaping Use: Never Used Second Hand Smoke Exposure: No service: No Current occupational status: unemployed Cognitive needs: No Hearing needs: No Vision needs: Yes (glasses) Questionnaire Thrive Questionnaire Date Thrive assessed: 07/27/23 I am a: Patient What is your living situation today?: I have a steady place to live Within the past 12 months, did the food you bought not last and you didn't have the money to get more?: Never true Within the past 12 months, did you worry whether your food would run out before you got money to buy more?: Never true Do you have trouble paying for medicines?: No Do you have trouble getting transportation to medical appointments?: No Do you have trouble paying your heating and electricity bill?: No Do you have trouble taking care of your child, family member or friend?: No Do you have trouble with day-to-day activities such as bathing, preparing meals, shopping, managing finances, etc.?: No Are you currently unemployed and looking for a job?: No Are you interested in more education?: No Please select the resources that you would like help with: None THRIVE Score: 0 AUDIT C Alcohol Use Questionnaire (AUDIT-C) 1. How often do you have a drink containing alcohol?: Never 3. How often do you have six or more drinks on one occasion?: Never Total Score: 0 LOI-7 AMB Questionnaire LOI-7 Date LOI - 7 assessed: 07/27/23 Source: Developed by Drs. Dieter Butcher, Zenaida White, Toi Wynne and colleagues, with an educational kareem from [employer]. Physical exam (Primary Care) Vital Signs: Last Vital Signs Pulse 90 07/27/23 13:08 BP 122/70 07/27/23 13:08 Pulse Ox 88 L 07/27/23 13:08 Oxygen Delivery Method Room Air 07/27/23 13:08 BMI result Body Mass Index 27.0 Tobacco/Smoking Status: Tobacco use Status Tobacco use date assessed 07/27/23 07/27/23 13:09 Patient Tobacco Use Status Never used Tobacco 07/27/23 13:09 e-Cigarette/Vaping Use Never Used 07/27/23 13:09 Thrive Assessment: Date of Thrive Assessment Date Thrive assessed 07/27/23 07/27/23 13:09 Const General: alert; No acute distress Eyes Conjunctivae: conjunctivae normal Resp Auscultation: clear to auscultation bilaterally Cardio Rate: regular rate Rhythm: regular rhythm GI Inspection: Yes normal to inspection Extrem General: Yes normal to inspection and No edema Assessment and Plan Assessment & Plan (1) Nocturnal hypoxemia: Code(s): G47.34 - Idiopathic sleep related nonobstructive alveolar hypoventilation Plan: Patient qualifies for oxygen at home (2) Type 2 diabetes mellitus with hyperglycemia: Code(s): E11.65 - Type 2 diabetes mellitus with hyperglycemia Plan: Decrease the amount of carbohydrate intake, pasta, bread, rice and potatoes are all sugar and that is aside from all the sweet stuff, remember that fruits are good but they are Sweet also. Hemoglobin A1c goal of less than 6.5 patient is on metformin 500 mg twice a day (3) Obstructive sleep apnea: Code(s): G47.33 - Obstructive sleep apnea (adult) (pediatric) Plan: Patient follows up with Pulmonary and has been advised to use the CPAP. Patient has been using the CPAP with benefits and uses more than 4 hours a night. (4) CAD (coronary artery disease): Code(s): I25.10 - Atherosclerotic heart disease of [place] coronary artery without angina pectoris Plan: Control the cholesterol, weight, blood pressure, diabetes (5) Generalized anxiety disorder: Comment: Donita in [place] (05/2020_ Code(s): F41.1 - Generalized anxiety disorder Plan: Continue with counseling and therapy (6) Hypothyroid: Code(s): E03.9 - Hypothyroidism, unspecified Qualifiers: Hypothyroidism type: acquired Qualified Code(s): E03.9 - Hypothyroidism, unspecified Plan: Continue with thyroid medication 112 mcg once a day (7) Hypercholesterolemia: Code(s): E78.00 - Pure hypercholesterolemia, unspecified Plan: Avoid fried foods, chicken skin, eggs, butter margarine, pastries and meat. Be it pork or beef they have a lot of cholesterol LDL goal of less than 70 and t riglyceride of less than 150 on simvastatin 20 mg once a day Orders: Referrals Allergy & Immunology Referral T78.2XXA - Anaphylactic shock, unspecified, initial encounter Medications: New [PULL UPS LArge] As directed 100 ea 12RF R32 - Unspecified urinary incontinence Coding Level of Care Code Est Pt Level 4 (42602) Diagnoses Nocturnal hypoxemia G47.34 Type 2 diabetes mellitus with hyperglycemia E11.65 Obstructive sleep apnea G47.33 CAD (coronary artery disease) I25.10 Generalized anxiety disorder F41.1 Acquired hypothyroidism E03.9 Hypothyroidism type: acquired Hypercholesterolemia E78.00
== END 2023-07-27 14:20 | disposition home or self-care (01) ==
PROVIDERS: PCP Internal Medicine; Visit Provider Internal Medicine
DX: G47.34 Idiopathic sleep related nonobstructive alveolar hypoventilation (principal); E11.65 Type 2 diabetes mellitus with hyperglycemia; J96.12 Chronic respiratory failure with hypercapnia; G47.33 Obstructive sleep apnea (adult) (pediatric); I25.10 Atherosclerotic heart disease of native coronary artery without angina pectoris; F41.1 Generalized anxiety disorder; E03.9 Hypothyroidism, unspecified; E78.00 Pure hypercholesterolemia, unspecified
CPT/HCPCS: 99214

== ENCOUNTER 2023-08-04 12:32 | Outpatient (REF) | payer MEDICARE, MEDICAID, SELFPAY ==
--- NOTE | ~2023-08-04 | US_ITS ---
EXAMINATION: US PELVIS LIMITED (BLADDER) CLINICAL INFORMATION: Unspecified urinary incontinence. COMPARISON: None available. TECHNIQUE: Real-time imaging of the bladder. FINDINGS: BLADDER: Partially distended. Bilateral ureteral jets are demonstrated. Prevoid bladder volume is 77 mL. Postvoid bladder volume is 0.1 mL. There are posterior wall trabeculations. US/US bladder IMPRESSION: 1. Unremarkable ultrasound examination of the kidneys. 2. There are posterior bladder wall trabeculations, likely reflecting hypertrophic change.
== END 2023-08-04 12:33 | disposition home or self-care (01) ==
LOC: HO.US 12:32
PROVIDERS: PCP Internal Medicine; Visit Provider Internal Medicine
DX: R32 Unspecified urinary incontinence (principal)
CPT/HCPCS: 76857

== ENCOUNTER → 2023-08-05 14:33 | Outpatient (REF) | payer MEDICARE, MEDICAID, SELFPAY ==
--- NOTE | 2023-08-05 14:37 | CA_ITS ---
Transthoracic Echocardiogram Patient (Last, First, Middle): Sherrie Helms, Gender: Female Date of : 1970 Age: 52 Procedure Date: 08/05/2023 Procedure Type: Transthoracic Echocardiogram Location: OP Height: 137. cm Weight: 52. kg BSA: 1.36 m2 Heart Rate: bpm BP: 100 / 60 mmHg Bottomer Operator: TO Referring MD: Mitzi Hughes [employer] MERCHANT-C Symptoms: I31.39 - Other pericardial effusion (noninflammatory) Study Quality: Fair ECG Rhythm: Sinus Conclusions: - The left ventricular systolic function is mildly decreased. The calculated ejection fraction is 45% by biplane method. - No obvious valvular pathology seen on this study. - Small to moderate circumferential pericardial effusion. Findings Left Ventricle Normal left ventricular cavity size. There is normal left ventricular wall thickness. The left ventricular systolic function is mildly decreased. The calculated ejection fraction is 45% by biplane method. There is mild global hypokinesis. Evidence suggests grade I (mild) diastolic dysfunction. Right Ventricle Normal right ventricular cavity size. There is mildly decreased right ventricular systolic function. Aortic Valve The aortic valve was not well visualized. There is no aortic valve stenosis. There is no aortic valve regurgitation. Mitral Valve The mitral valve appears normal. There is trace mitral valve regurgitation. There is no mitral valve stenosis. Pulmonic Valve The pulmonic valve is likely normal. Tricuspid Valve There is trace tricuspid valve regurgitation. There is no evidence of pulmonary hypertension. Great Vessels The asc aorta is normal in size. Venous The inferior vena cava is normal in size and collapses greater than 50% with inspiration. Pericardium/Pleural Small to moderate circumferential pericardial effusion. Mitral and tricuspid valve dopplers show enhanced respiratory variation. Inferior vena cava however shows normal respiratory collapse. Overall, no clear evidence of cardiac tamponade. Prior Study Comparison Changes noted compared to prior study dated: 06/29/2022. See comments on LVEF and pericardial effusion. Recommendations, Care & Conclusions No obvious valvular pathology seen on this study. Measurements 2D Linear Measurements IVSd: 0.93 0.6-0.9/0.6-1.0 cm LVIDd: 4.44 3.9-5.3/4.2-5.9 cm LVIDd Index: 3.26 2.4-3.2/2.2-3.1 cm/m2 LVIDs: 3.46 2.0-3.6 cm LVPWd: 0.99 0.7-1.1 cm LA Diam: 2.80 2.7-3.8/3.0-4.0 cm LAIDs Index: 2.06 1.5-2.3 cm/m2 LV Mass: 176.39 67-162/88-224 g LV Mass Index: 129.70 43-95/49-115 g/m2 LVOT Diam: 1.80 3.0+(-)1.3 cm 2D Systolic Function EF 4C: 41.50 >55% EF 2C: 45.00 >55% EF BiP: 44.80 >55% Mitral Valve E'Lateral: 5.33 E'Medial: 4.79 Aortic Valve AoV Pk Juan: 1.58 AoV Mn Juan: 1.02 AoV VTI: 0.23 AoV Pk Grad: 10.00 Aov Mn Grad: 5.00 MORGAN Cont.VTI: 1.73 LVOT LVOT Pk Juan: 0.82 LVOT Mn Juan: 0.52 LVOT VTI: 0.16 LVOT Pk Grad: 3.00 LVOT Mn Grad: 1.00 LVOT Diam: 1.80 LVOT Area: 2.54 Diastolic Function E'Medial: 4.79 E' Laterial: 5.33 Right Ventricle TAPSE (mm): 13.40 TVS' Juan: 8.38 Tricuspid Valve TR Pk Juan: 1.88 TR Pk Grad: 14.00 RA Press: 3.00 Great Vessels Aorta Ao Asc: 2.30 2.1-3.4 cm Updated in Other Vendor System with Status of Final Sukhjinder Vences MD electronically signed on 08/05/2023 1:06:38 PM with status of Final
== END ==
LOC: HO.CARD 14:33
PROVIDERS: PCP Internal Medicine; Visit Provider Nurse Practitioner Family
DX: I31.39 Other pericardial effusion (noninflammatory) (principal)
CPT/HCPCS: 93306

== ENCOUNTER → 2023-08-05 14:37 | Outpatient (BNV) | payer MEDICARE, MEDICAID, SELFPAY | PROVIDERS: PCP Internal Medicine; Visit Provider Internal Medicine | DX: I31.39 Other pericardial effusion (noninflammatory) (principal); R06.09 Other forms of dyspnea | CPT/HCPCS: 93306 ==

== ENCOUNTER 2023-09-09 14:06 | Outpatient (REF) | payer MEDICARE, MEDICAID, SELFPAY ==
--- NOTE | ~2023-09-09 | CT_ITS ---
EXAMINATION: CT CHEST WITHOUT CONTRAST CLINICAL INFORMATION: Pericardial effusion COMPARISON: Chest x-ray 11/16/[address] 11/04/2022 TECHNIQUE: Multidetector volumetric CT imaging of the chest was done. Axial MIP volume rendering provided. Sagittal and coronal reformatted images were obtained. This CT examination was performed using dose optimization techniques as appropriate, variously including the following: *Automated exposure control *Adjustment of mA and/or kV according to patient size (this includes techniques or standardized protocols for targeted exams where dose is matched to indication/reason for exam; i.e. extremities or head) *Use of iterative reconstruction technique DLP: 182 mGy-cm FINDINGS: Central airways are patent although some mild peripheral mucous plugging is present. The lungs are hypoinflated. Some scattered mild groundglass opacities/mosaic attenuation are again noted. There is no gross lobar consolidation present. No pleural effusion or pneumothorax. Stable 5 mm right middle lobe pulmonary nodule (image 268/4 and 63, series 4). There are several other 1 to 3 mm pulmonary micronodules scattered throughout the lungs, some of which were visualized previously, however, many of which were not definitively visualized, however, this was likely due to extensive airspace disease which was present on previous imaging. The heart is mildly enlarged. Small to moderate-sized pericardial effusion is stable. No definitive coronary artery calcifications identified. Normal caliber thoracic aorta. No gross mediastinal or hilar lymphadenopathy appreciated on today's noncontrast imaging. No pathologically enlarged axillary lymph nodes. Visualized portions of the upper abdomen are grossly unremarkable. Mild diffuse degenerative changes of the spine. CT/CT chest wo IV con IMPRESSION: 1. Stable small to moderate-sized pericardial effusion. 2. Stable 5 mm right middle lobe pulmonary nodule. 3. There are several other 1 to 3 mm pulmonary micronodules scattered throughout the lungs, some of which were visualized previously, however, many of which were not definitively visualized, however, this was likely due to extensive airspace disease which was present on previous imaging. Fleischner guidelines were followed.
== END 2023-09-09 14:07 | disposition home or self-care (01) ==
LOC: HO.CT 14:06
PROVIDERS: PCP Internal Medicine; Visit Provider Nurse Practitioner Family
DX: I31.39 Other pericardial effusion (noninflammatory) (principal)
CPT/HCPCS: 71250

== ENCOUNTER 2023-09-20 13:39 | Outpatient (AMB) | payer MEDICARE, MEDICAID, SELFPAY ==
[2023-09-20 13:41] VITALS: BP 110/72; PULSE 93; O2SAT 86; BMI 25.7
--- NOTE | 2023-09-20 13:41 | A.OFFPC_ITS ---
Vital Signs 09/20/23 13:41 Height 4 ft 10 in Weight 123 lb 0.2 oz BMI 25.7 BP 110/72 Blood Pressure Location Lt brachial Position Sitting Pulse 93 Pulse Source Pulse Oximeter Pulse Oximetry (%) 86 L Oxygen Delivery Method Room Air Intake Visit Reasons: DM , Cholesterol , urinary incontinence Intake Note: Patient is here to follow up on DM, cholesterol, urinary incontinence Minibus Driver Required: No Allergies azithromycin Allergy (Severe, Verified 09/20/23 13:41) Angioedema ibuprofen Allergy (Unknown, Verified 09/20/23 13:41) unknown Sulfacetamide Sod-Pred Allergy (Mild, Uncoded 09/20/23 13:41) Unknown Tobacco use date assessed: 09/20/23 HPI DM , Cholesterol , urinary incontinence HPI Details 52-year-old female with generalized anxi ety disorder deaf communicates with sign language has uncontrolled diabetes mellitus, obstructive sleep apnea coronary artery disease generalized anxiety disorder hypothyroidism hypercholesterolemia last seen in June 2023. Patient's mammogram is due next month review of the notes had a CT scan of the chest in August 2023 due to the history of pericardial effusion impression of small to moderate size pericardial effusion stable 5 mm right middle lobe pulmonary nodule echocardiogram done July 2023 The left ventricular systolic function is mildly decreased. The calculated ejection fraction is 45% by biplane method. - No obvious valvular pathology seen on this study. - Small to moderate circumferential navdeep cardial effusion. And an ultrasound of the bladder done in July showing unremarkable kidneys posterior bladder wall trabeculations reflecting hypertrophic change.interprete sister in law [facility] Medical History (Updated 09/20/23 @ 14:17 by Dafne Hawkins MD) Ludwigs angina COVID ACS (acute coronary syndrome) Pruritus Generalized anxiety disorder Scabies SOB (shortness of breath) Vitamin D deficiency Dysphagia Elevated blood sugar Deaf Vitamin B 12 deficiency Hypercholesterolemia Hypothyroid Anxiety and depression Constipation Asthma Surgical History History of heart surgery Family History Mother CAD (coronary artery disease) Hypertension Brother CAD (coronary artery disease) Social History Household Members: Family Household Members Other:: Mother & Brother Housing: House Housing Other:: 2 family Do you presently have visiting nurse or other home services: Yes Alcohol intake: never Patient Tobacco Use Status: Never used Tobacco e-Cigarette/Vaping Use: Never Used Second Hand Smoke Exposure: No service: No Current occupational status: unemployed Cognitive needs: No Hearing needs: No Vision needs: Yes (glasses) Questionnaire Thrive Questionnaire Date Thrive assessed: 07/27/23 AUDIT C Alcohol Use Questionnaire (AUDIT-C) 1. How often do you have a drink containing alcohol?: Never 3. How often do you have six or more drinks on one occasion?: Never Total Score: 0 LOI-7 AMB Questionnaire LOI-7 Date LOI - 7 assessed: 07/27/23 Source: Developed by Drs. Dieter Butcher, Zenaida White, Toi Wynne and colleagues, with an educational kareem from [employer]. Physical exam (Primary Care) Vital Signs: Last Vital Signs Pulse 93 09/20/23 13:41 BP 110/72 09/20/23 13:41 Pulse Ox 86 L 09/20/23 13:41 Oxygen Delivery Method Room Air 09/20/23 13:41 BMI result Body Mass Index 25.7 Tobacco/Smoking Status: Tobacco use Status Tobacco use date assessed 09/20/23 09/20/23 13:42 Patient Tobacco Use Status Never used Tobacco 09/20/23 13:42 e-Cigarette/Vaping Use Never Used 09/20/23 13:42 Thrive Assessment: Date of Thrive Assessment Date Thrive assessed 07/27/23 09/20/23 13:42 Const General: alert; No acute distress Eyes Conjunctivae: conjunctivae normal Resp Auscultation: clear to auscultation bilaterally Cardio Rate: regular rate Rhythm: regular rhythm GI Inspection: Yes normal to inspection Extrem General: Yes normal to inspection and No edema Results AMB Hemoglobin A1c AMB Hemoglobin A1c 6.7 % Last Edit by PAULA Guan on 09/20/23 13:54 Results Reviewed Results Reviewed: Laboratory Last Values Hgb A1c (Clinic) 6.7 % (4.0-6.0) H 09/20/23 13:43 Assessment and Plan Assessment & Plan (1) Type 2 diabetes mellitus with hyperglycemia: Code(s): E11.65 - Type 2 diabetes mellitus with hyperglycemia Plan: Decrease the amount of carbohydrate intake, pasta, bread, rice and potatoes are all sugar and that is aside from all the sweet stuff, remember that fruits are good but they are Sweet also. Hemoglobin A1c goal of less than 6.5. Patient is presently taking metformin 500 mg twice a day (2) Obstructive sleep apnea: Code(s): G47.33 - Obstructive sleep apnea (adult) (pediatric) Plan: Discussed about CPAP use. CPAP using > 4 hours a night and benefits from this (3) Asthma: Code(s): J45.909 - Unspecified asthma, uncomplicated Qualifiers: Asthma severity: mild Asthma persistence: intermittent Asthma complication type: with acute exacerbation Qualified Code(s): J45.21 - Mild intermittent asthma with (acute) exacerbation Plan: Continue with inhaler as needed (4) CAD (coronary artery disease): Code(s): I25.10 - Atherosclerotic heart disease of [place] coronary artery without angina pectoris Plan: Control the cholesterol, weight, blood pressure, diabetes. (5) Hypercholesterolemia: Code(s): E78.00 - Pure hypercholesterolemia, unspecified Plan: Avoid fried foods, chicken skin, eggs, butter margarine, pastries and meat. Be it pork or beef they have a lot of cholesterol LDL goal of less than 100 and triglyceride of less than 150. On simvastatin 20 mg once a day will need repeat as the triglyceride was very high (6) Hypothyroid: Code(s): E03.9 - Hypothyroidism, unspecified Qualifiers: Hypothyroidism type: acquired Qualified Code(s): E03.9 - Hypothyroidism, unspecified Plan: Continue with thyroid medication (7) Generalized anxiety disorder: Comment: Donita in [place] (05/2020_ Code(s): F41.1 - Generalized anxiety disorder Plan: Continue with citalopram 40 mg once a day (8) Hypoxemia: Code(s): R09.02 - Hypoxemia Plan: O2 sat sitting woth out oxygen 85. 2 L NC 91, advised patient to use the oxygen all the time. Discussed the need for the patient to be wearing the nasal cannula all the time 2 L while sitting and increase to keep sats more than 90 when moving around. Patient will be seeing Pulmonary tomorrow (9) Pericardial effusion: Code(s): I31.39 - Other pericardial effusion (noninflammatory) Plan: CT scan as well as echocardiogram noted and advised to follow-up with cardiology Orders: Orders AMB Hemoglobin A1c Today E11.65 - Type 2 diabetes mellitus with hyperglycemia Comprehensive Met. Panel Today E78.00 - Pure hypercholesterolemia, unspecified Lipid Panel Today E78.00 - Pure hypercholesterolemia, unspecified Medications: New albuterol sulfate 90 mcg/actuation 2 puffs inhalation Q2-4H PRN 8.5 grams 0RF Shortness Of Breath Changed From metformin 500 mg PO BIDWMEAL 60 tabs 3RF E11.65 - Type 2 diabetes mellitus with hyperglycemia To metformin 1,000 mg PO BIDWMEAL 180 tabs 3RF E11.65 - Type 2 diabetes mellitus with hyperglycemia Coding Level of Care Code Est Pt Level 4 (29521) Diagnoses Type 2 diabetes mellitus with hyperglycemia E11.65 Obstructive sleep apnea G47.33 Mild intermittent asthma with acute exacerbation J45.21 Asthma severity: mild Asthma persistence: intermittent Asthma complication type: with acute exacerbation CAD (coronary artery disease) I25.10 Hypercholesterolemia E78.00 Acquired hypothyroidism E03.9 Hypothyroidism type: acquired Generalized anxiety disorder F41.1 Hypoxemia R09.02 Pericardial effusion I31.39
== END 2023-09-20 14:31 | disposition home or self-care (01) ==
PROVIDERS: PCP Internal Medicine; Visit Provider Internal Medicine
DX: E11.65 Type 2 diabetes mellitus with hyperglycemia (principal); G47.33 Obstructive sleep apnea (adult) (pediatric); J45.21 Mild intermittent asthma with (acute) exacerbation; I25.10 Atherosclerotic heart disease of native coronary artery without angina pectoris; E78.00 Pure hypercholesterolemia, unspecified; E03.9 Hypothyroidism, unspecified; F41.1 Generalized anxiety disorder; R09.02 Hypoxemia; I31.39 Other pericardial effusion (noninflammatory)
CPT/HCPCS: 83036; 99214

== ENCOUNTER 2023-09-21 13:09 | Outpatient (AMB) | payer MEDICARE, MEDICAID, SELFPAY ==
[2023-09-21 13:14] VITALS: BP 122/62; PULSE 86; O2SAT 86; BMI 26.3
--- NOTE | 2023-09-21 13:14 | A.OFFVIS_ITS ---
Intake Vital Signs 09/21/23 13:14 Height 4 ft 10 in Weight 125 lb 10.616 oz BMI 26.3 BP 122/62 Blood Pressure Location Rt brachial Position Sitting Pulse 86 Pulse Source Doppler Pulse Oximetry (%) 86 L Oxygen Delivery Method Room Air Intake Visit Reasons: Dyspnea Security Associate Required: Yes Allergies azithromycin Allergy (Severe, Verified 09/21/23 13:19) Angioedema ibuprofen Allergy (Unknown, Verified 09/21/23 13:19) unknown Sulfacetamide Sod-Pred Allergy (Mild, Uncoded 09/20/23 13:41) Unknown HPI Dyspnea HPI Details 52-year-old lady with underlying mutenes s/deafness, asthma, CAD with prior ACS, with admission to [facility] in October of 2022 for upper airway edema, also noted to have chronic hypercapnia and started on BiPAP support. Patient was unable to perform pulmonary function test. She also does not have her sleep study completed yet. Patient is currently on nocturnal oxygen. She has completed her CT chest. [facility] Medical History (Updated 09/20/23 @ 14:17 by Dafne Hawkins MD) Ludwigs angina COVID ACS (acute coronary syndrome) Pruritus Generalized anxiety disorder Scabies SOB (shortness of breath) Vitamin D deficiency Dysphagia Elevated blood sugar Deaf Vitamin B 12 deficiency Hypercholesterolemia Hypothyroid Anxiety and depression Constipation Asthma Surgical History History of heart surgery Family History Mother CAD (coronary artery disease) Hypertension Brother CAD (coronary artery disease) Social History Household Members: Family Household Members Other:: Mother & Brother Housing: House Housing Other:: 2 family Do you presently have visiting nurse or other home services: Yes Alcohol intake: never Patient Tobacco Use Status: Never used Tobacco e-Cigarette/Vaping Use: Never Used Second Hand Smoke Exposure: No service: No Current occupational status: unemployed Cognitive needs: No Hearing needs: No Vision needs: Yes (glasses) Review of Systems Const Denies daytime sleepiness, Denies excessive sweating, Reports fatigue, Denies fever(s), Denies lethargy, Denies malaise, Denies night sweats, Reports snoring and Denies weight loss Eyes Denies blurry vision and Denies itchy eyes ENT Denies nasal congestion, Denies post nasal drip, Denies sinus pain, Denies sinus pressure and Denies other ( Thrush) Card Denies chest pain, Denies pedal edema, Denies dyspnea, Denies orthopnea and Denies paroxysmal nocturnal dyspnea Resp Denies cough, Denies hemoptysis, Denies excessive phlegm production, Denies dyspnea, Reports snoring and Denies wheezing GI Denies abdominal pain and Denies heartburn Musc Denies myalgias, Denies arthralgias and Denies joint swelling Skin/Breast Denies rash Neuro Denies memory loss and Denies seizure-like activity Psych Denies abnormal sleep pattern, Denies anxiety and Denies memory loss Endo Denies excessive sweating, Reports fatigue and Denies heat intolerance Lobo/Lymph Denies easy bruising Aller/Immun Denies itchy eyes, Denies seasonal rhinorrhea and Denies wheezing Physical Exam Vital Signs: Last Vital Signs Pulse 86 09/21/23 13:14 BP 122/62 09/21/23 13:14 Pulse Ox 86 L 09/21/23 13:14 Oxygen Delivery Method Room Air 09/21/23 13:14 BMI result Body Mass Index 26.3 Const General: no acute distress and alert Nutritional Appearance: not obese Orientation/consciousness: Other orientation findings ( oriented) HEENT Head: Yes atraumatic Eyes General: appearance normal, both eyes and all related structures Sclerae: sclerae normal EOM: EOMs intact bilaterally Neck Neck: Yes supple Lymphatic: no lymphadenopathy noted Resp Effort & Inspection: normal respiratory effort and no use of accessory muscles Auscultation: clear to auscultation bilaterally Cardio Rate: regular rate Rhythm: regular rhythm Heart sounds: no gallops, no murmurs and no rubs Skin General skin exam: other ( warm) Extrem General: No clubbing, No cyanosis and No edema Assessment & Plan Assessment & Plan (1) Nocturnal hypoxemia: Code(s): G47.34 - Idiopathic sleep related nonobstructive alveolar hypoventilation (2) Obstructive sleep apnea: Code(s): G47.33 - Obstructive sleep apnea (adult) (pediatric) (3) Chronic hypercapnic respiratory failure: Code(s): J96.12 - Chronic respiratory failure with hypercapnia Plan Patient still was not able to completed her sleep lab sleep study. Sleep study reordered. Continues to use overnight oxygen. Results of CT chest reviewed showed stable pulmonary nodules. Coding Level of Care Code Est Pt Level 4 (94419) Diagnoses Nocturnal hypoxemia G47.34 Obstructive sleep apnea G47.33 Chronic hypercapnic respiratory failure J96.12
== END 2023-09-21 13:33 | disposition home or self-care (01) ==
PROVIDERS: PCP Internal Medicine; Visit Provider Internal Medicine Pulmonary Disease
DX: G47.34 Idiopathic sleep related nonobstructive alveolar hypoventilation (principal); G47.33 Obstructive sleep apnea (adult) (pediatric); J96.12 Chronic respiratory failure with hypercapnia
CPT/HCPCS: 99214

== ENCOUNTER → 2023-09-21 13:09 | Outpatient (BNVA) | payer MEDICARE, MEDICAID, SELFPAY | PROVIDERS: PCP Internal Medicine; Visit Provider Internal Medicine Pulmonary Disease | DX: G47.33 Obstructive sleep apnea (adult) (pediatric) (principal); G47.34 Idiopathic sleep related nonobstructive alveolar hypoventilation; J96.12 Chronic respiratory failure with hypercapnia | CPT/HCPCS: 99212 ==

== ENCOUNTER 2023-11-15 15:01 | Outpatient (REF) | payer MEDICARE, MEDICAID, SELFPAY | END 2023-11-15 15:02 | disposition home or self-care (01) | LOC: HO.MAMMO 15:01 | PROVIDERS: PCP Internal Medicine; Visit Provider Internal Medicine | DX: Z12.31 Encounter for screening mammogram for malignant neoplasm of breast (principal) | CPT/HCPCS: 77063; 77067 ==

== ENCOUNTER → 2023-11-15 15:30 | Outpatient (BNV) | payer MEDICARE, MEDICAID, SELFPAY | PROVIDERS: PCP Internal Medicine; Visit Provider Radiology Diagnostic Radiology | DX: Z12.31 Encounter for screening mammogram for malignant neoplasm of breast (principal) | CPT/HCPCS: 77063; 77067 ==

== ENCOUNTER 2023-12-02 14:59 | Outpatient (AMB) | payer MEDICARE, MEDICAID, SELFPAY ==
--- OUTSIDE RECORDS SUMMARY | 2023-12-02 15:01 | XMS_ITS | Continuity of Care Document ---
Author Organization [facility] ter Address [address] [place] [id number]- Care Team Providers Care Supervisor Loading Name Role Phone Not on Staff, PCP Primary Care Physician Unavail able Encounter [facility] Date(s): 10/21/23 - 10/26/[address] [address]- Discharge Disposition: A-D/C Home Attending Physician: Farzana Luu MD Admitting Physician: Anne-Marie Verduzco DO Referring Physician: Not on Staff, Referring MD Allergies, Adverse Reactions, Alerts No Known Allergies Medications Augmentin 875 mg-125 mg oral tablet 1 tablet, By Mouth, Every 12 hours, for 3 days, # 6 tablet, 0 Refills, Acute 10/29/23 9:58:00 EDT, 10/26/23 9:58:00 EDT, Tablet, [facility], Partial fill upon patient request if the prescription is for a schedule II opioid drug., 1... Start Date: 10/26/23 Stop Date: 10/29/23 Status: Ordered cholecalciferol (vitamin D3) 50 mcg (2,000 unit) capsule cholecalciferol (vitamin D3) 50 mcg (2,000 unit) capsule, TAKE 1 CAPSULE BY MOUTH EVERY MORNING Start Date: 10/22/23 Status: Ordered citalopram 40 mg oral tablet 1 tablet = 40 mg, By Mouth, Daily, # 30 tablet, 0 Refills, Maintenance, 10/22/23 10:39:00 EDT, Tablet, Partial fill upon patient request if the prescription is for a schedule II opioid drug. Start Date: 10/22/23 Status: Ordered docusate sodium 100 mg oral capsule 1 capsule = 100 mg, By Mouth, 2 times a day, # 20 capsule, 0 Refills, Maintenance, 10/22/23 10:40:00 EDT, Capsule, Partial fill upon patient request if the prescription is for a schedule II opioid drug. Start Date: 10/22/23 Status: Ordered folic acid 0.4 mg oral tablet 1 tablet = 0.4 mg, By Mouth, Daily, # 100 tablet, 0 Refills, Maintenance, 10/22/23 10:40:00 EDT, Tablet, Partial fill upon patient request if the prescription is for a schedule II opioid drug. Start Date: 10/22/23 Status: Ordered hydrOXYzine hydrochloride 50 mg oral tablet 1 tablet = 50 mg, By Mouth, Daily at bedtime, # 30 tablet, 0 Refills, Maintenance, 10/22/23 10:40:00 EDT, Tablet, Partial fill upon patient request if the prescription is for a schedule II opioid drug. Start Date: 10/22/23 Status: Ordered levothyroxine 0.112 mg oral tablet 1 tablet = 112 mcg, By Mouth, Daily, # 30 tablet, 0 Refills, Maintenance, 10/22/23 10:40:00 EDT, Tablet, Partial fill upon patient request if the prescription is for a schedule II opioid drug. Start Date: 10/22/23 Status: Ordered loratadine 10 mg oral tablet 10 mg, 1, tablet, By Mouth, Daily, # 30 tablet, Refills 0, Maintenance, 10/22/23 10:40:00 EDT, Partial fill upon patient request if the prescription is for a schedule II opioid drug. Start Date: 10/22/23 Status: Ordered metFORMIN 1000 mg oral tablet 1 tablet = 1,000 mg, By Mouth, 2 times a day, # 60 tablet, 0 Refills, Maintenance, 10/22/23 10:40:00 EDT, Tablet, Partial fill upon patient request if the prescription is for a schedule II opioid drug. Start Date: 10/22/23 Status: Ordered risperiDONE 0.5 mg oral tablet 0.5 mg, 1, tablet, By Mouth, Daily, # 30 tablet, Refills 0, Maintenance, 10/22/23 10:40:00 EDT, Partial fill upon patient request if the prescription is for a schedule II opioid drug. Start Date: 10/22/23 Status: Ordered risperiDONE 1 mg oral tablet 1 mg, 1, tablet, By Mouth, Daily at bedtime, # 30 tablet, Refills 0, Maintenance, 10/22/23 10:40:00EDT, Partial fill upon patient request if the prescription is for a schedule II opioid drug. Start Date: 10/22/23 Status: Ordered simvastatin 20 mg oral tablet 20 mg, 1, tablet, By Mouth, Daily at bedtime, # 30 tablet, Refills 0, Maintenance, 10/22/23 10:40:00 EDT, Partial fill upon patient request if the prescription is for a schedule II opioid drug. Start Date: 10/22/23 Status: Ordered Trelegy Ellipta 200 mcg-62.5 mcg-25 mcg/inh inhalation powder 1 puffs, Inhalation, Daily, at the same time every day, 0 Refills, Maintenance, 10/22/23 10:39:00 EDT, Powder, Partial fill upon patient request if the prescription is for a schedule II opioid drug. Start Date: 10/22/23 Status: Ordered Ventolin HFA 108 mcg/inh inhalation aerosol with adapter 2 puffs, Inhalation, Every 4 hours, PRN for wheezing, # 18 Gm, 0 Refills, Maintenance, 10/22/23 10:40:00 EDT, Aerosol, Partial fill upon patient request if the prescription is for a schedule II opioid drug. Start Date: 10/22/23 Status: Ordered Vitamin B-12 500 mcg oral tablet 1 tablet = 500 mcg, By Mouth, Daily, # 30 tablet, 0 Refills, Maintenance, 10/22/23 10:40:00 EDT, Tablet, Partial fill upon patient request if the prescription is for a schedule II opioid drug. Start Date: 10/22/23 Status: Ordered Results Radiology Reports * Exam Date Time Procedure Performing Provider Status 10/23/23 10:00 AM Chest Portable Christina Murcia [facility] (Verified) Notes: (Chest Portable) Reason For Exam: worsening resp failure;Shortness of Breath RESULT: Chest Portable Chest Portable Reason: Shortness of Breath; worsening resp failure; Clinical Question(s): Pleural Effusion; CHF, PNA / Pleural Effusion COMPARISON: 10/21/2023 FINDINGS: LINES AND TUBES: None. LUNGS AND PLEURA: Low lung volumes with mild basilar atelectasis. Lungs are otherwise clear with no definite consolidation. No pleural effusion. No pneumothorax. HEART, MEDIASTINUM AND MIREYA: Unchanged. Surgical clips project over the left upper mediastinum BONES AND SOFT TISSUES: No acute abnormality. IMPRESSION: Improved aeration of the lungs. WSN: [id number] Ordering Physician: Farhad Reina Dictated By: Mikel Pérez MD Dictated Date/Time: 10/23/23 10:28 a Reviewed By: Mikel Pérez MD Signed By: Mikel Pérez MD Signed Date/Time: 10/23/23 10:28 am Transcribed By: AYANA Transcribed Date/Time: 10/23/23 10:27 am * Exam Date Time Procedure Performing Provider Status 10/22/23 4:[address] Chest W/ Contrast Mary Dawson; Auth (Verified) Notes: (CT Chest W/ Contrast) Reason For Exam: acute respiratory failure. upper airway sounds. >1week intubation 3-4 months ago;Other: RESULT: CT Chest W/ Contrast CT Chest W/ Contrast INDICATION: Reason: Other:; acute respiratory failure. upper airway sounds. >1week intubation 3-4 months ago; Clinical Question(s): Other:; ?tracheal stenosis ?pulmonary pathology TECHNIQUE: Helical CT scan of the chest with IV contrast, formatted in 3 planes. 100 cc of Omnipaque 300 was administered intravenously. Weight-based protocol was performed using automatic exposure control. COMPARISON: None. FINDINGS: Supervisor Finishing Room view findings, lines and tubes: None. Trachea and airways: Patent without evidence of tracheal or endobronchial lesion. Lungs and pleura: The lungs are imaged in the expiratory phase. Mild patchy groundglass opacities throughout both lungs, with somewhat mosaic attenuation of the lungs, which could be partly due to atelectasis or could be due to small airway or small vessel disease.. 5 mm nodule in the right middle lobe, image 47. No other suspicious lung nodule or mass noted. No pneumothorax. Trace right pleural effusion. No left pleural effusion. Mediastinum and mireya: No mass or hematoma. Surgical clips in the upper mediastinum. No mediastinal or hilar lymphadenopathy. No esophageal abnormality. Atrophic appearing thyroid gland Heart: Heart is normal in size. Moderate pericardial effusion, measuring up to 1.8 cm in thickness at the base of the heart, measuring simple fluid attenuation. Aorta: No aortic aneurysm. 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 No evidence of pulmonary embolism on this study performed without angiographic technique. Chest wall soft tissues: No acute abnormality. Diaphragm: Intact. Upper abdomen: Mild fatty infiltration of the visualized liver. Bones: No acute abnormality. IMPRESSION: Moderate pericardial effusion measuring up to 1.8 cm thickness along the base of the heart, measuring simple fluid in attenuation. Trace right pleural effusion. Patchy ill-defined groundglass opacities throughout both lungs may be partly related to the expiratory phase of imaging or could be secondary to small airway or small vessel disease. Hepatic steatosis. WSN: [id number] Ordering Physician: Dax Benson Dictated By: Gissel Nam MD Dictated Date/Time: 10/22/23 5:13 pm Reviewed By: Gissel Nam MD Signed By: Gissel Nam MD Signed Date/Time: 10/22/23 5:13 pm Transcribed By: AYANA Transcribed Date/Time: 10/22/23 4:59 pm * Exam Date Time Procedure Performing Provider Status 10/22/23 4:[address] Soft Tissue Neck W/ Contrast Mary Dawson; Auth (Verified) Notes: (CT Soft Tissue Neck W/ Contrast) Reason For Exam: acute respiratory failure. upper airway sounds. >1week intubation 3-4 months ago;Other: RESULT: CT Soft Tissue Neck W/ Contrast CT Soft Tissue Neck W/ Contrast INDICATION/CLINICAL QUESTION: Reason: Other:; acute respiratory failure. upper airway sounds. >1week intubation 3-4 months ago; Clinical Question(s): Other:; ?tracheal stenosis ?pulmonary pathology; Order Comment: / Other:. TECHNIQUE: Spiral CT neck with IV contrast formatted in 3 planes. 100 cc of Omnipaque 300 was administered intravenously. Weight-based protocol using automatic tube modulation was used to optimize exposure parameters. CTDIvol Body: 7.80 mGy, DLP Body: 454 mGy*cm. COMPARISON: CT soft tissue neck with contrast dated 10/27/2014 FINDINGS: Supervisor Finishing Room View Findings, Lines and Tubes: None. Intracranial structures: Visualized portions are unremarkable. Orbits: Visualized portions are unremarkable. Paranasal sinuses and mastoids: Visualized portions are clear. Mucosal surfaces: There is abnormal thickening of the uvula with subtle enhancement (axial images 22-27 and sagittal image 42). In addition there is mild diffuse wall thickening of the posterior wallof the pharynx at the level of the oropharynx (axial image 35) . There is resultant marked narrowing of the airway at this level (sagittal image 43 and coronal image 30) Superficial and deep neck spaces: No mass, fluid collection, or inflammatory change. Cervical lymph nodes: Normal in size and morphology. Salivary glands: The parotid glands and submandibular glands are normal. Thyroid gland: Atrophic appearance of the thyroid gland Vascular structures: Unremarkable. Upper chest: The upper lungs are clear. The upper mediastinum is unremarkable. Bones and teeth: No acute abnormality. Mild chronic degenerative changes of the mid cervical spine. IMPRESSION: Diffuse thickening and heterogenous attenuation with subtle enhancement in the uvula, suggestive ofuvular inflammation/infection. There is also diffuse thickening of the posterior wall of the oropharynx. There is resultant markednarrowing of the airway at this level. The proximal trachea appears patent. An actionable message (Dane) has been communicated via the [employer] system on 10/22/2023 5:20 PM, Message ID [id number]. WSN: [id number] Ordering Physician: Dax Benson Dictated By: Gissel Nam MD Dictated Date/Time: 10/22/23 5:20 pm Reviewed By: Gissel Nam MD Signed By: Gissel Nam MD Signed Date/Time: 10/22/23 5:20 pm Transcribed By: AYANA Transcribed Date/Time: 10/22/23 4:59 pm * Exam Date Time Procedure Performing Provider Status 10/21/23 2:04 PM Chest 2 Views Fronta l and Lat Yessenia Negron; Auth (Verified) Notes: (Chest 2 Views Frontal and Lat) Reason For Exam: Chest Pain;Other: RESULT: Chest 2 Views Frontal and Lat Chest 2 Views Frontal and Lat Hx of Present Illness: pt with family noted to have low 02 sat 85% on room air while at doctors office was sent here for eval pt states over 2 weeks with noted SOB no fever or cough midsternal chest pain pt also states dysphagia with nausea and vomiting x 2 over the past week.; Reason: Other:; Chest Pain; Clinical Question(s): Other: COMPARISON: None. Study is limited because patient has not taken a proper inspiration. FINDINGS: LINES AND TUBES: None. LUNGS AND PLEURA: There are increased markings bilaterally. These are made more prominent by the poor inspiration andthe elevated right hemidiaphragm. I cannot exclude the presence of mild CHF. No pleural effusion. No pneumothorax. HEART, MEDIASTINUM AND MIREYA: Heart is enlarged. There are surgical clips present inferiorly in the left paratracheal area. Normal mediastinal and hilar contour. BONES AND SOFT TISSUES: No acute abnormality. IMPRESSION: Cardiomegaly. An elevated right hemidiaphragm. I can not exclude mild CHF on these films which are limited by a poor inspiratory effort. WSN: [id number] Ordering Physician: Tanya Majano Dictated By: Nikhil Palmer MD Dictated Date/Time: 10/21/23 2:11 pm Reviewed By: Nikhil Palmer MD Signed By: Nikhil Palmer MD Signed Date/Time: 10/21/23 2:11 pm Transcribed By: AYANA Transcribed Date/Time: 10/21/23 2:08 pm Vital Signs Most recent to oldest [Reference Range]: 1 2 3 Height 154 cm (10/22/23 6:39 PM) 154 cm (10/22/23 10:55 AM) 154 cm (10/22/23 6:51 AM) Weight 57.4 kg (10/23/23 8:57 AM) 55 kg (10/21/23 9:26 PM) Oxygen Saturation [94-100 %] 100 % (10/26/23 12:00 PM) 98 % (10/26/23 11:43 AM) 96 % (10/26/23 10:00 AM) Pulse Rate [55-90 bpm] 66 bpm (10/26/23 12:00 PM) 85 bpm (10/26/23 11:43 AM) 63 bpm (10/26/23 7:58 AM) Body Mass Index [18.5-24.99 kg/m2] 23.19 kg/m2 (10/21/23 9:26 PM) Blood Pressure [90-138/55-84 mm Hg] 136/82mm Hg (10/26/23 12:00 PM) 142/81mm Hg *H* (10/26/23 8:00 AM) 134/68mm Hg (10/26/23 6:00 AM) Respiratory Rate [16-30 br/min] 18 br/min (10/26/23 12:00 PM) 18 br/min (10/26/23 11:43 AM) 28 br/min (10/26/23 10:00 AM) Temperature [96.8-100.4 DegF] 97.7 DegF (10/26/23 12:00 PM) 97.2 DegF (10/26/23 11:43 AM) 97.8 DegF (10/26/23 7:58 AM) Liters per Minute 3 L/min (10/26/23 12:00 PM) 3 L/min (10/26/23 10:00 AM) 3 L/min (10/26/23 8:39 AM) Mode of Delivery (Oxygen) Other: garcia (10/26/23 12:00 PM) Other: garcia nasal cannula (10/26/23 10:00 AM) Room air (10/26/23 9:00 AM) Blood pressure sites Arm, right (10/26/23 6:00 AM) Arm, right (10/26/23 4:00 AM) Arm, right (10/26/23 2:00 AM) Temperature Route Temporal (10/26/23 12:00 PM) Axillary (10/26/23 7:58 AM) Temporal (10/26/23 4:00 AM) Dry Weight 55 kg (10/21/23 9:26 PM) Weight Obtained Via Bed scale (10/21/23 9:26 PM) Dry Weight Obtained Via Bed scale (10/21/23 9:26 PM) Admission evaluation note * Jose Alfredo Palma DO: PERFORM, MODIFY, MODIFY Event Display: Admission Note Authored Date: Patient: ??MAGALY HELMS ? Age:??53 Years?Sex:??Female?:??1970?? Chief Complaint/Reason for Consultation Medical Accept Note History of Present Illness Per mPage:??MICU xfer: history of hyperlipidemia, diabetes, hypothyroidism, asthma, nocturnal hypoxia and chronic hypercapnic respiratory failure who initially presented on 10/21/2023 with shortness of breath and stridor admitted for hypoxic and hypercarbic respiratory failure and CT imaging of the neck demonstrated uvulitis with course complicated by recurrent hypercapnic respiratory failure requiring noninvasive mechanical ventilation now admitted to medical ICU for closer monitoring, downgraded to interca. ?? Ms. Magaly Helms is a 53-year-old lady with medical history notable for deafness, hyperlipidemia, diabetes mellitus, hypothyroidism, asthma, and nocturnal hypoxia as well as chronic hypercarbia who initially presented on 10/20 in setting of acute hypoxic respiratory failure.?? During workup foundto have uvular inflammation and diffuse thickening of posterior wall of oropharynx. Required admission to medical ICU due to hypercapnic respiratory failure. Placed on IVAPS, avoided intubation.??Nowappropriate for transfer to medical floor. ?? Ms. Helms had initially presented with shortness of breath and was being worked up for possible etiology when she was found to have uvulitis and diffuse thickening of the posterior wall of her oropharynx.?? ENT consulted, recommended Decadron as well as Unasyn.?? Hospital course complicated by severe hypercapnia for which she was started on CPAP, transitioned to IVAPS.?? Ultimately, however required admission to the medical ICU on 10/22 due to repeated episodes of hypercapnic respiratory failure and recurrent rapid response called.?? While in the ICU, improved significantly.?? Echocardiogram completed with grade 2 moderate diastolic dysfunction, LVEF 50-55%.?? Given ongoing improvement, was able to transfer to medical inter-care for ongoing management. On day of transfer to medicine, vitals stable, continued on 3 L via nasal cannula.?? Metabolic panel notable for chloride 89, bicarbonate is 38.?? BUN 20/creatinine 1.1.?? Seems to have plateaued after very mild acute kidney injury (up from 0.8- 1 0.1 over 24 hours, meeting KDIGO criteria for ADAMA).?? Continues with Unasyn for uvulitis. ?? Ms. Helms utilizes sign language and a whiteboard in order to communicate. When evaluated for acceptance to medicine, non-invasive positive pressure in place for SERGEY. We communicated with the useof her whiteboard. Noted that she was feeling well, denied pain. When asked if she needed anything,she simply responded with need pee. Otherwise no complaints reported.?? Review of Systems A full review of systems was completed and is otherwise negative except as mentioned in history of present illness. Objective Vital Signs?? Temperature: 97.9 DegF (10/26/23 00:00:00) Temperature Route: Oral (10/26/23 00:00:00) Heart Rate Monitored: 72 bpm (10/26/23 02:00:00) Respiratory Rate:??14 br/min??Low (10/26/23 02:00:00) Vented: No (10/26/23 02:00:00) Systolic Blood Pressure: 114 mm Hg (10/26/23 02:00:00) Diastolic Blood Pressure: 72 mm Hg (10/26/23 02:00:00) Blood pressure sites: Arm, right (10/26/23 02:00:00) Pulse Pressure: 42 mm Hg (10/26/23 02:00:00) Oxygen Saturation: 100 % (10/26/23 02:00:00) Liters per Minute: 3 L/min (10/26/23 01:26:00) Mode of Delivery (Oxygen): Other: iVAPs (10/26/23 02:00:00) End Tidal CO2: 63 mm Hg (10/26/23 00:00:00) Early Warning Score: 2 (10/26/23 02:34:06) ? Physical Exam General:??Alert, in no acute cardiopulmonary distress.??On IVAPS??for??SERGEY. Mental Status:??Normal affect. Responding appropriately to questions. HEENT:??Normocephalic. Respiratory:??Clear to auscultation. No wheezing, rales or rhonchi. Cardiovascular:??Regular rate and rhythm, no murmurs, rubs, or gallops.?? Gastrointestinal:??Abdomen soft, nontender, nondistended, bowel tones present. No hepatosplenomegaly appreciated. Neurologic:??Cranial nerves II-XII grossly intact. Moves all extremities spontaneously. Extremities:??No edema. Musculoskeletal:??No gross deformities. Assessment/Plan Assessment:??Ms. Magaly Helms is a 53-year-old lady with medical history notable for deafness, hyperlipidemia, diabetes mellitus, hypothyroidism, asthma, and nocturnal hypoxia as well as chronic hypercarbia who initially presented on 10/20 in setting of acute hypoxic respiratory failure.??During workup found to have uvular inflammation and diffuse thickening of posterior wall of oropharynx. Required admission to medical ICU due to hypercapnic respiratory failure. Placed on IVAPS, avoided intubation.??Now appropriate for transfer to medical floor. ?? CO2 narcosis (R06.89):? COPD / asthma (J45.909):?? [id number] hypoxic & hypercarbic respiratory failure (J96.01):?? Acute on chronic hypercapnic and hypoxic respiratory failure requiring noninvasive mechanical ventilation. Has a number of pulmonary/respiratory concerns leading to presentation with respiratory failure. Includes SERGEY, not on home NIPPV. COPD/Asthma, no PFT's in chart, no wheezing on exam. ?? Plan: - Continuing with antibiotics as noted - Currently on IVAPS overnight - Breo Ellipta + Spiriva - Albuterol Nebulizer treatments - PRN Albuterol inhaler treatments -??Consider outpatient PFTs ?? Pharyngitis (J02.9):?? Uvulitis (K12.2):?? Uvular swelling (K13.79):?? CT findings with uvulitis and diffuse thickening of the posterior wall of her oropharynx.?? ENT consulted, recommended Decadron as well as Unasyn. -- Now status post course of dexamethasone, clinically improving. -- Full five day course of Unasyn to be completed 5/2. Acute pharyngitis/uvulitis, differential includes infectious vs. inflammatory vs. reflux related. ?? Plan: - Complete Unasyn 5-day course 5/2 - Respiratory support as otherwise noted ?? Acute kidney injury (N17.9): Very mild, jump from creatinine 0.8 to 1.1 over the course of 24 hours, meeting KDIGO criteria for ADAMA. Will reassess with morning labs as it seems to have plateaued. If worsening/lack of resolution, consider further evaluation. ?? Plan: - Intake/output - Reassess renal function with morning labs ?? Diabetes mellitus (E11.9):?? Glucose well controlled over the last several days of this admission. ?? Plan: - Insulin sliding scale/POC glucose - Hypoglycemia emergency measures ?? Deaf-mutism / need for sign language interpreters. (H91.3):??Utilizing whiteboard/ASL for communications. Nocturnal hypoxemia (G47.34)/SERGEY (obstructive sleep apnea) (G47.33):??On IVAPS at night. Continue at this time. Hyperlipidemia (E78.5):??Continue outpatient simvastatin. Depression with anxiety (F41.8):??Continue citalopram + risperidone. Hypothyroidism (E03.9):??Continue levothyroxine 25mcg. Obtundation (R40.1):??Resolved with respiratory support. ?? Quality Measures: VTE Prophylaxis:??Subcutaneous heparin. ?VTE Prophylaxis Assessment:??VTE Prophylaxis Ordered Code Status:??Full Code. ?Order Code Status:??Code Status Ordered Ongoing Medical Necessity:??Ongoing treatment of concerns noted above. Discharge Planning:??Pending further evaluation. Patient seen and evaluated 10/26/2023. ? Histories Allergies Allergies ?(Active and Proposed Allergies Only) NKA? (Severity: Unknown severity, Onset: Unknown) ? Past Medical History/Problem List Hypothyroid Asthma Respiratory failure Deafness Diabetes mellitus ?? Medications Home Medications Albuterol (Ventolin HFA 108 mcg/inh inhalation aerosol with adapter)?2?puff(s)?Inhalation?Every 4 hours?as needed?for wheezing Citalopram (citalopram 40 mg oral tablet)?1?tab(s)?40?Milligram?By Mouth?Daily Cyanocobalamin (Vitamin B-12 500 mcg oral tablet)?1?tab(s)?500?Microgram?By Mouth?Daily Docusate (docusate sodium 100 mg oral capsule)?1?capsule?100?Milligram?By Mouth?2times a day fluticasone/umeclidinium/vilanterol (Trelegy Ellipta 200 mcg-62.5 mcg-25 mcg/inh inhalation powder)?1?puff(s)?Inhalation?Daily?at the same time every day Folic Acid (folic acid 0.4 mg oral tablet)?1?tab(s)?0.4?Milligram?By Mouth?Daily HydrOXYzine (hydrOXYzine hydrochloride 50 mg oral tablet)?1?tab(s)?50?Milligram?By Mouth?Daily at bedtime Levothyroxine (levothyroxine 0.112 mg oral tablet)?1?tab(s)?112?Microgram?By Mouth?Daily Loratadine (loratadine 10 mg oral tablet)?10?Milligram?1?tablet?By Mouth?Daily Metformin (metFORMIN 1000 mg oral tablet)?1?tab(s)?1,000?Milligram?By Mouth?2 times a day Miscellaneous Rx (cholecalciferol (vitamin D3) 50 mcg (2,000 unit) capsule)?TAKE 1 CAPSULE BY MOUTH EVERY MORNING PredniSONE (predniSONE 20 mg oral tablet)?2?tab(s)?40?Milligram?By Mouth?Daily?for 5?Days Risperidone (risperiDONE 0.5 mg oral tablet)?0.5?Milligram?1?tablet?By Mouth?Daily Risperidone (risperiDONE 1 mg oral tablet)?1?Milligram?1?tablet?By Mouth?Daily atbedtime Simvastatin (simvastatin 20 mg oral tablet)?20?Milligram?1?tablet?By Mouth?Daily at bedtime ? * Farhad Reina DO: MODIFY, PERFORM, MODIFY, MODIFY Event Display: Admission Note Authored Date: [id number] Patient: ??MAGALY HELMS ?[facility]: [id number]?? Age:??53 Years?Sex:??Female?:??1970?? History of Present Illness Patient is a 53-year-old female with a past medical history of hyperlipidemia, diabetes, hypothyroidism, asthma, nocturnal hypoxia and chronic hypercapnic respiratory failure who initially presented on 10/21/2023 with shortness of breath and stridor.?? She was ultimately admitted for hypoxic and hypercarbic respiratory failure and CT imaging of the neck demonstrated uvulitis for which ENT was consulted and recommended IV Unasyn as well as IV Decadron. ?? Over the course of the day and last night, patient had multiple rapid response called on her for decreased mental status and decreased respirations.?? Most notably around 5 AM this morning a VBG demonstrated pH 7.12 with a pCO2 greater than 130.?? Patient was transitioned from CPAP to BiPAP and a repeat ABG obtained around 730 this morning demonstrated improvement in pH 7.23 with a pCO2 of 96 griselda bicarb of 39.?? Patient was transition from BiPAP to IVAPS by rapid response respiratory therapist and overall has had improvement in spontaneous respirations but her mental status is still significantly depressed.?? There was concern earlier this morning for increased pallor and loss of a gag reflex prior to the transition to IVAPS.?? Given the overall decreased mental status and hypercapnic respiratory failure, medical ICU was consulted for evaluation.?? Due to the repeated episodes of hypercapnic respiratory failure and recurrent rapid response calls, the patient warrants admission to the MICU for further monitoring and evaluation.?? She does not require emergent intubation at this time however repeat blood gas will be obtained and necessity of intubation will be evaluated after a longer period of time on IVAPS. ?? On MICU evaluation, the patient is very somnolent and not moving spontaneously but is breathing spontaneously and per rapid response team has had increased in her own spontaneous respirations withIVAPS.? Review of Systems ROS??unable to be obtained due to hypercapnic respiratory failure and??encephalopathy secondary to this. ?? Objective Vital Signs?? Temperature: 98.2 DegF (10/23/23 08:00:00) Temperature Route: Axillary (10/23/23 08:00:00) Pulse Rate: 87 bpm (10/23/23 08:00:00) Heart Rate Monitored: 75 bpm (10/23/23 08:39:00) Respiratory Rate: 18 br/min (10/23/23 08:39:00) Systolic Blood Pressure: 121 mm Hg (10/23/23 08:39:00) Diastolic Blood Pressure: 76 mm Hg (10/23/23 08:39:00) Blood pressure sites: Arm, left (10/23/23 06:00:00) Mean Arterial Pressure: 92 mm Hg (10/22/23 18:39:00) Pulse Pressure: 45 mm Hg (10/23/23 08:39:00) Oxygen Saturation: 97 % (10/23/23 08:48:00) Liters per Minute: 6 L/min (10/23/23 02:00:00) Mode of Delivery (Oxygen): CPAP (10/23/23 08:19:00) FiO2: 40 % (10/23/23 07:30:00) End Tidal CO2: 82 mm Hg (10/23/23 04:00:00) Early Warning Score: 3 (10/23/23 08:19:07) ? Intake/Output? 10/20 18:42 10/22 07:00 10/21 07:00 10/20 07:00 10/19 07:00 ?? 10/22 08:57 10/22 08:57 10/22 06:59 10/21 06:59 10/20 06:59 Intake ?714 ?0 ?594 ?120 ?0 Output ?0 ?0 ?0 ?0 ?0 Net Total ?714 ?0 ?594 ?120 ?0 ? Urine Count ?5 ?0 ?3 ?2 ?0 ? Precautions No Precautions documented.? Physical Exam Constitutional: Not alert,??minimal intermittent spontaneous movements, no obvious distress Mental Status: Unable to assess due to??encephalopathy from hypercapnic respiratory failure Eyes: Pupils are equal, round and reactive to light. Extraocular muscles intact. Ear, Nose and Throat: Oropharynx clear, Trachea midline. Respiratory: Clear to auscultation. No wheezing, rales or rhonchi. Cardiovascular: S1 S2 regular. No murmurs, rubs or gallops. Gastrointestinal: Abdomen soft, non-distended. Normal bowel sounds. Neurologic: Unable to assess due to??encephalopathy from hypercapnic respiratory failure Skin: No rashes or lesions. Musculoskeletal: No gross deformities. ?? Assessment/Plan ?? Impression: Patient is a 53-year-old female with a past medical history of hyperlipidemia, diabetes, hypothyroidism, asthma, nocturnal hypoxia and chronic hypercapnic respiratory failure who initially presented on 10/21/2023 with shortness of breath and stridor admitted for hypoxic and hypercarbic respiratory failure and CT imaging of the neck demonstrated uvulitis with course complicated by recurrent hypercapnic respiratory failure??requiring??noninvasive mechanical ventilation now admitted to medical ICU for closer monitoring. ? Acute Problems: Acute on chronic hypercapnic and hypoxic respiratory failure requiring noninvasive mechanical ventilation Acute pharyngitis/uvulitis,??differential includes infectious versus inflammatory versus??reflux related ?Aspiration pneumonia, SERGEY, unclear if on home NIPPV COPD/Asthma, no PFT's in chart, no wheezing on exam, does not appear to be in acute exacerbation ? Chronic Problems: Hyperlipidemia Diabetes mellitus Hypothyroidism Depression Anxiety Deaf/Mute, requires ASL Prior open heart surgery ( hole in heart , suspect VSD), pending [facility] records requested ? Plan: Neuro:??Continue home citalopram, hydroxyzine, risperidone CV:??Continue home simvastatin, monitoring analyst, follow-up echocardiogram given pericardial effusion??and hypoxemia Pulm: continue IVAPS, goal O2 sat 88-92 ID: Continue Unasyn for uvulitis, dexamethasone 6 mg x 3 doses Renal: No acute issues, does not require diuresis at this time FEN/GI: N.p.o. except medications Heme: No acute issues Endo: Sliding scale insulin and every 6??POC glucose checks, continue home levothyroxine, follow-up??thyroid testing MSK: Routine ICU repositioning and pressure ulcer prevention Lines/drains:??Peripheral IV x 2 ? Diet: N.p.o. except medications DVT ppx: SQH GI ppx: Not needed at this time Code status:??Full HCP: Mother, non-portuguese speaking [phone], Brother (lives with mother) [phone], Social: Medical records requested from [facility] by fax on 10/22 ? Patient seen, evaluated and plan discussed with Dr. Landon. ?Farhad Reina DO, PGY-5 ?Critical Care Medicine Fellow?? Histories Allergies Allergies ?(Active and Proposed Allergies Only) NKA? (Severity: Unknown severity, Onset: Unknown) ? Past Medical History/Problem List No problems documented. ? Past Surgical History No surgery history documented. ? Family History No Family History documented. ? * David Landon MD: PERFORM Event Display: Admission Note Authored Date: [id number] ?? Critical care attending: ?? Patient seen and examined multiple times during the day.??I have reviewed the patient???s medical history, physical exam findings, and the assessment and plan as documented in the critical care fellow's note. I am in agreement with the plan of care as documented in the note with the following highlights and additions: ?? 53-year-old F h/o??diabetes,??asthma, nocturnal hypoxia and chronic hypercapnic respiratory failurepresented on 10/20 with shortness of breath and stridor,??admitted for hypoxic and hypercarbic respiratory failure and CT imaging of the neck demonstrated uvulitis with course complicated by recurrent hypercapnic respiratory failure??requiring??noninvasive mechanical ventilation now admitted to medical ICU. ?? Acute on chronic hypercapnic and hypoxic respiratory failure requiring noninvasive mechanical ventilation Acute pharyngitis/uvulitis,??- infectious versus inflammatory versus??other Concern for aspiration pneumonia, SERGEY, unclear if on home NIPPV COPD/Asthma Diabetes mellitus Hypothyroidism Depression Anxiety Deaf/Mute, requires ASL Prior open heart surgery (at age 7 for?? hole in heart ) ?? - admit to medical ICU for NIV via iVAPS with improvement in respiratory acidosis and mental status - repeat ABG, reassess need for NIV. - we'll try to obtain medical records from [facility] where patient gets most of her care - continue home simvastatin, monitoring analyst, follow-up echocardiogram given pericardial effusion??and hypoxemia - continue antibiotics with ampicillin /sulbactam - continue dexamethasone x 3 doses, then can discontinue - keep NPO for now,except meds - Sliding scale insulin and every 6??POC glucose checks, continue home levothyroxine, follow-up??thyroid testing - continue home citalopram, hydroxyzine, risperidone - SQ heparin 5000?? units q 8 hrs ?? FULL CODE ?? HCP:??Mother, non-portuguese speaking [phone], Brother (lives with mother) [phone], ?? Critical Care Time = 40??minutes ?? (This represents the total time I personally spent evaluating, managing and providing care exclusive of time spent for separately billable procedures.) * Keith SAMSON, Yayo Morrissey: PERFORM, MODIFY, MODIFY Event Display: Admission Note Authored Date: Patient: ??STEPHEN, MAGALY ? Age:??53 Years?Sex:??Female?:??1970?? Chief Complaint/Reason for Consultation Reportedly shortness of breath History of Present Illness History is significantly limited due to patient hearing impairment and ability to provide history despite the use of video application designer - I tried calling the 3 phone numbers listed in the contact facesheet with either no response or phone not is in service.? 53 year-old female patient who is deaf with medical history significant for hyperlipidemia, diabetes mellitus, hypothyroidism, asthma, and nocturnal hypoxia, chronic hypercarbia, and open heart surgery at the age of 7 ( for a hole ) who is brought to the hospital for evaluation of shortness of breath and being admitted with acute hypoxic respiratory failure. ?? Per ED note: patient has been having increased shortness of breath for the last 2 weeks--no cough, no fevers, no leg swelling.?? There was one episode where she vomited while trying to eat oatmeal, but otherwise no GI sx. Also ED reported she was admitted at [facility] few months ago and was intubated for 8 days although is unsure more context?? Per record from pulmonary clinic at [facility] patient has nocturnal hypoxia and chronic hypercarbia but was unable to perform PFT or sleepstudy. Patient herself denies chest pain, shortness of breath, fever, chills, nausea, vomiting, abdominal pain. She reports chronic cough and generalized body ache. ?? In the emergency department remains afebrile, and hemodynamically stable, hypertensive with blood pressure of 140s-190s/80s-100s, hypoxic requiring 2-3 L of oxygen to maintain O2 saturation above 90%. Labs significant for hyponatremia with sodium of 130, elevated bicarbonate of 30. Troponin wereflat at 28-29 - ProBNP was 102. EKG showed normal sinus rhythm with no acute ischemic changes. CXR with cardiomegaly and elevated right hemidiaphragm. Review of Systems Detailed ROS could not be obtained reliably. Objective Vital Signs?? Temperature: 97.8 DegF (10/21/23 21:26:00) Temperature Route: Oral (10/21/23 21::00) Pulse Rate: 77 bpm (10/21/23 21::00) Respiratory Rate: 20 br/min (10/21/23 21:26:00) Systolic Blood Pressure:??151 mm Hg??High (10/21/23 21:26:00) Diastolic Blood Pressure:??86 mm Hg??High (10/21/23 21:26:00) Blood pressure sites: Arm, right (10/21/23 21:26:00) Mean Arterial Pressure: 108 mm Hg (10/21/23 21:26:00) Pulse Pressure: 65 mm Hg (10/21/23 21:26:00) Oxygen Saturation:??91 %??Low (10/21/23 20:37:00) Liters per Minute: 3 L/min (10/21/23 20:37:00) Mode of Delivery (Oxygen): Nasal cannula (10/21/23 20:37:00) Early Warning Score: 4 (10/21/23 22:21:50) ? Physical Exam Constitutional: Alert, in no acute distress. Head: Normocephalic. Eyes: Pupils are equal, round and reactive to light. Extraocular muscles intact. Ear, Nose and Throat: mucous membranes moist. Ears and nose - no obvious deformities. Neck: No JVD or bruits. Respiratory: Clear to auscultation. No wheezing or rhonchi. No use of accessory muscles. Cardiovascular: S1 S2 regular. No murmurs, rubs or gallops. Gastrointestinal: Abdomen soft, non-tender, non-distended. Extremities: No lower extremity pitting edema. No cyanosis or clubbing. Neurologic: AAOx2, Cranial nerves II-XII grossly intact. Speech normal, no facial droop. No focal neurological deficits. Moves all extremities spontaneously. Musculoskeletal: No gross deformities on inspection. Psychiatric: Normal mood and affect. Assessment/Plan 53 year-old female patient who is deaf with medical history significant for hyperlipidemia, diabetes mellitus, hypothyroidism, asthma, and nocturnal hypoxia, chronic hypercarbia, and open heart surgery at the age of 7 ( for a hole ) who is brought to the hospital for evaluation of shortness of breath and being admitted with acute hypoxic respiratory failure. ?? Diagnoses 1.?? Acute hypoxic respiratory failure?? (J96.01) 2.?? Asthma?? (J45.909) 3.?? Nocturnal hypoxemia?? (G47.34) 4.?? Hypercarbia?? (R06.89) 5.?? Hyperlipidemia?? (E78.5) 6.?? Diabetes mellitus?? (E11.9) 7.?? Hypothyroidism?? (E03.9) ?? Acute hypoxic respiratory failure (J96.01): - Asthma (J45.909): - Nocturnal hypoxemia (G47.34): - Hypercarbia (R06.89): - Patient with history of asthma, nocturnal hypoxemia and chronic hypercarbia ( was unable to performPFT or sleep study) who was brought to the ED for evaluation of shortness of breath (patient herself denies shortness of breath and reports chronic cough and generalized body ache) and found hypoxemic requiring 2-3 L of supplemental O2. She has equal bilateral air entry with no wheezing. Troponin were flat at 28-29 - ProBNP was 102. EKG showed normal sinus rhythm with no acute ischemic changes. CXR with cardiomegaly and elevated right hemidiaphragm. Etiology of acute hypoxic respiratory failureis unclear. - send sputum culture, extended respiratory panel, and procalcitonin. - check D-Dimer. - CT scan of the chest. - Echocardiogram (per bed side echocardiogram performed by ED she has small pericardial effusion). - albuterol inhaler. ?? Hyponatremia: - check serum osmolality, urine sodium and urine osmolality. ?? Hyperlipidemia (E78.5): - - continue home simvastatin. ?? Diabetes mellitus (E11.9): -?? insulin sliding scale. ?? Hypothyroidism (E03.9): - continue home levothyroxine. ?? VTE Prophylaxis: heparin SC Code Status: presumed full code ?? Need to reconcile home medications in AM.? Histories Allergies Allergies ?(Active and Proposed Allergies Only) NKA? (Severity: Unknown severity, Onset: Unknown) ? Past Medical History/Problem List No problems documented. ? Past Surgical History No surgery history documented. ? Social History No social history documented. ? Family History No Family History documented. ? Medications Home Medications No medications documented.? Results Recent Labs BLOOD COUNT & DIFF WBC 9.0 k/mm3 ()?? 10/21/2023 13:22 RBC 4.01 m/mm3 (Low)?? 10/21/2023 13:22 Hgb 12.2 Gm/dL ()?? 10/21/2023 13:22 Hct 36.9 % ()?? 10/21/2023 13:22 MCV 92.0 femtoliters ()?? 10/21/2023 13:22 MCH 30.4 pg ()?? 10/21/2023 13:22 MCHC 33.1 g/dL ()?? 10/21/2023 13:22 Platelet Count 205 k/mm3 ()?? 10/21/2023 13:22 RDW-SD 42.8 femtoliters ()?? 10/21/2023 13:22 MPV 10.9 femtoliters ()?? 10/21/2023 13:22 Nucleated RBC (Automated) 0.0 #/100 WBC'S ()?? 10/21/2023 13:22 Abs. NRBC 0.0 k/mm3 ()?? 10/21/2023 13:22 Abs. Neut 7.2 k/mm3 (High)?? 10/21/2023 13:22 Abs. Lymph 1.3 k/mm3 ()?? 10/21/2023 13:22 Abs. [place] 0.4 k/mm3 ()?? 10/21/2023 13:22 Abs. Eo 0.1 k/mm3 ()?? 10/21/2023 13:22 Abs. Baso 0.1 k/mm3 ()?? 10/21/2023 13:22 Neut % 79.6 % (High)?? 10/21/2023 13:22 Lymph % 14.6 % (Low)?? 10/21/2023 13:22 [place] % 3.9 % (Low)?? 10/21/2023 13:22 Eos % 0.7 % ()?? 10/21/2023 13:22 Baso % 0.6 % ()?? 10/21/2023 13:22 Imm Gran 0.6 % ()?? 10/21/2023 13:22 Abs. Imm Gran 0.1 k/mm3 ()?? 10/21/2023 13:22 ?? CARDIAC Nt-Probnp 102 pg/mL ()?? 10/21/2023 18:08 High Sensitivity Troponin (HSTnT) 29 ng/L (High)?? 10/21/2023 18:08 ?? CHEM GENERAL Sodium 130 mmol/L (Low)?? 10/21/2023 13:22 Potassium 4.5 mmol/L ()?? 10/21/2023 13:22 Chloride 87 mmol/L (Low)?? 10/21/2023 13:22 Bicarbonate Level 30 mmol/L (High)?? 10/21/2023 13:22 Anion Gap 13 ()?? 10/21/2023 13:22 Glucose Level 200 mg/dL (High)?? 10/21/2023 13:22 Glucose, POC 97 mg/dL ()?? 10/21/2023 19:03 BUN 10 mg/dL ()?? 10/21/2023 13:22 Creatinine-Blood 0.9 mg/dL ()?? 10/21/2023 13:22 Estimated GFR Creatinine 79 ML/MIN/1.73 M2 ()?? 10/21/2023 13:22 Calcium 9.8 mg/dL ()?? 10/21/2023 13:22 ?? URINE OTHER Est Creatinine Clearance 52.35 mL/min ()?? 10/21/2023 22:21 ?? VIROLOGY Influenza A PCR NEGATIVE ()?? 10/21/2023 15:21 Influenza B PCR NEGATIVE ()?? 10/21/2023 15:21 RSV PCR NEGATIVE ()?? 10/21/2023 15:21 COVID-19 PCR Result NEGATIVE ()?? 10/21/2023 15:21 ? EKG study * Event Display: EKG Authored Date: * Event Display: ECG 12-Lead Authored Date: Please click on pdf link to open report * Event Display: ECG 12-Lead Authored Date: Ventricular Rate: 76 BPM Atrial Rate: 76 BPM P-R Interval: 154 ms QRS Duration: 64 ms Q-T Interval: 390 ms QTC Calculation(Bazett): 438 ms P Lindsay: 59 degrees R Lindsay: 33 degrees T Lindsay: 14 degrees Normal sinus rhythm Nonspecific T wave abnormality Abnormal ECG When compared with ECG of 21-OCT-2023 13:19, No significant change was found Confirmed by RENE MARTINES ([id number]) on 10/24/2023 8:24:57 AM [place]: RENE MARTINES * Event Display: ECG 12-Lead Authored Date: [id number] Please click on pdf link to open report * Event Display: ECG 12-Lead Authored Date: [id number] Ventricular Rate: 81 BPM Atrial Rate: 81 BPM P-R Interval: 166 ms QRS Duration: 66 ms Q-T Interval: 368 ms QTC Calculation(Bazett): 427 ms P Lindsay: 65 degrees R Lindsay: 49 degrees T Lindsay: 34 degrees Normal sinus rhythm Probably normal ekg No previous ECGs available Confirmed by RENE MARTINES ([id number]) on 10/21/2023 2:51:26 PM [place]: RENE MARTINES [facility] * Event Display: Echocardiogram - Complete Authored Date: [id number] Transthoracic Echocardiography Report (TTE) Patient Demographics Patient Name MAGALY HELMS Date of Study 10/24/2023 Corporate Gender Female Facility Race Unknown Ethnicity or Date of 1970 Height: 60.63 inches Age 53 year(s) Weight: 121.25 pounds Accession Number [id number] BSA: 1.52 m2 Room Number D421 BMI: 23.19 kg/m2 Referring Physician Not on Staff Interpreting Shruti SAMSON,Abigail Referring MD Physician Keith Morrisesy MD Portable Power Tool Repairer Wallitis RDCS Lorenza Indications Hypoxemia. Clinical History HLD Diabetes Mellitus. COPD Asthma. Study Data Type of Study TTE procedure:Echo Complete-(Doppler, Colorflow) with Contrast. Procedure Information:Saline (bubble study) was administered by billing and quality technician . Study Date10/24/2023 Start Time: 02:44 PM Study Location: [facility] Adult Echo Study Status: ICU/CCU Patient Status: Routine Technical Quality: Fair due to restricted mobility. Blood Pressure:142/80 mmHg EKG: Normal sinus rhythm HR: 71 bpm Contrast Medium: Bubble Study. 2D Measurements LV Diastolic Dimension: 4.3 cm LV Systolic Dimension: 3.2 cm LV Septum Diastolic: 1.1 cm LV PW Diastolic: 1.2 cm AO Root Dimension: 2.1 cm LA Dimension: 2.6 cm LVOT Stroke Volume: 40.61 ml LVOT: 1.7 cm Stroke Volume Index26.72 ml/m2 Ascending Aorta:2.4 cm Cardiac Index:1.89 l/min/m2 Doppler Measurements AV Peak Velocity: 151 cm/s MV Peak E-Wave: 75.7 cm/s AV Peak Gradient: 9.12 mmHg MV Peak A-Wave: 90.2 cm/s MV E/A Ratio: 0.84 LVOT Peak Velocity: 89.2 cm/s LVOT VTI17.9 cm MV Deceleration Time: 246 msec TR Velocity:190 cm/s TR Gradient:14.44 mmHg PV Peak Velocity: 125 cm/s E' Septal Velocity: 5.55 cm/s PV Peak Gradient: 6.25 mmHg E' Lateral Velocity: 4.35 cm/s E/Med E':13.34989 E/Lat E':17.4023 Cardiac Anatomy Left Ventricle/Interventricular Septum The left ventricular size is normal. There is borderline concentric left ventricular hypertrophy. The left ventricular ejection fraction is 50-55 %. No obvious wall motion abnormalities seen on limited views. Grade II, moderate diastolic dysfunction with pseudonormal LV filling pattern and increased LA pressure. Left Atrium/Interatrial Septum The left atrium is normal in size. Aortic Valve The aortic valve is trileaflet . There is no significant aortic stenosis. There is no obvious aortic regurgitation within the limits of the study. Mitral Valve The mitral valve is poorly seen, grossly normal. There is no mitral stenosis or insufficiency. Aorta The ascending aorta and aortic root are normal in size. Right Ventricle The right ventricle is poorly visualized. The right ventricular size and function appears grossly normal. Right Atrium The right atrium is poorly visualized. Pulmonic Valve The pulmonic valve is functionally normal. Tricuspid Valve The tricuspid valve is poorly visualized. The tricuspid valve is grossly normal. Pumonary Artery An accurate pulmonary artery pressure could not be obtained. Venous Structures The inferior vena cava appears normal. Pericardium/Extracardiac There is a small circumferential pericardial effusion. No chamber collapse or significant respiratory variation within the limits of the study. Summary Technically difficult study, poor Doppler quality. The left ventricular size is normal. There is borderline concentric left ventricular hypertrophy. The left ventricular ejection fraction is 50-55 %. No obvious wall motion abnormalities seen on limited views. Grade II, moderate diastolic dysfunction with pseudonormal LV filling pattern and increased LA pressure. The right ventricle is poorly visualized. The right ventricular size and function appears grossly normal. There is a small circumferential pericardial effusion. No chamber collapse or significant respiratory variation within the limits of the study. Limited valve assessment. Comparison No prior study available for comparison. Signature * Event Display: Echocardiogram - Complete Authored Date: Cardiology * Event Display: Cardiac Rhythm Strips Authored Date: Hospital Progress note * Irene Mayer RN: PERFORM, MODIFY, MODIFY, SIGN, VERIFY Event Display: Progress Note Hospital Authored Date: [id number] Patient: MAGALY HELMS Age: 53 years Sex: Female : 1970 Associated Diagnoses: None Author: Irene Mayer RN Findings Problem Related to Alteration in Respiratory Function (new) : Alteration in Respiratory Function/new 10/26/2023 2:00 EDT Alteration in Resp Status Related to Other: Uvular inflammation / infection. Vigilence required for airway monitoring; hypercarbia Goals & Outcomes, Respiratory Pt will maintain/resume baseline physical assessment, Pt will maintain adequate nutritional intake, Pt will maintain/resume normal fluid/electrolyte balance, Pt willnot develop complications r/t immobility Interventions, Respiratory Assess for and report S&S of respiratory distress, Position for comfort & optimal oxygenation, Monitor sputum color & consistency. Report changes to MD SALDANA Goals/Interventions, Respiratory Yes Respiratory, Problem Start 10/23/2023 4:07 Reviewed Plan with, Respiratory Patient Patient Progression, Respiratory Patient progressing according to plan . Nursing Data Respiratory/Pulmonary Data. : Respiratory/Pulmonary Data. 10/26/2023 1:39 EDT Respiratory Symptoms Dyspnea with exertion Respiratory effort Unlabored, Pursed lips Tracheal Position Midline Accessory Muscles use No Crepitus present No Cough No cough Respiratory pattern Regular Retraction Location None All Lobes Breath Sounds Diminished . Evaluation Pt arrived to B from MICU approx 01:30. Pt slid from stretcher to bed without issue. Pt A&Ox4, predominantly communicating via white board and marker due to hearing loss/deafness. Pursed lip breathing noted, per report, pt's baseline. DO Palma made aware. Minimal dyspnea with exertion noted, maintaining sats mid to upper 90s on 3L Garcia nasal cannula. Pt transitioned to iVAPs at bedtime byRT, + effect, pt tolerating well. IV abx administered as scheduled. All needs met at this time. Purposeful hourly rounding, call weiss within reach, safety measures in place. See CIS for full assessment and interactive flowsheets for details. . * Event Display: Progress Note Hospital Authored Date: * Event Display: Progress Note Hospital Authored Date: Consult note * Luis Miguel Lira MD, Kristine E: PERFORM, MODIFY Event Display: Consultation Note Authored Date: Patient: ??MAGALY HELMS ? Age:??53 Years?Sex:??Female?:??1970?? Chief Complaint SOB Reason for Consultation Acute hypercapnic respiratory failure History of Present Illness 53 YO F, Hx of HLD, DM,??hypothyroidism, asthma, nocturnal hypoxia, chronic hypercarbia, presented on 10/20 with SOB and stridor and found to have uvulitis. Overnight developed acute on chronic hypercapnic respiratory failure and was transferred to intercare unit. ?? Upon my evaluation patient was??lethargic and sleepy,??only withdrew to painful stimuli but wasn't oriented or interactive.??Her VBG 7.12/>130 and was started on CPAP overnight. From chart review it appears that she came in with SOB for 2 weeks and found to have stridor. No fever, night sweats, chest pain, nausea or vomiting. She has chronic cough.?? Review of Systems Unable to obtain. Physical Exam Vitals & Measurements T:??98.2?F?? TMIN:??97.6?F?? TMAX:??98.2?F?? HR:??83??(Monitored)?? RR:??20??(Spontaneous)?? BP:??110/62?? SpO2:??91%?? Constitutional: lethargic, on CPAP. Mental Status: letharig, not oriented. Eyes: Pupils are equal, round and reactive to light. Ear, Nose and Throat: Oropharynx clear, mucous membranes moist. Ears and nose without masses, lesions or deformities. Trachea midline. Respiratory: decreased entry bilaterally, no added sounds. No stridor while on CPAP. Cardiovascular: S1 S2 regular. No murmurs, rubs or gallops. Gastrointestinal: Abdomen soft, non-tender, non-distended. Normal bowel sounds.?? Neurologic: Cranial nerves II-XII grossly intact. No focal neurological deficits. Moves all extremities spontaneously.?? Skin: No rashes or lesions.?? Musculoskeletal: No cyanosis or clubbing. Assessment/Plan Assessment: #Hx of HLD, DM,??hypothyroidism, asthma, nocturnal hypoxia, chronic hypercarbia. #Uvulitis. #SERGEY not compliant with PAP. #Acute on chronic hypercapnic respiratory failure, possibly related to upper airway obstruction. Recommendations: - Switch CPAP to BiPAP. - Repeat ABG. - ENT following re uvulitis. - Cont. Ampicillin and Dexamethasone. - Titrate FiO2 to keep O2 sat 88-92%. - Will cont. to follow. Problem List/Past Medical History Ongoing No qualifying data Medications Inpatient Acetaminophen Tablet, 650 mg, By Mouth, Every 4 hours, PRN Albuterol 0.083% inhalation saul, 2.5 mg= 3 mL, BAND Nebulizer, 4 times a day albuterol CFC free 90 mcg/inh inhalation aerosol, 180 mcg= 2 puffs, Inhalation, Every 4 hours, PRN Breo Ellipta 200 mcg-25 mcg Inhaler, 1 puffs, Inhalation, Daily cholecalciferol 1000 intl units oral tablet, 2000 International_Units, By Mouth, Daily citalopram 20 mg oral tablet, 40 mg, By Mouth, Daily Dexamethasone Inj, 6 mg= 1.5 mL, IV Push Slowly, Every 8 hours Dextrose 50% Inj Syringe (25Gm), 12.5 Gm, IV Push Slowly, Every 20 minutes, PRN Dextrose 50% Inj Syringe (25Gm), 25 Gm, IV Push Slowly, Every 15 minutes, PRN Docusate Sodium Capsule, 100 mg= 1 capsule, By Mouth, 2 times a day folic acid 1 mg oral tablet, 1 mg, By Mouth, Daily Glucagon Inj, 1 mg, Intramuscular, Once, PRN Glucose Gel, 15 Gm, By Mouth, Every 20 minutes, PRN Glucose Gel, 30 Gm, By Mouth, Every 20 minutes, PRN Heparin Inj, 5000 units= 1 mL, Subcutaneous Injection, 2 times a day hydrOXYzine pamoate 25 mg oral capsule, 50 mg, By Mouth, Daily at bedtime Insulin LISPRO Sliding Scale, 2-10 units, Subcutaneous Injection, 3 times a day before meals levothyroxine 0.112 mg oral tablet, 112 mcg, By Mouth, Daily loratadine 10 mg oral tablet, 10 mg, By Mouth, Daily Melatonin Tablet, 3 mg, By Mouth, Daily at bedtime, PRN MiraLax Powder, 17 Gm= 1 pack/packet, By Mouth, Daily, PRN NaCL 0.9% Flush, 3 mL, IV Push, Every 8 hours NaCL 0.9% Flush, 3 mL, IV Push, Every 8 hours, PRN risperiDONE 0.25 mg oral tablet, 0.5 mg, By Mouth, Daily risperiDONE 1 mg oral tablet, 1 mg, By Mouth, Daily at bedtime Robitussin DM Liquid, 10 mL, By Mouth, Every 4 hours, PRN Senna Tablet, 8.6 mg= 1 tablet, By Mouth, 2 times a day, PRN Simethicone Tablet, 80 mg, Chew, 3 times a day, PRN simvastatin 20 mg oral tablet, 20 mg, By Mouth, Daily at bedtime Spiriva Respimat Inhaler, 2 puffs, Inhalation, Daily Unasyn IVPB, 3 Gm, IVPB, Every 6 hours Vitamin B-12 100 mcg oral tablet, 500 mcg, By Mouth, Daily Home cholecalciferol (vitamin D3) 50 mcg (2,000 unit) capsule citalopram 40 mg oral tablet, 40 mg= 1 tablet, By Mouth, Daily docusate sodium 100 mg oral capsule, 100 mg= 1 capsule, By Mouth, 2 times a day folic acid 0.4 mg oral tablet, 0.4 mg= 1 tablet, By Mouth, Daily hydrOXYzine hydrochloride 50 mg oral tablet, 50 mg= 1 tablet, By Mouth, Daily at bedtime levothyroxine 0.112 mg oral tablet, 112 mcg= 1 tablet, By Mouth, Daily loratadine 10 mg oral tablet, 10 mg= 1 tablet, By Mouth, Daily metFORMIN 1000 mg oral tablet, 1000 mg= 1 tablet, By Mouth, 2 times a day predniSONE 20 mg oral tablet, 40 mg= 2 tablet, By Mouth, Daily risperiDONE 0.5 mg oral tablet, 0.5 mg= 1 tablet, By Mouth, Daily risperiDONE 1 mg oral tablet, 1 mg= 1 tablet, By Mouth, Daily at bedtime simvastatin 20 mg oral tablet, 20 mg= 1 tablet, By Mouth, Daily at bedtime Trelegy Ellipta 200 mcg-62.5 mcg-25 mcg/inh inhalation powder, 1 puffs, Inhalation, Daily Ventolin HFA 108 mcg/inh inhalation aerosol with adapter, 2 puffs, Inhalation, Every 4 hours, PRN Vitamin B-12 500 mcg oral tablet, 500 mcg= 1 tablet, By Mouth, Daily Allergies NKA Social History Never smoker Family History No family hx of lung diseases. Diagnostic Results Chest CT personally reviewed and agree with the radiologist's interpretation unless otherwise specified. ?? COMPARISON: None. ?? FINDINGS:? Supervisor Finishing Room view findings, lines and tubes: None. ?? Trachea and airways: Patent without evidence of tracheal or endobronchial lesion. ?? Lungs and pleura: The lungs are imaged in the expiratory phase. Mild patchy groundglass opacities throughout both lungs, with somewhat mosaic attenuation of the lungs, which could be partly due to atelectasis or could be due to small airway or small vessel disease.. 5 mm nodule in the right middle lobe, image 47. No other suspicious lung nodule or mass noted. No pneumothorax. Trace right pleural effusion. No left pleural effusion. ?? Mediastinum and mireya: No mass or hematoma. Surgical clips in the upper mediastinum. No mediastinal or hilar lymphadenopathy. No esophageal abnormality. Atrophic appearing thyroid gland ?? Heart: Heart is normal in size. Moderate pericardial effusion, measuring up to 1.8 cm in thickness at the base of the heart, measuring simple fluid attenuation. ?? Aorta: No aortic aneurysm. Incidentally noted is an aberrant right subclavian artery, coursing posterior to the trachea and esophagus, originating from the distal arch ?? Pulmonary arteries: Normal caliber. No evidence of pulmonary embolism on this study performed without angiographic technique. ?? Chest wall soft tissues: No acute abnormality. ?? Diaphragm: Intact. ?? Upper abdomen: Mild fatty infiltration of the visualized liver. ?? Bones: No acute abnormality. ?? IMPRESSION: ?? Moderate pericardial effusion measuring up to 1.8 cm thickness along the base of the heart, measuring simple fluid in attenuation. ?? Trace right pleural effusion. ?? Patchy ill-defined groundglass opacities throughout both lungs may be partly related to the expiratory phase of imaging or could be secondary to small airway or small vessel disease. ? Neck CT personally reviewed and agree with the radiologist's interpretation unless otherwise specified. ? COMPARISON: CT soft tissue neck with contrast dated 10/27/2014 ?? FINDINGS:? Supervisor Finishing Room View Findings, Lines and Tubes: None. ?? Intracranial structures: Visualized portions are unremarkable. ?? Orbits: Visualized portions are unremarkable. ?? Paranasal sinuses and mastoids: Visualized portions are clear. ?? Mucosal surfaces: There is abnormal thickening of the uvula with subtle enhancement (axial images 22-27 and sagittal image 42). In addition there is mild diffuse wall thickening of the posterior wallof the pharynx at the level of the oropharynx (axial image 35) . There is resultant marked narrowing of the airway at this level (sagittal image 43 and coronal image 30) ?? Superficial and deep neck spaces: No mass, fluid collection, or inflammatory change. ?? Cervical lymph nodes: Normal in size and morphology. ?? Salivary glands: The parotid glands and submandibular glands are normal. ?? Thyroid gland: Atrophic appearance of the thyroid gland ?? Vascular structures: Unremarkable. ?? Upper chest: The upper lungs are clear. The upper mediastinum is unremarkable.? Bones and teeth: No acute abnormality. Mild chronic degenerative changes of the mid cervical spine. ? IMPRESSION:? Diffuse thickening and heterogenous attenuation with subtle enhancement in the uvula, suggestive ofuvular inflammation/infection. There is also diffuse thickening of the posterior wall of the oropharynx. There is resultant markednarrowing of the airway at this level. ?? The proximal trachea appears patent. * Eyal SAMSON, Liu Fernandez: PERFORM Event Display: Consultation Note Authored Date: [id number] Patient: ??MAGALY HELMS ? Age:??53 Years?Sex:??Female?:??1970?? Chief Complaint/Reason for Consultation airway evaluation History of Present Illness Poor historian communicating with stratus olive pitter for ASL Dr Benson at bedside to assist with communicating with patient and olive pitter during procedure chart review -?? history of deafness, SERGEY on CPAP, open heart surgery at the age of 7 ( for a hole ) presents with 2weeks of SOB. ??History is limited--challenges getting the appropriate optical goods worker to communicate with the patient--but per her mother and brother, patient has been having increased shortness of breath for the last 2 weeks--no cough, no fevers, no leg swelling. ??There was one episode where she vomited while trying to eat oatmeal, but otherwise no GI sx. ??Reportedly went to her PMD's today and was hypoxic on RA and referred to the ED.? Patient's brother reports she follows with pulmonology at [facility] and was admitted there afew months ago and was intubated for 8 days although is unsure more context or ultimate diagnosis ?? Review of Systems as above Objective Vital Signs?? Temperature: 97.7 DegF (10/22/23 10:55:00) Temperature Route: Oral (10/22/23 10:55:00) Pulse Rate: 79 bpm (10/22/23 10:55:00) Respiratory Rate: 18 br/min (10/22/23 10:55:00) Systolic Blood Pressure: 120 mm Hg (10/22/23 10:55:00) Diastolic Blood Pressure: 62 mm Hg (10/22/23 10:55:00) Blood pressure sites: Arm, right (10/22/23 10:55:00) Mean Arterial Pressure: 81 mm Hg (10/22/23 10:55:00) Pulse Pressure: 58 mm Hg (10/22/23 10:55:00) Oxygen Saturation: 97 % (10/22/23 10:55:00) Liters per Minute: 3 L/min (10/22/23 10:55:00) Mode of Delivery (Oxygen): Nasal cannula (10/22/23 10:55:00) Early Warning Score: 2 (10/22/23 17:20:03) ? Physical Exam deaf - communicating with stratus ASL olive pitter awake, mild stertor breath sound (soft palate vibration like snoring) downs facies appearance nose with nasal canula oral - tongue large, soft palate with watery edema of uvula, tonsils 2+ moderate crowding neck - thick, no adenopathy ?? procedure - passed through right nose, min crusting of mucosa.?? edema of nasal surface of soft palate and uvula.?? larynx and base of tongue normal with no edema.?? vocal cords mobile bilaterally Assessment/Plan Diagnoses SERGEY (obstructive sleep apnea) ??(G47.33) 1. ??Acute hypoxic respiratory failure ??(J96.01) 2. ??Asthma ??(J45.909) 3. ??Nocturnal hypoxemia ??(G47.34) 4. ??Hypercarbia ??(R06.89) 5. ??Hyperlipidemia ??(E78.5) 6. ??Diabetes mellitus ??(E11.9) 7. ??Hypothyroidism ??(E03.9) ?? stertor secondary to uvulitis unclear if this is bacterial, viral, reflux/emesis related (recent vomiting), burn trauma from food.?? less likely angioedema given the timeline of evolution over [address] weeks was not abrupt ct neck images and report reviewed - uvula edema with posterior nasopharynx wall edema. decadron humidified air - face tent PO as tolerated abx - unasyn, may convert to PO augmentin x 7 days as clinical condition improves reflux precautions with omeprazole and HOB elevated please call with concerns [phone] ?? Discharge Planning:? Histories Allergies Allergies ?(Active and Proposed Allergies Only) NKA? (Severity: Unknown severity, Onset: Unknown) ? Past Medical History/Problem List No problems documented. ? Past Surgical History No surgery history documented. ? Social History No social history documented. ? Medications Home Medications Albuterol (Ventolin HFA 108 mcg/inh inhalation aerosol with adapter)?2?puff(s)?Inhalation?Every 4 hours?as needed?for wheezing Citalopram (citalopram 40 mg oral tablet)?1?tab(s)?40?Milligram?By Mouth?Daily Cyanocobalamin (Vitamin B-12 500 mcg oral tablet)?1?tab(s)?500?Microgram?By Mouth?Daily Docusate (docusate sodium 100 mg oral capsule)?1?capsule?100?Milligram?By Mouth?2times a day fluticasone/umeclidinium/vilanterol (Trelegy Ellipta 200 mcg-62.5 mcg-25 mcg/inh inhalation powder)?1?puff(s)?Inhalation?Daily?at the same time every day Folic Acid (folic acid 0.4 mg oral tablet)?1?tab(s)?0.4?Milligram?By Mouth?Daily HydrOXYzine (hydrOXYzine hydrochloride 50 mg oral tablet)?1?tab(s)?50?Milligram?By Mouth?Daily at bedtime Levothyroxine (levothyroxine 0.112 mg oral tablet)?1?tab(s)?112?Microgram?By Mouth?Daily Loratadine (loratadine 10 mg oral tablet)?10?Milligram?1?tablet?By Mouth?Daily Metformin (metFORMIN 1000 mg oral tablet)?1?tab(s)?1,000?Milligram?By Mouth?2 times a day Miscellaneous Rx (cholecalciferol (vitamin D3) 50 mcg (2,000 unit) capsule)?TAKE 1 CAPSULE BY MOUTH EVERY MORNING PredniSONE (predniSONE 20 mg oral tablet)?2?tab(s)?40?Milligram?By Mouth?Daily?for 5?Days Risperidone (risperiDONE 0.5 mg oral tablet)?0.5?Milligram?1?tablet?By Mouth?Daily Risperidone (risperiDONE 1 mg oral tablet)?1?Milligram?1?tablet?By Mouth?Daily atbedtime Simvastatin (simvastatin 20 mg oral tablet)?20?Milligram?1?tablet?By Mouth?Daily at bedtime ? Inpatient Medications Medications (32) Active SCHEDULED: (19) Albuterol 0.083% Inhalation Solution (Albuterol 0.083% inhalation saul) ??2.5 mg 3 mL, BAND Nebulizer, 4 times a day Ampicillin/Sulbactam 3 Gm Inj (Unasyn IVPB) ??3 Gm, IVPB, Every 6 hours Breo Ellipta 200 mcg / 25 mcg Inhaler (Breo Ellipta 200 mcg-25 mcg Inhaler) ??1 puffs, Inhalation, Daily Citalopram 20 mg Tablet (citalopram 20 mg oral tablet) ??40 mg, By Mouth, Daily Dexamethasone 4 mg/mL Inj (Dexamethasone Inj) ??6 mg 1.5 mL, IV Push Slowly, Every 8 hours Docusate Sodium 100 mg Capsule (Docusate Sodium Capsule) ??100 mg 1 capsule, By Mouth, 2 times a day Folic Acid 1 mg Tablet (folic acid 1 mg oral tablet) ??1 mg, By Mouth, Daily Heparin 5000 units/mL Inj (1 mL) (Heparin Inj) ??5,000 units 1 mL, Subcutaneous Injection, 2 times a day HydrOXYzine Pamoate 25mg Capsule (hydrOXYzine pamoate 25 mg oral capsule) ??50 mg, By Mouth, Daily at bedtime Insulin Lispro 100 units/mL Inj (Insulin LISPRO Sliding Scale) ??2-10 units, Subcutaneous Injection, 3 times a day before meals Levothyroxine 112 mcg Tablet (levothyroxine 0.112 mg oral tablet) ??112 mcg, By Mouth, Daily Loratadine 10 mg Tablet (loratadine 10 mg oral tablet) ??10 mg, By Mouth, Daily NaCl 0.9% Flush 3ml (NaCL 0.9% Flush) ??3 mL, IV Push, Every 8 hours Risperidone 0.25 mg Tablet (risperiDONE 0.25 mg oral tablet) ??0.5 mg, By Mouth, Daily Risperidone 1 mg Tablet (risperiDONE 1 mg oral tablet) ??1 mg, By Mouth, Daily at bedtime Simvastatin 20 mg Tablet (simvastatin 20 mg oral tablet) ??20 mg, By Mouth, Daily at bedtime Spiriva Respimat 2.5 mcg Inhaler (Spiriva Respimat Inhaler) ??2 puffs, Inhalation, Daily Vitamin B12 100 mcg Tablet (Vitamin B-12 100 mcg oral tablet) ??500 mcg, By Mouth, Daily Vitamin D 1000 IU Tablet (cholecalciferol 1000 intl units oral tablet) ??2,000 International_Units,By Mouth, Daily CONTINUOUS: (0) PRN: (13) Acetaminophen 325 mg Tablet (Acetaminophen Tablet) ??650 mg, By Mouth, Every 4 hours Albuterol 90mcg/Inhalation Inhaler HFA (albuterol CFC free 90 mcg/inh inhalation aerosol) ??180 mcg2 puffs, Inhalation, Every 4 hours Dextromethorphan-Guaifenesin 20 mg-200 mg/10 mL Liqu UD (Robitussin DM Liquid) ??10 mL, By Mouth, Every 4 hours Dextrose Inj Syringe (Dextrose 50% Inj Syringe (25Gm)) ??12.5 Gm, IV Push Slowly, Every 20 minutes Dextrose Inj Syringe (Dextrose 50% Inj Syringe (25Gm)) ??25 Gm, IV Push Slowly, Every 15 minutes Glucagon 1 mg Inj (Glucagon Inj) ??1 mg, Intramuscular, Once Glucose 40% Gel (15 Gm) (Glucose Gel) ??15 Gm, By Mouth, Every 20 minutes Glucose 40% Gel (15 Gm) (Glucose Gel) ??30 Gm, By Mouth, Every 20 minutes Melatonin 3 mg Tablet (Melatonin Tablet) ??3 mg, By Mouth, Daily at bedtime NaCl 0.9% Flush 3ml (NaCL 0.9% Flush) ??3 mL, IV Push, Every 8 hours Polyethylene Glycol 17 Gm Powder (MiraLax Powder) ??17 Gm 1 pack/packet, By Mouth, Daily Senna Tablet ??8.6 mg 1 tablet, By Mouth, 2 times a day Simethicone 80 mg Chewable Tablet (Simethicone Tablet) ??80 mg, Chew, 3 times a day ? Results Abnormal Labs ?? BLOOD COUNT & DIFF Abs. Imm Gran?0.0 k/mm3 ()?10/22/2023 07:26 Abs. NRBC?0.0 k/mm3 ()?10/22/2023 07:26 Abs. Neut?7.1 k/mm3 (High)?10/22/2023 07:26 Imm Gran?0.4 % ()?10/22/2023 07:26 MCHC?31.9 g/dL (Low)?10/22/2023 07:26 Neut %?76.5 % (High)?10/22/2023 07:26 Nucleated RBC (Automated)?0.0 #/100 WBC'S ()?10/22/2023 07:26 RBC?4.10 m/mm3 (Low)?10/22/2023 07:26 RDW-SD?43.6 femtoliters ()?10/22/2023:26 ?? CHEM GENERAL Bicarbonate Level?37 mmol/L (High)?10/22/2023:26 Chloride?91 mmol/L (Low)?10/22/2023:26 Estimated GFR Creatinine?79 ML/MIN/1.73 M2 ()?10/22/2023:26 Glucose Level?124 mg/dL (High)?10/22/2023:26 Glucose, POC?125 mg/dL (High)?10/22/2023 17:07 ?? COAG D-Dimer?<0.19 mg/L FEU ()?10/22/2023 07:26 ?? MISC. CHEMISTRY Procalcitonin?0.03 ng/mL ()?10/22/2023 07:26 ?? Note: Critical results are displayed in red. ? Note * Ashlee Perry RN: PERFORM Event Display: Discharge/Transfer Note Hospital Authored Date: Nursing Discharge Note Entered On: 10/26/2023 13:14 EDT Performed On: 10/26/2023 13:12 EDT by Ashlee Perry RN Nursing Discharge Note 2 Discharge Time : 10/26/2023 12:55 EDT Discharge Level of Care at Discharge : Home/Care Home/Foster Care Patient Left Unit Via : Wheelchair Patient Accompanied Off Unit with : Other: mother, brother, sister DC Instructions Provided & Signed by Pt : Yes Patient Understands D/C Instructions : Yes Patient Instructions Discharge Signed : Yes Discharge Comments : Patient left with oxygen tank on 2L, set up with [facility] for O2 and CPAP. 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 Did Pt have Specialty Bed or Wound Vac : No Ashlee Perry RN - 10/26/2023 13:12 EDT * Farzana Luu MD: PERFORM, SIGN, VERIFY, MODIFY, SIGN Event Display: Discharge/Transfer Note Hospital Authored Date: Patient: MAGALY HELMS Age: 53 years Sex: Female : 1970 Associated Diagnoses: None Author: Farzana Luu MD Discharge Information Admission Date: 10/21/2023 Discharge Date 10/26/2023 Principal Discharge Diagnosis Uvulitis: Present on admission - yes. [id number] hypoxic & hypercarbic respiratory failure: Present on admission - yes. Secondary Discharge Diagnoses SERGEY (obstructive sleep apnea): Present on admission - yes. Hypothyroidism: Present on admission - yes. Hyperlipidemia: Present on admission - yes. Diabetes mellitus: Present on admission - yes. Depression with anxiety: Present on admission - yes. Deaf-mutism / need for sign language interpreters.: Present on admission - yes. COPD / asthma: Present on admission - yes. Congenital heart anomaly: Present on admission - yes. Medications (Selected) Prescriptions Prescribed Augmentin 875 mg-125 mg oral tablet: 1 tablet, By Mouth, Every 12 hours, for 3 days, # 6 tablet, 0 Refills, Acute 10/29/23 9:58:00 EDT, 10/26/23 9:58:00 EDT, Tablet, [facility], Partial fill upon patient request if the prescription is for a schedule II opioid drug., 1... Documented Medications Documented Trelegy Ellipta 200 mcg-62.5 mcg-25 mcg/inh inhalation powder: 1 puffs, Inhalation, Daily, at the same time every day, 0 Refills, Maintenance, 10/22/23 10:39:00 EDT, Powder, Partial fill upon patientrequest if the prescription is for a schedule II opioid drug. Ventolin HFA 108 mcg/inh inhalation aerosol with adapter: 2 puffs, Inhalation, Every 4 hours, PRN for wheezing, # 18 Gm, 0 Refills, Maintenance, 10/22/23 10:40:00 EDT, Aerosol, Partial fill upon patient request if the prescription is for a schedule II opioid drug. Vitamin B-12 500 mcg oral tablet: 1 tablet = 500 mcg, By Mouth, Daily, # 30 tablet, 0 Refills, Maintenance, 10/22/23 10:40:00 EDT, Tablet, Partial fill upon patient request if the prescription is fora schedule II opioid drug. cholecalciferol (vitamin D3) 50 mcg (2,000 unit) capsule: cholecalciferol (vitamin D3) 50 mcg (2,000 unit) capsule, TAKE 1 CAPSULE BY MOUTH EVERY MORNING citalopram 40 mg oral tablet: 1 tablet = 40 mg, By Mouth, Daily, # 30 tablet, 0 Refills, Maintenance, 10/22/23 10:39:00 EDT, Tablet, Partial fill upon patient request if the prescription is for a schedule II opioid drug. docusate sodium 100 mg oral capsule: 1 capsule = 100 mg, By Mouth, 2 times a day, # 20 capsule, 0 Refills, Maintenance, 10/22/23 10:40:00 EDT, Capsule, Partial fill upon patient request if the prescription is for a schedule II opioid drug. folic acid 0.4 mg oral tablet: 1 tablet = 0.4 mg, By Mouth, Daily, # 100 tablet, 0 Refills, Maintenance, 10/22/23 10:40:00 EDT, Tablet, Partial fill upon patient request if the prescription is for a schedule II opioid drug. hydrOXYzine hydrochloride 50 mg oral tablet: 1 tablet = 50 mg, By Mouth, Daily at bedtime, # 30 tablet, 0 Refills, Maintenance, 10/22/23 10:40:00 EDT, Tablet, Partial fill upon patient request if theprescription is for a schedule II opioid drug. levothyroxine 0.112 mg oral tablet: 1 tablet = 112 mcg, By Mouth, Daily, # 30 tablet, 0 Refills, Maintenance, 10/22/23 10:40:00 EDT, Tablet, Partial fill upon patient request if the prescription is for a schedule II opioid drug. loratadine 10 mg oral tablet: 10 mg, 1, tablet, By Mouth, Daily, # 30 tablet, Refills 0, Maintenance, 10/22/23 10:40:00 EDT, Partial fill upon patient request if the prescription is for a schedule IIopioid drug. metFORMIN 1000 mg oral tablet: 1 tablet = 1,000 mg, By Mouth, 2 times a day, # 60 tablet, 0 Refills, Maintenance, 10/22/23 10:40:00 EDT, Tablet, Partial fill upon patient request if the prescription is for a schedule II opioid drug. risperiDONE 0.5 mg oral tablet: 0.5 mg, 1, tablet, By Mouth, Daily, # 30 tablet, Refills 0, Maintenance, 10/22/23 10:40:00 EDT, Partial fill upon patient request if the prescription is for a scheduleII opioid drug. risperiDONE 1 mg oral tablet: 1 mg, 1, tablet, By Mouth, Daily at bedtime, # 30 tablet, Refills 0, Maintenance, 10/22/23 10:40:00 EDT, Partial fill upon patient request if the prescription is for a schedule II opioid drug. simvastatin 20 mg oral tablet: 20 mg, 1, tablet, By Mouth, Daily at bedtime, # 30 tablet, Refills 0, Maintenance, 10/22/23 10:40:00 EDT, Partial fill upon patient request if the prescription is for aschedule II opioid drug.. Hospital Course Hospital Course 53-year-old female with a past medical history of hyperlipidemia, diabetes, hypothyroidism, asthma,nocturnal hypoxia and chronic hypercapnic respiratory failure who initially presented on 10/21/2023 with shortness of breath and stridor admitted for hypoxic and hypercarbic respiratory failure and CTimaging of the neck demonstrated uvulitis with course complicated by recurrent hypercapnic respiratory failure requiring noninvasive mechanical ventilation. Uvulitis: Acute on chronic hypercapnic and hypoxic respiratory (J96.20) due to COPD (J44.9): SERGEY: Pt clinically improved on IV Unasyn and steroids. Eager to return home. No further stridor and tolerating diet well. Pt will need a noninvasive ventilator at home to help with gas exchange, decrease readmission and improve quality of life. - Complete 7 day course of abrx with PO Augmentin on 10/28 - F/u with PCP, F/u with ENT as needed - Trelegy, Albuterol PRN - Home oxygen 2 l NC as before - Noninvasive ventilator will be set up at home for her Hyperlipidemia: Simvastatin Diabetes mellitus: Metformin Hypothyroidism: Levothyroxine Depression/Anxiety: Celexa, Risperidone, Hydroxyzine General Appearance NAD. Not dyspneic. Not fatigued. Not ill-appearing. HEENT Moist mucous membranes. Respiratory Lungs: CTA. Cardiac Cardiac: no M/G/R. Rhythms: RRR. Abdomen/GI Abdomen: soft, non-tender, non-distended, bowel sounds. Extremities No edema. Neurologic Alert & oriented x 4 . Attending Consultants Eyal SAMSON, Liu Fernandez: Speciality ENT . Luis Miguel Lira MD, Kristine Pretty: Speciality Pulmonary . Results Laboratory : LABORATORY 10/26/2023 6:55 EDT Potassium 3.8 mmol/L 10/26/2023 5:53 EDT WBC 8.0 k/mm3 Hgb 11.5 Gm/dL L Hct 36.3 % Platelet Count 206 k/mm3 10/26/2023 2:21 EDT Sodium 138 mmol/L Chloride 94 mmol/L L Bicarbonate Level 33 mmol/L H Anion Gap 11 Glucose Level 123 mg/dL H BUN 18 mg/dL Creatinine-Blood 1.2 mg/dL H Calcium 8.8 mg/dL Phosphorus 3.3 mg/dL Magnesium 2.2 mg/dL 10/24/2023 10:00 EDT Adenovirus by PCR NEGATIVE Coronavirus 229E by PCR (not COVID-19) NEGATIVE Coronavirus HKU1 by PCR (not COVID-19) NEGATIVE Coronavirus NL63 by PCR (not COVID-19) NEGATIVE Coronavirus OC43 by PCR (not COVID-19) NEGATIVE Human Metapneumovirus by PCR NEGATIVE Rhinovirus/Enterovirus by PCR NEGATIVE Influenza A by PCR NEGATIVE Influenza B by PCR NEGATIVE Parainfluenza 1 by PCR NEGATIVE Parainfluenza 2 by PCR NEGATIVE Parainfluenza 3 by PCR NEGATIVE Parainfluenza 4 by PCR NEGATIVE RSV by PCR NEGATIVE Bordetella Pertussis by PCR NEGATIVE Chlamydophila Pneumoniae by PCR NEGATIVE Mycoplasma Pneumoniae by PCR NEGATIVE COVID-19 (SARS-CoV-2) by PCR NEGATIVE Bordetella Parapertussis by PCR NEGATIVE 10/22/2023 7:26 EDT Procalcitonin 0.03 ng/mL 10/21/2023 18:08 EDT Nt-Probnp 102 pg/mL High Sensitivity Troponin (HSTnT) 29 ng/L H 10/21/2023 15:21 EDT Influenza A PCR NEGATIVE Influenza B PCR NEGATIVE RSV PCR NEGATIVE COVID-19 PCR Result NEGATIVE 10/21/2023 13:22 EDT WBC 9.0 k/mm3 Hgb 12.2 Gm/dL Hct 36.9 % Platelet Count 205 k/mm3 Sodium 130 mmol/L L Potassium 4.5 mmol/L Chloride 87 mmol/L L Bicarbonate Level 30 mmol/L H Anion Gap 13 Glucose Level 200 mg/dL H BUN 10 mg/dL Creatinine-Blood 0.9 mg/dL High Sensitivity Troponin (HSTnT) 28 ng/L H . Imaging : RADIOLOGY 10/23/2023 10:00 EDT Chest Portable Chest Portable 10/22/2023 16:[address] Chest W/ Contrast RESULT: CT Chest W/ Contrast CT Soft Tissue Neck W/ Contrast CT Soft Tissue Neck W/ Contrast 10/21/2023 14:04 EDT Chest 2 Views Frontal and Lat Chest 2 Views Frontal and Lat . Discharge Plan Diet/Activity/Patient Education/Follow Up Follow Up with: PCP Not on Staff Within 2 to 3 days. Discharge Disposition Discharge: home. Code Status: Full Code. Report sent to all consultants: Eyal SAMSON, Liu Betancourt * Orlando PETE, Ashlee: PERFORM Event Display: Patient Education/Instruction Authored Date: [id number] Inpatient Adult Discharge Instructions. [address] [address] Name: MAGALY HELMS : 1970?? Visit: 10/21/2023 18:42?? Current Date: 10/26/2023 11:53 ?? Account: [id number]?? Inpatient Adult Discharge Instructions We would like to thank you for allowing us to assist you with your healthcare needs. The following includes patient education materials and information regarding your injury/illness. Our entire staffstrives to provide an excellent experience for our patients and their families. PLEASE ENSURE YOU FOLLOW-UP PER THE INSTRUCTIONS BELOW! ?? YOUR OPINION IS IMPORTANT TO US! Please complete the survey you may receive by mail or email. Your feedback will be used to make improvements to the healthcare experiences of our patients and their families. Surveys are administered by [employer] ?? If further treatment with your primary care physician or another doctor is recommended, it is important for you to keep the appointment. Call your primary care physician or return to the Emergency Department immediately if your condition worsens, fails to improve, or new symptoms develop. If you need to find a doctor, you can call [facility] On[facility] Link for a referral at [phone] or toll free at [phone] ([phone]) or log in to [email or web address].. ?? [facility], in keeping with [facility] guidance, no longer requires face masks for staff, patientsor visitors in most situations. Similiar to time spent indoors at other locations, there is the chance that you were exposed to repiratory viruses during your time with us (such as flu or COVID-19). If you develop symptoms concerning for a viral respiratory infection, please seek testing (and treatment if indicated) from your medical provider or home test kit. ?? You can view and manage your care through the patient portal or by using a health care julissa of your choosing. [employer] is a website that allows you to securely view your medical information including your hospital discharge summary, office visit summaries, medications and follow-up visits. You can also request appointments, renew medications, and request access to your medical information using a health care julissa of your choosing, or just ask a question. You can enroll at [email or web address] or register during your next office visit. You have been discharged from [facility], Patient Care Unit: D6B??. If you have any questions regarding these instructions, including results of studies pending, afteryou leave, please call us and we will be happy to assist you 17/01. [facility] Your Care Team Attending Physician Farzana Luu MD?? Consulting Providers Farzana Luu MD?? Discharging Providers Farzana Luu MD Reason for Your Visit Medical Accept Note?? 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 Depression with anxiety General medical Multifocal aspiration pneumonia Obtundation SERGEY (obstructive sleep apnea) Pharyngitis Uvular swelling Uvulitis Tests Performed Below is a partial list of the tests performed during your hospitalization. You may have had other tests and procedures not included in this list. Please discuss all test results with your provider. ABG Basic Metabolic Panel Blood Gas Arterial?-- Results Pending -- Blood Urea Nitrogen CALCIUM IONIZED POC CART CBC COMPLETE CBC WITH DIFF COVID-19, RSV, and Flu A/B, Rapid PCR Creatinine D-DIMER Electrolytes FREE T4 GLUCOSE POC GLUCOSE POC CARTRIDGE HEMATOCRIT POC CARTRIDGE HEMOGLOBIN POC CARTRIDGE High??Sensitivity??Troponin T HOLD BLUE TUBE Magnesium Level O2 PERCENT (POINT OF CARE) OSMOLALITY, SERUM Phosphorus Level Potassium Level POTASSIUM POC CARTRIDGE ProBNP PROCALCITONIN, SERUM Respiratory Pathogen PCR with COVID-19 SODIUM POC CARTRIDGE TSH VBG POC CARTRIDGE CT Chest W/ IV Contrast CT Soft Tissue Neck W/ Contrast Portable Chest XR Chest 2 Views Frontal and Lat You will be contacted within 72 hours with your results. Add On Lab Order?? Basic Metabolic Panel?? Blood Gas Arterial?? CBC?? Magnesium Level?? Osmolality Urine (Urine Osmolality)?? Phosphorus Level?? Sodium Urine (Urine Sodium)?? Sputum, Gram Smear w/Culture Rfx?? Primary Care Provider Not on Staff, PCP?? Advance Directive Health Care Proxy on File No Patient refuses to discuss Discharge Vitals Temperature: 97.2 DegF Height: 154 cm Pulse Rate: 85 bpm Weight: 57.4 kg Respiratory Rate: 18 br/min Body Mass Index: 23.19 kg/m2 Systolic Blood Pressure:??142 mm Hg??High Body surface area: 1.53 Diastolic Blood Pressure: 81 mm Hg ?? Oxygen Saturation: 98 % ?? Studies Pending All studies ordered during this hospital stay have been completed unless listed below. Please discuss all pending results with your provider listed above in these instructions. ?? Add On Lab Order?? Basic Metabolic Panel?? Blood Gas Arterial?? CBC?? Magnesium Level?? Osmolality Urine (Urine Osmolality)?? Phosphorus Level?? Sodium Urine (Urine Sodium)?? Sputum, Gram Smear w/Culture Rfx?? What to do next Instructions From Your Doctor ?? Orders?? home O2 eval, ??10/26/23 9:45:00 EDT?? You Need to Schedule the Following Appointments Follow Up with??PCP Not on Staff When:??Within 2 to 3 days Discharge Medications MAGALY HELMS :1970 Visit Date:10/21/2023 Medications: Please continue your medications until treatment is completed or stopped by your provider. Medications not listed below should be discontinued. Discuss any questions related to medications with your provider. What How Much When Instructions Next Dose New Amoxicillin-Clavulanate (Augmentin 875 mg-125 mg oraltablet) 1 tab(s) Oral Every 12 hours Duration: 3 Days Pickup at [facility] today 10/25 at 9pm Unchanged Albuterol (Ventolin HFA 108 mcg/ inh inhalation aerosol with adapter) 2 puff(s) Inhalation Every 4 hours as needed for for wheezing as needed Unchanged Citalopram (citalopram 40 mg oral tablet) 1 tab(s) Oral Daily tomorrow 10/26 at 9am Unchanged Cyanocobalamin (Vitamin B-12 500 mcg oral tablet) 1 tab(s) Oral Daily tomorrow 5/2 at 9am Unchanged Docusate (docusate sodium 100 mg oral capsule) 1 capsule Oral Twice a day today 10/25 at 9pm Unchanged fluticasone/ umeclidinium/ vilanterol (Trelegy Ellipta 200 mcg-62.5 mcg-25 mcg/ inh inhalation powder) 1 puff(s) Inhalation Daily at the same time every day ?? tomorrow 5/2 at 9am Unchanged Folic Acid (folic acid 0.4 mg oral tablet) 1 tab(s) Oral Daily tomorrow 5/2 at 9am Unchanged HydrOXYzine (hydrOXYzine hydrochloride 50 mg oral tablet) 1 tab(s) Oral Daily at Bedtime today 10/25 at 9pm Unchanged Levothyroxine (levothyroxine 0.112 mg oral tablet) 1 tab(s) Oral Daily tomorrow 10/26 at upon rising Unchanged Loratadine (loratadine 10 mg oral tablet) 1 tab(s) Oral Daily tomorrow 52 at 9am Unchanged Metformin (metFORMIN 1000 mg oral tablet) 1 tab(s) Oral Twice a day today 10/25 at 9pm Unchanged Miscellaneous Rx (cholecalciferol (vitamin D3) 50 mcg (2,000 unit) capsule) TAKE 1 CAPSULE BY MOUTH EVERY MORNING ?? tomorrow 5/2 at 9am Unchanged Risperidone (risperiDONE 0.5 mg oral tablet) 1 tab(s) Oral Daily today 10/25 at 9pm Unchanged Risperidone (risperiDONE 1 mg oral tablet) 1 tab(s) Oral Daily at Bedtime today 10/25 at 9pm Unchanged Simvastatin (simvastatin 20 mg oral tablet) 1 tab(s) Oral Daily at Bedtime today 10/25 at 9pm Pharmacy Information [facility]: [address] [place] [address] [phone] ?? What How Much When Comments Stop Taking PredniSONE (predniSONE 20 mg oral tablet) 2 tab(s) Oral Daily Duration: 5 Days Prescription Given During Visit Amoxicillin-Clavulanate (Augmentin 875 mg-125 mg oral tablet) - 1 tablet, By Mouth, Every 12 hours,# 6 tablet, 0 Refills, [facility], [address] [place] [phone]?? Laboratory Results Below is a partial list of the most recent Laboratory test results done prior to this discharge. You may have had other tests and procedures not included in this list. Please discuss all test resultswith your provider. Est Creatinine Clearance - 39.26 mL/min (10/26/2023) ABG (10/23/2023) ???pH - 7.37???pCO2 - 70 mm Hg???pO2 - 103 mm Hg???Bicarbonate, Estimated - 40 mmol/L???Specimen Type - Blood Gas - ARTERIAL???Percent O2 (FIO2) - 28 Basic Metabolic Panel (10/26/2023) ???Sodium - 138 mmol/L???Potassium - HEMOLYZED???Chloride - 94 mmol/L???Bicarbonate Level - 33 mmol/L???Anion Gap - 11???Glucose Level - 123 mg/dL???BUN - 18 mg/dL???Creatinine-Blood - 1.2 mg/dL???Estimated GFR Creatinine - 54 ML/MIN/1.73 M2???Calcium - 8.8 mg/dL Blood Urea Nitrogen (10/23/2023) ???BUN - 10 mg/dL CALCIUM IONIZED POC CART (10/23/2023) ???Ionized Calcium (POC) POC Cartridge - 1.28 mmol/L CBC (10/26/2023) ???WBC - 8.0 k/mm3???RBC - 3.89 m/mm3???Hgb - 11.5 Gm/dL???Hct - 36.3 %???MCV - 93.3 femtoliters???MCH - 29.6 pg???MCHC - 31.7 g/dL???Platelet Count - 206 k/mm3???RDW-SD - 47.0 femtoliters???MPV - 9.7 femtoliters???Nucleated RBC (Automated) - 0.0 #/100 WBC'S???Abs. NRBC - 0.0 k/mm3 COMPLETE CBC WITH DIFF (10/22/2023) ???WBC - 9.3 k/mm3???RBC - 4.10 m/mm3???Hgb - 12.2 Gm/dL???Hct - 38.3 %???MCV - 93.4 femtoliters???MCH - 29.8 pg???MCHC - 31.9 g/dL???Platelet Count - 240 k/mm3???RDW-SD - 43.6 femtoliters???MPV - 9.8 femtoliters???Nucleated RBC (Automated) - 0.0 #/100 WBC'S???Abs. NRBC - 0.0 k/mm3???Abs. Neut - 7.1 k/mm3???Abs. Lymph - 1.5 k/mm3???Abs. [place] - 0.6 k/mm3???Abs. Eo - 0.1 k/mm3???Abs. Baso - 0.0 k/mm3???Neut % - 76.5 %???Lymph % - 16.1 %???[place] % - 6.1 %???Eos % - 0.5 %???Baso % - 0.4 %???Imm Gran- 0.4 %???Abs. Imm Gran - 0.0 k/mm3 COVID-19, RSV, and Flu A/B, Rapid PCR (10/21/2023) ???Influenza A PCR - NEGATIVE???Influenza B PCR - NEGATIVE???RSV PCR - NEGATIVE???COVID-19 PCR Specimen Source - NASAL???COVID-19 PCR Result - NEGATIVE Creatinine (10/23/2023) ???Creatinine-Blood - 0.8 mg/dL???Estimated GFR Creatinine - 84 ML/MIN/1.73 M2 D-DIMER (10/22/2023) ? ?D-Dimer - <0.19 mg/L FEU Electrolytes (10/23/2023) ???Sodium - 134 mmol/L???Potassium - 4.4 mmol/L???Chloride - 89 mmol/L???Bicarbonate Level - 38 mmol/L???Anion Gap - 7 FREE T4 (10/23/2023) ???Free T4 - 0.17 ng/dL GLUCOSE POC (10/26/2023) ???Glucose, POC - 130 mg/dL GLUCOSE POC CARTRIDGE (10/23/2023) ???Glucose (POC) POC Cartridge - 195 HEMATOCRIT POC CARTRIDGE (10/23/2023) ???Hematocrit (POC) POC Cartridge - 39 % HEMOGLOBIN POC CARTRIDGE (10/23/2023) ???Hemoglobin (POC) POC Cartridge - 13.3 Gm/dL High??Sensitivity??Troponin T (10/21/2023) ???High Sensitivity Troponin (HSTnT) - 29 ng/L HOLD BLUE TUBE (10/21/2023) ???Hold Blue Top - SPECIMEN DISCARDED AFTER 4 HOURS. Magnesium Level (10/26/2023) ???Magnesium - 2.2 mg/dL O2 PERCENT (POINT OF CARE) (10/23/2023) ???FIO2 (POC) POC Cartridge - 50 % OSMOLALITY, SERUM (10/22/2023) ???Osmolality - 281 mOs/kg Phosphorus Level (10/26/2023) ???Phosphorus - 3.3 mg/dL Potassium Level (10/26/2023) ???Potassium - 3.8 mmol/L POTASSIUM POC CARTRIDGE (10/23/2023) ???Potassium (POC) POC Cartridge - 4.5 mmol/L ProBNP (10/21/2023) ???Nt-Probnp - 102 pg/mL PROCALCITONIN, SERUM (10/22/2023) ???Procalcitonin - 0.03 ng/mL Respiratory Pathogen PCR with COVID-19 (10/24/2023) ???Adenovirus by PCR - NEGATIVE???Coronavirus 229E by PCR (not COVID-19) - NEGATIVE???Coronavirus HKU1 by PCR (not COVID-19) - NEGATIVE???Coronavirus NL63 by PCR (not COVID-19) - NEGATIVE???Coronavirus OC43 by PCR (not COVID-19) - NEGATIVE???Human Metapneumovirus by PCR - NEGATIVE???Rhinovirus/Enterovirus by PCR - NEGATIVE???Influenza A by PCR - NEGATIVE???Influenza B by PCR - NEGATIVE???Parainfluenza 1 by PCR - NEGATIVE???Parainfluenza 2 by PCR - NEGATIVE???Parainfluenza 3 by PCR - NEGATIVE???Parainfluenza 4 by PCR - NEGATIVE???RSV by PCR - NEGATIVE???Bordetella Pertussis by PCR - NEGATIVE??? Chlamydophila Pneumoniae by PCR - NEGATIVE???Mycoplasma Pneumoniae by PCR - NEGATIVE???COVID-19 (SARS-CoV-2) by PCR - NEGATIVE???Bordetella Parapertussis by PCR - NEGATIVE SODIUM POC CARTRIDGE (10/23/2023) ???Sodium (POC) POC Cartridge - 130 mmol/L TSH (10/23/2023) ???TSH - 10.60 uIU/mL VBG POC CARTRIDGE (10/23/2023) ? ?pH Venous (POC) POC Cartridge - 7.12? ?pCO2 Venous (POC) POC Cartridge - >130.0 mm Hg? ?pO2 Venous (POC) POC Cartridge - 48 mm Hg???Specimen Type - Blood Gas - VENOUS Allergies (NKA means No Known Allergies) NKA Problems No qualifying data available Education Materials Below is the list of Educational Leaflet Providered with your Discharge Instructions. Valuables and Belongings I fully understand and agree that [facility] accepts no responsibility for all my personal property including clothing, toilet articles, radios, jewelry, dentures, hearing aids, rings, money, or any other property that is in my possession or is brought to me after admission. I understand certain valuables may be placed in a hospital safe for a short period of time. I understand that the hospital is not liable for loss or damage due to accident, fire, or other natural occurrence while said property is in the safe. I accept full responsibility for any personal property that I keep with me, and will not hold the hospital responsible in case of loss or disappearance. I acknowledge that i have been encouraged to send valuables and belongings home. ?? Review of Valuable and Belonging List: With patient Date for Pt to Sign Valuables/Belongings: 10/26/23 01:33:00 ?? Other Discharge Information ? Case Management Discharge Plan?? Discharge Plan?? Discharge Rx Program: Discharge Prescription Program ?? Pulmonary Rehab Status?? Pulmonary Rehab Discharge Status?? CPAP/BiPAP Mask Type: Full CPAP/BiPAP Mask Size: Other: xsamll Respiratory Rate: 18 br/min ? Common Emergency Awareness Tips IS IT A STROKE? Act FAST and Check for these signs: FACE Does the face look uneven? ARM Does one arm drift down? SPEECH Does their speech sound strange? TIME Call at any sign of stroke ?? Heart Attack Signs Chest discomfort: Most heart attacks involve discomfort in the center of the chest and lasts more than a few minutes, or goes away and comes back. It can feel like uncomfortable pressure, squeezing, fullness or pain. Discomfort in upper body: Symptoms can include pain or discomfort in one or both arms, back, neck, jaw or stomach. Shortness of breath: With or without discomfort. Other signs: Breaking out in a cold sweat, nausea, or lightheaded. Remember, MINUTES DO MATTER. If you experience any of these heart attack warning signs, call to get immediate medical attention! ?? Smoking can increase your chances of developing chronic health problems and can cause harmful effects to other family members in your house. If you smoke, you are strongly encouraged to quit. Please call [facility] at [phone] or [phone] ([phone]) or log in to [email or web address] for referrals to smoking cessation programs. ?? 046 Suicide & Crisis Lifeline is available 17/01 if you or someone you know needs to find a reason to keep living. By calling 553 you'll be connected to a skilled, trained counselor at a crisis center in your area. INPATIENT DISCHARGE INSTRUCTIONS SIGNATURE MAGALY SANCHEZ Location:[facility] Registration Date and Time:10/21/2023 18:42 EDT Primary Care Physician: Not on Staff, PCP Attending Physician: Katelin Bolton MD, Farzana, MAGALY OLIVARES, have received the above patient education materials/instructions and have verbalized understanding. If ambulance or transport services are being used I further acknowledge being given a choice of service. ?? If you need to contact me, please call me at this number: . Patient/Chair Upholsterer Name: Patient/Chair Upholsterer Signature: Relationship to Patient: Witness Name/Signature: Date: * Farzana Luu MD: PERFORM, SIGN, VERIFY Event Display: Patient Education Handout Authored Date: Patient Care team information Care Team Personnel Name: Not on Staff, PCP Position: [facility] Physician (General Medicine) Member Role: PCP Name: Edna Morgan Position: S RN Member Role: Primary Care Nurse Name: Wilmer Buckley RN Position: S RN Member Role: Primary Care Nurse Care Team Related Persons Name: PASQUALE HELMS Name: GENESIS HELMS Address: [address] [address]
[2023-12-02 15:19] VITALS: BP 102/62; PULSE 65; O2SAT 98; BMI 25.7
--- NOTE | 2023-12-02 15:19 | A.OFFPC_ITS ---
Vital Signs 12/02/23 15:19 Height 4 ft 10 in Weight 123 lb BMI 25.7 BP 102/62 Blood Pressure Location Lt brachial Position Sitting Pulse 65 Pulse Source Pulse Oximeter Pulse Oximetry (%) 98 Oxygen Delivery Method Room Air Intake Visit Reasons: [facility] Financial Planner Required: Yes Fabrication Manager: Not Required per policy Accompanied by: Self / Same As Patient Allergies azithromycin Allergy (Severe, Verified 12/02/23 15:19) Angioedema ibuprofen Allergy (Unknown, Verified 12/02/23 15:19) unknown Sulfacetamide Sod-Pred Allergy (Mild, Uncoded 12/02/23 15:19) Unknown Tobacco use date assessed: 09/20/23 Dental Screening Dental Screen Date: 07/27/23 HPI HPI Comments History of Present Illness Details 53 y/o female patient presents for HDF. Pt is deaf and requires sign language. Pt accompanied by a manager intensive care. Pt was admitted at [facility]. DOS: 10/21/23 and DOD: 10/26/23. Admission diagnosis: Dyspnea and SOB. Today Pt reports feeling much better and continues using her inhaler medications. She has a scheduled appointment with Pulmonology 01/09/24. No concerns today. [facility] Medical History (Updated 12/02/23 @ 16:09 by Concha Madrigal NP) Ludwigs angina COVID ACS (acute coronary syndrome) Pruritus Generalized anxiety disorder Scabies SOB (shortness of breath) Vitamin D deficiency Dysphagia Elevated blood sugar Deaf Vitamin B 12 deficiency Hypercholesterolemia Hypothyroid Anxiety and depression Constipation Asthma Surgical History History of heart surgery Family History Mother CAD (coronary artery disease) Hypertension Brother CAD (coronary artery disease) Social History Household Members: Family Household Members Other:: Mother & Brother Housing: House Housing Other:: 2 family Do you presently have visiting nurse or other home services: Yes Alcohol intake: never Patient Tobacco Use Status: Never used Tobacco e-Cigarette/Vaping Use: Never Used Second Hand Smoke Exposure: No service: No Current occupational status: unemployed Cognitive needs: No Hearing needs: No Vision needs: Yes (glasses) Questionnaire Thrive Questionnaire Date Thrive assessed: 07/27/23 LOI-7 AMB Questionnaire LOI-7 Date LOI - 7 assessed: 07/27/23 Source: Developed by Drs. Dieter Butcher, Zenaida White, Toi Wynne and colleagues, with an educational kareem from [employer]. Review of Systems Const All systems reviewed & are unremarkable except as noted in HPI and below Physical exam (Primary Care) Vital Signs: Last Vital Signs Pulse 65 12/02/23 15:19 BP 102/62 12/02/23 15:19 Pulse Ox 98 12/02/23 15:19 Oxygen Delivery Method Room Air 12/02/23 15:19 BMI result Body Mass Index 25.7 Tobacco/Smoking Status: Tobacco use Status Tobacco use date assessed 09/20/23 12/02/23 15:24 Patient Tobacco Use Status Never used Tobacco 12/02/23 15:24 e-Cigarette/Vaping Use Never Used 12/02/23 15:24 Thrive Assessment: Date of Thrive Assessment Date Thrive assessed 07/27/23 12/02/23 15:24 Const General: comfortable and no acute distress Orientation/consciousness: patient oriented x3 Resp Auscultation: no crackles, no rales, no rhonchi and wheezes expiratory wheezes and scattered wheezes Cardio Rate: regular rate Rhythm: regular rhythm Neuro General: patient oriented x3, gait normal and moves all extremities Psych Speech and movement: Other speech and movement exam findings present (Psych) (Pt non-verbal and Deaf) Affect: normal affect Vital Signs: Last Vital Signs Pulse 65 12/02/23 15:19 BP 102/62 12/02/23 15:19 Pulse Ox 98 12/02/23 15:19 Oxygen Delivery Method Room Air 12/02/23 15:19 BMI result Body Mass Index 25.7 Const General: comfortable and no acute distress Orientation/consciousness: patient oriented x3 Resp Auscultation: no crackles, no rales, no rhonchi and wheezes expiratory wheezes and scattered wheezes Cardio Rate: regular rate Rhythm: regular rhythm Neuro General: patient oriented x3, gait normal and moves all extremities Psych Speech and movement: Other speech and movement exam findings present (Psych) (Pt non-verbal and Deaf) Affect: normal affect Assessment and Plan Assessment & Plan (1) Acute respiratory failure with hypoxia: Comment: Currently being managed [facility] - Dr. Robert Carballo. Scheduled f/u appointment 01/17/24. Code(s): J96.01 - Acute respiratory failure with hypoxia Plan: Continue on prescribed medications as scheduled F/U with PCP as scheduled on 01/09/24 Coding Level of Care Code Est Pt Level 4 (13976) Diagnoses Acute respiratory failure with hypoxia J96.01 Comment Spent 20 minutes reviewing Hospital documents and imaging.
== END 2023-12-02 15:57 | disposition home or self-care (01) ==
PROVIDERS: PCP Internal Medicine; Visit Provider Nurse Practitioner Family
DX: J96.01 Acute respiratory failure with hypoxia (principal)
CPT/HCPCS: 99214

== ENCOUNTER 2024-01-09 14:26 | Outpatient (AMB) | payer MEDICARE, MEDICAID, SELFPAY ==
[2024-01-09 14:34] VITALS: BP 138/78; PULSE 74; O2SAT 85; BMI 25.9
--- NOTE | 2024-01-09 14:34 | A.OFFPC_ITS ---
Vital Signs 01/09/24 14:34 Height 4 ft 10 in Weight 124 lb BMI 25.9 BP 138/78 Blood Pressure Location Lt brachial Position Sitting Pulse 74 Pulse Source Pulse Oximeter Pulse Oximetry (%) 85 L Oxygen Delivery Method Room Air Intake Visit Reasons: Diabetes mellitus Creel Selector Required: No Allergies azithromycin Allergy (Severe, Verified 01/09/24 14:35) Angioedema ibuprofen Allergy (Unknown, Verified 01/09/24 14:35) unknown Sulfacetamide Sod-Pred Allergy (Mild, Uncoded 01/09/24 14:35) Unknown Tobacco use date assessed: 09/20/23 Dental Screening Dental Screen Date: 07/27/23 HPI Diabetes mellitus HPI Details 53-year-old female with multiple medical problems generalized anxiety disorder with hypoxemia hypothyroidism hypercholesterolemia coronary artery disease diabetes mellitus asthma coming in for follow-up last seen in 09/14/2023 declined colonoscopy mammogram is up-to-date. Review of the notes ER visit in 10/15/2023 shortness of breath. Diagnosis of respiratory failure with hypoxia seeing pulmonary. Patient does have a pending sleep study. Diagnosis idiopathic sleep-related nonobstructive hypoventilation chronic hypercapnic respiratory failure video PAtient comes in with oxygen on 1.5 L [facility] Medical History (Updated 01/09/24 @ 16:20 by Dafne Hawkins MD) Ludwigs angina COVID ACS (acute coronary syndrome) Pruritus Generalized anxiety disorder Scabies SOB (shortness of breath) Vitamin D deficiency Dysphagia Elevated blood sugar Deaf Vitamin B 12 deficiency Hypercholesterolemia Hypothyroid Anxiety and depression Constipation Asthma Surgical History History of heart surgery Family History Mother CAD (coronary artery disease) Hypertension Brother CAD (coronary artery disease) Social History Household Members: Family Household Members Other:: Mother & Brother Housing: House Housing Other:: 2 family Do you presently have visiting nurse or other home services: Yes Alcohol intake: never Patient Tobacco Use Status: Never used Tobacco e-Cigarette/Vaping Use: Never Used Second Hand Smoke Exposure: No service: No Current occupational status: unemployed Cognitive needs: No Hearing needs: No Vision needs: Yes (glasses) Questionnaire Thrive Questionnaire Date Thrive assessed: 07/27/23 AUDIT C Alcohol Use Questionnaire (AUDIT-C) 1. How often do you have a drink containing alcohol?: Never 3. How often do you have six or more drinks on one occasion?: Never Total Score: 0 LOI-7 AMB Questionnaire LOI-7 Date LOI - 7 assessed: 07/27/23 Source: Developed by Drs. Dieter Butcher, Zenaida White, Toi Wynne and colleagues, with an educational kareem from [employer]. Physical exam (Primary Care) Vital Signs: Last Vital Signs Pulse 74 01/09/24 14:34 BP 138/78 01/09/24 14:34 Pulse Ox 85 L 01/09/24 14:34 Oxygen Delivery Method Room Air 01/09/24 14:34 BMI result Body Mass Index 25.9 Tobacco/Smoking Status: Tobacco use Status Tobacco use date assessed 09/20/23 01/09/24 14:35 Patient Tobacco Use Status Never used Tobacco 01/09/24 14:35 e-Cigarette/Vaping Use Never Used 01/09/24 14:35 Thrive Assessment: Date of Thrive Assessment Date Thrive assessed 07/27/23 01/09/24 14:35 Const General: alert; No acute distress Eyes Conjunctivae: conjunctivae normal Resp Auscultation: clear to auscultation bilaterally Cardio Rate: regular rate Rhythm: regular rhythm GI Inspection: Yes normal to inspection Extrem General: Yes normal to inspection and No edema Results AMB Hemoglobin A1c AMB Hemoglobin A1c 6.2 % Last Edit by PAULA Guan on 01/09/24 16:06 Results Reviewed Results Reviewed: Laboratory Last Values Hgb A1c (Clinic) 6.2 % (4.0-6.0) H 01/09/24 13:49 Assessment and Plan Assessment & Plan (1) Nocturnal hypoxemia: Code(s): G47.34 - Idiopathic sleep related nonobstructive alveolar hypoventilation Plan: Patient is presently being worked up by Pulmonary (2) Type 2 diabetes mellitus with hyperglycemia: Code(s): E11.65 - Type 2 diabetes mellitus with hyperglycemia Plan: Decrease the amount of carbohydrate intake, pasta, bread, rice and potatoes are all sugar and that is aside from all the sweet stuff, remember that fruits are good but they are Sweet also. Hemoglobin A1c goal of less than 6.5 patient is on metformin 1000 mg twice a day (3) Asthma: Code(s): J45.909 - Unspecified asthma, uncomplicated Qualifiers: Asthma severity: mild Asthma persistence: intermittent Asthma complication type: with acute exacerbation Qualified Code(s): J45.21 - Mild intermittent asthma with (acute) exacerbation Plan: Continue with the inhalers and workup under pulmonary (4) CAD (coronary artery disease): Code(s): I25.10 - Atherosclerotic heart disease of [place] coronary artery without angina pectoris Plan: Control the cholesterol, weight, blood pressure, diabetes (5) Hypothyroid: Code(s): E03.9 - Hypothyroidism, unspecified Qualifiers: Hypothyroidism type: acquired Qualified Code(s): E03.9 - Hypothyroidism, unspecified Plan: Continue with thyroid medication (6) Hypercholesterolemia: Code(s): E78.00 - Pure hypercholesterolemia, unspecified Plan: Avoid fried foods, chicken skin, eggs, butter margarine, pastries and meat. Be it pork or beef they have a lot of cholesterol LDL goal of less than 70 and triglyceride of less than 150 on simvastatin 20 mg (7) Generalized anxiety disorder: Comment: Donita in [place] (05/2020_ Code(s): F41.1 - Generalized anxiety disorder Plan: Continue with counseling and therapy (8) Urinary incontinence: Code(s): R32 - Unspecified urinary incontinence (9) Rectal incontinence: Code(s): R15.9 - Full incontinence of feces Orders: Orders Free T4 (Free Thyroxine) Today R15.9 - Full incontinence of feces Creatinine Urine Today E11.65 - Type 2 diabetes mellitus with hyperglycemia, R15.9 - Full incontinence of feces Microalbumin, Random (w Creat) Today E11.65 - Type 2 diabetes mellitus with hyperglycemia, R15.9 - Full incontinence of feces AMB Hemoglobin A1c Today E11.65 - Type 2 diabetes mellitus with hyperglycemia Thyroid Stimulating Hormone Today R15.9 - Full incontinence of feces Referrals Urology Referral R32 - Unspecified urinary incontinence Gastroenterology Referral R15.9 - Full incontinence of feces Medications: New Oxygen Home Use As directed keep sats > 90 1 ea 0RF G47.34 - Idiopathic sleep related nonobstructive alveolar hypoventilation, J96.12 - Chronic respiratory failure with hypercapnia Coding Level of Care Code Est Pt Level 4 (95579) Diagnoses Nocturnal hypoxemia G47.34 Type 2 diabetes mellitus with hyperglycemia E11.65 Mild intermittent asthma with acute exacerbation J45.21 Asthma severity: mild Asthma persistence: intermittent Asthma complication type: with acute exacerbation CAD (coronary artery disease) I25.10 Acquired hypothyroidism E03.9 Hypothyroidism type: acquired Hypercholesterolemia E78.00 Generalized anxiety disorder F41.1 Urinary incontinence R32 Rectal incontinence R15.9
== END 2024-01-09 16:35 | disposition home or self-care (01) ==
PROVIDERS: PCP Internal Medicine; Visit Provider Internal Medicine
DX: G47.34 Idiopathic sleep related nonobstructive alveolar hypoventilation (principal); E11.65 Type 2 diabetes mellitus with hyperglycemia; J45.21 Mild intermittent asthma with (acute) exacerbation; I25.10 Atherosclerotic heart disease of native coronary artery without angina pectoris; E03.9 Hypothyroidism, unspecified; E78.00 Pure hypercholesterolemia, unspecified; F41.1 Generalized anxiety disorder; R32 Unspecified urinary incontinence; R15.9 Full incontinence of feces
CPT/HCPCS: 83036; 99214

== ENCOUNTER → 2024-01-13 19:30 | Outpatient (REF) | payer MEDICARE, MEDICAID, SELFPAY | LOC: HO.SL 19:30 | PROVIDERS: PCP Internal Medicine; Visit Provider Internal Medicine Pulmonary Disease | DX: G47.33 Obstructive sleep apnea (adult) (pediatric) (principal) | CPT/HCPCS: 95810 ==

== ENCOUNTER 2024-01-17 13:52 | Outpatient (AMB) | payer MEDICARE, MEDICAID, SELFPAY ==
[2024-01-17 13:55] VITALS: BP 132/70; PULSE 89; O2SAT 87; BMI 26.5
--- NOTE | 2024-01-17 13:55 | A.OFFVIS_ITS ---
Vital Signs 01/17/24 13:55 Height 4 ft 10 in Weight 126 lb 12.253 oz BMI 26.5 BP 132/70 Blood Pressure Location Rt brachial Position Sitting Pulse 89 Pulse Source Doppler Pulse Oximetry (%) 87 L Oxygen Delivery Method Room Air Intake Visit Reasons: DYSPNEA Barrel Brander Required: Yes Barrel Brander Name: Desiree Allan Allergies azithromycin Allergy (Severe, Verified 01/17/24 14:02) Angioedema ibuprofen Allergy (Unknown, Verified 01/17/24 14:02) unknown Sulfacetamide Sod-Pred Allergy (Mild, Uncoded 01/09/24 14:35) Unknown HPI HPI DYSPNEA: Details: 52-year-old lady with underlying muteness/deafness, asthma, CAD with prior ACS, with admission to [facility] in October of 2022 for upper airway edema, also noted to have chronic hypercapnia and started on BiPAP support. Patient was unable to perform pulmonary function test. Patient was able to complete her titration sleep study that showed that she requires BiPAP / with 4 L of supplemental oxygen. Updated BiPAP order placed. [facility] Medical History (Updated 01/09/24 @ 16:20 by Dafne Hawkins MD) Ludwigs angina COVID ACS (acute coronary syndrome) Pruritus Generalized anxiety disorder Scabies SOB (shortness of breath) Vitamin D deficiency Dysphagia Elevated blood sugar Deaf Vitamin B 12 deficiency Hypercholesterolemia Hypothyroid Anxiety and depression Constipation Asthma Surgical History History of heart surgery Family History Mother CAD (coronary artery disease) Hypertension Brother CAD (coronary artery disease) Social History Household Members: Family Household Members Other:: Mother & Brother Housing: House Housing Other:: 2 family Do you presently have visiting nurse or other home services: Yes Alcohol intake: never Patient Tobacco Use Status: Never used Tobacco e-Cigarette/Vaping Use: Never Used Second Hand Smoke Exposure: No service: No Current occupational status: unemployed Cognitive needs: No Hearing needs: No Vision needs: Yes (glasses) Review of Systems Const Denies daytime sleepiness, Denies excessive sweating, Denies fatigue, Denies fever(s), Denies lethargy, Denies malaise, Denies night sweats, Denies snoring and Denies weight loss Eyes Denies blurry vision and Denies itchy eyes ENT Denies nasal congestion, Denies post nasal drip, Denies sinus pain, Denies sinus pressure and Denies other ( Thrush) Card Denies chest pain, Denies pedal edema, Denies dyspnea, Denies orthopnea and Denies paroxysmal nocturnal dyspnea Resp Denies cough, Denies hemoptysis, Denies excessive phlegm production, Denies dyspnea, Denies snoring and Denies wheezing GI Denies abdominal pain and Denies heartburn Musc Denies myalgias, Denies arthralgias and Denies joint swelling Skin/Breast Denies rash Neuro Denies memory loss and Denies seizure-like activity Psych Denies abnormal sleep pattern, Denies anxiety and Denies memory loss Endo Denies excessive sweating, Denies fatigue and Denies heat intolerance Lobo/Lymph Denies easy bruising Aller/Immun Denies itchy eyes, Denies seasonal rhinorrhea and Denies wheezing Physical Exam Vital Signs: Last Vital Signs Pulse 89 01/17/24 13:55 BP 132/70 01/17/24 13:55 Pulse Ox 87 L 01/17/24 13:55 Oxygen Delivery Method Room Air 01/17/24 13:55 BMI result Body Mass Index 26.5 Const General: no acute distress and alert Nutritional Appearance: not obese Orientation/consciousness: Other orientation findings ( oriented) HEENT Head: Yes atraumatic Eyes General: appearance normal, both eyes and all related structures Sclerae: sclerae normal EOM: EOMs intact bilaterally Neck Neck: Yes supple Lymphatic: no lymphadenopathy noted Resp Effort & Inspection: normal respiratory effort and no use of accessory muscles Auscultation: clear to auscultation bilaterally Cardio Rate: regular rate Rhythm: regular rhythm Heart sounds: no gallops, no murmurs and no rubs Skin General skin exam: other ( warm) Extrem General: No clubbing, No cyanosis and No edema Assessment & Plan Assessment & Plan (1) Nocturnal hypoxemia: Code(s): G47.34 - Idiopathic sleep related nonobstructive alveolar hypoventilation Category: Medical (2) Chronic hypercapnic respiratory failure: Code(s): J96.12 - Chronic respiratory failure with hypercapnia Category: Medical (3) Obstructive sleep apnea: Code(s): G47.33 - Obstructive sleep apnea (adult) (pediatric) Category: Medical Plan Results of titration study reviewed. Patient with significant nocturnal hypoxemia and CO2 retention requiring BiPAP support 14/06 with 4 L of supplemental oxygen. Updated order placed with [facility]. Coding Level of Care Code Est Pt Level 4 (01029) Diagnoses Nocturnal hypoxemia G47.34 Chronic hypercapnic respiratory failure J96.12 Obstructive sleep apnea G47.33
== END 2024-01-17 15:52 | disposition home or self-care (01) ==
PROVIDERS: PCP Internal Medicine; Visit Provider Internal Medicine Pulmonary Disease
DX: G47.34 Idiopathic sleep related nonobstructive alveolar hypoventilation (principal); J96.12 Chronic respiratory failure with hypercapnia; G47.33 Obstructive sleep apnea (adult) (pediatric)
CPT/HCPCS: 99214

== ENCOUNTER → 2024-01-17 13:52 | Outpatient (BNVA) | payer MEDICARE, MEDICAID, SELFPAY | PROVIDERS: PCP Internal Medicine; Visit Provider Internal Medicine Pulmonary Disease | DX: G47.34 Idiopathic sleep related nonobstructive alveolar hypoventilation (principal); G47.33 Obstructive sleep apnea (adult) (pediatric); J96.12 Chronic respiratory failure with hypercapnia | CPT/HCPCS: 99212 ==

== ENCOUNTER 2024-02-14 11:57 | Outpatient (REF) | payer MEDICARE, MEDICAID, SELFPAY ==
[2024-02-14 12:21] LABS: MANUAL DIFF FLAG NO
[2024-02-14 12:45] LABS: Basophils Absolute Auto 0.1 X10*3/uL (0.0-0.2); Basophils Percent Auto 0.6 % (0-2); Eosinophils Absolute Auto 0.1 X10*3/uL (0.0-0.4); Eosinophils Percent Auto 1.1 % (0-4); Hematocrit 36.6 % (37.0-47.0); Hemoglobin 12.3 g/dl (12.0-16.0); Imm Gran Abs Auto 0.03 X10*3/uL (0.00-0.03); Imm Gran Pct Auto 0.4 % (0.0-0.4); Lymphocytes Absolute Auto 1.6 X10*3/uL (1.2-4.9); Lymphocytes Percent Auto 18.5 % (20-40); Mean Corpuscular HGB Conc 33.6 g/dl (31.0-35.0); Mean Corpuscular Hemoglobin 31.5 pg (27.0-33.0); Mean Corpuscular Volume 93.8 fL (80.0-98.0); Mean Platelet Volume 9.8 fL (9.4-12.3); Monocytes Absolute Auto 0.4 X10*3/uL (0.1-1.2); Monocytes Percent Auto 4.9 % (2-11); Neutrophils Absolute Auto 6.2 x10*3/uL (2.0-8.3); Neutrophils Percent Auto 74.5 % (45-73); Platelet Count 268 X10*3/uL (160-400); Red Cell Distribution Width 12.1 % (11.0-16.0); White Blood Count 8.4 X10*3/uL (4.8-10.8)
[2024-02-14 13:17] LABS: Alanine Aminotransferase 9 U/L (0-31); Alkaline Phosphatase 41 U/L (39-117); Anion Gap 15 (12-20); Aspartate Amino Transferase 22 U/L (5-31); Bilirubin Total 0.3 mg/dL (0.0-1.0); Blood Urea Nitrogen 15 mg/dL (9-16); Calcium 10.4 mg/dL (8.4-10.2); Carbon Dioxide 38 mmol/L (22-29); Chloride 89 mmol/L (96-108); Cholesterol 174 mg/dL (<200); Estimated Glomerular Filt Rate > 60; Glucose Random 131 mg/dL (60-115); HDL Cholesterol 58 mg/dL (>40); LDL Cholesterol Calculated 89 mg/dL (<100); Potassium 4.2 mmol/L (3.3-5.1); Sodium 138 mmol/L (135-145); Triglycerides 139 mg/dL (<150)
[2024-02-14 13:40] LABS: Free T4 (Free Thyroxine) < 0.42 ng/dL (0.71-1.85); Thyroid Stimulating Hormone 20.56 uIU/mL (0.32-4.0)
== END 2024-02-14 11:58 | disposition home or self-care (01) ==
LOC: HO.LAB 11:57
PROVIDERS: PCP Internal Medicine; Visit Provider Internal Medicine
DX: R15.9 Full incontinence of feces (principal); R73.01 Impaired fasting glucose; E78.00 Pure hypercholesterolemia, unspecified
CPT/HCPCS: 36415; 80053; 80061; 84439; 84443; 85025

== ENCOUNTER 2024-06-18 11:16 | Outpatient (AMB) | payer MEDICARE, MEDICAID, SELFPAY ==
[2024-06-18 11:17] VITALS: BP 130/68; PULSE 90; O2SAT 96; BMI 24.9
--- NOTE | 2024-06-18 11:17 | MHC.PC.OV ---
Vital Signs 06/18/24 11:17 Height 4 ft 10 in Weight 119 lb BMI 24.9 BP 130/68 Blood Pressure Location Lt brachial Position Sitting Pulse 90 Pulse Source Pulse Oximeter Pulse Oximetry (%) 96 Oxygen Delivery Method Room Air Intake Visit Reasons: follow up Allergies azithromycin Allergy (Severe, Verified 06/18/24 11:17) Angioedema ibuprofen Allergy (Unknown, Verified 06/18/24 11:17) unknown Sulfacetamide Sod-Pred Allergy (Mild, Uncoded 06/18/24 11:17) Unknown Tobacco use date assessed: 06/18/24 Dental Screening Dental Screen Date: 07/27/23 HPI follow up HPI Details The patient is a 53-year-old female presenting for management of sleep apnea and discussion of referral to a customer service and sales consultant. The patient has been using a CPAP machine at night for sleep apnea and reports some difficulty and discomfort with its use. She uses oxygen at night but has recently discontinued this. There is no indication of tobacco use, and she has managed her breathing issues without additional interventions. Additionally, there seems to be confusion regarding her referral to a different retail beauty specialist recommended by the house painter helper. The patient has previously been seen for her lung condition in this facility. There is also a discussion about her receipt of the influenza vaccine, which she initially declined but later agreed to receive. Her concerns also included understanding the referral process and the continued management of her sleep apnea. [facility] Medical History (Updated 04/17/24 @ 17:38 by Dafne Hawkins MD) Pneumonia Asthma Ludwigs angina COVID ACS (acute coronary syndrome) Pruritus Generalized anxiety disorder Scabies SOB (shortness of breath) Vitamin D deficiency Dysphagia Elevated blood sugar [place] Vitamin B 12 deficiency Hypercholesterolemia Hypothyroid Anxiety and depression Constipation Surgical History History of heart surgery Family History Mother CAD (coronary artery disease) Hypertension Brother CAD (coronary artery disease) Social History Household Members: Family Household Members Other:: Mother & Brother Housing: House Housing Other:: 2 family Do you presently have visiting nurse or other home services: Yes Alcohol intake: never Patient Tobacco Use Status: Never used Tobacco Tobacco use type: Cigarette e-Cigarette/Vaping Use: Never Used Second Hand Smoke Exposure: No service: No Current occupational status: unemployed Cognitive needs: No Hearing needs: No Vision needs: Yes (glasses) Questionnaire PHQ-9 Over the last 2 weeks, how often have you been bothered by any of the following problems? 1. Little interest or pleasure in doing things: not at all 2. Feeling down, depressed, or hopeless: not at all 3. Trouble falling or staying asleep, or sleeping too much: not at all 4. Feeling tired or having little energy: not at all 5. Poor appetite or overeating: not at all 6. Feeling bad about yourself - or that you are a failure or have let yourself or your family down: not at all 7. Trouble concentrating on things, such as reading the newspaper or watching television: not at all 8. Moving or speaking so slowly that other people could have noticed. Or the opposite - being so fidgety or restless that you have been moving around a lot more than usual: not at all 9. Thoughts that you would be better off or of hurting yourself in some way: not at all Total score: 0 Depression Screening Interpretation: Negative Depression Screening Done: Yes Source: Developed by Drs. Dieter Butcher, Toi Dale and colleagues, with an educational kareem from [employer]. Thrive Questionnaire Date Thrive assessed: 07/27/23 AUDIT C Alcohol Use Questionnaire (AUDIT-C) 1. How often do you have a drink containing alcohol?: Never 3. How often do you have six or more drinks on one occasion?: Never Total Score: 0 LOI-7 AMB Questionnaire LOI-7 Date LOI - 7 assessed: 07/27/23 Source: Developed by Drs. Dieter Butcher, Toi Dale and colleagues, with an educational kareem from [employer]. Physical exam (Primary Care) Vital Signs: Last Vital Signs Pulse 90 06/18/24 11:17 BP 130/68 06/18/24 11:17 Pulse Ox 96 06/18/24 11:17 Oxygen Delivery Method Room Air 06/18/24 11:17 BMI result Body Mass Index 24.9 Tobacco/Smoking Status: Tobacco use Status Tobacco use date assessed 06/18/24 06/18/24 11:18 Patient Tobacco Use Status Never used Tobacco 06/18/24 11:18 Tobacco use type Cigarette 06/18/24 11:18 e-Cigarette/Vaping Use Never Used 06/18/24 11:18 PHQ-9: PHQ-9 Score PHQ-9: Total score 0 06/18/24 11:35 Depression Screening Interpretation: Negative Thrive Assessment: Date of Thrive Assessment Date Thrive assessed 07/27/23 06/18/24 11:18 Const General: alert; No acute distress Eyes Conjunctivae: conjunctivae normal Resp Auscultation: clear to auscultation bilaterally Cardio Rate: regular rate Rhythm: regular rhythm GI Inspection: Yes normal to inspection Extrem General: Yes normal to inspection and No edema Office Procedures Flu Questionnaire Does the patient have a severe egg allergy?: No Does the patient have severe life threatening allergies?: No Does the patient have a fever or illness today?: No Has the patient ever had Guillain-[place] Syndrome?: No Has the patient ever had any past reaction to a flu shot?: No Results AMB Hemoglobin A1c AMB Hemoglobin A1c 5.8 % Last Edit by Kiley Batista CMA on 06/18/24 11:32 Immunizations Fluarix Triv [id number] (PF) 45 mcg (15 mcg x 3)/0.5 mL IM syringe Performing Provider: Dafne Hawkins MD [facility] Administered by: Kiley Batista CMA on 06/18/24 11:54 Dose Route Admin Location Dispensed Lot Number Expiration Date [facility] Webbing Inspector 0.5 mL IM Left Deltoid 0.5 mL [id number] 12/24/24 [id number] ClientShow VIS Given Date VIS Provided VIS Publication Date 06/18/24 Single Vaccine 21 Eligibility Eligibility Date Funding Source Not [facility] Eligible 06/18/24 Private Results Reviewed Results Reviewed: Laboratory Last Values Hgb A1c (Clinic) 5.8 % (4.0-6.0) 06/18/24 11:18 Coding Level of Care Code Est Pt Level 4 (17165) Complex EM visit Add On G2211 Diagnoses Moderate persistent asthma J45.40 Nocturnal hypoxemia G47.34 Type 2 diabetes mellitus with hyperglycemia E11.65 Obstructive sleep apnea G47.33 Acute respiratory failure with hypoxia J96.01 Acquired hypothyroidism E03.9 Hypothyroidism type: acquired Hypercholesterolemia E78.00 Generalized anxiety disorder F41.1 Assessment & Plan Assessment & Plan (1) Moderate persistent asthma: Code(s): J45.40 - Moderate persistent asthma, uncomplicated Category: Medical Plan: Continuing with Breo Spiriva and albuterol inhaler continue to follow-up with Pulmonary (2) Nocturnal hypoxemia: Code(s): G47.34 - Idiopathic sleep related nonobstructive alveolar hypoventilation Category: Medical Plan: Continue to use the oxygen at night (3) Type 2 diabetes mellitus with hyperglycemia: Code(s): E11.65 - Type 2 diabetes mellitus with hyperglycemia Category: Medical Plan: Decrease the amount of carbohydrate intake, pasta, bread, rice and potatoes are all sugar and that is aside from all the sweet stuff, remember that fruits are good but they are Sweet also. Patient has metformin a 1000 mg twice a day. (4) Obstructive sleep apnea: Code(s): G47.33 - Obstructive sleep apnea (adult) (pediatric) Category: Medical Plan: Continue to use the BiPAP as recommended by Pulmonary (5) Acute respiratory failure with hypoxia: Comment: Currently being managed by [facility] Pulmonology - Dr. Robert Carballo. Scheduled f/u appointment 01/17/24. Code(s): J96.01 - Acute respiratory failure with hypoxia Category: Medical Plan: Continue to follow-up with Pulmonary (6) Hypothyroid: Code(s): E03.9 - Hypothyroidism, unspecified Category: Medical Qualifiers: Hypothyroidism type: acquired Qualified Code(s): E03.9 - Hypothyroidism, unspecified Plan: Discussed importance of taking the thyroid medication by itself and retesting the blood work. Patient did not go for the blood work and is explained the importance. (7) Hypercholesterolemia: Code(s): E78.00 - Pure hypercholesterolemia, unspecified Category: Medical Plan: Avoid fried foods, chicken skin, eggs, butter margarine, pastries and meat. Be it pork or beef they have a lot of cholesterol LDL goal of less than 70 and triglyceride of less than 150 on simvastatin 20 mg once a day (8) Generalized anxiety disorder: Comment: Donita in [place] (05/2020_ Code(s): F41.1 - Generalized anxiety disorder Category: Medical Plan: Continue with present medication and counseling. Plan - Administer the influenza vaccination during today's visit as the patient has consented. - Facilitate communication with the house painter helper and confirm referral details to the [facility] customer service and sales consultant, as there is some confusion noted by the patient. - Continue current management of sleep apnea with emphasis on CPAP usage nightly to ensure proper airway ventilation. Advise on methods to improve compliance with CPAP usage. - Discuss with the patient the importance of regular monitoring and follow-up for sleep apnea to prevent further complications. - Given the history and patient's expressed concerns, consider potential follow-up visits to monitor the effectiveness of the CPAP therapy and address any additional problems related to sleep apnea. Orders: Orders AMB Hemoglobin A1c Today Z13.9 - Encounter for screening, unspecified
== END 2024-06-18 12:00 | disposition home or self-care (01) ==
PROVIDERS: PCP Internal Medicine; Visit Provider Internal Medicine
DX: E11.65 Type 2 diabetes mellitus with hyperglycemia (principal); J96.01 Acute respiratory failure with hypoxia; J45.40 Moderate persistent asthma, uncomplicated; G47.34 Idiopathic sleep related nonobstructive alveolar hypoventilation; G47.33 Obstructive sleep apnea (adult) (pediatric); E03.9 Hypothyroidism, unspecified; E78.00 Pure hypercholesterolemia, unspecified; F41.1 Generalized anxiety disorder; Z23 Encounter for immunization

== ENCOUNTER → 2024-06-18 11:16 | Outpatient (BNVA) | payer MEDICARE, MEDICAID, SELFPAY | PROVIDERS: PCP Internal Medicine; Visit Provider Internal Medicine | DX: Z23 Encounter for immunization (principal); J45.40 Moderate persistent asthma, uncomplicated; E11.65 Type 2 diabetes mellitus with hyperglycemia; G47.34 Idiopathic sleep related nonobstructive alveolar hypoventilation; G47.33 Obstructive sleep apnea (adult) (pediatric); J96.01 Acute respiratory failure with hypoxia; E03.9 Hypothyroidism, unspecified; F41.1 Generalized anxiety disorder | CPT/HCPCS: 83036; 90471; 90656; 96127; 99212 ==

== ENCOUNTER 2024-08-09 13:18 | Emergency (ER) | payer MEDICARE, MEDICAID, SELFPAY ==
--- NOTE | ~2024-08-09 | XR_ITS ---
EXAMINATION: XR CHEST 2 VIEWS HISTORY: congestion, sob COMPARISON: Comparison is made with the prior examination dated 11/16/2022. FINDINGS: PA and lateral views of the chest are submitted. The lungs are expanded and clear. There is no pleural effusion, pneumothorax, or pulmonary vascular congestion. The heart remains enlarged. There are surgical clips in the left hilar region. The bones are intact. XR/XR chest 2V IMPRESSION: Cardiomegaly. No acute cardiopulmonary abnormality. Electronically signed by: Dieter Fish MD 08/09/2024 03:51 PM EST
--- NOTE | 2024-08-09 13:37 | ED_ITS ---
HPI - URI/Sore Throat General Chief Complaint: Dyspnea Stated Complaint: FLU-LIKE X 1 WEEK Time Seen by Provider: 08/09/24 13:36 Source: patient, EMS, RN notes reviewed and old records reviewed Mode of arrival: EMS History of Present Illness ED Provider: Sarah Zuluaga PA-C HPI Narrative: 53-year-old female with a past medical history of asthma, diabetes, urinary incontinence, SERGEY, anemia, CAD, HLD, hypothyroid, baseline deafness, nonverbal, on 2L NC at baseline, presenting to the ED via EMS complaining of congestion, SOB, and diarrhea x few weeks. Mother concerned about patient's increasing generalized fatigue/weakness and lethargy. No reported falls/head trauma. Patient denies CP, cough, abdominal pain, vomiting Related Data Home Medications ?Medication ?Instructions ?Recorded ?Confirmed risperidone 1 mg tablet 1 tab PO BEDTIME 04/17/22 07/27/23 hydroxyzine HCl 50 mg tablet 50 mg PO BEDTIME 11/04/22 07/27/23 Previous Rx's ?Medication ?Instructions ?Recorded tub seat with back #1 ea 11/23/22 citalopram 40 mg tablet 40 mg PO QAM #30 tabs 06/13/23 risperidone 0.5 mg tablet 0.5 mg PO QAM #30 tabs 06/13/23 blood-glucose meter (FreeStyle #1 ea 07/04/23 Lite Meter kit) PULL UPS LArge #100 ea 07/27/23 lancets 28 gauge (FreeStyle #100 ea 08/24/23 Lancets) cetirizine 10 mg tablet 10 mg PO DAILY@1200 #90 tabs 09/06/23 metformin 1,000 mg tablet 1,000 mg PO BIDWMEAL #180 tabs 09/20/23 disposeable bed pads #100 ea 01/02/24 Oxygen Home Use #1 ea 01/09/24 incontinent wipes #100 ea 01/13/24 docusate sodium 100 mg capsule 100 mg PO BID #180 caps 01/24/24 cyanocobalamin (vitamin B-12) 500 500 mcg PO DAILY@1200 #90 tabs 04/25/24 mcg tablet albuterol sulfate 90 mcg/actuation 2 puff inhalation Q2-4H PRN 05/18/24 aerosol inhaler Shortness Of Breath #8.5 grams fluticasone furoate 200 1 ea inhalation DAILY #60 ea 05/18/24 mcg-vilanterol 25 mcg/dose inhalation powder (Breo Ellipta) levothyroxine 112 mcg tablet 112 mcg PO DAILY@0600 #90 tabs 05/25/24 simvastatin 20 mg tablet 20 mg PO DAILY@1800 #90 tabs 05/25/24 blood sugar diagnostic (FreeStyle #100 ea 06/14/24 Lite Strips) cholecalciferol (vitamin D3) 50 50 mcg PO QAM #30 caps 07/11/24 mcg (2,000 unit) capsule (Vitamin D3) folic acid 400 mcg tablet 0.4 mg PO DAILY@1200 #90 tabs 07/11/24 Allergies Allergy/AdvReac Type Severity Reaction Status Date / Time azithromycin Allergy Severe Angioedema Verified 08/09/24 13:56 ibuprofen Allergy Unknown unknown Verified 08/09/24 13:56 Sulfacetamide Sod-Pred Allergy Mild Unknown Uncoded 06/18/24 11:17 Review of Systems 2 Review of Systems: Yes all other systems are reviewed and are negative Constitutional: Constitutional: Reports as per [facility] Past Medical History Attestation statement: The following information was validated with the patient. Source: old records reviewed Medical History Pneumonia Asthma Ludwigs angina COVID ACS (acute coronary syndrome) Pruritus Generalized anxiety disorder Scabies SOB (shortness of breath) Vitamin D deficiency Dysphagia Elevated blood sugar Deaf Vitamin B 12 deficiency Hypercholesterolemia Hypothyroid Anxiety and depression Constipation Surgical History History of heart surgery Family History Family History Mother CAD (coronary artery disease) Hypertension Brother CAD (coronary artery disease) Social History Social History Household Members: Family Household Members Other:: Mother & Brother Housing: House Housing Other:: 2 family Do you presently have visiting nurse or other home services: Yes Alcohol intake: never Patient Tobacco Use Status: Never used Tobacco Tobacco use type: Cigarette Smoked in Last 30 Days: No e-Cigarette/Vaping Use: Never Used Second Hand Smoke Exposure: No Use of substances other than those prescribed or required for medical reasons: No Advance Directives: No Advance Directives Information Provided: Yes service: No Current occupational status: unemployed Cognitive needs: No Hearing needs: No Vision needs: Yes (glasses) Physical Exam 2 Vital Signs: Vital Signs: Last Vital Signs Temp 97.7 F 08/09/24 16:00 Pulse 85 08/09/24 16:00 Resp 18 08/09/24 16:00 BP 172/85 H 08/09/24 16:00 Pulse Ox 97 08/09/24 16:00 O2 Del Method Nasal Cannula 08/09/24 16:00 O2 Flow Rate 2 08/09/24 16:00 Oxygen Flow Rate 4 08/09/24 13:53 BMI result Body Mass Index 25.3 Const: General: cooperative, healthy appearing and no acute distress O rientation/consciousness: patient oriented x3 Limitations: no limitations HEENT: Head: Yes normal to inspection and Yes atraumatic Ears: hearing grossly normal bilaterally General nose exam: Normal external nose present Face and sinus: Yes normal facial exam Eyes: General: appearance normal, both eyes and all related structures EOM: EOMs intact bilaterally Neck: Neck: Yes normal visual inspection and Yes no meningeal signs Resp: Effort & Inspection: normal respiratory effort and no respiratory distress Auscultation: clear to auscultation bilaterally, no crackles, no rales, no rhonchi and no wheezes Cardio: Rate: regular rate Heart sounds: S1 normal heart sound present and S2 normal heart sound present GI: Inspection: Yes normal to inspection Palpation (GI): Soft to palpation, nontender, no guarding and not rigid : General: Yes no CVA tenderness Back/Spine/Pelvis: Back: no CVA tenderness Skin: Rashes: no rashes Wounds: no wounds Neuro: General: patient oriented x3, tone normal and no meningeal signs C ranial nerves: Yes CN's II-XII intact bilaterally Gait exam (Neuro): Normal gait present Extrem: General: Yes normal to inspection and Yes no pedal edema Course Course Course Narrative: -1624--no leukocytosis. H/H stable. Magnesium low 1.4 > IV repletion ordered -viral testing negative XR chest 2V IMPRESSION: Cardiomegaly. No acute cardiopulmonary abnormality. -troponin elevated to 90.0 > elevated priors however this is more elevated. Patient denies active chest pain, EKG with some ischemic changes when compare to prior, not meeting STEMI criteria >> will obtain 3 hour repeat troponin and repeat EKG at this time. > consulted Cardiology, Dr. Carrillo > reports no acute EKG changes, will obtain repeat troponin in a few hours. -1816--repeat troponin 95.5 > no significant rise, HI unlikely >1856 -on re-evaluation patient reports symptomatic improvement. No reported episodes of diarrhea since ED arrival. Patient got up to use the ED bathroom and was disconnected from her oxygen & never reconnected or placed back on the monitor >> When back on the monitor was noted to be satting in the low 80s > her baseline 2L nasal cannula was reapplied & she is now satting 95%. Patient will require ambulance home as they do not have a portable oxygen tank -1999--magnesium normalize > patient's family now agreeable to go home to get patient's oxygen tank. Once family returns will discharge Results discussed with patient & family including worrisome signs and symptoms and strict return precautions, and when to return to the emergency department. They verbalized understanding and feel safe for discharge at this time. Medications Administered Discontinued Medications Generic Name Dose Route Start Last Admin Trade Name Freq PRN Reason Stop Dose Admin Sodium Chloride 1,000 mls @ 999 mls/hr 08/09/24 14:30 08/09/24 16:34 Ns IV 08/09/24 15:30 Infused .Q1H1M KEVIN Infusion Magnesium Sulfate 2 gm in 50 mls @ 25 mls/hr 08/09/24 16:14 08/09/24 18:41 Magnesium Sulfate/H2o IV 08/09/24 18:13 Infused ONCE ONE Infusion Medical Decision Making Medical Decision Making MDM Narrative: 53-year-old female with a past medical history of asthma, diabetes, urinary incontinence, SERGEY, anemia, CAD, HLD, hypothyroid, baseline deafness, nonverbal, on 2L NC at baseline, presenting to the ED via EMS complaining of congestion, SOB, and diarrhea x few weeks. Mother concerned about patient's increasing generalized fatigue/weakness and lethargy. On exam vital signs stable, NAD, nontoxic appearing, lungs CTA, abdomen soft and nontender. Concern for viral illness vs gastroenteritis vs colitis vs dehydration vs PNA/bronchitis. Lower suspicion for acute ACS/PE or DVT. Unlikely appendicitis/diverticulitis without tenderness on exam Plan: EKG, labs, viral testing, CXR, stool studies, IVF, re-evaluate Please refer to course for remaining clinical decision making, interpretation of labs/imaging results, and discussions with consultants and/or family members. Differential Diagnosis Differential Diagnoses: The differential diagnosis associated with the presentation includes As above Admission/Observation Consideration of admission/observation: Escalation of care including admission/observation considered Lab Data MDM Lab Attestation statement: I reviewed the patient's lab results. 08/09/24 15:27 08/09/24 15:27 Labs: Lab Results 08/09/24 08/09/24 08/09/24 Range/Units 15:11 15:27 17:34 WBC 7.4 (4.8-10.8) X10*3/uL RBC 3.66 L (4.20-5.50) X10*6/uL Hgb 11.0 L (12.0-16.0) g/dl Hct 33.2 L (37.0-47.0) % MCV 90.7 (80.0-98.0) fL MCH 30.1 (27.0-33.0) pg MCHC 33.1 (31.0-35.0) g/dl RDW 13.1 (11.0-16.0) % Plt Count 236 (160-400) X10*3/uL MPV 9.6 (9.4-12.3) fL Immature Gran % (Auto) 0.3 (0.0-0.4) % Neut % (Auto) 76.5 H (45-73) % Lymph % (Auto) 15.9 L (20-40) % [place] % (Auto) 5.3 (2-11) % Eos % (Auto) 1.2 (0-4) % Baso % (Auto) 0.8 (0-2) % Lymph # (Auto) 1.2 (1.2-4.9) X10*3/uL [place] # (Auto) 0.4 (0.1-1.2) X10*3/uL Eos # (Auto) 0.1 (0.0-0.4) X10*3/uL Baso # (Auto) 0.1 (0.0-0.2) X10*3/uL Abs Immat Gran (auto) 0.02 (0.00-0.03) X10*3/uL Absolute Neuts (auto) 5.6 (2.0-8.3) x10*3/uL Absolute Nucleated RBC 0.000 (0.0-0.012) X10*3/uL Nucleated RBC % (auto) 0.0 (0.0-0.2) /100WBC Sodium 136 (135-145) mmol/L Potassium 4.2 (3.3-5.1) mmol/L Chloride 92 L (96-108) mmol/L Carbon Dioxide 37 H (22-29) mmol/L Anion Gap 11 L (12-20) BUN 15 (9-16) mg/dL Creatinine 0.86 (0.5-1.4) mg/dL Estim Creat Clear Calc 51.8 Estimated GFR > 60 Random Glucose 108 (60-115) mg/dL Calcium 9.5 D (8.4-10.2) mg/dL Magnesium 1.4 L* (1.6-2.6) mg/dL Total Bilirubin 0.4 (0.0-1.0) mg/dL Direct Bilirubin 0.2 (0.0-0.5) mg/dL AST 21 (5-31) U/L ALT < 6 (0-31) U/L Alkaline Phosphatase 38 L (39-117) U/L Troponin I High Sens 90.0 H* D 95.5 H* (<3.5-17.0) ng/L B-Natriuretic Peptide 61 (<100) pg/mL Total Protein 7.4 (6.5-8.0) g/dL Albumin 4.3 (3.5-5.0) g/dL Lipase 14 (8-78) U/L Urine Color Yellow Urine Appearance Clear Urine pH 6.0 (5.0-9.0) Ur Specific [place] 1.010 (1.005-1.025) Urine Protein 100 (2+) H (Neg-Trace) mg/dL Urine Glucose (UA) Negative (Negative) mg/dL Urine Ketones Negative (Negative) mg/dL Urine Blood Negative (Negative) Urine Nitrite Negative (Negative) Ur Leukocyte Esterase Negative (Negative) Urine RBC 0-2 (0-2) /HPF Urine WBC 0-5 (0-5) /HPF Ur Squamous Epith Cells 0-2 (0-2) /HPF Urine Bacteria None Seen (None Seen) Hyaline Casts 0-2 (0-2) /LPF Influenza Type A (PCR) NEGATIVE (Negative) Influenza Type B (PCR) NEGATIVE (Negative) RSV RNA Qual (PCR) NEGATIVE (Negative) SARS-CoV-2 RNA (RT-PCR) NEGATIVE (Negative) 08/09/24 Range/Units 19:34 WBC (4.8-10.8) X10*3/uL RBC (4.20-5.50) X10*6/uL Hgb (12.0-16.0) g/dl Hct (37.0-47.0) % MCV (80.0-98.0) fL MCH (27.0-33.0) pg MCHC (31.0-35.0) g/dl RDW (11.0-16.0) % Plt Count (160-400) X10*3/uL MPV (9.4-12.3) fL Immature Gran % (Auto) (0.0-0.4) % Neut % (Auto) (45-73) % Lymph % (Auto) (20-40) % Assumption % (Auto) (2-11) % Eos % (Auto) (0-4) % Baso % (Auto) (0-2) % Lymph # (Auto) (1.2-4.9) X10*3/uL [place] # (Auto) (0.1-1.2) X10*3/uL Eos # (Auto) (0.0-0.4) X10*3/uL Baso # (Auto) (0.0-0.2) X10*3/uL Abs Immat Gran (auto) (0.00-0.03) X10*3/uL Absolute Neuts (auto) (2.0-8.3) x10*3/uL Absolute Nucleated RBC (0.0-0.012) X10*3/uL Nucleated RBC % (auto) (0.0-0.2) /100WBC Sodium (135-145) mmol/L Potassium (3.3-5.1) mmol/L Chloride (96-108) mmol/L Carbon Dioxide (22-29) mmol/L Anion Gap (12-20) BUN (9-16) mg/dL Creatinine (0.5-1.4) mg/dL Estim Creat Clear Calc Estimated GFR Random Glucose (60-115) mg/dL Calcium (8.4-10.2) mg/dL Magnesium 2.4 (1.6-2.6) mg/dL Total Bilirubin (0.0-1.0) mg/dL Direct Bilirubin (0.0-0.5) mg/dL AST (5-31) U/L ALT (0-31) U/L Alkaline Phosphatase (39-117) U/L Troponin I High Sens (<3.5-17.0) ng/L B-Natriuretic Peptide (<100) pg/mL Total Protein (6.5-8.0) g/dL Albumin (3.5-5.0) g/dL Lipase (8-78) U/L Urine Color Urine Appearance Urine pH (5.0-9.0) Ur Specific [place] (1.005-1.025) Urine Protein (Neg-Trace) mg/dL Urine Glucose (UA) (Negative) mg/dL Urine Ketones (Negative) mg/dL Urine Blood (Negative) Urine Nitrite (Negative) Ur Leukocyte Esterase (Negative) Urine RBC (0-2) /HPF Urine WBC (0-5) /HPF Ur Squamous Epith Cells (0-2) /HPF Urine Bacteria (None Seen) Hyaline Casts (0-2) /LPF Influenza Type A (PCR) (Negative) Influenza Type B (PCR) (Negative) RSV RNA Qual (PCR) (Negative) SARS-CoV-2 RNA (RT-PCR) (Negative) Independent Interpretation I performed an independent interpretation of an: EKG and Plain X-Ray Radiology Impression Discussion of test interpretation with radiology: I have reviewed the radiologist's reading. Independent Historian Clinical information obtained from an independent historian. History obtained from or confirmed by: Parent, EMS and Other External Record Review External record reviewed: Inpatient record, Office record, Outpatient record, Prior outpatient labs, Prior outpatient radiology, Primary care record and Outside ED record Tests considered The following testing was considered but not selected: As above Prescription Management I considered prescription management with: Other Chronic Conditions Patient?s care impacted by: Other Social Determinants Patient?s care significantly limited by Social Determinants of Health including: Other Social Determinant of Health Discharge Plan Discharge Clinical Impression: Viral illness, Diarrhea Patient Disposition: Home, Self-Care Instructions: Acute Diarrhea (ED), Viral Syndrome (ED) Additional Instructions: IT IS IMPORTANT THAT YOU WEAR YOUR BASELINE OXYGEN AT ALL TIMES AND DO NOT REMOVE IT. PLEASE BRING HER PORTABLE OXYGEN TANK WHEN YOU LEAVE YOUR HOUSE Your blood work and x-ray are reassuring You tested negative for COVID, flu, RSV Please have close follow-up with her doctor If her symptoms persist or worsen return to the emergency department Prescriptions: No Action (DME) tub seat with back See Rx Instructions .Route .MEDSUPPLY Qty: 1 0RF Rx Instructions: As directed risperidone 0.5 mg tablet 0.5 mg PO QAM Qty: 30 0RF citalopram 40 mg tablet 40 mg PO QAM Qty: 30 2RF (DME) blood-glucose meter [FreeStyle Lite Meter] Kit See Rx Instructions .ROUTE .MEDSUPPLY Qty: 1 0RF Rx Instructions: As directed (DME) lancets [FreeStyle Lancets] 28 gauge misc See Rx Instructions .ROUTE .MEDSUPPLY Qty: 100 3RF Rx Instructions: As directed check BS QD cetirizine 10 mg tablet 10 mg PO DAILY@1200 Qty: 90 0RF (DME) disposeable bed pads See Rx Instructions .Route .MEDSUPPLY Qty: 100 0RF Rx Instructions: As directed (DME) incontinent wipes See Rx Instructions .Route .MEDSUPPLY Qty: 100 0RF Rx Instructions: As directed docusate sodium 100 mg capsule 100 mg PO BID Qty: 180 3RF cyanocobalamin (vitamin B-12) 500 mcg tablet 500 mcg PO DAILY@1200 Qty: 90 1RF albuterol sulfate 90 mcg/actuation HFA aerosol inhaler 2 puff INHALATION Q2-4H PRN (Reason: Shortness Of Breath) Qty: 8.5 0RF fluticasone furoate-vilanterol [Breo Ellipta] 200-25 mcg/dose blister with device 1 ea inhalation DAILY Qty: 60 11RF simvastatin 20 mg tablet 20 mg PO DAILY@1800 Qty: 90 1RF levothyroxine 112 mcg tablet 112 mcg PO DAILY@0600 Qty: 90 1RF (DME) FreeStyle Lite Strips Strip See Rx Instructions .ROUTE .MEDSUPPLY Qty: 100 3RF Rx Instructions: As directed check the BS QD cholecalciferol (vitamin D3) [Vitamin D3] 50 mcg (2,000 unit) capsule 50 mcg PO QAM Qty: 30 7RF folic acid 400 mcg tablet 0.4 mg PO DAILY@1200 Qty: 90 1RF risperidone 1 mg tablet 1 tab PO BEDTIME hydroxyzine HCl 50 mg tablet 50 mg PO BEDTIME (DME) PULL UPS LArge See Rx Instructions .Route .MEDSUPPLY Qty: 100 12RF Rx Instructions: As directed metformin 1,000 mg tablet 1,000 mg PO BIDWMEAL Qty: 180 3RF (DME) Oxygen Home Use Kit See Rx Instructions .ROUTE Qty: 1 0RF Rx Instructions: As directed keep sats > 90 Referrals: Po,Dafne Bass MD [Primary Care Provider] - 3 days Print Language: Albanian
[2024-08-09 13:50] VITALS: BP 134/69; PULSE 90; RESP 16; TEMP 36.6; O2SAT 98
[2024-08-09 13:53] VITALS: BP 134/69; BP 162/94; PULSE 90; PULSE 92; RESP 20; TEMP 36.6; O2SAT 88; O2SAT 95; BMI 25.3
--- NOTE | 2024-08-09 14:16 | ECG_ITS ---
Test Reason : SOB Blood Pressure : */* mmHG Vent. Rate : 86 BPM Atrial Rate : 86 BPM P-R Int : 148 ms QRS Dur : 66 ms QT Int : 340 ms P-R-T Axes : * 140 -13 degrees QTcB Int : 406 ms Normal sinus rhythm Right axis deviation Nonspecific T wave abnormality Abnormal ECG When compared with ECG of 04-Nov-2022 02:33, QRS axis Shifted right Nonspecific T wave abnormality no longer evident in Lateral leads QT has shortened Referred By: Sarah Zuluaga Electronically Signed By: LAUREN KRUEGER MD
--- OUTSIDE RECORDS SUMMARY | 2024-08-09 14:33 | XMS_ITS | Clinical Summary ---
Author Organization [employer] Address [address] [facility] [address] [place] [address] Care Team Providers Care Automotive Designer Name Role Phone Unavailable Primary Care Provider Unavailabl e Allergies Active Allergy Reactions Criticality Noted Date Comments Ibuprofen 09/17/2013 Other reaction(s): Rash Sulfa Antibiotics 09/17/2013 Other reaction(s): Rash Medications Ventolin HFA 108 (90 Base) MCG/ACT inhaler INHALE 2 PUFFS EVERY 2-4 HOURS NEEDED 3 Active cetirizine (ZyrTEC) 10 MG tablet TAKE 1 TABLET BY MOUTH EVERYDAY AT NOON 3 Active D3 Super Strength 50 MCG (1999 UT) capsule Take 50 mcg by mouth in the morning. 3 Active citalopram (CeleXA) 40 MG tablet Take 40 mg by mouth in the morning. 3 Active cyanocobalamin (Vitamin B-12) 500 MCG tablet TAKE 1 TABLET BY MOUTH EVERYDAY AT NOON 3 Active docusate sodium (Colace) 100 MG capsule TAKE 1 CAPSULE BY MOUTH TWICE DAILY AT NOON AND BEDTIME 3 Active ferrous sulfate 325 (65 Fe) MG tablet discontinue 9 Active Breo Ellipta 200-25 MCG/ACT aerosol powder INHALE 1 PUFF BY MOUTH EVERY DAY AT THE SAME TIME 3 Active folic acid (Folvite) 400 MCG tablet TAKE 1 TABLET BY MOUTH EVERYDAY AT NOON 3 Active hydrOXYzine HCl (Atarax) 50 MG tablet TAKE 1 TABLET BY MOUTH BEFORE BEDTIME 3 Active levothyroxine (Synthroid, Levoxyl) 112 MCG tablet Take 112 mcg by mouth in the morning. 3 Active risperiDONE (RisperDAL) 0.5 MG tablet Take 0.5 mg by mouth in the morning. 3 Active risperiDONE (RisperDAL) 1 MG tablet Take 1 mg by mouth at bedtime. 3 Active simvastatin (Zocor) 20 MG tablet Take 20 mg by mouth at bedtime. 3 Active Active Problems Problem Noted Date Diagnosed Date Preventative health care 05/05/2023 Overview (05/05/2023): -Last seen by PCP 11/21/2019 -next physical exam due after -eye care facilitated by -dental home is Heart murmur 09/17/2013 05/05/2023 Mental disorder 06/25/2013 05/05/2023 Overview (05/05/2023): - Stable with therapist Donita Giordano and psychiatris He Ellis. - continue risperidone 0.5mg qam and 1mg po qah - continue citalopram 40mg daily Dyslipidemia 06/14/2012 05/05/2023 Deaf 06/14/2012 05/05/2023 Hypothyroidism 06/14/2012 05/05/2023 Seasonal allergic rhinitis 06/14/201205/05 Immunizations Name Administration Dates Next Due Influenza injectable quadriv alent IIV4 with preservative 09/17/2016 Influenza injectable quadriv alent preservative free 04/27/2022,04/22/2021,05/19/2020,2015,08/01/2014 Influenza, IIV3, injectable 05/13/2011 Influenza, Split (incl. sara fied surface antigen) 06/25/2013,06/14/2012 Moderna Covid-19 Vaccine 12+ 11/17/2020 Tdap 07/22/2020,06/25/2013 Social History Tobacco Use Types Packs/Day Years Used Date Smoking Tobacco: Never Assessed Comments Unknown Sex and Gender Information Value Date Recorded Sex Assigned at Female 04/26/2022 10:14 AM EDT Legal Sex Female 10:14 AM EDT Gender Identity Female 01/14/2023 4:09 PM EDT Sexual Orientation Don't know 01/14/2023 4: 09 PM EDT Plan of Treatment Health Maintenance Due Date Last Done Comments CT Colonography 1968 Colonoscopy 1968 Colorectal Cancer Screening 1968 Depression Screening 1968 FIT DNA/Cologuard 1968 FIT 1968 FOBT 1968 HIV Screening 1968 Lipid Panel 1968 SDOH Screening 1968 Sigmoidoscopy 1968 Alcohol/Substance Use Screening 1980 Tobacco Screening 1980 Hepatitis B Vaccines (1 of 3 - 19+ 3-dose series) 10/01/1987 Zoster Vaccines (1 of 2) 2018 Mammogram 12/01/2020 12/01/2018, 0609/2018, 11/16/2017 COVID-19 Vaccine ( season) 2024 06/10/2021, 11/17/2020, 10/20/2020 Influenza Vaccine (#1) 2024 , 04/22/2021, 05/19/2020, Additional history exists Cervical Cancer Screening 08/08/2024 HPV/Cotest 08/08/2024 08/08/2019 Pap Smear 08/08/2024 08/08/2019 DTaP/Tdap/Td Vaccines (3 - Td or Tdap) 07/22/2030 07/22/2020, 06/25/2013 RSV Patients and Patients Aged 60 years or older (1 - 1-dose 75+ series) 10/01/2043 Hepatitis C Screening Completed 09/17/2016 Pneumococcal Vaccine: 50+ Years Completed 02/07/2023 HIB Vaccines Aged Out No longer eligi ble based on patient's age to complete this topic HPV Vaccines Aged Out No longer eligi ble based on patient's age to complete this topic Hepatitis A Vaccines Aged Out No long er eligible based on patient's age to complete this topic IPV Vaccines Aged Out No longer eligi ble based on patient's age to complete this topic Meningococcal Vaccine Aged Out No alicia cong eligible based on patient's age to complete this topic RSV under 20 months Aged Out No longe r eligible based on patient's age to complete this topic Rotavirus Vaccines Aged Out No longer eligible based on patient's age to complete this topic Procedures Procedure Name Priority Date/Time Associated Diagnosis Comments HM PAP/HPV Routine 08/08/2019 MAMMOGRAM GENERIC Routine 12/01/2018 12: 57 PM EDT HM HEPATITIS C ANTIBODY Routine 09/17/2016 from Last 3 Months or Most Recently Relevant to Health Maintenance Results * Pap Smear (08/08/2019) Pap Negative for intraephithelial lesion or malignancy Negative for intraephithelial lesion or malignancy, Other Comment:in central hospital system HPV Undetected Historical Provider HEALTH MAINTENANCE Final Result * 3D UNILATERAL ADDED VIEWS 1 (12/01/2018 12:57 PM EDT) Anatomical Region Laterality Modality Breast Bilateral Mammography 12/01/2018 12:5 7 PM EDT Narrative 12/01/2018 12:58 PM EDT Refer to the Notes tab for result details [facility] Procedure: 3D UNILATERAL ADDED VIEWS 1 Procedure Note Provider, Cassandra, - 09/18/2022 Refer to the Notes tab for result details [facility] Procedure: 3D UNILATERAL ADDED VIEWS 1 Kiley Cary MD IMG BI PROCEDURES Final Re sult * Hepatitis C Antibody (09/17/2016) Hepatitis C Antibody Nonreactive Blood Historical Provider HEALTH MAINTENANCE Final Result from Last 3 Months or Most Recently Relevant to Health Maintenance Insurance [facility] [employer]
--- OUTSIDE RECORDS SUMMARY | 2024-08-09 14:33 | XMS_ITS | Encounter Summary ---
Author Organization [employer] Address [address] [facility] [address] [place] [address] Care Team Providers Care [employer] Resource Teacher Name Role Phone Kiley Cary MD Primary Care Provider [phone] Reason for Visit * Reason Comments Med Refill Encounter Details Date Type Department Care Team (Late st Contact Info) Description 05/20/2023 Refill [facility] MEDICINE [address] [place] [address] [phone] Kiley Cary MD [address] [place] [address] [phone] Social History Tobacco Use Types Packs/Day Years Used Date Smoking Tobacco: Never Assessed Comments Unknown Sex and Gender Information Value Date Recorded Sex Assigned at Female 04/26/2022 10:14 AM EDT Legal Sex Female 10:14 AM EDT Gender Identity Female 01/14/2023 4:09 PM EDT Sexual Orientation Don't know 01/14/2023 4: 09 PM EDT documented as of this encounter Plan of Treatment Not on file documented as of this encounter Visit Diagnoses Not on filedocumented in this encounter Care Teams [employer] Resource Teacher Relationship Specialty Start Date End Date Kiley Cary MD [address] [place] [address] [phone] PCP - General Family Medicine 06/27/18 07/04/23 documented as of this encounter
[2024-08-09 15:31] LABS: MANUAL DIFF FLAG NO
[2024-08-09] MEDS: 0.9 % Sodium Chloride 1,000 ML 999 ML IV (15:33)
[2024-08-09 15:36] LABS: Basophils Absolute Auto 0.1 X10*3/uL (0.0-0.2); Basophils Percent Auto 0.8 % (0-2); Eosinophils Absolute Auto 0.1 X10*3/uL (0.0-0.4); Eosinophils Percent Auto 1.2 % (0-4); Hematocrit 33.2 % (37.0-47.0); Imm Gran Abs Auto 0.02 X10*3/uL (0.00-0.03); Imm Gran Pct Auto 0.3 % (0.0-0.4); Lymphocytes Absolute Auto 1.2 X10*3/uL (1.2-4.9); Lymphocytes Percent Auto 15.9 % (20-40); Mean Corpuscular HGB Conc 33.1 g/dl (31.0-35.0); Mean Corpuscular Hemoglobin 30.1 pg (27.0-33.0); Mean Corpuscular Volume 90.7 fL (80.0-98.0); Mean Platelet Volume 9.6 fL (9.4-12.3); Monocytes Absolute Auto 0.4 X10*3/uL (0.1-1.2); Monocytes Percent Auto 5.3 % (2-11); Neutrophils Absolute Auto 5.6 x10*3/uL (2.0-8.3); Neutrophils Percent Auto 76.5 % (45-73); Platelet Count 236 X10*3/uL (160-400); Red Blood Count 3.66 X10*6/uL (4.20-5.50); Red Cell Distribution Width 13.1 % (11.0-16.0); White Blood Count 7.4 X10*3/uL (4.8-10.8)
[2024-08-09 15:57] LABS: Influenza A PCR NEGATIVE (Negative); Influenza B PCR NEGATIVE (Negative); Resp Syncy Virus RNA Qual PCR NEGATIVE (Negative); SARS COV2 PCR INHOUSE NEGATIVE (Negative)
[2024-08-09 15:57] LABS: Alanine Aminotransferase < 6 U/L (0-31); Albumin Level 4.3 g/dL (3.5-5.0); Alkaline Phosphatase 38 U/L (39-117); Anion Gap 11 (12-20); Aspartate Amino Transferase 21 U/L (5-31); B Type Natriuretic Peptide 61 pg/mL (<100); Bilirubin Direct 0.2 mg/dL (0.0-0.5); Bilirubin Total 0.4 mg/dL (0.0-1.0); Blood Urea Nitrogen 15 mg/dL (9-16); Calcium 9.5 mg/dL (8.4-10.2); Carbon Dioxide 37 mmol/L (22-29); Chloride 92 mmol/L (96-108); Creatinine Clr Calc Pharmacy 51.8; Estimated Glomerular Filt Rate > 60; Glucose Random 108 mg/dL (60-115); Lipase 14 U/L (8-78); Magnesium 1.4 mg/dL (1.6-2.6); Potassium 4.2 mmol/L (3.3-5.1); Sodium 136 mmol/L (135-145); Total Protein 7.4 g/dL (6.5-8.0)
[2024-08-09 16:00] VITALS: BP 172/85; PULSE 85; RESP 18; TEMP 36.5; O2SAT 97
[2024-08-09] MEDS: Magnesium Sulfate/H2O 2 GM/50 ML PIGGYBACK IV (16:34)
[2024-08-09 17:43] LABS: Appearance Urine Clear; Color Urine Yellow; Glucose Urine UA Negative (Negative); Leukocyte Esterase Urine Negative (Negative); Nitrite Urine Negative (Negative); UMIC TRIGGER UACC YES; Urine Blood Negative (Negative); Urine Ketones Negative (Negative); Urine Protein 100 (2+) mg/dL (Neg-Trace)
--- NOTE | 2024-08-09 17:45 | PC.NURSE ---
Pt is non verbal, family and REHABILITATION CONSTRUCTION SPECIALIST at bedside assisting with communication. Pt difficult IV stick, U/S guided 18g placed to right upper arm by Nadege PETE. Mag running. Sat 98% on 2lpm via NC. Pt without increased work of breathing with rest however occasional grunt and pursed lip breathing however family states this is baseline for pt. Skin is sl pale, warm and dry.
[2024-08-09 17:51] LABS: Bacteria Urine None Seen (None Seen); Hyaline Casts Urine 0-2 /LPF (0-2); RBC Urine 0-2 /HPF (0-2); Squamous Epithelial Cell Urine 0-2 /HPF (0-2); WBC Urine 0-5 /HPF (0-5)
[2024-08-09 18:09] LABS: Troponin-I High Sensitivity 95.5 ng/L (<3.5-17.0)
[2024-08-09 19:52] LABS: Magnesium 2.4 mg/dL (1.6-2.6)
[2024-08-09 20:21] VITALS: BP 162/99; PULSE 84; RESP 18; TEMP 36.4; O2SAT 94
[2024-08-09 20:45] VITALS: BP 162/99; PULSE 84; RESP 18; TEMP 36.4; O2SAT 94
== END 2024-08-09 20:46 | disposition home or self-care (01) ==
PROVIDERS: Physician Assistant; Emergency Provider Emergency Medicine Emergency Medical Services; PCP Internal Medicine
DX: B34.9 Viral infection, unspecified (principal); R09.89 Other specified symptoms and signs involving the circulatory and respiratory systems; R06.02 Shortness of breath; R19.7 Diarrhea, unspecified; R94.31 Abnormal electrocardiogram [ECG] [EKG]; Z03.818 Encounter for observation for suspected exposure to other biological agents ruled out; Z79.899 Other long term (current) drug therapy
CPT/HCPCS: 0241U; 36415; 71046; 80048; 80076; 81001; 83690; 83735; 83880; 84484; 85025; 93005; 96361; 96365; 96366; 99285; J3475

== ENCOUNTER → 2024-08-09 14:16 | Outpatient (BNV) | payer MEDICARE, MEDICAID, SELFPAY | PROVIDERS: Emergency Provider Emergency Medicine Emergency Medical Services; PCP Internal Medicine; Visit Provider Radiology Diagnostic Radiology | DX: I51.7 Cardiomegaly (principal) | CPT/HCPCS: 71046 ==

== ENCOUNTER → 2024-08-09 14:16 | Outpatient (BNV) | payer MEDICARE, MEDICAID, SELFPAY | PROVIDERS: Emergency Provider Emergency Medicine Emergency Medical Services; PCP Internal Medicine; Visit Provider Internal Medicine Cardiovascular Disease | DX: R94.31 Abnormal electrocardiogram [ECG] [EKG] (principal); R06.02 Shortness of breath | CPT/HCPCS: 93010 ==

== ENCOUNTER 2024-08-15 15:10 | Outpatient (AMB) | payer MEDICARE, MEDICAID, SELFPAY ==
--- NOTE | 2024-08-15 15:15 | MHC.PC.OV ---
Vital Signs 08/15/24 15:17 Height 4 ft 9 in Weight 122 lb 6 oz BMI 26.5 BP 126/80 Blood Pressure Location Lt brachial Position Sitting Pulse 88 Pulse Source Pulse Oximeter Temp 96.8 F Temp Source Temporal Artery Scan Pulse Oximetry (%) 90 L Oxygen Delivery Method Nasal Cannula Intake Visit Reasons: [facility] [place] 08/09 Intake Note: Patient is here to follow-up after a visit the emergency department at [facility] [place] on 08/10/24 Senior Science Consultant Required: Yes Senior Science Consultant Language: State Auditor Name: Milli ([id number]) Information Interpreted: non-clinical & clinical News Production Assistant: Present (mother and DATASTAGE DEVELOPER) Accompanied by: Mother Allergies azithromycin Allergy (Severe, Verified 08/15/24 15:17) Angioedema ibuprofen Allergy (Unknown, Verified 08/15/24 15:17) unknown Sulfacetamide Sod-Pred Allergy (Mild, Uncoded 08/15/24 15:17) Unknown Medication List - Last Reconciled 08/15/24 by Juju Cervantes PA-C albuterol sulfate 90 mcg/actuation 2 puffs inhalation Q2-4H PRN blood sugar diagnostic (FreeStyle Lite Strips) As directed check the BS QD blood-glucose meter (FreeStyle Lite Meter kit) As directed cetirizine 10 mg PO DAILY@1200 cholecalciferol (vitamin D3) (Vitamin D3) 50 mcg PO QAM citalopram 40 mg PO QAM cyanocobalamin (vitamin B-12) 500 mcg PO DAILY@1200 [disposeable bed pads As directed] docusate sodium 100 mg PO BID fluticasone furoate-vilanterol 200-25 mcg/dose (Breo Ellipta) 1 ea inhalation DAILY folic acid 0.4 mg PO DAILY@1200 hydroxyzine HCl 50 mg PO BEDTIME [incontinent wipes As directed] lancets (FreeStyle Lancets) As directed check BS QD levothyroxine 112 mcg PO DAILY@0600 metformin 1,000 mg PO BIDWMEAL Oxygen Home Use As directed keep sats > 90 [PULL UPS LArge As directed] risperidone 1 tab PO BEDTIME risperidone 0.5 mg PO QAM simvastatin 20 mg PO DAILY@1800 [tub seat with back As directed] Tobacco use date assessed: 08/15/24 Dental Screening Dental Screen Date: 08/15/24 Did you have a dental visit in the last 12 months?: No Did you have a dental problem in the last 6 months where you did not have access to dental care?: No Was dental information given to patient?: No HPI [facility] [place] 08/09 HPI Details 53-year-old female with past medical history of generalized anxiety disorder, hypothyroidism, hypercholesterolemia, coronary artery disease, diabetes mellitus, asthma last seen 05/2024 coming in for hospital discharge follow up. In review of the notes, patient was seen in [facility] [place] [place] ED 08/09/2024 with concerns of congestion and diarrhea strongly recommended that patient brings oxygen tank when she leaves the house patient was tested negative for upper respiratory illness deemed stable and discharged home. spanish medical interpreter Milli ([id number]) was used for the duration of this visit. Patient presents today with her DATASTAGE DEVELOPER and her mother. Her mom states the patient often deals with constipation and she will occasionally have to give her MiraLax which caused a large amount of stool to be passed which prompted her ED visit. Since discharge from the hospital she has been no longer having diarrhea, nausea, vomiting or abdominal pain and has returned to a normal diet. Her mom does report that she sleeps often throughout the day likely related to her risperidone in the morning. She also mentioned she has been out of levothyroxine and has not taken this medication in several months. Lastly patient mentions having congestion which has been present for several days. [facility] Medical History Pneumonia Asthma Ludwigs angina COVID ACS (acute coronary syndrome) Pruritus Generalized anxiety disorder Scabies SOB (shortness of breath) Vitamin D deficiency Dysphagia Elevated blood sugar Deaf Vitamin B 12 deficiency Hypercholesterolemia Hypothyroid Anxiety and depression Constipation Surgical History History of heart surgery Family History Mother CAD (coronary artery disease) Hypertension Brother CAD (coronary artery disease) Social History Household Members: Family Household Members Other:: Mother & Brother Housing: House Housing Other:: 2 family Do you presently have visiting nurse or other home services: Yes Alcohol intake: never Patient Tobacco Use Status: Never used Tobacco Tobacco use type: Cigarette e-Cigarette/Vaping Use: Never Used Second Hand Smoke Exposure: No service: No Current occupational status: unemployed Cognitive needs: No Hearing needs: No Vision needs: Yes (glasses) Questionnaire PHQ-9 Over the last 2 weeks, how often have you been bothered by any of the following problems? 1. Little interest or pleasure in doing things: not at all 2. Feeling down, depressed, or hopeless: not at all 3. Trouble falling or staying asleep, or sleeping too much: not at all 4. Feeling tired or having little energy: not at all 5. Poor appetite or overeating: not at all 6. Feeling bad about yourself - or that you are a failure or have let yourself or your family down: not at all 7. Trouble concentrating on things, such as reading the newspaper or watching television: not at all 8. Moving or speaking so slowly that other people could have noticed. Or the opposite - being so fidgety or restless that you have been moving around a lot more than usual: not at all 9. Thoughts that you would be better off or of hurting yourself in some way: not at all Total score: 0 Depression Screening Interpretation: Negative Depression Screening Done: Yes Source: Developed by Drs. Dieter Butcher, Zenaida White, Toi Wynne and colleagues, with an educational kareem from [employer]. Thrive Questionnaire Date Thrive assessed: 08/15/24 I am a: Patient What is your living situation today?: I have a steady place to live Within the past 12 months, did the food you bought not last and you didn't have the money to get more?: Never true Within the past 12 months, did you worry whether your food would run out before you got money to buy more?: Never true Do you have trouble paying for medicines?: No Do you have trouble getting transportation to medical appointments?: No Do you have trouble paying your heating and electricity bill?: No Do you have trouble taking care of your child, family member or friend?: No Do you have trouble with day-to-day activities such as bathing, preparing meals, shopping, managing finances, etc.?: No Are you currently unemployed and looking for a job?: No Are you interested in more education?: No Please select the resources that you would like help with: None Currently or been in a relationship where the following occur: No concerns reported THRIVE Score: 0 AUDIT C Alcohol Use Questionnaire (AUDIT-C) 1. How often do you have a drink containing alcohol?: Never Total Score: 0 LOI-7 AMB Questionnaire LOI-7 Date LOI - 7 assessed: 08/15/24 Feeling nervous, anxious, or on edge: 0 = Not at all Not being able to stop or control worryin = Not at all Worrying too much about different things: 0 = Not at all Trouble relaxin = Not at all Being so restless that it is hard to sit still: 0 = Not at all Becoming easily annoyed or irritable: 0 = Not at all Feeling afraid as if something awful might happen: 0 = Not at all Total LOI-7 score (0-4 normal; 5-9 mild; 10-14 moderate; 15-21 severe): 0 Source: Developed by Drs. Dieter Butcher, Zenaida White, Toi Wynne and colleagues, with an educational kareem from [employer]. Review of Systems Const Denies body aches, Denies chills, Denies fever(s), Denies headache(s) and Denies poor appetite Eyes Reports no additional complaints ENT Denies dysphagia, Denies dizziness, Denies headache(s), Reports nasal congestion and Denies odynophagia Card Denies chest pain, Denies syncope, Denies edema, Denies irregular heart rhythm, Denies lightheadedness and Denies dyspnea Resp Denies cough and Denies dyspnea GI Denies abdominal pain, Denies constipation, Denies dysphagia, Denies diarrhea, Denies nausea, Denies odynophagia and Denies vomiting Reports no additional complaints Musc Reports no additional complaints and Denies abnormal gait Skin/Breast Reports system reviewed and no additional complaints, except as documented Neuro Denies abnormal gait, Denies dizziness, Denies syncope and Denies headache(s) Psych Reports no additional complaints Physical exam (Primary Care) Vital Signs: Last Vital Signs Temp 96.8 F 08/15/24 15:17 Pulse 88 08/15/24 15:17 BP 126/80 08/15/24 15:17 Pulse Ox 90 L 08/15/24 15:17 Oxygen Delivery Method Nasal Cannula 08/15/24 15:17 BMI result Body Mass Index 26.5 Tobacco/Smoking Status: Tobacco use Status Tobacco use date assessed 08/15/24 08/15/24 15:29 Patient Tobacco Use Status Never used Tobacco 08/15/24 15:29 Tobacco use type Cigarette 08/15/24 15:29 e-Cigarette/Vaping Use Never Used 08/15/24 15:29 PHQ-9: PHQ-9 Score PHQ-9: Total score 0 08/15/24 15:29 Depression Screening Interpretation: Negative Thrive Assessment: Date of Thrive Assessment Date Thrive assessed 08/15/24 08/15/24 15:29 Currently or been in a relationship where the following occur: No concerns reported Const General: cooperative, healthy appearing, comfortable and no acute distress Orientation/consciousness: patient oriented x3 HENMT Head: Yes normocephalic Ears: hearing grossly normal bilaterally General nose exam: Normal external nose present Eyes General: appearance normal, both eyes and all related structures Conjunctivae: conjunctivae normal Neck Neck: Yes full ROM and Yes no lymphadenopathy Resp Effort & Inspection: normal respiratory effort Auscultation: clear to auscultation bilaterally, no crackles, no rales, no rhonchi and no wheezes Cardio Rate: regular rate Rhythm: regular rhythm Skin General skin exam: no rashes or lesions noted Neuro General: patient oriented x3 Gait exam (Neuro): Normal gait present Extrem General: Yes normal to inspection, Yes full ROM and No edema Psych Affect: normal affect Attitude: cooperative Insight: Good insight present (Psych) Judgement: Good judgement present (Psych) Coding Level of Care Code Est Pt Level 3 (71109) Diagnoses Moderate persistent asthma J45.40 Type 2 diabetes mellitus with hyperglycemia E11.65 Obstructive sleep apnea G47.33 Hypercholesterolemia E78.00 Hypomagnesemia E83.42 Acquired hypothyroidism E03.9 Hypothyroidism type: acquired Chronic hypercapnic respiratory failure J96.12 Sinus congestion R09.81 Assessment & Plan Assessment & Plan (1) Moderate persistent asthma: Code(s): J45.40 - Moderate persistent asthma, uncomplicated Category: Medical Plan: Asthma currently controlled on present medications. Continue on inhalers. Avoid triggers such as allergies. Per ED maintain on oxygen you when leaving the house. (2) Type 2 diabetes mellitus with hyperglycemia: Code(s): E11.65 - Type 2 diabetes mellitus with hyperglycemia Category: Medical Plan: Decrease the amount of carbohydrates such as pasta, bread, rice, and potatoes and limit the amount of sweets. Although fruits are generally healthy they should be eaten in moderation as they are still high in sugar. Hemoglobin A1c goal of less than 7%. (3) Obstructive sleep apnea: Code(s): G47.33 - Obstructive sleep apnea (adult) (pediatric) Category: Medical Plan: Uses CPAP faithfully at least 4 hours a night and benefits from this therapy. Strongly recommended to use CPAP (4) Hypercholesterolemia: Code(s): E78.00 - Pure hypercholesterolemia, unspecified Category: Medical Plan: Avoid foods that are high in cholesterol such as red meat, fried foods, eggs and baked goods. Triglyceride goal of less than 150 and LDL goal of less than 70. (5) Hypomagnesemia: Code(s): E83.42 - Hypomagnesemia Category: Medical Plan: Patient having low magnesium initially at presentation in the ED which normalized with IV fluids. Advised patient to stay well hydrated may use Gatorade or liquid IV for electrolyte replacement. Ordered for repeat magnesium level (6) Hypothyroid: Code(s): E03.9 - Hypothyroidism, unspecified Category: Medical Qualifiers: Hypothyroidism type: acquired Qualified Code(s): E03.9 - Hypothyroidism, unspecified Plan: Patient tells us today she has not been taking her levothyroxine 112 mcg as prescribed. I refilled the prescription today and advised patient to have thyroid levels drawn before her next visit. (7) Chronic hypercapnic respiratory failure: Code(s): J96.12 - Chronic respiratory failure with hypercapnia Category: Medical Plan: Advised patient to continue using portable oxygen when leaving the house and while in the house as well. Referral placed to pulmonology. (8) Sinus congestion: Code(s): R09.81 - Nasal congestion Category: Medical Plan: Patient complaining of sinus congestion for the last several days. Advised may use Afrin nasal spray for no longer than 3 days and use of saline nasal sprays encouraged. Plan This note was constructed using voice recognition software. While every effort has been made to ensure accuracy and special education professional, still areas may have been included sometimes these areas may affect the content or meeting of the given symptoms. Total time spent caring for the patient today was 20 minutes. This includes time spent before the visit reviewing the chart, time spent during the visit, and time spent after the visit and documentation. Orders: Orders TSH reflex Free T4 Today E03.9 - Hypothyroidism, unspecified Free T4 (Free Thyroxine) Today E03.9 - Hypothyroidism, unspecified Magnesium Today E83.42 - Hypomagnesemia Referrals Pulmonology Referral J45.40 - Moderate persistent asthma, uncomplicated, J96.12 - Chronic respiratory failure with hypercapnia Medications: New oxymetazoline 0.05% (Afrin (oxymetazoline)) 2 sprays intranasal Q12H 3 days PRN 15 mL 0RF nasal congestion Refilled levothyroxine 112 mcg PO DAILY@0600 90 tabs 1RF E03.9 - Hypothyroidism, unspecified
--- OUTSIDE RECORDS SUMMARY | 2024-08-15 15:15 | XMS_ITS | Encounter Summary ---
Author Organization [employer] Address [address] [facility] 7 [place] [address] Care Team Providers Care Armature Bander Name Role Phone Kiley Cary MD Primary Care Provider [phone]- [phone] Reason for Visit * Reason Comments Med Refill Encounter Details Date Type Department Care Team (Late st Contact Info) Description 05/20/2023 Refill [facility] [address] [place] [address] [phone] Kiley Cary MD [address] [place] [address] [phone] Social History Tobacco Use Types Packs/Day Years [...] on filedocumented in this encounter Care Teams Armature Bander Relationship Specialty Start Date End Date Kiley Cary MD [address] [place] [address] [phone] PCP - General Family Medicine 06/27/18 07/04/23 documented as of this encounter
--- OUTSIDE RECORDS SUMMARY | 2024-08-15 15:15 | XMS_ITS | Clinical Summary ---
Author Organization [employer] Address [address] [facility] [address]t [place] [address] Care Team Providers Care Forming Machine Operator Name Role Phone Unavailable Primary Care Provider [...] for intraephithelial lesion or malignancy, Other Comment:in [facility] HPV Undetected Historical Provider HEALTH MAINTENANCE [...] Most Recently Relevant to Health Maintenance Insurance [facility] STANDARD
[2024-08-15 15:17] VITALS: BP 126/80; PULSE 88; TEMP 36; O2SAT 90; BMI 26.5
== END 2024-08-15 16:07 | disposition home or self-care (01) ==
PROVIDERS: PCP Internal Medicine
DX: J45.40 Moderate persistent asthma, uncomplicated (principal); E11.65 Type 2 diabetes mellitus with hyperglycemia; G47.33 Obstructive sleep apnea (adult) (pediatric); E78.00 Pure hypercholesterolemia, unspecified; E83.42 Hypomagnesemia; E03.9 Hypothyroidism, unspecified; J96.12 Chronic respiratory failure with hypercapnia; R09.81 Nasal congestion

== ENCOUNTER → 2024-08-15 15:10 | Outpatient (BNVA) | payer MEDICARE, MEDICAID, SELFPAY | PROVIDERS: PCP Internal Medicine | DX: J45.40 Moderate persistent asthma, uncomplicated (principal); E11.65 Type 2 diabetes mellitus with hyperglycemia; G47.33 Obstructive sleep apnea (adult) (pediatric); E78.00 Pure hypercholesterolemia, unspecified; E83.42 Hypomagnesemia; E03.9 Hypothyroidism, unspecified; J96.12 Chronic respiratory failure with hypercapnia | CPT/HCPCS: 99212 ==

== ENCOUNTER 2024-09-19 09:47 | Outpatient (REF) | payer MEDICARE, MEDICAID, SELFPAY ==
[2024-09-19 11:36] LABS: Magnesium 1.7 mg/dL (1.6-2.6)
[2024-09-19 12:01] LABS: Free T4 (Free Thyroxine) 1.36 ng/dL (0.71-1.85); TSH reflex Free T4 2.01 uIU/mL (0.32-4.0)
== END 2024-09-19 09:48 | disposition home or self-care (01) ==
LOC: HO.LAB 09:47
PROVIDERS: PCP Internal Medicine
DX: E03.9 Hypothyroidism, unspecified (principal); E83.42 Hypomagnesemia; J45.40 Moderate persistent asthma, uncomplicated; E11.65 Type 2 diabetes mellitus with hyperglycemia; G47.33 Obstructive sleep apnea (adult) (pediatric); D64.9 Anemia, unspecified; I25.10 Atherosclerotic heart disease of native coronary artery without angina pectoris; E78.00 Pure hypercholesterolemia, unspecified; F41.1 Generalized anxiety disorder; Z79.899 Other long term (current) drug therapy
CPT/HCPCS: 36415; 83036; 83735; 84439; 84443; 96127; 99212

== ENCOUNTER 2024-09-19 12:14 | Outpatient (AMB) | payer MEDICARE, MEDICAID, SELFPAY ==
--- NOTE | 2024-09-19 12:21 | A.OFFPC_ITS ---
Vital Signs 09/19/24 12:25 Height 4 ft 9 in Weight 117 lb 8 oz BMI 25.4 BP 126/68 Blood Pressure Location Lt brachial Position Sitting Pulse 95 Pulse Source Pulse Oximeter Temp 97.3 F Temp Source Temporal Artery Scan Pulse Oximetry (%) 95 Oxygen Delivery Method Nasal Cannula Oxygen Flow Rate 2 Intake Visit Reasons: hypothyroid Supervisor Reclamation Required: Yes Supervisor Reclamation Language: Sign Languages (macro) Supervisor Reclamation Name: Tamanna([id number]) Allergies azithromycin Allergy (Severe, Verified 09/19/24 12:29) Angioedema ibuprofen Allergy (Unknown, Verified 09/19/24 12:29) unknown Sulfacetamide Sod-Pred Allergy (Mild, Uncoded 09/19/24 12:29) Unknown Medication List - Last Reconciled 09/19/24 by Dafne Hawkins MD albuterol sulfate 90 mcg/actuation 2 puffs inhalation Q2-4H PRN blood sugar diagnostic (FreeStyle Lite Strips) As directed check the BS QD blood-glucose meter (FreeStyle Lite Meter kit) As directed cetirizine 10 mg PO DAILY@1200 cholecalciferol (vitamin D3) (Vitamin D3) 50 mcg PO QAM citalopram 40 mg PO QAM cyanocobalamin (vitamin B-12) 500 mcg PO DAILY@1200 [disposeable bed pads As directed] docusate sodium 100 mg PO BID fluticasone furoate-vilanterol 200-25 mcg/dose (Breo Ellipta) 1 ea inhalation DAILY folic acid 0.4 mg PO DAILY@1200 hydroxyzine HCl 50 mg PO BEDTIME [incontinent wipes As directed] lancets (FreeStyle Lancets) As directed check BS QD levothyroxine 112 mcg PO DAILY@0600 metformin 1,000 mg PO BIDWMEAL Oxygen Home Use As directed keep sats > 90 oxymetazoline 0.05% (Afrin (oxymetazoline)) 2 sprays intranasal Q12H PRN 3 days [PULL UPS LArge As directed] risperidone 1 tab PO BEDTIME risperidone 0.5 mg PO QAM simvastatin 20 mg PO DAILY@1800 [tub seat with back As directed] Tobacco use date assessed: 08/15/24 Dental Screening Dental Screen Date: 09/19/24 Did you have a dental visit in the last 12 months?: No Did you have a dental problem in the last 6 months where you did not have access to dental care?: No Was dental information given to patient?: Yes HPI hypothyroid HPI Details [id number] [facility] Medical History Pneumonia Asthma Ludwigs angina COVID ACS (acute coronary syndrome) Pruritus Generalized anxiety disorder Scabies SOB (shortness of breath) Vitamin D deficiency Dysphagia Elevated blood sugar Deaf Vitamin B 12 deficiency Hypercholesterolemia Hypothyroid Anxiety and depression Constipation Surgical History History of heart surgery Family History Mother CAD (coronary artery disease) Hypertension Brother CAD (coronary artery disease) Social History Household Members: Family Household Members Other:: Mother & Brother Housing: House Housing Other:: 2 family Do you presently have visiting nurse or other home services: Yes Alcohol intake: never Patient Tobacco Use Status: Never used Tobacco Tobacco use type: Cigarette e-Cigarette/Vaping Use: Never Used Second Hand Smoke Exposure: No service: No Current occupational status: unemployed Cognitive needs: No Hearing needs: No Vision needs: Yes (glasses) Questionnaire PHQ-9 Over the last 2 weeks, how often have you been bothered by any of the following problems? 1. Little interest or pleasure in doing things: not at all 2. Feeling down, depressed, or hopeless: not at all 3. Trouble falling or staying asleep, or sleeping too much: not at all 4. Feeling tired or having little energy: not at all 5. Poor appetite or overeating: not at all 6. Feeling bad about yourself - or that you are a failure or have let yourself or your family down: not at all 7. Trouble concentrating on things, such as reading the newspaper or watching television: not at all 8. Moving or speaking so slowly that other people could have noticed. Or the opposite - being so fidgety or restless that you have been moving around a lot more than usual: not at all 9. Thoughts that you would be better off or of hurting yourself in some way: not at all Total score: 0 Depression Screening Interpretation: Negative Depression Screening Done: Yes 60029 - PHQ-9 Billing: Yes Source: Developed by Drs. Dieter Butcher, Toi Dale and colleagues, with an educational kareem from [employer]. Thrive Questionnaire Date Thrive assessed: 09/19/24 I am a: Patient What is your living situation today?: I have a steady place to live Within the past 12 months, did the food you bought not last and you didn't have the money to get more?: Never true Within the past 12 months, did you worry whether your food would run out before you got money to buy more?: Never true Do you have trouble paying for medicines?: No Do you have trouble getting transportation to medical appointments?: No Do you have trouble paying your heating and electricity bill?: No Do you have trouble taking care of your child, family member or friend?: No Do you have trouble with day-to-day activities such as bathing, preparing meals, shopping, managing finances, etc.?: No Are you currently unemployed and looking for a job?: No Are you interested in more education?: No Please select the resources that you would like help with: None Currently or been in a relationship where the following occur: No concerns reported THRIVE Score: 0 AUDIT C Alcohol Use Questionnaire (AUDIT-C) 1. How often do you have a drink containing alcohol?: Never 3. How often do you have six or more drinks on one occasion?: Never Total Score: 0 LOI-7 AMB Questionnaire LOI-7 Date LOI - 7 assessed: 08/15/24 Feeling nervous, anxious, or on edge: 0 = Not at all Not being able to stop or control worryin = Not at all Worrying too much about different things: 0 = Not at all Trouble relaxin = Not at all Being so restless that it is hard to sit still: 0 = Not at all Becoming easily annoyed or irritable: 0 = Not at all Feeling afraid as if something awful might happen: 0 = Not at all Total LOI-7 score (0-4 normal; 5-9 mild; 10-14 moderate; 15-21 severe): 0 Source: Developed by Drs. Dieter Butcher, Toi Dale and colleagues, with an educational kareem from [employer]. Physical exam (Primary Care) Vital Signs: Last Vital Signs Temp 97.3 F 09/19/24 12:25 Pulse 95 09/19/24 12:25 BP 126/68 09/19/24 12:25 Pulse Ox 95 09/19/24 12:25 Oxygen Delivery Method Nasal Cannula 09/19/24 12:25 Oxygen Flow Rate 2 09/19/24 12:25 BMI result Body Mass Index 25.4 Tobacco/Smoking Status: Tobacco use Status Tobacco use date assessed 08/15/24 09/19/24 12:21 Patient Tobacco Use Status Never used Tobacco 09/19/24 12:21 Tobacco use type Cigarette 09/19/24 12:21 e-Cigarette/Vaping Use Never Used 09/19/24 12:21 PHQ-9: PHQ-9 Score PHQ-9: Total score 0 09/19/24 12:49 Depression Screening Interpretation: Negative Thrive Assessment: Date of Thrive Assessment Date Thrive assessed 09/19/24 09/19/24 12:30 Currently or been in a relationship where the following occur: No concerns reported Const General: alert; No acute distress Eyes Conjunctivae: conjunctivae normal Resp Auscultation: clear to auscultation bilaterally Cardio Rate: regular rate Rhythm: regular rhythm GI Inspection: Yes normal to inspection Extrem General: Yes normal to inspection and No edema Results AMB Hemoglobin A1c AMB Hemoglobin A1c 5.4 % Last Edit by Ny Silva CMA on 09/19/24 12:41 Results Reviewed Results Reviewed: Laboratory Last Values Hgb A1c (Clinic) 5.4 % (4.0-6.0) 09/19/24 12:39 Coding Level of Care Code Est Pt Level 4 (08014) Complex EM visit Add On G2211 Diagnoses Hypomagnesemia E83.42 Moderate persistent asthma J45.40 Type 2 diabetes mellitus with hyperglycemia E11.65 Obstructive sleep apnea G47.33 Anemia D64.9 CAD (coronary artery disease) I25.10 Acquired hypothyroidism E03.9 Hypothyroidism type: acquired Hypercholesterolemia E78.00 Generalized anxiety disorder F41.1 Additional Codes PHQ-9 - 94211 - PHQ-9 Billing: Yes ([id number]) Assessment & Plan Assessment & Plan (1) Hypomagnesemia: Code(s): E83.42 - Hypomagnesemia Category: Medical Plan: This was replaced and will continue to monitor (2) Moderate persistent asthma: Code(s): J45.40 - Moderate persistent asthma, uncomplicated Category: Medical Plan: On albuterol inhaler and placed on Breo (3) Type 2 diabetes mellitus with hyperglycemia: Comment: [place] 08/2024 Code(s): E11.65 - Type 2 diabetes mellitus with hyperglycemia Category: Medical Plan: Decrease the amount of carbohydrate intake, pasta, bread, rice and potatoes are all sugar and that is aside from all the sweet stuff, remember that fruits are good but they are Sweet also. Hemoglobin A1c goal of less than 6.5. Patient is on metformin a 1000 mg twice a day (4) Obstructive sleep apnea: Code(s): G47.33 - Obstructive sleep apnea (adult) (pediatric) Category: Medical Plan: Continues to use the CPAP more than 4 hours a night and benefits from this. (5) Anemia: Code(s): D64.9 - Anemia, unspecified Category: Medical Plan: Will continue to follow-up (6) CAD (coronary artery disease): Code(s): I25.10 - Atherosclerotic heart disease of [place] coronary artery without angina pectoris Category: Medical Plan: Control the cholesterol, weight, blood pressure, diabetes (7) Hypothyroid: Code(s): E03.9 - Hypothyroidism, unspecified Category: Medical Qualifiers: Hypothyroidism type: acquired Qualified Code(s): E03.9 - Hypothyroidism, unspecified Plan: Thyroid test in August normal continue with present dose (8) Hypercholesterolemia: Code(s): E78.00 - Pure hypercholesterolemia, unspecified Category: Medical Plan: Avoid fried foods, chicken skin, eggs, butter margarine, pastries and meat. Be it pork or beef they have a lot of cholesterol on simvastatin 20 mg once a day January 2024 last blood work (9) Generalized anxiety disorder: Comment: Don[place] in [place] (05/2020_ Code(s): F41.1 - Generalized anxiety disorder Category: Medical Plan: Continue with counseling and therapy Plan History of Present Illness The patient is a 53-year-old female presenting for follow-up on chronic conditions including impaired glucose tolerance, generalized anxiety disorder, coronary artery disease, hypothyroidism, hypercholesterolemia, obstructive sleep apnea, chronic hypercapnic respiratory failure, and asthma. She reports a 5- pound weight loss. In July, her blood work identified anemia with hemoglobin dropping from 13 to 11. Her blood glucose levels were slightly elevated at 108 mg/dL, though her hemoglobin A1c improved to 5.4%. Her LDL cholesterol was at goal at 89 mg/dL in January. The patient reports stability in her hypothyroid condition. She had experienced an ER visit for diarrhea, with electrolytes normal except for low magnesium. She uses a CPAP nightly, takes metformin twice daily, and uses a combination of Albuterol and Breo for asthma management. The daily use of Albuterol suggests incomplete asthma control. Health Maintenance - Mammogram last performed in October - Declined Cologuard and colon test - Reviewed glucose management with target hemoglobin A1c less than 6.5% - Blood pressure, cholesterol levels within goal range - CPAP usage more than 4 hours/night - Diet and exercise behaviors to improve weight management discussed - Advised regarding breathing management and adjustments in asthma control - Pneumonia and flu vaccines up to date - Shingles vaccine recommended via pharmacy - Referral for colon screening test completed Social History - No mention of specific employment or housing situation - Uses CPAP for obstructive sleep apnea - Engaging in counseling and therapy for anxiety - Declared no issues with alcohol or substance abuse during conversation - Regularly takes medications as prescribed Review of Systems - Respiratory: Reports breathing has been stable with use of inhalers - Gastrointestinal: Reports bowel movements are satisfactory Physical Exam Results - Labs: Hemoglobin decreased from 13 to 11, blood sugar noted at 108 mg/dL, hemoglobin A1c improved to 5.4%, LDL cholesterol at 89 mg/dL, magnesium noted low, thyroid functions within normal limits - Mentioned mammogram conducted in October Plan We have outlined a comprehensive management plan for the patient?s chronic conditions with emphasis on glucose, cholesterol, and thyroid management, using metformin and simvastatin as pharmacotherapy, and confirmed thyroid stability. Monitoring of anemia and further assessment of asthma control with Breo and potential inhaler adjustment for frequent albuterol use. Continue CPAP for obstructive sleep apnea management, and ensure the patient engages in routine follow-up visits for ongoing monitoring. Strongly advised colon screening and appropriately recommended shingles vaccine. Scheduled health maintenance examinations every five months and coordination with relevant care services for anxiety management. Patient was informed and verbally consented to the use of an ambient scribe for clinic note documentation during this visit. Discussion Notes I discussed at length the management strategies for the patient's chronic conditions including impaired glucose tolerance, cholesterol, and thyroid control. We reviewed her blood work results, adjusting plans to mitigate identified anemia and ensure continued glucose and cholesterol management within target levels. I emphasized the need for optimal asthma control given current albuterol usage frequency, highlighting benefits and risks of potential inhaler additions if shortness of breath persists. We reviewed options for colon screening test and discussed pneumovax and shingles vaccination strategy. Follow-up in five months was recommended with prior blood work. Counseling and coping strategies for anxiety were reinforced, and she agreed to proceed with recommendations. Patient Instructions - Continue taking metformin and simvastatin as prescribed. - Use the CPAP for more than 4 hours a night. - Use Albuterol as needed for shortness of breath; report if daily usage is required. - Use Breo daily for asthma; rinse mouth after use. - Follow up on colon screening test referral. - Consider shingles vaccine at pharmacy. - Maintain regular follow-up visits for chronic condition management. - Have blood work done before next doctor's visit. - Address any new or worsening symptoms immediately. Orders: Orders AMB Hemoglobin A1c Today Z13.9 - Encounter for screening, unspecified Free T4 (Free Thyroxine) 5 Months . - Type 2 diabetes mellitus with hyperglycemia Creatinine Urine 5 Months . - Type 2 diabetes mellitus with hyperglycemia Microalbumin, Random (w Creat) 5 Months E11. - Type 2 diabetes mellitus with hyperglycemia Complete Blood Count Auto Diff 5 Months . - Type 2 diabetes mellitus with hyperglycemia Ferritin 5 Months . - Type 2 diabetes mellitus with hyperglycemia Reticulocyte Count 5 Months . - Type 2 diabetes mellitus with hyperglycemia IRON PROFILE 5 Months . - Type 2 diabetes mellitus with hyperglycemia Vitamin B12 and Folate 5 Months E11. - Type 2 diabetes mellitus with hyperglycemia Vitamin D 25-OH Total 5 Months . - Type 2 diabetes mellitus with hyperglycemia Thyroid Stimulating Hormone 5 Months E11. - Type 2 diabetes mellitus with hyp erglycemia Hemoglobin A1c 5 Months E11.65 - Type 2 diabetes mellitus with hyperglycemia Comprehensive Met. Panel 5 Months E11.65 - Type 2 diabetes mellitus with hyperglycemia Magnesium 5 Months E11. - Type 2 diabetes mellitus with hyperglycemia Uric Acid 5 Months E11.65 - Type 2 diabetes mellitus with hyperglycemia Referrals Gastroenterology Referral Z12.11 - Encounter for screening for malignant neoplasm of colon
[2024-09-19 12:25] VITALS: BP 126/68; PULSE 95; TEMP 36.3; O2SAT 95; BMI 25.4
--- OUTSIDE RECORDS SUMMARY | 2024-09-19 14:38 | XMS_ITS | Clinical Summary ---
Author Organization [employer] Address [address] [facility] [address] [place] [address] Care Team Providers Care Securities Consultant Name Role Phone Unavailable Primary Care Provider [...] FIT 1968 FOBT 1968 HIV Screening 1968 SDOH Screening 1968 Sigmoidoscopy 1968 Alcohol/Substance Use Screening 1980 Tobacco Screening 1980 Hepatitis B Vaccines (1 of 3 - 19+ 3-dose series) 10/01/1987 Zoster Vaccines (1 of 2) 2018 Mammogram 12/01/2020 12/01/2018, 06/09/2018, 11/16/2017 COVID-19 Vaccine ( season) 2024 06/10/2021, [...] GENERIC Routine 12/01/2018 12: 57 PM EDT HEPATITIS C ANTIBODY Routine 09/17/2016 from Last 3 Months or Most Recently Relevant to Health Maintenance Results * Pap Smear (08/08/2019) Pap Negative for intraephithelial lesion or malignancy Negative for intraephithelial lesion or malignancy, Other Comment:in [facility] HPV Undetected Historical Provider HEALTH [...] Most Recently Relevant to Health Maintenance Insurance [facility] STANDARD
--- OUTSIDE RECORDS SUMMARY | 2024-09-19 14:38 | XMS_ITS | Encounter Summary ---
Author Organization [employer] Address [address] [facility] [address] [place] [address] Care Team Providers Care Manufacturing Lead Name Role Phone Kiley Cary MD Primary Care Provider [phone] Reason for Visit * Reason Comments Med Refill Encounter Details Date Type Department Care Team (Late st Contact Info) Description 05/20/2023 Refill [facility] [address] [place] [address] [phone] Kiley Cary MD [address] [place] [address] [phone] Social History Tobacco Use Types Packs/Day Years [...] on filedocumented in this encounter Care Teams Manufacturing Lead Relationship Specialty Start Date End Date Kiley Cary MD [address] [place] [address] [phone] PCP - General Family Medicine 06/27/18 07/04/23 documented as of this encounter
== END 2024-09-19 13:08 | disposition home or self-care (01) ==
LOC: HO.HMCH 12:15
PROVIDERS: PCP Internal Medicine; Visit Provider Internal Medicine
DX: E83.42 Hypomagnesemia (principal); J45.40 Moderate persistent asthma, uncomplicated; E11.65 Type 2 diabetes mellitus with hyperglycemia; G47.33 Obstructive sleep apnea (adult) (pediatric); D64.9 Anemia, unspecified; I25.10 Atherosclerotic heart disease of native coronary artery without angina pectoris; E03.9 Hypothyroidism, unspecified; E78.00 Pure hypercholesterolemia, unspecified; F41.1 Generalized anxiety disorder; Z13.9 Encounter for screening, unspecified

== ENCOUNTER 2024-12-10 13:13 | Outpatient (REF) | payer MEDICARE, MEDICAID, SELFPAY ==
--- OUTSIDE RECORDS SUMMARY | 2024-12-10 14:43 | XMS_ITS | Clinical Summary ---
Author Organization [employer] Address [address] [facility] [address] [place] [address] Care Team Providers Care Concrete Mixer Operator Helper Name Role Phone Unavailable Primary Care Provider [...] 06/14/2012 05/05/2023 Seasonal allergic rhinitis 06/14/201205/05 Immunizations Immunization Administration Dates Next Due Influenza injectable quadriv [...] Screening 1968 SDOH Screening 1968 Sigmoidoscopy 1968 Disability Screening 1968 Alcohol/Substance Use Screening 1980 Tobacco Screening 1980 Hepatitis B Vaccines (1 of 3 - 19+ 3-dose series) 10/01/1987 Zoster Vaccines (1 of 2) 2018 Mammogram 12/01/2020 12/01/2018, 06/0 09/2018, 11/16/2017 COVID-19 Vaccine ( season) 2024 06/10/2021, 11/17/2020, 10/20/2020 Cervical Cancer Screening 08/08/2024 HPV/Cotest 08/08/2024 08/08/2019 Pap Smear 08/08/2024 08/08/2019 Influenza Vaccine (Season Ended) 2025 04/27/2022, 04/22/2021, 05/19/2020, Additional history exists DTaP/Tdap/Td Vaccines (3 - Td or Tdap) [...] patient's age to complete this topic Meningococcal B Vaccine Aged Out No l onger eligible based on patient's age to complete [...] for intraephithelial lesion or malignancy, Other Comment:in [facility] HPV Undetected Historical Provider HEALTH [...] Most Recently Relevant to Health Maintenance Insurance [facility] STANDARD
== END 2024-12-10 13:14 | disposition home or self-care (01) ==
LOC: HO.MAMMO 13:13
PROVIDERS: PCP Internal Medicine; Visit Provider Internal Medicine
DX: Z12.31 Encounter for screening mammogram for malignant neoplasm of breast (principal)
CPT/HCPCS: 77063; 77067

== ENCOUNTER → 2024-12-10 13:30 | Outpatient (BNV) | payer MEDICARE, MEDICAID, SELFPAY | PROVIDERS: PCP Internal Medicine; Visit Provider Internal Medicine | DX: Z12.31 Encounter for screening mammogram for malignant neoplasm of breast (principal) | CPT/HCPCS: 77063; 77067 ==

== ENCOUNTER 2025-02-20 11:44 | Outpatient (AMB) | payer MEDICARE, MEDICAID, SELFPAY ==
[2025-02-20 12:19] VITALS: BP 152/92; PULSE 105; TEMP 36.3; O2SAT 93; BMI 25.3
--- NOTE | 2025-02-20 12:19 | MHC.PC.OV ---
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) Accompanied by: Mother,brother Allergies azithromycin Allergy (Severe, Verified 02/20/25 12:28) Angioedema ibuprofen Allergy (Unknown, Verified 02/20/25 12:28) unknown Sulfacetamide Sod-Pred Allergy (Mild, Uncoded 02/20/25 12:28) Unknown Medication List - Last Reconciled 02/20/25 by Dafne Hawkins MD albuterol sulfate 90 mcg/actuation 2 puffs inhalation Q2-4H PRN blood sugar diagnostic (FreeStyle Lite Strips) As directed check the BS QD blood-glucose meter (FreeStyle Lite Meter kit) As directed cetirizine 10 mg PO DAILY@1200 cholecalciferol (vitamin D3) (Vitamin D3) 50 mcg PO QAM citalopram 40 mg PO QAM cyanocobalamin (vitamin B-12) 500 mcg PO DAILY@1200 [disposeable bed pads As directed] docusate sodium 100 mg PO BID fluticasone furoate-vilanterol 200-25 mcg/dose (Breo Ellipta) 1 ea inhalation DAILY folic acid 0.4 mg PO DAILY@1200 hydroxyzine HCl 50 mg PO BEDTIME [incontinent wipes As directed] lancets (FreeStyle Lancets) As directed check BS QD levothyroxine 112 mcg PO DAILY@0600 metformin 1,000 mg PO BIDWMEAL Oxygen Home Use As directed keep sats > 90 oxymetazoline 0.05% (Afrin (oxymetazoline)) 2 sprays intranasal Q12H PRN 3 days [PULL UPS LArge As directed] risperidone 1 tab PO BEDTIME risperidone 0.5 mg PO QAM simvastatin 20 mg PO DAILY@1800 [tub seat with back As directed] Tobacco use date assessed: 02/20/25 Dental Screening Dental Screen Date: 02/20/25 Did you have a dental visit in the last 12 months?: No Did you have a dental problem in the last 6 months where you did not have access to dental care?: No Was dental information given to patient?: Patient declined HPI DM HPI Details [place] island[place] with sign language Celina [id number] [facility] Medical History (Updated 02/20/25 @ 12:44 by Dafne Hawkins MD) Impaired fasting blood sugar Pneumonia Asthma Ludwigs angina COVID ACS (acute coronary syndrome) Pruritus Generalized anxiety disorder Scabies SOB (shortness of breath) Vitamin D deficiency Dysphagia Elevated blood sugar Deaf Vitamin B 12 deficiency Hypercholesterolemia Hypothyroid Anxiety and depression Constipation Surgical History History of heart surgery Family History Mother CAD (coronary artery disease) Hypertension Brother CAD (coronary artery disease) Social History Household Members: Family Household Members Other:: Mother & Brother Housing: House Housing Other:: 2 family Do you presently have visiting nurse or other home services: Yes Alcohol intake: never Patient Tobacco Use Status: Never used Tobacco Tobacco use type: Cigarette e-Cigarette/Vaping Use: Never Used Second Hand Smoke Exposure: No service: No Current occupational status: unemployed Cognitive needs: No Hearing needs: No Vision needs: Yes (glasses) Questionnaire PHQ-9 Over the last 2 weeks, how often have you been bothered by any of the following problems? 1. Little interest or pleasure in doing things: not at all 2. Feeling down, depressed, or hopeless: not at all 3. Trouble falling or staying asleep, or sleeping too much: not at all 4. Feeling tired or having little energy: not at all 5. Poor appetite or overeating: not at all 6. Feeling bad about yourself - or that you are a failure or have let yourself or your family down: not at all 7. Trouble concentrating on things, such as reading the newspaper or watching television: not at all 8. Moving or speaking so slowly that other people could have noticed. Or the opposite - being so fidgety or restless that you have been moving around a lot more than usual: not at all 9. Thoughts that you would be better off or of hurting yourself in some way: not at all Total score: 0 Depression Screening Interpretation: Negative Depression Screening Done: Yes Source: Developed by Drs. Dieter Butcher, Tio Dale and colleagues, with an educational kareem from [employer]. Thrive Questionnaire Date Thrive assessed: 09/19/24 I am a: Patient What is your living situation today?: I have a steady place to live Within the past 12 months, did the food you bought not last and you didn't have the money to get more?: Never true Within the past 12 months, did you worry whether your food would run out before you got money to buy more?: Never true Do you have trouble paying for medicines?: No Do you have trouble getting transportation to medical appointments?: No Do you have trouble paying your heating and electricity bill?: No Do you have trouble taking care of your child, family member or friend?: No Do you have trouble with day-to-day activities such as bathing, preparing meals, shopping, managing finances, etc.?: No Are you currently unemployed and looking for a job?: No Are you interested in more education?: No Please select the resources that you would like help with: None Currently or been in a relationship where the following occur: No concerns reported THRIVE Score: 0 AUDIT C Alcohol Use Questionnaire (AUDIT-C) 1. How often do you have a drink containing alcohol?: Never 3. How often do you have six or more drinks on one occasion?: Never Total Score: 0 LOI-7 AMB Questionnaire LOI-7 Date LOI - 7 assessed: 08/15/24 Feeling nervous, anxious, or on edge: 0 = Not at all Not being able to stop or control worryin = Not at all Worrying too much about different things: 0 = Not at all Trouble relaxin = Not at all Being so restless that it is hard to sit still: 0 = Not at all Becoming easily annoyed or irritable: 0 = Not at all Feeling afraid as if something awful might happen: 0 = Not at all Total LOI-7 score (0-4 normal; 5-9 mild; 10-14 moderate; 15-21 severe): 0 Source: Developed by Drs. Dieter Butcher, Toi Dale and colleagues, with an educational kareem from [employer]. Physical exam (Primary Care) Vital Signs: Last Vital Signs Temp 97.3 F 02/20/25 12:19 Pulse 105 H 02/20/25 12:19 BP 152/92 H 02/20/25 12:19 Pulse Ox 93 02/20/25 12:19 Oxygen Delivery Method Room Air 02/20/25 12:19 BMI result Body Mass Index 25.3 Tobacco/Smoking Status: Tobacco use Status Tobacco use date assessed 02/20/25 02/20/25 12:29 Patient Tobacco Use Status Never used Tobacco 02/20/25 12:29 Tobacco use type Cigarette 02/20/25 12:29 e-Cigarette/Vaping Use Never Used 02/20/25 12:29 PHQ-9: PHQ-9 Score PHQ-9: Total score 0 02/20/25 12:29 Depression Screening Interpretation: Negative Thrive Assessment: Date of Thrive Assessment Date Thrive assessed 09/19/24 02/20/25 12:29 Currently or been in a relationship where the following occur: No concerns reported Const General: alert; No acute distress Eyes Conjunctivae: conjunctivae normal Resp Auscultation: clear to auscultation bilaterally Cardio Rate: regular rate Rhythm: regular rhythm GI Inspection: Yes normal to inspection Extrem General: Yes normal to inspection and No edema Coding Level of Care Code Est Pt Level 4 (46148) Complex EM visit Add On G2211 Diagnoses CAD (coronary artery disease) I25.10 Hypercholesterolemia E78.00 Type 2 diabetes mellitus with hyperglycemia E11.65 Acquired hypothyroidism E03.9 Hypothyroidism type: acquired Anemia D64.9 Moderate persistent asthma J45.40 Hypertension I10 Assessment & Plan Assessment & Plan (1) CAD (coronary artery disease): Code(s): I25.10 - Atherosclerotic heart disease of [place] coronary artery without angina pectoris Category: Medical Plan: Control the cholesterol, weight, blood pressure, diabetes patient is advised to start taking aspirin 81 mg once a day (2) Hypercholesterolemia: Code(s): E78.00 - Pure hypercholesterolemia, unspecified Category: Medical Plan: Avoid fried foods, chicken skin, eggs, butter margarine, pastries and meat. Be it pork or beef they have a lot of cholesterol LDL goal of less than 70 and triglyceride of less than 150 patient on simvastatin 20 mg once a day (3) Type 2 diabetes mellitus with hyperglycemia: Comment: [place] 08/2024 Code(s): E11.65 - Type 2 diabetes mellitus with hyperglycemia Category: Medical Plan: Decrease the amount of carbohydrate intake, pasta, bread, rice and potatoes are all sugar and that is aside from all the sweet stuff, remember that fruits are good but they are Sweet also. Hemoglobin A1c goal of less than 6.5. Patient on metformin a 1000 mg twice a day (4) Hypothyroid: Code(s): E03.9 - Hypothyroidism, unspecified Category: Medical Qualifiers: Hypothyroidism type: acquired Qualified Code(s): E03.9 - Hypothyroidism, unspecified Plan: Continue with thyroid medication and blood work requested (5) Anemia: Code(s): D64.9 - Anemia, unspecified Category: Medical Plan: Patient was advised to get blood work for follow-up (6) Moderate persistent asthma: Code(s): J45.40 - Moderate persistent asthma, uncomplicated Category: Medical Plan: Continue with oxygen as well as albuterol inhaler as needed (7) Hypertension: Code(s): I10 - Essential (primary) hypertension Category: Medical Plan History of Present Illness The patient is a 54-year-old female presenting for a follow-up visit. She has a history of coronary artery disease, hypercholesterolemia, hypothyroidism, generalized anxiety disorder, obstructive sleep apnea, and diabetes mellitus. Her last blood work in July showed anemia with hemoglobin at 11 g/dL and hematocrit at 33.2%. Her A1c was within the normal range in August, and her renal and liver functions were normal in July. The patient's last cholesterol test in January 2024 showed an LDL of 88 mg/dL and triglycerides of 139 mg/dL. Her thyroid function was normal in August. She is currently on simvastatin for cholesterol management and metformin for diabetes management. She has been advised to start aspirin 81 mg daily and lisinopril for hypertension management. Preventative care measures include an up-to-date mammogram as of November 2024, but she has declined colon cancer screening tests. Health Maintenance - Mammogram up to date as of November 2024 - Declined colon cancer screening - Blood work requested for cholesterol and diabetes management - Advised to consider shingles vaccination - Up to date with tetanus and pneumonia vaccinations - Flu shot recommended for late February to early March Social History Review of Systems Physical Exam - Cardiovascular: Blood pressure noted to be high during the visit Results - Labs: Hemoglobin 11 g/dL, Hematocrit 33.2% (July 2024) - Labs: A1c within normal range (August 2024) - Labs: LDL 88 mg/dL, Triglycerides 139 mg/dL (January 2024) - Labs: Normal renal and liver function (July 2024) - Labs: Normal thyroid function (August 2024) Plan Patient was informed and verbally consented to the use of an ambient scribe for clinic note documentation during this visit. 1. Coronary Artery Disease The patient is advised to start taking aspirin 81 mg daily to manage coronary artery disease and reduce the risk of cardiovascular events. 2. Hypercholesterolemia The patient is currently on simvastatin 20 mg daily with a goal to maintain LDL cholesterol below 70 mg/dL and triglycerides below 150 mg/dL. 3. Hypothyroidism The patient is advised to continue with her current thyroid medication regimen, with blood work requested to monitor thyroid function. 4. Diabetes Mellitus The patient is on metformin 1000 mg twice daily with a target hemoglobin A1c of less than 6.5%. 5. Hypertension The patient is started on lisinopril once daily to manage hypertension, with instructions to monitor for side effects such as dry cough or fatigue. Discussion Notes I discussed with the patient the importance of managing her coronary artery disease with aspirin to prevent cardiovascular events. We reviewed her cholesterol management plan with simvastatin and the goal of maintaining LDL below 70 mg/dL. I emphasized the need for regular monitoring of her thyroid function and diabetes management with metformin. We also discussed starting lisinopril for hypertension and the potential side effects to watch for. I advised her to consider the shingles vaccination and to follow up in three months for further evaluation. Patient Instructions - Take aspirin 81 mg daily as prescribed. - Continue simvastatin 20 mg daily for cholesterol management. - Continue metformin 1000 mg twice daily for diabetes management. - Start lisinopril once daily for blood pressure management and monitor for side effects like dry cough or fatigue. - Consider getting the shingles vaccination from the pharmacy. - Schedule follow-up appointment in three months. Orders: Orders AMB Hemoglobin A1c Today Z13.9 - Encounter for screening, unspecified Hemoglobin A1c Today I10 - Essential (primary) hypertension Medications: New lisinopril 5 mg PO DAILY 30 tabs 0RF I10 - Essential (primary) hypertension lisinopril 5 mg PO DAILY 30 tabs 3RF I10 - Essential (primary) hypertension
== END 2025-02-20 12:51 | disposition home or self-care (01) ==
LOC: HO.HMCH 11:45
PROVIDERS: PCP Internal Medicine; Visit Provider Internal Medicine
DX: I25.10 Atherosclerotic heart disease of native coronary artery without angina pectoris (principal); E78.00 Pure hypercholesterolemia, unspecified; E11.65 Type 2 diabetes mellitus with hyperglycemia; E03.9 Hypothyroidism, unspecified; D64.9 Anemia, unspecified; J45.40 Moderate persistent asthma, uncomplicated; I10 Essential (primary) hypertension

== ENCOUNTER → 2025-02-20 11:44 | Outpatient (BNVA) | payer MEDICARE, MEDICAID, SELFPAY | PROVIDERS: PCP Internal Medicine; Visit Provider Internal Medicine | DX: E11.65 Type 2 diabetes mellitus with hyperglycemia (principal); I25.10 Atherosclerotic heart disease of native coronary artery without angina pectoris; I10 Essential (primary) hypertension; J45.40 Moderate persistent asthma, uncomplicated; D64.9 Anemia, unspecified; E78.00 Pure hypercholesterolemia, unspecified | CPT/HCPCS: 99212 ==

== ENCOUNTER 2025-02-27 10:51 | Outpatient (REF) | payer MEDICARE, MEDICAID, SELFPAY ==
--- OUTSIDE RECORDS SUMMARY | 2025-02-27 12:50 | XMS_ITS | Encounter Summary ---
Author Organization [employer] Address [address] [facility] [address] [place] [address] Care Team Providers Care Inventory Controller Name Role Phone Kiley Cary MD Primary Care Provider [phone] Reason for Visit * Reason Comments Med Refill Encounter Details Date Type Department Care Team (Late st Contact Info) Description 05/20/[address] [facility] [address] [place] [address] [phone] Kiley Cary MD [address] [place] [address] [phone] Social History Tobacco Use Types Packs/Day Years [...] on filedocumented in this encounter Care Teams Inventory Controller Relationship Specialty Start Date End Date Kiley Cary MD [address] [place] [address] [phone] PCP - General Family Medicine 06/27/18 07/04/23 documented as of this encounter
--- OUTSIDE RECORDS SUMMARY | 2025-02-27 12:50 | XMS_ITS | Clinical Summary ---
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
[2025-02-27 13:18] LABS: MANUAL DIFF FLAG NO
[2025-02-27 13:25] LABS: Hematocrit 33.0 % (37.0-47.0); Hemoglobin 10.5 g/dl (12.0-16.0); Imm Gran Abs Auto 0.00 X10*3/uL (0.00-0.03); Imm Gran Pct Auto 0.0 % (0.0-0.4); Lymphocytes Absolute Auto 1.5 X10*3/uL (1.2-4.9); Mean Corpuscular HGB Conc 31.8 g/dl (31.0-35.0); Mean Corpuscular Hemoglobin 28.4 pg (27.0-33.0); Mean Corpuscular Volume 89.2 fL (80.0-98.0); NRBC Abs Auto 0.000 X10*3/uL (0.0-0.012); NRBC Pct Auto 0.0 /100WBC (0.0-0.2); Platelet Count 174 X10*3/uL (160-400); Red Blood Count 3.70 X10*6/uL (4.20-5.50); Reticulocytes Absolute 0.076 X10*6/uL (0.026-0.095); White Blood Count 3.9 X10*3/uL (4.8-10.8)
[2025-02-27 13:36] LABS: Hemoglobin A1C 103.0165 umol/L; Total Hemoglobin (HGBA1C) 2782.8863 umol/L
[2025-02-27 13:55] LABS: Alanine Aminotransferase 16 U/L (0-31); Albumin Level 4.4 g/dL (3.5-5.0); Alkaline Phosphatase 56 U/L (39-117); Anion Gap 11 (12-20); Aspartate Amino Transferase 25 U/L (5-31); Blood Urea Nitrogen 21 mg/dL (9-16); Calcium 9.5 mg/dL (8.4-10.2); Carbon Dioxide 31 mmol/L (22-29); Chloride 102 mmol/L (96-108); Cholesterol 124 mg/dL (<200); Estimated Glomerular Filt Rate 52; Ferritin 28 ng/mL (10-250); Free T4 (Free Thyroxine) 1.36 ng/dL (0.71-1.85); HDL Cholesterol 28 mg/dL (>40); Iron 35 mcg/dL (30-160); Magnesium 1.5 mg/dL (1.6-2.6); Percent Iron Saturation 14 % (15-50); Potassium 4.3 mmol/L (3.3-5.1); Sodium 140 mmol/L (135-145); Thyroid Stimulating Hormone 0.75 uIU/mL (0.32-4.0); Total Iron Binding Capacity 253 mcg/dL (228-428); Total Protein 7.1 g/dL (6.5-8.0); Triglycerides 137 mg/dL (<150); Unsaturated Iron Binding 218 ug/dL; Uric Acid 6.6 mg/dL (2.4-5.7)
[2025-02-27 14:05] LABS: Microalbum/Creatinine Ratio Ur 60.5 ug/mg cr (<30)
[2025-02-27 14:12] LABS: Folate 13.6 ng/mL (> or = 4.0); Vitamin B12 348 pg/mL (200-900)
== END 2025-02-27 10:52 | disposition home or self-care (01) ==
LOC: HO.10HDL 10:51
PROVIDERS: Visit Provider Internal Medicine
DX: E11.65 Type 2 diabetes mellitus with hyperglycemia (principal); E78.00 Pure hypercholesterolemia, unspecified; E03.9 Hypothyroidism, unspecified; I10 Essential (primary) hypertension
CPT/HCPCS: 36415; 80053; 80061; 82043; 82306; 82570; 82607; 82728; 82746; 83036; 83540; 83735; 84439; 84443; 84550; 85025; 85045

== ENCOUNTER 2025-04-24 12:21 | Outpatient (AMB) | payer MEDICARE, MEDICAID, SELFPAY ==
[2025-04-24 12:35] VITALS: BP 122/70; PULSE 97; TEMP 36.2; O2SAT 92; BMI 25.0
--- NOTE | 2025-04-24 12:35 | MHC.PC.OV ---
Vital Signs 04/24/25 12:35 Height 4 ft 9 in Weight 115 lb 8 oz BMI 25.0 BP 122/70 Blood Pressure Location Lt brachial Position Sitting Pulse 97 Pulse Source Pulse Oximeter Temp 97.1 F Temp Source Temporal Artery Scan Pulse Oximetry (%) 92 Oxygen Delivery Method Room Air Intake Visit Reasons: Annual Exam Leverman Required: Yes Leverman Language: Commissioner Of Internal Revenue Name: Bibiana([id number]) Allergies azithromycin Allergy (Severe, Verified 04/24/25 12:40) Angioedema ibuprofen Allergy (Unknown, Verified 04/24/25 12:40) unknown Sulfacetamide Sod-Pred Allergy (Mild, Uncoded 04/24/25 12:40) Unknown Medication List - Last Reconciled 04/24/25 by Dafne Hawkins MD albuterol sulfate 90 mcg/actuation 2 puffs inhalation Q2-4H PRN blood sugar diagnostic (FreeStyle Lite Strips) As directed check the BS QD blood-glucose meter (FreeStyle Lite Meter kit) As directed cholecalciferol (vitamin D3) (Vitamin D3) 50 mcg PO QAM citalopram 40 mg PO QAM cyanocobalamin (vitamin B-12) 500 mcg PO DAILY@1200 [disposeable bed pads As directed] docusate sodium 100 mg PO BID fluticasone furoate-vilanterol 200-25 mcg/dose (Breo Ellipta) 1 ea inhalation DAILY folic acid 0.4 mg PO DAILY@1200 [incontinent wipes As directed] lancets (FreeStyle Lancets) As directed check BS QD levothyroxine 112 mcg PO DAILY@0600 lisinopril 5 mg PO DAILY loratadine 10 mg PO DAILY metformin 1,000 mg PO BIDWMEAL Oxygen Home Use As directed keep sats > 90 [PULL UPS LArge As directed] risperidone 1 tab PO BEDTIME risperidone 0.5 mg PO QAM simvastatin 20 mg PO DAILY@1800 [tub seat with back As directed] Tobacco use date assessed: 04/24/25 Dental Screening Dental Screen Date: 04/24/25 Did you have a dental visit in the last 12 months?: No Did you have a dental problem in the last 6 months where you did not have access to dental care?: No Was dental information given to patient?: Patient has dentist [facility] Medical History (Updated 04/24/25 @ 12:42 by Dafne Hawkins MD) Annual physical exam Impaired fasting blood sugar Pneumonia Asthma Ludwigs angina COVID ACS (acute coronary syndrome) Pruritus Generalized anxiety disorder Scabies SOB (shortness of breath) Vitamin D deficiency Dysphagia Elevated blood sugar Deaf Vitamin B 12 deficiency Hypercholesterolemia Hypothyroid Anxiety and depression Constipation Surgical History History of heart surgery Family History Mother CAD (coronary artery disease) Hypertension Brother CAD (coronary artery disease) Social History Household Members: Family Household Members Other:: Mother & Brother Housing: House Housing Other:: 2 family Do you presently have visiting nurse or other home services: Yes Alcohol intake: never Patient Tobacco Use Status: Never used Tobacco Tobacco use type: Cigarette e-Cigarette/Vaping Use: Never Used Second Hand Smoke Exposure: No service: No Current occupational status: unemployed Cognitive needs: No Hearing needs: No Vision needs: Yes (glasses) Questionnaire PHQ-9 Over the last 2 weeks, how often have you been bothered by any of the following problems? 1. Little interest or pleasure in doing things: not at all 2. Feeling down, depressed, or hopeless: not at all 3. Trouble falling or staying asleep, or sleeping too much: not at all 4. Feeling tired or having little energy: several days 5. Poor appetite or overeating: several days 6. Feeling bad about yourself - or that you are a failure or have let yourself or your family down: not at all 7. Trouble concentrating on things, such as reading the newspaper or watching television: several days 8. Moving or speaking so slowly that other people could have noticed. Or the opposite - being so fidgety or restless that you have been moving around a lot more than usual: not at all 9. Thoughts that you would be better off or of hurting yourself in some way: not at all Total score: 3 Source: Developed by Drs. Dieter Butcher, Zenaida White, Toi Wynne and colleagues, with an educational kareem from [employer]. Thrive Questionnaire Date Thrive assessed: 09/19/24 I am a: Patient What is your living situation today?: I have a steady place to live Within the past 12 months, did the food you bought not last and you didn't have the money to get more?: I choose not to answer this question Within the past 12 months, did you worry whether your food would run out before you got money to buy more?: I choose not to answer this question Do you have trouble paying for medicines?: I choose not to answer this question Do you have trouble getting transportation to medical appointments?: I choose not to answer this question Do you have trouble paying your heating and electricity bill?: I choose not to answer this question Do you have trouble taking care of your child, family member or friend?: I choose not to answer this question Do you have trouble with day-to-day activities such as bathing, preparing meals, shopping, managing finances, etc.?: I choose not to answer this question Are you currently unemployed and looking for a job?: I choose not to answer this question Are you interested in more education?: I choose not to answer this question Please select the resources that you would like help with: None Currently or been in a relationship where the following occur: No concerns reported and I choose not to answer THRIVE Score: 0 AUDIT C Alcohol Use Questionnaire (AUDIT-C) 1. How often do you have a drink containing alcohol?: Never 3. How often do you have six or more drinks on one occasion?: Never Total Score: 0 LOI-7 AMB Questionnaire LOI-7 Date LOI - 7 assessed: 08/15/24 Feeling nervous, anxious, or on edge: 0 = Not at all Not being able to stop or control worryin = Not at all Worrying too much about different things: 0 = Not at all Trouble relaxin = Not at all Being so restless that it is hard to sit still: 0 = Not at all Becoming easily annoyed or irritable: 1 = Several days Feeling afraid as if something awful might happen: 0 = Not at all Total LOI-7 score (0-4 normal; 5-9 mild; 10-14 moderate; 15-21 severe): 1 Source: Developed by Drs. Dieter Butcher, Zenaida White, Toi Wynne and colleagues, with an educational kareem from [employer]. Review of Systems Const Denies poor appetite and Denies weakness Eyes Denies no additional complaints ENT Reports Normal hearing present, Denies dizziness, Denies nasal congestion, Denies tinnitus and Denies sore throat Card Denies chest pain, Denies syncope, Denies rapid heart rate and Denies dyspnea Resp Denies cough and Denies dyspnea GI Denies change in stool character, Reports constipation, Denies diarrhea, Denies nausea and Denies vomiting Denies urinary frequency, Denies difficulty voiding and Denies dysuria Neuro Reports Normal hearing present, Denies confusion, Denies dizziness, Denies syncope and Denies weakness Psych Denies confusion Physical exam (Primary Care) Vital Signs: Last Vital Signs Temp 97.1 F 04/24/25 12:35 Pulse 97 04/24/25 12:35 BP 122/70 04/24/25 12:35 Pulse Ox 92 04/24/25 12:35 Oxygen Delivery Method Room Air 04/24/25 12:35 BMI result Body Mass Index 25.0 Tobacco/Smoking Status: Tobacco use Status Tobacco use date assessed 04/24/25 04/24/25 12:43 Patient Tobacco Use Status Never used Tobacco 04/24/25 12:43 Tobacco use type Cigarette 04/24/25 12:43 e-Cigarette/Vaping Use Never Used 04/24/25 12:43 PHQ-9: PHQ-9 Score PHQ-9: Total score 3 04/24/25 13:14 Thrive Assessment: Date of Thrive Assessment Date Thrive assessed 09/19/24 04/24/25 12:43 Currently or been in a relationship where the following occur: No concerns reported and I choose not to answer Const General: No confusion Orientation/consciousness: No confusion HENMT Head: Yes normocephalic Ears: external ears normal and TM's normal bilaterally Face and sinus: Yes normal facial exam Mouth: moist mucous membranes Throat: Yes tonsils normal Eyes Conjunctivae: conjunctivae normal Pupils: Equal, round and reactive pupils present and Pupil accommodation reflex normal Direct Ophthalmoscopy: normal light reflex Neck Neck: No lymphadenopathy Thyroid: Thyroid normal Chest Chest palpation & inspection: normal inspection of the chest Resp Effort & Inspection: normal respiratory effort and no audible wheezes Auscultation: clear to auscultation bilaterally, no crackles, no wheezes and lung sounds not diminished Cardio Rate: regular rate Rhythm: regular rhythm Peripheral pulses: radial pulses present and dorsalis pedis present GI Other: guaiac negative pedal pulse and pin prick good Palpation (GI): no masses Auscultation: normal bowel sounds and normoactive bowel sounds Skin General skin exam: no rashes or lesions noted Rashes: no rashes Neuro General: No confusion Cranial nerves: Yes Equal, round and reactive pupils present and Yes Normal hearing present Cognition (Neuro): normal cognition Gait exam (Neuro): Normal gait present Motor exam (neuro): 5/5 motor strength present throughout Deep tendon reflexes (DTR's): Right brachioradialis reflex intensity grade: 2+, Left brachioradialis reflex intensity grade: 2+, Right patellar reflex intensity grade: 2+ and Left patellar reflex intensity grade: 2+ Extrem General: No edema Office Procedures Flu Questionnaire Does the patient have a severe egg allergy?: No Does the patient have severe life threatening allergies?: No Does the patient have a fever or illness today?: No Has the patient ever had Guillain-[place] Syndrome?: No Has the patient ever had any past reaction to a flu shot?: No Immunizations Fluarix [id number] (PF) 45 mcg (15 mcg x 3)/0.5 mL IM syringe Performing Provider: Dafne Hawkins MD [facility] Administered by: Ny Silva CMA on 04/24/25 13:14 Dose Route Admin Location Dispensed Lot Number Expiration Date NDC Legal Editor 0.5 mL IM Left Deltoid 0.5 mL [id number] 12/24/25 [id number] [employer] VIS Given Date VIS Provided VIS Publication Date 04/24/25 Single Vaccine 24 Eligibility Eligibility Date Funding Source Not [facility] Eligible 04/24/25 Private Coding Level of Care Code Est Pt Prev Care 40-64y(15770) Diagnoses Annual physical exam Z00.00 Chronic hypercapnic respiratory failure J96.12 Moderate persistent asthma J45.40 Anemia D64.9 Hypomagnesemia E83.42 Type 2 diabetes mellitus with hyperglycemia E11.65 Acquired hypothyroidism E03.9 Hypothyroidism type: acquired Hypercholesterolemia E78.00 CAD (coronary artery disease) I25.10 Hypertension I10 Generalized anxiety disorder F41.1 Assessment & Plan Assessment & Plan (1) Annual physical exam: Code(s): Z00.00 - Encounter for general adult medical examination without abnormal findings Category: Medical Plan: Patient is advised to eat healthy, keep well hydrated, keep active and have adequate sleep. (2) Chronic hypercapnic respiratory failure: Code(s): J96.12 - Chronic respiratory failure with hypercapnia Category: Medical Plan: Continuing with inhalers and oxygen use (3) Moderate persistent asthma: Code(s): J45.40 - Moderate persistent asthma, uncomplicated Category: Medical Plan: Patient on Breo and albuterol (4) Anemia: Code(s): D64.9 - Anemia, unspecified Category: Medical Plan: Need to have a follow-up as the patient has some iron deficiency (5) Hypomagnesemia: Code(s): E83.42 - Hypomagnesemia Category: Medical Plan: Will need repeat test (6) Type 2 diabetes mellitus with hyperglycemia: Comment: [place] 08/2024 Code(s): E11.65 - Type 2 diabetes mellitus with hyperglycemia Category: Medical Plan: Decrease the amount of carbohydrate intake, pasta, bread, rice and potatoes are all sugar and that is aside from all the sweet stuff, remember that fruits are good but they are Sweet also. On metformin a 1000 mg twice a day (7) Hypothyroid: Code(s): E03.9 - Hypothyroidism, unspecified Category: Medical Qualifiers: Hypothyroidism type: acquired Qualified Code(s): E03.9 - Hypothyroidism, unspecified Plan: Continue with thyroid medication (8) Hypercholesterolemia: Code(s): E78.00 - Pure hypercholesterolemia, unspecified Category: Medical Plan: Avoid fried foods, chicken skin, eggs, butter margarine, pastries and meat. Be it pork or beef they have a lot of cholesterol LDL goal of less than 70 and triglyceride of less than 150 on simvastatin 20 mg once a day (9) CAD (coronary artery disease): Code(s): I25.10 - Atherosclerotic heart disease of [place] coronary artery without angina pectoris Category: Medical Plan: Control the cholesterol, weight, blood pressure, diabetes discussed about starting on aspirin (10) Hypertension: Code(s): I10 - Essential (primary) hypertension Category: Medical Plan: Continue with blood pressure medication. Decrease salt intake and exercise patient is on lisinopril 5 mg once a day (11) Generalized anxiety disorder: Comment: Donita appiah [place] (05/2020_ Code(s): F41.1 - Generalized anxiety disorder Category: Medical Plan: Continue with counseling and therapy Plan History of Present Illness The patient is a 54-year-old female presenting for a complete physical exam. Her past medical history is significant for generalized anxiety disorder, hypothyroidism, hypercholesterolemia, coronary artery disease, chronic carbon dioxide retention with hypercapnic respiratory failure, diabetes mellitus, nocturnal hypoxemia, moderate persistent asthma, and hypertension. The patient is deaf and has known allergies to azithromycin, ibuprofen, and sulfacetamide. The patient reports intentional weight loss through improved diet and exercise. She experienced two episodes of vomiting with nausea last Tuesday, of unknown etiology, and also reports heartburn. She denies syncope, fever, chest pain, waking short of breath, dysphagia, or changes in bowel or urinary habits. Regarding health maintenance, her mammogram is up to date, but she previously declined colon cancer screening. Her family history is notable for heart problems in her mother and brother. She denies any family history of cancer and denies personal use of tobacco, alcohol, or recreational drugs. Review of blood work from February 27 revealed anemia with a hemoglobin of 10.5 and hematocrit of 33, along with leukopenia. Her electrolytes were normal, renal function was stable with a creatinine of 1.08, blood sugar was 106 with a normal hemoglobin A1c, and liver function was fine. The labs also showed low magnesium, low-normal iron, an LDL of 69, and normal levels of B12, vitamin D, folic acid, and thyroid hormones, though proteinuria was noted. Health Maintenance The patient agreed to receive an influenza vaccine today. The shingles vaccine was recommended, and the patient was informed it is available at the pharmacy. She has agreed to schedule a colonoscopy for next year. She will follow up with her eye doctor and was asked to have the results sent to this office. Continued lifestyle modifications including weight loss, healthy diet, and exercise were encouraged. Social History - Substance Use: The patient denies smoking, drinking alcohol, or using recreational drugs. - Functional Status: The patient is deaf. - Nutritional Intake: The patient reports eating better as part of an effort to lose weight. - Exercise: The patient reports she is exercising. Review of Systems - General: Denies fever. - Constitutional: Reports intentional weight loss. - Eyes: Reports eye is dripping. - ENT: Reports being deaf. - Cardiovascular: Denies chest pains or syncope. - Respiratory: Denies waking up short of breath. - Gastrointestinal: Reports nausea, vomiting twice last Tuesday, and heartburn. - Genitourinary: Denies problems with urination. Physical Exam General: Cooperative, healthy appearing, comfortable, no acute distress and well developed Orientation: Patient oriented x3 Limitations: No limitations Head: Normal to inspection Ears: Patient is deaf Nose: Normal external nose present Face and sinus: Normal facial exam Eyes: Patient reports difficulty seeing Neck: Normal visual inspection and Yes full ROM Respiratory: Normal respiratory effort and able to speak in complete sentences. Clear to auscultation bilaterally Cardiovascular: Regular rate and rhythm. Normal S1 and S2 GI: Normal to inspection. Soft to palpation and nontender Skin: No rashes or lesions noted Neuro: Patient oriented x3 Extremities: Normal to inspection Results - Recent lab work from February 27 showed the following: - CBC: Anemia with Hgb 10.5 and Hct 33, and leukopenia. - CMP: Electrolytes normal, creatinine stable at 1.08, blood sugar 106, liver function normal. - Hemoglobin A1c: Normal. - Lipids: LDL 69. - Minerals/Vitamins: Magnesium was low, iron was low-normal. - B12, vitamin D, folic acid, and thyroid levels were all within normal limits. - Urinalysis: Proteinuria noted. Plan Patient was informed and verbally consented to the use of an ambient scribe for clinic note documentation during this visit. 1. Moderate Persistent Asthma The patient will continue with her inhalers, Breo and albuterol, and oxygen use. She was reminded to rinse her mouth after using Breo and to use albuterol only when short of breath. 2. Anemia, Iron Deficiency And Hypomagnesemia Given recent labs showing anemia and low-normal iron, repeat blood tests will be ordered to follow up on the iron deficiency. Her low magnesium level will also be retested. The patient can have the blood work done in one to two months. 3. Diabetes Mellitus The patient will continue metformin 1000 mg twice a day. 4. Hypothyroidism The patient will continue her thyroid medication. The importance of taking it separately from other medications and food was reinforced. 5. Hypercholesterolemia The patient will continue simvastatin 20 mg once a day, with an LDL goal of less than 70 and a triglyceride goal of less than 150. Her current LDL of 69 is at goal. 6. Coronary Artery Disease A discussion was had about starting aspirin. 7. Hypertension The patient will continue lisinopril 5 mg once a day. 8. Generalized Anxiety Disorder The patient will continue with counseling and therapy. Discussion Notes I reviewed the patient's extensive medical history and the results of her recent lab work from February 27. I discussed the findings of anemia, low-normal iron, and low magnesium, explaining the role of these minerals in bodily functions such as blood production, immune system support, and heart health. We will re-evaluate these with repeat blood work in about six weeks. We discussed medication adherence, particularly for her thyroid medication and inhalers, as she did not bring them to the visit. I provided education on the correct administration of these medications. We also discussed initiating aspirin for her coronary artery disease. Regarding preventative care, the patient agreed to receive her flu shot today. I recommended the shingles vaccine, explaining it is a two-part series to prevent reactivation of the chickenpox virus and it's available at the pharmacy; I also mentioned my personal experience with mild muscle aches after the second dose. The patient had previously declined a colonoscopy, but after our discussion, she agreed to schedule one for next year. She consented to a digital rectal exam today to screen for blood in the stool, and the result was negative. Finally, I encouraged her to continue her positive lifestyle changes, including eating a healthy diet, staying active, and drinking enough water. Patient Instructions - You will get your flu shot today in the office. - Continue taking all your medications as prescribed, including those for diabetes, cholesterol, blood pressure, and anxiety. - Take your thyroid medication by itself, without food, at a different time from your other medicines. - Remember to rinse your mouth with water after using your Breo inhaler. - Use your albuterol inhaler (the rescue inhaler) only when you feel short of breath. - In about 6 weeks, please go to the lab to have blood tests done. - Please schedule an eye exam with your eye doctor and ask them to send the report to our office. - We recommend you get the shingles vaccine, which is a two-shot series available at your pharmacy. - Please make an appointment for a colonoscopy for sometime next year. - Continue to drink plenty of water, eat healthy foods, and stay active. Orders: Orders Magnesium Today E83.42 - Hypomagnesemia Complete Blood Count Auto Diff Today D64.9 - Anemia, unspecified Comprehensive Met. Panel Today D64.9 - Anemia, unspecified IRON PROFILE Today D64.9 - Anemia, unspecified Vitamin B12 and Folate Today D64.9 - Anemia, unspecified Ferritin Today D64.9 - Anemia, unspecified Reticulocyte Count Today D64.9 - Anemia, unspecified Influenza [id number] Immunization Today Z23 - Encounter for immunization
--- OUTSIDE RECORDS SUMMARY | 2025-04-24 15:44 | XMS_ITS | Clinical Summary ---
Author Organization [employer] Address [address] [facility] [address] [place] [address] Care Team Providers Care Director Channel Name Role Phone Unavailable Primary Care Provider [...] 2018 Mammogram 12/01/2020 12/01/2018, 06/0 09/2018, 11/16/2017 Cervical Cancer Screening 08/08/2024 HPV/Cotest 08/08/2024 08/08/2019 Pap Smear 08/08/2024 08/08/2019 COVID-19 Vaccine ( season) 2025 06/10/2021, 11/17/2020, 10/20/2020 Influenza Vaccine (#1) 2025 2, 04/22/2021, 05/19/2020, [...] for intraephithelial lesion or malignancy, Other Comment:in [facility] HPV Undetected Historical Provider HEALTH MAINTENANCE [...] Most Recently Relevant to Health Maintenance Insurance [facility] STAND[facility]
--- OUTSIDE RECORDS SUMMARY | 2025-04-24 15:44 | XMS_ITS | Encounter Summary ---
Author Organization [employer] Address [address] [facility] [address] [place] [address] Care Team Providers Care Ordnance Engineer Name Role Phone Kiley Cary MD Primary Care Provider [phone]- [phone] Reason for Visit * Reason Comments Med Refill Encounter Details Date Type Department Care Team (Late st Contact Info) Description 05/20/[address] [facility] [address] [place] [address] [phone] Kiley Cary MD [address] [place] [address] [phone] Social History Tobacco Use Types Packs/Day Years [...] on filedocumented in this encounter Care Teams Ordnance Engineer Relationship Specialty Start Date End Date Kiley Cary MD [address] [place] [address] [phone] PCP - General Family Medicine 06/27/18 07/04/23 documented as of this encounter
== END 2025-04-24 13:27 | disposition home or self-care (01) ==
LOC: HO.HMCH 12:22
PROVIDERS: PCP Internal Medicine; Visit Provider Internal Medicine
DX: Z00.00 Encounter for general adult medical examination without abnormal findings (principal); J96.12 Chronic respiratory failure with hypercapnia; E11.65 Type 2 diabetes mellitus with hyperglycemia; J45.40 Moderate persistent asthma, uncomplicated; D64.9 Anemia, unspecified; E83.42 Hypomagnesemia; E03.9 Hypothyroidism, unspecified; E78.00 Pure hypercholesterolemia, unspecified; I25.10 Atherosclerotic heart disease of native coronary artery without angina pectoris; I10 Essential (primary) hypertension; F41.1 Generalized anxiety disorder; Z23 Encounter for immunization

== ENCOUNTER → 2025-04-24 12:21 | Outpatient (BNVA) | payer MEDICARE, MEDICAID, SELFPAY | PROVIDERS: PCP Internal Medicine; Visit Provider Internal Medicine | DX: Z00.00 Encounter for general adult medical examination without abnormal findings (principal); J96.12 Chronic respiratory failure with hypercapnia; J45.40 Moderate persistent asthma, uncomplicated; D64.9 Anemia, unspecified; E83.42 Hypomagnesemia; E11.65 Type 2 diabetes mellitus with hyperglycemia; E03.9 Hypothyroidism, unspecified; E78.00 Pure hypercholesterolemia, unspecified; I25.10 Atherosclerotic heart disease of native coronary artery without angina pectoris; I10 Essential (primary) hypertension; F41.1 Generalized anxiety disorder; Z23 Encounter for immunization | CPT/HCPCS: 90471; 90656; 99396 ==

== ENCOUNTER 2025-06-11 14:16 | Outpatient (REF) | payer MEDICARE, MEDICAID, SELFPAY ==
[2025-06-11 14:36] LABS: MANUAL DIFF FLAG NO
[2025-06-11 14:48] LABS: Hematocrit 31.6 % (37.0-47.0); Hemoglobin 10.0 g/dl (12.0-16.0); Imm Gran Abs Auto 0.03 X10*3/uL (0.00-0.03); Imm Gran Pct Auto 0.4 % (0.0-0.4); Lymphocytes Absolute Auto 1.6 X10*3/uL (1.2-4.9); Mean Corpuscular HGB Conc 31.6 g/dl (31.0-35.0); Mean Corpuscular Hemoglobin 28.7 pg (27.0-33.0); Mean Corpuscular Volume 90.5 fL (80.0-98.0); NRBC Abs Auto 0.000 X10*3/uL (0.0-0.012); NRBC Pct Auto 0.0 /100WBC (0.0-0.2); Platelet Count 206 X10*3/uL (160-400); Red Blood Count 3.49 X10*6/uL (4.20-5.50); Reticulocytes Absolute 0.067 X10*6/uL (0.026-0.095); White Blood Count 8.2 X10*3/uL (4.8-10.8)
[2025-06-11 16:22] LABS: Alanine Aminotransferase 17 U/L (0-31); Albumin Level 4.7 g/dL (3.5-5.0); Alkaline Phosphatase 57 U/L (39-117); Anion Gap 13 (12-20); Aspartate Amino Transferase 21 U/L (5-31); Blood Urea Nitrogen 33 mg/dL (9-16); Calcium 9.9 mg/dL (8.4-10.2); Carbon Dioxide 26 mmol/L (22-29); Chloride 103 mmol/L (96-108); Estimated Glomerular Filt Rate 44; Iron 37 mcg/dL (30-160); Magnesium 1.6 mg/dL (1.6-2.6); Percent Iron Saturation 15 % (15-50); Potassium 4.8 mmol/L (3.3-5.1); Sodium 137 mmol/L (135-145); Total Iron Binding Capacity 248 mcg/dL (228-428); Total Protein 7.4 g/dL (6.5-8.0); Unsaturated Iron Binding 211 ug/dL
[2025-06-11 16:31] LABS: Folate 12.3 ng/mL (> or = 4.0); Vitamin B12 370 pg/mL (200-900)
[2025-06-11 16:47] LABS: Ferritin 54 ng/mL (10-250); Free T4 (Free Thyroxine) 1.36 ng/dL (0.71-1.85); Thyroid Stimulating Hormone 0.27 uIU/mL (0.32-4.0)
--- OUTSIDE RECORDS SUMMARY | 2025-06-11 18:32 | XMS_ITS | Clinical Summary ---
Author Organization [employer] Address [address] [facility] [address] [place] [address] Care Team Providers Care Sausage Grinder Name Role Phone Unavailable Primary Care Provider [...] for intraephithelial lesion or malignancy, Other Comment:in [facility] HPV Undetected Historical Provider HEALTH [...] Most Recently Relevant to Health Maintenance Insurance [facility] STANDARD
--- OUTSIDE RECORDS SUMMARY | 2025-06-11 18:32 | XMS_ITS | Encounter Summary ---
Author Organization [employer] Address [address] [facility] [address] [place] [address] Care Team Providers Care Steward/Stewardess Dining Room Name Role Phone Kiley Cary MD Primary Care Provider [phone]- [phone] Reason for Visit * Reason Comments Med Refill Encounter Details Date Type Department Care Team (Late st Contact Info) Description 05/20/2023 Refill [facility] [address] [place] [address] [phone] Kiley Cary MD [address] [place] [address] [phone] Social History Tobacco Use Types Packs/Day Years [...] on filedocumented in this encounter Care Teams Steward/Stewardess Dining Room Relationship Specialty Start Date End Date Kiley Cary MD [address] [place] [address] [phone] PCP - General Family Medicine 06/27/18 07/04/23 documented as of this encounter
== END 2025-06-11 14:17 | disposition home or self-care (01) ==
LOC: HO.LAB 14:16
PROVIDERS: PCP Internal Medicine; Visit Provider Internal Medicine
DX: E11.65 Type 2 diabetes mellitus with hyperglycemia (principal); E03.9 Hypothyroidism, unspecified; D64.9 Anemia, unspecified; E83.42 Hypomagnesemia
CPT/HCPCS: 36415; 80053; 82570; 82607; 82728; 82746; 83036; 83540; 83735; 84439; 84443; 85025; 85045

== ENCOUNTER 2025-06-17 11:07 | Outpatient (AMB) | payer MEDICARE, MEDICAID, SELFPAY ==
--- OUTSIDE RECORDS SUMMARY | 2025-06-13 23:59 | XMS_ITS | Continuity of Care Document ---
Author Organization [facility] Address [address] [address]- Care Team Providers Care Matcher [employer] Name Role Phone Dafne Hawkins MD Primary Care Physician Encounter [facility] [place] [facility] [place] Date(s[place] 05/14/25 - 06/13/25 [facility] [address] [id number] Encounter Type: Triage Allergies, Adverse Reactions, Alerts Substance Criticality Severity Reaction Reaction Severity Status ibuprofen Active sulfa drugs Active Medications Breo Ellipta 200 mcg-25 mcg/inh inhalation powder 1 puffs, Inhalation, Daily, 0 Refills, Maintenance, 03/05/24 7:33:00 PM EDT, Powder, Partial fill upon patient request if the prescription is for a schedule II opioid drug. Start Date: 03/05/24 Status: Ordered Medication Dispense Status: Completed Total Allowed Fills: 1 Fills Dispensed: 0 cholecalciferol (vitamin D3) 50 mcg (2,000 unit) capsule cholecalciferol (vitamin D3) 50 mcg (2,000 unit) capsule, TAKE 1 CAPSULE BY MOUTH EVERY MORNING Start Date: 10/22/23 Status: Ordered Medication Dispense Status: Completed Total Allowed Fills: 1 Fills Dispensed: 0 citalopram 40 mg oral tablet 1 tablet = 40 mg, By Mouth, Daily, # 30 tablet, 0 Refills, Maintenance, 10/22/23 10:39:00 AM EDT, Tablet, Partial fill upon patient request if the prescription is for a schedule II opioid drug. Start Date: 10/22/23 Status: Ordered Medication Dispense Status: Completed Quantity: 30.0 Unit: tablet Total Allowed Fills: 1 Fills Dispensed: 0 docusate sodium 100 mg oral capsule 1 capsule = 100 mg, By Mouth, 2 times a day, # 20 capsule, 0 Refills, Maintenance, 10/22/23 10:40:00AM EDT, Capsule, Partial fill upon patient request if the prescription is for a schedule II opioid drug. Start Date: 10/22/23 Status: Ordered Medication Dispense Status: Completed Quantity: 20.0 Unit: capsule Total Allowed Fills: 1 Fills Dispensed: 0 folic acid 0.4 mg oral tablet 1 tablet = 0.4 mg, By Mouth, Daily, # 100 tablet, 0 Refills, Maintenance, 10/22/23 10:40:00 AM EDT, Tablet, Partial fill upon patient request if the prescription is for a schedule II opioid drug. Start Date: 10/22/23 Status: Ordered Medication Dispense Status: Completed Quantity: 100.0 Unit: tablet Total Allowed Fills: 1 Fills Dispensed: 0 levothyroxine 0.112 mg oral tablet 1 tablet = 112 mcg, By Mouth, Daily, # 30 tablet, 0 Refills, Maintenance, 10/22/23 10:40:00 AM EDT, Tablet, Partial fill upon patient request if the prescription is for a schedule II opioid drug. Start Date: 10/22/23 Status: Ordered Medication Dispense Status: Completed Quantity: 30.0 Unit: tablet Total Allowed Fills: 1 Fills Dispensed: 0 loratadine 10 mg oral tablet 10 mg, 1, tablet, By Mouth, Daily, # 30 tablet, Refills 0, Maintenance, 10/22/23 10:40:00 AM EDT, Partial fill upon patient request if the prescription is for a schedule II opioid drug. Start Date: 10/22/23 Status: Ordered Medication Dispense Status: Completed Quantity: 30.0 Unit: tablet Total Allowed Fills: 1 Fills Dispensed: 0 metFORMIN 1000 mg oral tablet 1 tablet = 1,000 mg, By Mouth, 2 times a day, # 60 tablet, 0 Refills, Maintenance, 10/22/23 10:40:00AM EDT, Tablet, Partial fill upon patient request if the prescription is for a schedule II opioid drug. Start Date: 10/22/23 Status: Ordered Medication Dispense Status: Completed Quantity: 60.0 Unit: tablet Total Allowed Fills: 1 Fills Dispensed: 0 risperiDONE 0.5 mg oral tablet 0.5 mg, 1, tablet, By Mouth, Daily, # 30 tablet, Refills 0, Maintenance, 10/22/23 10:40:00 AM EDT, Partial fill upon patient request if the prescription is for a schedule II opioid drug. Start Date: 10/22/23 Status: Ordered Medication Dispense Status: Completed Quantity: 30.0 Unit: tablet Total Allowed Fills: 1 Fills Dispensed: 0 simvastatin 20 mg oral tablet 20 mg, 1, tablet, By Mouth, Daily at bedtime, # 30 tablet, Refills 0, Maintenance, 10/22/23 10:40:00AM EDT, Partial fill upon patient request if the prescription is for a schedule II opioid drug. Start Date: 10/22/23 Status: Ordered Medication Dispense Status: Completed Quantity: 30.0 Unit: tablet Total Allowed Fills: 1 Fills Dispensed: 0 Ventolin HFA 108 mcg/inh inhalation aerosol with adapter 2 puffs, Inhalation, Every 4 hours, PRN for wheezing, # 18 Gm, 0 Refills, Maintenance, 10/22/23 10:40:00 AM EDT, Aerosol, Partial fill upon patient request if the prescription is for a schedule II opioid drug. Start Date: 10/22/23 Status: Ordered Medication Dispense Status: Completed Quantity: 18.0 Unit: g Total Allowed Fills: 1 Fills Dispensed: 0 Vitamin B-12 500 mcg oral tablet 1 tablet = 500 mcg, By Mouth, Daily, # 30 tablet, 0 Refills, Maintenance, 10/22/23 10:40:00 AM EDT, Tablet, Partial fill upon patient request if the prescription is for a schedule II opioid drug. Start Date: 10/22/23 Status: Ordered Medication Dispense Status: Completed Quantity: 30.0 Unit: tablet Total Allowed Fills: 1 Fills Dispensed: 0 Problem List Condition Confirmation Course Effective Dates Status H ealth Status Informant Hypercapnic respiratory failure Confirmed Active Hyperlipidemia Confirmed Active Type II diabetes mellitus Confirmed Active Social History Social History Type Response Smoking Status Never (less than 100 in lifetime) entered on: 08/23/24 Sex Sex Representation Female (finding) Patient Care team information Care Team Personnel Name: Teto Gómez RN Position: S RN Member Role: Primary Care Nurse Name: Nadya Pedroza RN Position: S RN Member Role: Primary Care Nurse Name: Kylee Turner RN Position: [facility] RN Member Role: Primary Care Nurse Name: Lorenza Robertson RN Position: [facility] RN Supv Member Role: Primary Care Nurse Name: Simone Mitchell RN Position: [facility] RN Supv Member Role: Primary Care Nurse Name: Cristine Yusuf RN Position: [facility] RN Member Role: Primary Care Nurse Name: Dafne Hawkins MD Position: Reference Physician Member Role: PCP Address: [address] [place] [address] Telecom: Name: Cordelia Florian LPN Position: [facility] RN Member Role: Primary Care Nurse Name: Edna Morgan RN Position: [facility] RN Member Role: Primary Care Nurse Name: Tanya Reyes RN Position: [facility] RN Member Role: Primary Care Nurse Name: Irene Tomlin RN Position: [facility] RN Member Role: Primary Care Nurse Name: Wilmer Buckley RN Position: [facility] RN Member Role: Primary Care Nurse Care Team Related Persons Name: KAREEM BRIONES Name: PASQUALE MITCHELL Name: GENESIS MITCHELL Insurance Providers Guarantor name: GEOVANNI Health Plan Information #: 1 Payer: MEDICARE B Payer Identifier: Member Number: [id number] Group Number: Subscriber Identifier: Relationship to Subscriber: self Coverage Type: NA Coverage Verification Date: NA Telecom: NA Address: Health Plan Information #: 2 [facility] Payer Identifier: Member Number: [id number] Group Number: Subscriber Identifier: Relationship to Subscriber: self Coverage Type: MEDICAID Coverage Verification Date: Telecom: Address:
[2025-06-17 11:33] VITALS: BP 100/52; PULSE 116; O2SAT 98; BMI 24.5
--- NOTE | 2025-06-17 11:33 | A.OFFPC_ITS ---
Vital Signs 06/17/25 11:33 Height 4 ft 9 in Weight 113 lb BMI 24.5 BP 100/52 L Blood Pressure Location Lt brachial Position Sitting Pulse 116 H Pulse Source Pulse Oximeter Pulse Oximetry (%) 98 Oxygen Delivery Method Room Air Intake Visit Reasons: DM Partnership Manager Required: No Accompanied by: Self / Same As Patient Allergies azithromycin Allergy (Severe, Verified 06/17/25 11:34) Angioedema ibuprofen Allergy (Unknown, Verified 06/17/25 11:34) unknown Sulfacetamide Sod-Pred Allergy (Mild, Uncoded 06/17/25 11:34) Unknown Medication List - Last Reconciled 06/17/25 by Dafne Bass PoMD albuterol sulfate 90 mcg/actuation 2 puffs inhalation Q2-4H PRN blood sugar diagnostic (FreeStyle Lite Strips) As directed check the BS QD blood-glucose meter (FreeStyle Lite Meter kit) As directed cholecalciferol (vitamin D3) (Vitamin D3) 50 mcg PO QAM citalopram 40 mg PO QAM cyanocobalamin (vitamin B-12) 500 mcg PO DAILY@1200 [disposeable bed pads As directed] docusate sodium 100 mg PO BID fluticasone furoate-vilanterol 200-25 mcg/dose (Breo Ellipta) 1 ea inhalation DAILY folic acid 0.4 mg PO DAILY@1200 [incontinent wipes As directed] lancets (FreeStyle Lancets) As directed check BS QD levothyroxine 112 mcg PO DAILY@0600 lisinopril 5 mg PO DAILY loratadine 10 mg PO DAILY metformin 1,000 mg PO BIDWMEAL Oxygen Home Use As directed keep sats > 90 [PULL UPS LArge As directed] risperidone 1 tab PO BEDTIME risperidone 0.5 mg PO QAM simvastatin 20 mg PO DAILY@1800 [tub seat with back As directed] Tobacco use date assessed: 06/17/25 Dental Screening Dental Screen Date: 06/17/25 Did you have a dental visit in the last 12 months?: No Did you have a dental problem in the last 6 months where you did not have access to dental care?: No Was dental information given to patient?: No HPI DM HPI Details summer [id number] states albuterol use once in a while HPI Comments History of Present Illness Details History of Present Illness The patient is a 54-year-old female presenting for a follow-up visit to manage multiple chronic conditions and review recent lab results. Her medical history is significant for hypothyroidism, hypercholesterolemia, coronary artery disease, obstructive sleep apnea, diabetes mellitus, asthma, hypertension, and generalized anxiety disorder. She was last seen for a physical exam in March 2025. Recent blood work revealed anemia with a hemoglobin of 10 g/dL and hematocrit of 31.6%, which is a chronic issue for the patient. Kidney function tests were abnormal, showing an elevated BUN of 33 mg/dL and a creatinine of 1.27 mg/dL. Her diabetes appears well-controlled with a blood sugar of 101 mg/dL and a normal hemoglobin A1c of 5.5%. Her cholesterol panel from February showed an LDL of 69 mg/dL. Thyroid testing was mildly abnormal with a TSH of 0.27. Her medication regimen includes albuterol and Breo inhalers for asthma, vitamin D, citalopram, vitamin B12, docusate sodium for constipation, folic acid, thyroid medication, lisinopril for hypertension, metformin for diabetes, risperidone, and simvastatin for cholesterol. She uses her Breo inhaler daily and her albuterol rescue inhaler occasionally. Regarding health maintenance, her last mammogram was in November 2024 and she has previously declined a colonoscopy. She is reportedly up to date on her tetanus, pneumonia, and flu shots. Health Maintenance - Last mammogram was in November 2024. - The patient has declined colonoscopy. - Vaccinations: Patient is up to date wi th tetanus, pneumonia, and flu shots. - Shingles vaccine: Recommended as a pre ventative measure, available at the pharmacy. Social History - Fluid intake: The patient reports drin cruzito 5 glasses of water daily. - Functional status: The patient is acco mpanied by her DRAFTER SEISMOGRAPH. Results - Complete Blood Count: Hemoglobin 10 g/ dL, Hematocrit 31.6%. - Basic Metabolic Panel: Electrolytes ar e good. BUN 33 mg/dL. Creatinine 1.27 mg/dL. Blood sugar 101 mg/dL. - Hemoglobin A1c: 5.5%. - Comprehensive Metabolic Panel: Liver f unction tests are normal. - Lipid Panel (from February): LDL 69 m g/dL. - Vitamins: Vitamin B12 and folic acid l evels are normal. - Thyroid Stimulating Hormone (TSH): 0.2 7. - Magnesium: Level is better. [facility] Medical History (Updated 06/17/25 @ 11:44 by Dafne Hawkins MD) Annual physical exam Impaired fasting blood sugar Pneumonia Asthma Ludwigs angina COVID ACS (acute coronary syndrome) Pruritus Generalized anxiety disorder Scabies SOB (shortness of breath) Vitamin D deficiency Dysphagia Elevated blood sugar Deaf Vitamin B 12 deficiency Hypercholesterolemia Hypothyroid Anxiety and depression Constipation Surgical History History of heart surgery Family History Mother CAD (coronary artery disease) Hypertension Brother CAD (coronary artery disease) Social History Household Members: Family Household Members Other:: Mother & Brother Housing: House Housing Other:: 2 family Do you presently have visiting nurse or other home services: Yes Alcohol intake: never Patient Tobacco Use Status: Never used Tobacco Tobacco use type: Cigarette e-Cigarette/Vaping Use: Never Used Second Hand Smoke Exposure: No service: No Current occupational status: unemployed Cognitive needs: No Hearing needs: No Vision needs: Yes (glasses) Questionnaire PHQ-9 Over the last 2 weeks, how often have you been bothered by any of the following problems? 1. Little interest or pleasure in doing things: not at all 2. Feeling down, depressed, or hopeless: not at all 3. Trouble falling or staying asleep, or sleeping too much: not at all 4. Feeling tired or having little energy: several days 5. Poor appetite or overeating: several days 6. Feeling bad about yourself - or that you are a failure or have let yourself or your family down: not at all 7. Trouble concentrating on things, such as reading the newspaper or watching television: several days 8. Moving or speaking so slowly that other people could have noticed. Or the opposite - being so fidgety or restless that you have been moving around a lot more than usual: not at all 9. Thoughts that you would be better off or of hurting yourself in some way: not at all Total score: 3 Source: Developed by Drs. Dieter Butcher, Zenaida White, Toi Wynne and colleagues, with an educational kareem from [employer]. Thrive Questionnaire Date Thrive assessed: 06/17/25 I am a: Patient What is your living situation today?: I have a steady place to live Within the past 12 months, did the food you bought not last and you didn't have the money to get more?: I choose not to answer this question Within the past 12 months, did you worry whether your food would run out before you got money to buy more?: I choose not to answer this question Do you have trouble paying for medicines?: I choose not to answer this question Do you have trouble getting transportation to medical appointments?: I choose not to answer this question Do you have trouble paying your heating and electricity bill?: I choose not to answer this question Do you have trouble taking care of your child, family member or friend?: I choose not to answer this question Do you have trouble with day-to-day activities such as bathing, preparing meals, shopping, managing finances, etc.?: I choose not to answer this question Are you currently unemployed and looking for a job?: I choose not to answer this question Are you interested in more education?: I choose not to answer this question Please select the resources that you would like help with: None Currently or been in a relationship where the following occur: No concerns reported and I choose not to answer THRIVE Score: 0 AUDIT C Alcohol Use Questionnaire (AUDIT-C) 1. How often do you have a drink containing alcohol?: Never 3. How often do you have six or more drinks on one occasion?: Never Total Score: 0 LOI-7 AMB Questionnaire LOI-7 Date LOI - 7 assessed: 06/17/25 Feeling nervous, anxious, or on edge: 0 = Not at all Not being able to stop or control worryin = Not at all Worrying too much about different things: 0 = Not at all Trouble relaxin = Not at all Being so restless that it is hard to sit still: 0 = Not at all Becoming easily annoyed or irritable: 1 = Several days Feeling afraid as if something awful might happen: 0 = Not at all Total LOI-7 score (0-4 normal; 5-9 mild; 10-14 moderate; 15-21 severe): 1 Source: Developed by Drs. Dieter Butcher, Zenaida BToi Brink and colleagues, with an educational kareem from [employer]. Review of Systems Narrative Review of Systems - Respiratory: Reports an intermittent cough as noted by her DRAFTER SEISMOGRAPH. - All other systems were reviewed and are negative. Physical exam (Primary Care) Vital Signs: Last Vital Signs Pulse 116 H 06/17/25 11:33 BP 100/52 L 06/17/25 11:33 Pulse Ox 98 06/17/25 11:33 Oxygen Delivery Method Room Air 06/17/25 11:33 BMI result Body Mass Index 24.5 Tobacco/Smoking Status: Tobacco use Status Tobacco use date assessed 06/17/25 06/17/25 11:44 Patient Tobacco Use Status Never used Tobacco 06/17/25 11:44 Tobacco use type Cigarette 06/17/25 11:44 e-Cigarette/Vaping Use Never Used 06/17/25 11:44 PHQ-9: PHQ-9 Score PHQ-9: Total score 3 06/17/25 19:23 Thrive Assessment: Date of Thrive Assessment Date Thrive assessed 06/17/25 06/17/25 11:44 Currently or been in a relationship where the following occur: No concerns reported and I choose not to answer Narrative Physical Exam - Respiratory: Lungs are clear to auscultation bilaterally. No cough was noted during the exam. Const General: alert; No acute distress Eyes Conjunctivae: conjunctivae normal Resp Auscultation: clear to auscultation bilaterally Cardio Rate: regular rate Rhythm: regular rhythm GI Inspection: Yes normal to inspection Extrem General: Yes normal to inspection and No edema Coding Level of Care Code Est Pt Level 4 (44090) Add On Problem Visit Only Diagnoses Hypertension I10 CAD (coronary artery disease) I25.10 Hypercholesterolemia E78.00 Type 2 diabetes mellitus with hyperglycemia E11.65 Acquired hypothyroidism E03.9 Hypothyroidism type: acquired Anemia D64.9 Moderate persistent asthma J45.40 Renal insufficiency N28.9 Assessment & Plan Assessment & Plan (1) Hypertension: Code(s): I10 - Essential (primary) hypertension Category: Medical Plan: Continue with blood pressure medication. Decrease salt intake and exercise patient is on lisinopril 5 mg once a day (2) CAD (coronary artery disease): Code(s): I25.10 - Atherosclerotic heart disease of [place] coronary artery without angina pectoris Category: Medical Plan: Control the cholesterol, weight, blood pressure, diabetes, advised to take aspirin 81 mg once a day (3) Hypercholesterolemia: Code(s): E78.00 - Pure hypercholesterolemia, unspecified Category: Medical Plan: Avoid fried foods, chicken skin, eggs, butter margarine, pastries and meat. Be it pork or beef they have a lot of cholesterol on simvastatin LDL goal of less than 70 and triglyceride of less than 150 (4) Type 2 diabetes mellitus with hyperglycemia: Comment: [place] 08/2024 Code(s): E11.65 - Type 2 diabetes mellitus with hyperglycemia Category: Medical Plan: Decrease the amount of carbohydrate intake, pasta, bread, rice and potatoes are all sugar and that is aside from all the sweet stuff, remember that fruits are good but they are Sweet also. Hemoglobin A1c goal of less than 6.5. (5) Hypothyroid: Code(s): E03.9 - Hypothyroidism, unspecified Category: Medical Qualifiers: Hypothyroidism type: acquired Qualified Code(s): E03.9 - Hypothyroidism, unspecified Plan: Continue with thyroid medication will have to retest TSH (6) Anemia: Code(s): D64.9 - Anemia, unspecified Category: Medical Plan: Continue to monitor (7) Moderate persistent asthma: Code(s): J45.40 - Moderate persistent asthma, uncomplicated Category: Medical Plan: Patient is on Breo and albuterol inhaler (8) Renal insufficiency: Code(s): N28.9 - Disorder of kidney and ureter, unspecified Category: Medical Plan: Advised to keep well hydrated, avoid NSAIDs repeat blood work Plan Plan Patient was informed and verbally consented to the use of an ambient scribe for clinic note documentation during this visit. 1. Renal Insufficiency The patient's recent lab work showed an elevated BUN of 33 and creatinine of 1.27, which is concerning for a kidney problem, possibly related to dehydration. The plan is to adjust her medication, increase hydration, and monitor her kidney function. Her metformin dosage will be decreased from 1000 mg twice a day to 500 mg twice a day, as this medication is processed through the kidneys. The patient was counseled to increase her water intake. Repeat blood work to recheck kidney function will be done in one month. A follow-up appointment is scheduled in three months, but she will be contacted sooner if the repeat labs show other problems. 2. Diabetes Mellitus The patient's diabetes is well-controlled with a hemoglobin A1c of 5.5%, which is below the goal of 6.5%. Due to concerns about her kidney function, her metformin dose is being reduced to 500 mg twice a day. A prescription refill for her Freestyle blood sugar test strips has been sent to the [facility] pharmacy. 3. Hypothyroidism The patient's recent TSH was mildly abnormal at 0.27. She will continue her current thyroid medication. Her TSH will be retested with the repeat blood work in one month. 4. Cough The patient's DRAFTER SEISMOGRAPH reported a concern for an intermittent cough. On examination, the patient's lungs were clear to auscultation, and no cough was observed during the visit. The patient was advised to follow up if the cough persists. 5. Medication Management Current medications were reviewed. She will continue lisinopril 5 mg, daily aspirin 81 mg, simvastatin for cholesterol, and her asthma inhalers (Breo and albuterol). The patient was advised that for future appointments, it would be safer to bring her medication bottles or an updated list. Discussion Notes I reviewed the patient's recent lab results with her and her caregiver. I expressed my concern regarding the elevated BUN and creatinine, explaining that this indicates a potential kidney problem and signs of dehydration. I explained my decision to decrease her metformin dosage to 500 mg twice daily, as the medication is cleared by the kidneys, and this adjustment is a safety precaution. I emphasized the importance of increasing her daily water intake, specifying water over other liquids. We discussed that her diabetes is well-controlled based on her HbA1c, but the medication change is necessary for kidney safety. I informed her that her TSH level was mildly abnormal and that we would continue her current thyroid medication and recheck the level in one month. I confirmed that a refill for her blood glucose test strips was sent to her pharmacy. I recommended that she bring her medication bottles or a list to all future appointments to ensure safety and accuracy in her care, to which she agreed. I also discussed the shingles vaccine as a recommended but not required immunization available at the pharmacy. I outlined the plan for repeat blood work in one month with a follow-up visit in three months, and that I would contact her sooner if the kidney results are concerning. Patient Instructions - Take Metformin 500 mg twice a day. This is a lower dose than you were taking before. - Make sure you are drinking enough fluids, aiming for 6 to 8 glasses of water each day. - Continue all your other medications as prescribed, including your thyroid medicine, blood pressure medicine, and cholesterol medicine. - You will need to get blood work done in one month to recheck your kidney and thyroid levels. - I have sent a refill for your blood sugar test strips (Freestyle) to the [facility] pharmacy. - Please let me know if your cough continues or gets worse. - Your next appointment is in three months, but we will call you if your new lab results show any major problems. - You can get the shingles vaccine at the pharmacy. It is recommended but not required. - For your next visit, please bring all your medication bottles or a list of your medications. Orders: Orders Aldost/Renin Today I10 - Essential (primary) hypertension Medications: Changed From metformin 1,000 mg PO BIDWMEAL 180 tabs 3RF E11.65 - Type 2 diabetes mellitus with hyperglycemia To metformin 500 mg PO BIDWMEAL 60 tabs 3RF E11.65 - Type 2 diabetes mellitus with hyperglycemia Refilled blood sugar diagnostic (FreeStyle Lite Strips) As directed check the BS QD 100 ea 3RF E11.65 - Type 2 diabetes mellitus with hyperglycemia
--- OUTSIDE RECORDS SUMMARY | 2025-06-17 14:09 | XMS_ITS | Clinical Summary ---
Author Organization [facility] Address [address] [facility] [address] [place] [address] Care Team Providers Care Seed Sorter Name Role Phone Unavailable Primary Care Provider [...] for intraephithelial lesion or malignancy, Other Comment:in [facility] HPV Undetected Historical Provider HEALTH MAINTENANCE [...] Most Recently Relevant to Health Maintenance Insurance [facility] STANDARD
--- OUTSIDE RECORDS SUMMARY | 2025-06-17 14:09 | XMS_ITS | Encounter Summary ---
Author Organization [employer] Address [address] [facility] [address] [place] [address] Care Team Providers Care Aerobics Instructor Name Role Phone Kiley Cary MD Primary Care Provider [phone] Reason for Visit * Reason Comments Med Refill Encounter Details Date Type Department Care Team (Late st Contact Info) Description 05/20/2023 Refill [facility] MEDICINE [address] [place] [address] [phone] Kiley Cary MD [address] [place] [address] [phone] Social History Tobacco Use Types Packs/Day Years [...] on filedocumented in this encounter Care Teams Aerobics Instructor Relationship Specialty Start Date End Date Kiley Cary MD [address] [place] [address] [phone] PCP - General Family Medicine 06/27/18 07/04/23 documented as of this encounter
== END 2025-06-17 12:09 | disposition home or self-care (01) ==
LOC: HO.HMCH 11:08
PROVIDERS: PCP Internal Medicine; Visit Provider Internal Medicine
DX: I10 Essential (primary) hypertension (principal); I25.10 Atherosclerotic heart disease of native coronary artery without angina pectoris; E78.00 Pure hypercholesterolemia, unspecified; E11.65 Type 2 diabetes mellitus with hyperglycemia; E03.9 Hypothyroidism, unspecified; D64.9 Anemia, unspecified; J45.40 Moderate persistent asthma, uncomplicated; N28.9 Disorder of kidney and ureter, unspecified

== ENCOUNTER → 2025-06-17 11:07 | Outpatient (BNVA) | payer MEDICARE, MEDICAID, SELFPAY | PROVIDERS: PCP Internal Medicine; Visit Provider Internal Medicine | DX: I10 Essential (primary) hypertension (principal); I25.10 Atherosclerotic heart disease of native coronary artery without angina pectoris; E78.00 Pure hypercholesterolemia, unspecified; E11.65 Type 2 diabetes mellitus with hyperglycemia; E03.9 Hypothyroidism, unspecified; D64.9 Anemia, unspecified; J45.40 Moderate persistent asthma, uncomplicated; Z13.31 Encounter for screening for depression; Z13.39 Encounter for screening examination for other mental health and behavioral disorders; R05.9 Cough, unspecified; N18.9 Chronic kidney disease, unspecified; Z79.899 Other long term (current) drug therapy | CPT/HCPCS: 96127; 99212 ==